=== PATIENT | male | born 2000 | race Two or more races ===

== ENCOUNTER 2022-02-24 14:43 | Inpatient (IN) | payer OTHER, SELFPAY ==
[2022-02-24 14:51] VITALS: BP 112/56; PULSE 90; RESP 18; TEMP 36.7; O2SAT 96; BMI 22.3
[2022-02-24 14:58] VITALS: RESP 18
[2022-02-24 15:46] LABS: COVID-19 Test Negative (Negative); IDNOW Serial# 55D5AD1C
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
--- NOTE | 2022-02-24 17:32 | PHA.MEDREC ---
Pharmacy Consult ? Medication Reconciliation Pharmacy has completed the medication reconciliation.
[2022-02-24 17:52] LABS: Appearance Urine Clear; Color Urine Yellow; Glucose Urine UA Negative (Negative); Leukocyte Esterase Urine Negative (Negative); Nitrite Urine Negative (Negative); Specific Gravity - Urine >= 1.030 (1.005-1.025); Urine Blood Negative (Negative); Urine Ketones Trace mg/dL (Negative); Urine Protein Trace mg/dL (Neg-Trace)
[2022-02-24 17:54] LABS: Amphetamine Screen Urine Not Detected (Not Detect); Barbiturates, Urine Not Detected (Not Detect); Benzodiazepines Screen Urine Not Detected (Not Detect); Cannabinoid Screen Urine Not Detected (Not Detect); Cocaine Screen Urine Not Detected (Not Detect); Fentanyl, urine Not Detected (Not Detect); Opiate Screen Urine Not Detected (Not Detect); Phencyclidine Screen Urine Not Detected (Not Detect)
--- NOTE | 2022-02-24 18:08 | PC.NURSE ---
pt refused t/w attempt to perform blood draw. t/w stressed the importance of labs to inpatient admission process. pt still refused. rn aware.
--- NOTE | 2022-02-24 19:55 | PC.NURSE ---
Nurse to nurse report given to JUSTEN Villa. Patient being transferred to . Pt aware of plan of care.
[2022-02-24 21:36] VITALS: BMI 24.0
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
[2022-02-25 08:00] VITALS: BP 136/65; PULSE 79; TEMP 36.4
--- NOTE | 2022-02-25 15:43 | PC.NURSE ---
Pt signed 3 day notice up on Tuesday, 03/02. , FAMILIA, and SW aware.
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
[2022-02-25 17:19] VITALS: BP 116/56; PULSE 74; RESP 16; TEMP 36.9; O2SAT 98
[2022-02-26 06:00] VITALS: BP 121/67; PULSE 94; TEMP 36.3
[2022-02-26] MEDS: Benztropine Mesylate 1 MG TABLET PO (09:35)
[2022-02-26] MEDS: ARIPiprazole 20 MG TABLET PO (09:35)
--- NOTE | 2022-02-26 16:03 | HO.PSYCHPN ---
Subjective Subjective Date of Service: 02/26/22 Reason For Visit: SEC 12,NON MED COMP,INCR AGRESSION @ HOME Subjective Notes: 3 Day Healthcare Proxy: No Guardianship: Yes (father went to court today and reports this was granted) Medical Problems Affecting Mental Status: No Interim History: Responding to internal stimuli Visable on the unit Poor interactions at times-spontaneous laughing, posturing Medication Compliance: Yes Side effects from medications: No Attending Groups: No Review of Systems Acute medical concerns: No Medical Review of Systems: unchanged Mental Status Exam Mental Status Exam Patient Appearance: Appropriate Patient Orientation: Person Level of Consciousness: Alert Patient Behavior: Guarded, Suspicious, Restless, Wandering, Resistive to Care, Avoidant, Distractible, Isolative, Good Eye Contact and Impulsive Mood Description: Suspicious, Withdrawn and Labile Affect Description: Suspicious, Withdrawn and Labile Patient Cognition Impaired: Yes Ability to Follow Directions: Fair Speech Pattern: Spontaneous Speech Memory Description: Remote Impaired and Episodic Impaired Hallucinations: Auditory and Visual Delusions: Paranoid Ideation and Present Thought Process: Illogical, Distracted and Confusion Thought Content: positive for Poverty of Content, positive for Thought Blocking and positive for Disorganized Abnormal Motor Activity Signs and Symptoms: Restlessness Judgement: Poor Diagnostics Vital Signs (24Hr): Vital Signs - 24 hr 02/25/22 17:19 02/26/22 06:00 Temperature 98.5 F 97.4 F Pulse Rate 74 94 Respiratory Rate 16 Blood Pressure 116/56 L 121/67 Pulse Oximetry 98 Oxygen Delivery Method Room Air BMI result Body Mass Index 24.0 Labs Labs: Laboratory Results - last 48 hr 02/24/22 02/24/22 17:21 17:22 Urine Color Yellow Urine Appearance Clear Urine pH 7.0 Ur Specific [place] >= 1.030 H Urine Protein Trace Urine Glucose (UA) Negative Urine Ketones Trace Urine Blood Negative Urine Nitrite Negative Ur Leukocyte Esterase Negative Urine Opiates Screen Not Detected Urine Fentanyl Screen Not Detected Ur Barbiturates Screen Not Detected Ur Phencyclidine Scrn Not Detected Ur Amphetamines Screen Not Detected U Benzodiazepines Scrn Not Detected Urine Cocaine Screen Not Detected U Marijuana (THC) Screen Not Detected Medications Medications Current Medications Acetaminophen (Acetaminophen 325 Mg Tablet) 650 mg PO Q6H PRN PRN Reason: Headache/Pain Mild Scale (1-3) Al Hydroxide/Mg Hydroxide (Magnesium Hydrox/Alum Hydrox 30 Ml Oral.Susp) 30 ml PO Q6H PRN PRN Reason: Heartburn/Nausea Aripiprazole (Aripiprazole 20 Mg Tablet) 20 mg PO DAILY JELANI Last Admin: 02/26/22 09:35 Dose: 20 mg Benztropine Mesylate (Benztropine Mesylate 1 Mg Tablet) 1 mg PO BID JELANI Last Admin: 02/26/22 09:35 Dose: 1 mg Haloperidol (Haloperidol 5 Mg Tablet) 5 mg PO TID PRN PRN Reason: psychotic agitation Hydroxyzine HCl (Hydroxyzine Hcl 50 Mg Tablet) 50 mg PO Q6H PRN PRN Reason: Anxiety Lorazepam (Lorazepam 1 Mg Tablet) 1 mg PO Q6H PRN PRN Reason: psychotic agitation Magnesium Hydroxide (Milk Of Magnesia 30 Ml Oral.Susp) 30 ml PO DAILY PRN PRN Reason: Constipation Pharmacy Consult (Consult Rx Perform Med Rec) 1 each MISCELLANE ONCE PRN PRN Reason: Consult order Prazosin HCl (Prazosin Hcl 1 Mg Capsule) 2 mg PO BEDTIME JELANI; Protocol Trazodone HCl (Trazodone Hcl 50 Mg Tablet) 50 mg PO BEDTIME PRN PRN Reason: Insomnia Allergies Allergies Allergy/AdvReac Type Severity Reaction Status Date / Time No Known Allergies Allergy Verified 02/24/22 14:48 Assessment & Plan Assessment & Plan (1) Schizophrenia: Status: Acute Code(s): F20.9 - Schizophrenia, unspecified Plan 02/26/22- Continue current plan Father reports he has been granted guardianship He has paperwork for tw to complete for the court which will be done. I spent minutes with the patient and/or on the patient floor today, greater than?50% of which was spent counseling/coordinating care. Informed Consent: does not understand Reason for contiued inpatient stay Substantial Risk for: harm to self, harm to others, inability to function and rapid decompensation
[2022-02-26 18:00] VITALS: BP 117/88; PULSE 97; TEMP 36.2; O2SAT 96
[2022-02-27 08:00] VITALS: BP 116/57; PULSE 82; TEMP 36.2
[2022-02-27] MEDS: Benztropine Mesylate 1 MG TABLET PO ×2 (10:34→20:33)
[2022-02-27] MEDS: ARIPiprazole 20 MG TABLET PO (10:34)
--- NOTE | 2022-02-27 14:47 | HO.PSYCHPN ---
Subjective Subjective Date of Service: 02/27/22 Reason For Visit: SEC 12,NON MED COMP,INCR AGRESSION @ HOME Interim History: Pacing unit. Internally preoccupied. Difficulty focusing. Partial medication adherence. Medication Compliance: Intermittent Side effects from medications: No Attending Groups: No Review of Systems Acute medical concerns: No Review of Systems Review of Systems Yes Unobtainable due to mental status Mental Status Exam Mental Status Exam Narrative: Pacing. Internally preoccupied. Poor concentration. Does appear guarded. Unable to assess SI HI or insight Diagnostics Vital Signs (24Hr): Vital Signs - 24 hr 02/26/22 18:00 02/27/22 08:00 Temperature 97.2 F 97.2 F Pulse Rate 97 82 Blood Pressure 117/88 116/57 L Pulse Oximetry 96 Oxygen Delivery Method Room Air BMI result Body Mass Index 24.0 Medications Medications Current Medications Acetaminophen (Acetaminophen 325 Mg Tablet) 650 mg PO Q6H PRN PRN Reason: Headache/Pain Mild Scale (1-3) Al Hydroxide/Mg Hydroxide (Magnesium Hydrox/Alum Hydrox 30 Ml Oral.Susp) 30 ml PO Q6H PRN PRN Reason: Heartburn/Nausea Aripiprazole (Aripiprazole 20 Mg Tablet) 20 mg PO DAILY [facility] Last Admin: 02/27/22 10:34 Dose: 20 mg Benztropine Mesylate (Benztropine Mesylate 1 Mg Tablet) 1 mg PO BID [facility] Last Admin: 02/27/22 10:34 Dose: 1 mg Haloperidol (Haloperidol 5 Mg Tablet) 5 mg PO TID PRN PRN Reason: psychotic agitation Hydroxyzine HCl (Hydroxyzine Hcl 50 Mg Tablet) 50 mg PO Q6H PRN PRN Reason: Anxiety Lorazepam (Lorazepam 1 Mg Tablet) 1 mg PO Q6H PRN PRN Reason: psychotic agitation Magnesium Hydroxide (Milk Of Magnesia 30 Ml Oral.Susp) 30 ml PO DAILY PRN PRN Reason: Constipation Pharmacy Consult (Consult Rx Perform Med Rec) 1 each MISCELLANE ONCE PRN PRN Reason: Consult order Prazosin HCl (Prazosin Hcl 1 Mg Capsule) 2 mg PO BEDTIME [facility]; Protocol Last Admin: 02/27/22 02:30 Dose: Not Given Trazodone HCl (Trazodone Hcl 50 Mg Tablet) 50 mg PO BEDTIME PRN PRN Reason: Insomnia Allergies Allergies Allergy/AdvReac Type Severity Reaction Status Date / Time No Known Allergies Allergy Verified 02/24/22 14:48 Assessment & Plan Assessment & Plan (1) Schizophrenia: Status: Acute Code(s): F20.9 - Schizophrenia, unspecified Plan 02/26/22- Continue current plan Father reports he has been granted guardianship He has paperwork for tw to complete for the court which will be done. 02/27/2022: Partial medication adherence. No changes to current regimen I spent minutes with the patient and/or on the patient floor today, greater than?50% of which was spent counseling/coordinating care. Reason for contiued inpatient stay Substantial Risk for: harm to others and inability to function
[2022-02-27 16:37] VITALS: BP 125/57; PULSE 57; RESP 16; TEMP 36.6; O2SAT 98
[2022-02-27] MEDS: Prazosin HCL 1 MG CAPSULE 2 MG PO (20:33)
[2022-02-28 08:00] VITALS: BP 102/57; PULSE 101; TEMP 36.6
[2022-02-28] MEDS: ARIPiprazole 20 MG TABLET PO (10:09)
[2022-02-28] MEDS: Benztropine Mesylate 1 MG TABLET PO ×2 (10:10→19:33)
--- NOTE | 2022-02-28 12:26 | P.PNPSI_ITS ---
Subjective Subjective Date of Service: 02/28/22 Reason For Visit: SEC 12,NON MED COMP,INCR AGRESSION @ HOME Interim History: Pacing unit. Internally preoccupied. Difficulty focusing. Accepting Abilify Medication Compliance: Yes Side effects from medications: No Attending Groups: No Review of Systems Acute medical concerns: No Review of Systems Review of Systems Yes Unobtainable due to mental status Mental Status Exam Mental Status Exam Narrative: Pacing. Internally preoccupied. Poor concentration. Does appear guarded. Unable to assess SI HI or insight Diagnostics Vital Signs (24Hr): Vital Signs - 24 hr 02/27/22 16:37 Temperature 97.9 F Pulse Rate 57 Respiratory Rate 16 Blood Pressure 125/57 L Pulse Oximetry 98 Oxygen Delivery Method Room Air BMI result Body Mass Index 24.0 Medications Medications Current Medications Acetaminophen (Acetaminophen 325 Mg Tablet) 650 mg PO Q6H PRN PRN Reason: Headache/Pain Mild Scale (1-3) Al Hydroxide/Mg Hydroxide (Magnesium Hydrox/Alum Hydrox 30 Ml Oral.Susp) 30 ml PO Q6H PRN PRN Reason: Heartburn/Nausea Aripiprazole (Aripiprazole 20 Mg Tablet) 20 mg PO DAILY [facility] Last Admin: 02/28/22 10:09 Dose: 20 mg Benztropine Mesylate (Benztropine Mesylate 1 Mg Tablet) 1 mg PO BID [facility] Last Admin: 02/28/22 10:10 Dose: 1 mg Haloperidol (Haloperidol 5 Mg Tablet) 5 mg PO TID PRN PRN Reason: psychotic agitation Hydroxyzine HCl (Hydroxyzine Hcl 50 Mg Tablet) 50 mg PO Q6H PRN PRN Reason: Anxiety Lorazepam (Lorazepam 1 Mg Tablet) 1 mg PO Q6H PRN PRN Reason: psychotic agitation Magnesium Hydroxide (Milk Of Magnesia 30 Ml Oral.Susp) 30 ml PO DAILY PRN PRN Reason: Constipation Pharmacy Consult (Consult Rx Perform Med Rec) 1 each MISCELLANE ONCE PRN PRN Reason: Consult order Prazosin HCl (Prazosin Hcl 1 Mg Capsule) 2 mg PO BEDTIME [facility]; Protocol Last Admin: 02/27/22 20:33 Dose: 2 mg Trazodone HCl (Trazodone Hcl 50 Mg Tablet) 50 mg PO BEDTIME PRN PRN Reason: Insomnia Allergies Allergies Allergy/AdvReac Type Severity Reaction Status Date / Time No Known Allergies Allergy Verified 02/24/22 14:48 Assessment & Plan Assessment & Plan (1) Schizophrenia: Status: Acute Code(s): F20.9 - Schizophrenia, unspecified Plan 02/26/22- Continue current plan Father reports he has been granted guardianship He has paperwork for tw to complete for the court which will be done. 02/27/2022: Maintain Abilify 20 mg I spent minutes with the patient and/or on the patient floor today, greater than?50% of which was spent counseling/coordinating care. Reason for contiued inpatient stay Substantial Risk for: harm to others
[2022-02-28 18:00] VITALS: BP 123/76; PULSE 86; RESP 20; TEMP 36.1; O2SAT 96
[2022-02-28] MEDS: Prazosin HCL 1 MG CAPSULE 2 MG PO (19:33)
[2022-02-28] MEDS: LORazepam 1 MG TABLET PO (19:33)
[2022-03-01 08:22] VITALS: BP 115/60; PULSE 107; TEMP 36.6; O2SAT 99
[2022-03-01] MEDS: Benztropine Mesylate 1 MG TABLET PO (10:03)
[2022-03-01] MEDS: ARIPiprazole 20 MG TABLET PO (10:03)
--- NOTE | 2022-03-01 16:49 | HO.PSYCHPN ---
Subjective Subjective Date of Service: 03/01/22 Reason For Visit: SEC 12,NON MED COMP,INCR AGRESSION @ HOME Subjective Notes: 3 Day Healthcare Proxy: No Guardianship: No Medical Problems Affecting Mental Status: No Interim History: Internal preoccupation observed. Self-dialoguing, smiling, laughing to himself. Pacing, responding to internal stimuli, anxious, some bizarre behaviors. Accepting meds, food, fluids. Three day notice expires 03/02. Medication Compliance: Yes Side effects from medications: No Attending Groups: No Review of Systems Acute medical concerns: No Medical Review of Systems: unchanged Mental Status Exam Mental Status Exam Patient Appearance: Disheveled Patient Orientation: Person and Place Level of Consciousness: Awake and Restless Patient Behavior: Guarded, Hyperactive, Suspicious, Restless, Wandering, Anxious, Resistive to Care, Avoidant, Distractible, Isolative, Good Eye Contact and Impulsive Mood Description: Labile Affect Description: Labile and Blunted Patient Cognition Impaired: Yes Ability to Follow Directions: Fair Speech Pattern: Spontaneous Speech Memory Description: Remote Impaired and Episodic Impaired Hallucinations: Auditory Delusions: Being Controlled, Paranoid Ideation and Present Perceptual Disturbances: Depersonalization, Derealization and Hallucinations Thought Process: Distracted Thought Content: positive for Circumstantial, positive for Poverty of Content, positive for Thought Blocking, positive for Tangential and positive for Disorganized Depressive Symptoms: Insomnia, Difficulty Sleeping and Isolating-Friends/Family Abnormal Motor Activity Signs and Symptoms: Restlessness Judgement: Poor Diagnostics Vital Signs (24Hr): Vital Signs - 24 hr 02/28/22 18:00 03/01/22 08:22 Temperature 97 F 97.9 F Pulse Rate 86 107 H Respiratory Rate 20 Blood Pressure 123/76 115/60 Pulse Oximetry 96 99 Oxygen Delivery Method Room Air Room Air BMI result Body Mass Index 24.0 Medications Medications Current Medications Acetaminophen (Acetaminophen 325 Mg Tablet) 650 mg PO Q6H PRN PRN Reason: Headache/Pain Mild Scale (1-3) Al Hydroxide/Mg Hydroxide (Magnesium Hydrox/Alum Hydrox 30 Ml Oral.Susp) 30 ml PO Q6H PRN PRN Reason: Heartburn/Nausea Aripiprazole (Aripiprazole 20 Mg Tablet) 20 mg PO DAILY JELANI Last Admin: 03/01/22 10:03 Dose: 20 mg Benztropine Mesylate (Benztropine Mesylate 1 Mg Tablet) 1 mg PO BID JELANI Last Admin: 03/01/22 10:03 Dose: 1 mg Haloperidol (Haloperidol 5 Mg Tablet) 5 mg PO TID PRN PRN Reason: psychotic agitation Hydroxyzine HCl (Hydroxyzine Hcl 50 Mg Tablet) 50 mg PO Q6H PRN PRN Reason: Anxiety Lorazepam (Lorazepam 1 Mg Tablet) 1 mg PO Q6H PRN PRN Reason: psychotic agitation Last Admin: 02/28/22 19:33 Dose: 1 mg Magnesium Hydroxide (Milk Of Magnesia 30 Ml Oral.Susp) 30 ml PO DAILY PRN PRN Reason: Constipation Pharmacy Consult (Consult Rx Perform Med Rec) 1 each MISCELLANE ONCE PRN PRN Reason: Consult order Prazosin HCl (Prazosin Hcl 1 Mg Capsule) 2 mg PO BEDTIME JELANI; Protocol Last Admin: 02/28/22 19:33 Dose: 2 mg Trazodone HCl (Trazodone Hcl 50 Mg Tablet) 50 mg PO BEDTIME PRN PRN Reason: Insomnia Allergies Allergies Allergy/AdvReac Type Severity Reaction Status Date / Time No Known Allergies Allergy Verified 02/24/22 14:48 Assessment & Plan Assessment & Plan (1) Schizophrenia: Status: Acute Code(s): F20.9 - Schizophrenia, unspecified Plan 02/26/22- Continue current plan Father reports he has been granted guardianship He has paperwork for tw to complete for the court which will be done. 02/27/2022: Maintain Abilify 20 mg 03/01/22: Continue current regime as per family pt has positive effect with compliance. I spent minutes with the patient and/or on the patient floor today, greater than?50% of which was spent counseling/coordinating care. Informed Consent: does not understand Reason for contiued inpatient stay Substantial Risk for: harm to self, harm to others, inability to function and rapid decompensation
[2022-03-01 19:24] VITALS: BP 132/65; PULSE 67; RESP 16; TEMP 37.1
[2022-03-02 08:22] VITALS: BP 92/66; PULSE 114; RESP 16; TEMP 36.5; O2SAT 98
[2022-03-02] MEDS: Benztropine Mesylate 1 MG TABLET PO ×2 (08:38→21:43)
[2022-03-02] MEDS: ARIPiprazole 20 MG TABLET PO (08:38)
[2022-03-02] MEDS: polyethylene glycoL 3350 17 GM POWD.PACK PO (12:00)
--- NOTE | 2022-03-02 12:37 | HO.PSYCHPN ---
Subjective Subjective Date of Service: 03/02/22 Reason For Visit: SEC 12,NON MED COMP,INCR AGRESSION @ HOME Subjective Notes: Conditional Voluntary and 3 Day (retracted) Healthcare Proxy: No Guardianship: No Medical Problems Affecting Mental Status: No Interim History: Retracted TDN. Discussed meds- I don't need them really. Discussed what the purpose of meds is for, pt verbalized understanding and reports current regime does not work. He will allow a change which we will implement. Wanting discharge-reviewed why we were not discharging him immediately and that his father will need to be comfortable with his presentation and plan prior to discharge. Medication Compliance: Yes Side effects from medications: No Attending Groups: No Review of Systems Acute medical concerns: No Medical Review of Systems: unchanged Mental Status Exam Mental Status Exam Patient Appearance: Disheveled Patient Orientation: Person and Place Level of Consciousness: Awake and Restless Patient Behavior: Guarded, Hyperactive, Suspicious, Restless, Wandering, Anxious, Resistive to Care, Avoidant, Distractible, Isolative, Good Eye Contact and Impulsive Mood Description: Labile Affect Description: Labile and Blunted Patient Cognition Impaired: Yes Ability to Follow Directions: Fair Speech Pattern: Spontaneous Speech Memory Description: Remote Impaired and Episodic Impaired Hallucinations: Auditory Delusions: Being Controlled, Paranoid Ideation and Present Perceptual Disturbances: Depersonalization, Derealization and Hallucinations Thought Process: Distracted Thought Content: positive for Circumstantial, positive for Poverty of Content, positive for Thought Blocking, positive for Tangential and positive for Disorganized Depressive Symptoms: Insomnia, Difficulty Sleeping and Isolating-Friends/Family Abnormal Motor Activity Signs and Symptoms: Restlessness Judgement: Poor Diagnostics Vital Signs (24Hr): Vital Signs - 24 hr 03/01/22 19:24 03/02/22 08:22 Temperature 98.7 F 97.7 F Pulse Rate 67 114 H Respiratory Rate 16 16 Blood Pressure 132/65 92/66 Pulse Oximetry 98 Oxygen Delivery Method Room Air BMI result Body Mass Index 24.0 Medications Medications Current Medications Acetaminophen (Acetaminophen 325 Mg Tablet) 650 mg PO Q6H PRN PRN Reason: Headache/Pain Mild Scale (1-3) Al Hydroxide/Mg Hydroxide (Magnesium Hydrox/Alum Hydrox 30 Ml Oral.Susp) 30 ml PO Q6H PRN PRN Reason: Heartburn/Nausea Aripiprazole (Aripiprazole 20 Mg Tablet) 20 mg PO DAILY JELANI Last Admin: 03/02/22 08:38 Dose: 20 mg Benztropine Mesylate (Benztropine Mesylate 1 Mg Tablet) 1 mg PO BID JELANI Last Admin: 03/02/22 08:38 Dose: 1 mg Haloperidol (Haloperidol 5 Mg Tablet) 5 mg PO TID PRN PRN Reason: psychotic agitation Hydroxyzine HCl (Hydroxyzine Hcl 50 Mg Tablet) 50 mg PO Q6H PRN PRN Reason: Anxiety Lorazepam (Lorazepam 1 Mg Tablet) 1 mg PO Q6H PRN PRN Reason: psychotic agitation Last Admin: 02/28/22 19:33 Dose: 1 mg Magnesium Hydroxide (Milk Of Magnesia 30 Ml Oral.Susp) 30 ml PO DAILY PRN PRN Reason: Constipation Pharmacy Consult (Consult Rx Perform Med Rec) 1 each MISCELLANE ONCE PRN PRN Reason: Consult order Polyethylene Glycol (Polyethylene Glycol 3350 17 Gm Powd.Pack) 17 gm PO DAILY PRN PRN Reason: constipation Last Admin: 03/02/22 12:00 Dose: 17 gm Prazosin HCl (Prazosin Hcl 1 Mg Capsule) 2 mg PO BEDTIME JELANI; Protocol Last Admin: 03/01/22 22:05 Dose: Not Given Trazodone HCl (Trazodone Hcl 50 Mg Tablet) 50 mg PO BEDTIME PRN PRN Reason: Insomnia Allergies Allergies Allergy/AdvReac Type Severity Reaction Status Date / Time No Known Allergies Allergy Verified 02/24/22 14:48 Assessment & Plan Assessment & Plan (1) Schizophrenia: Status: Acute Code(s): F20.9 - Schizophrenia, unspecified Plan 02/26/22- Continue current plan Father reports he has been granted guardianship He has paperwork for tw to complete for the court which will be done. 02/27/2022: Maintain Abilify 20 mg 03/01/22: Continue current regime as per family pt has positive effect with compliance. 03/02/22: Discontine Abilify Olanzapine 15 mg hs Lamictal 25 mg bid I spent minutes with the patient and/or on the patient floor today, greater than?50% of which was spent counseling/coordinating care. Patient educated on: medication risk/benefits and therapeutic strategies Informed Consent: does not understand Reason for contiued inpatient stay Substantial Risk for: harm to self, harm to others, inability to function and rapid decompensation
[2022-03-02 21:00] VITALS: BP 134/92; PULSE 61; TEMP 36.6
[2022-03-02] MEDS: OLANZapine 7.5 MG TABLET 15 MG PO (21:42)
[2022-03-02] MEDS: lamoTRIgine 25 MG TABLET PO (21:43)
[2022-03-02] MEDS: Prazosin HCL 1 MG CAPSULE 2 MG PO (21:43)
[2022-03-03 06:00] VITALS: BP 136/65; PULSE 99; RESP 18; O2SAT 99
[2022-03-03] MEDS: Benztropine Mesylate 1 MG TABLET PO ×2 (09:15→19:28)
[2022-03-03] MEDS: lamoTRIgine 25 MG TABLET PO ×2 (09:15→19:28)
--- NOTE | 2022-03-03 10:53 | HO.PSYCHPN ---
Subjective Subjective Date of Service: 03/03/22 Reason For Visit: SEC 12,NON MED COMP,INCR ARIEL @ HOME Subjective Notes: Conditional Voluntary Interim History: Pt in single room, pacing, delayed response rate. Poor hygiene, mattress on the side, food over the floor. Pt denies hearing voices, but is internally preoccupied. He denies SI/HI. he asks this typewriter operator automatic when is he leaving. Pt states he does not need medications. However, informed about concern in terms of symptoms and how is affecting his ability to function along with destruction of property. Per nursing, suspect pt is cheeking meds, will switch to zydis. Medication Compliance: Yes Side effects from medications: No Attending Groups: No Review of Systems Review of Systems Constitutional : No Weight loss, No Fever, No Chills, No Fatigue, No Malaise ENT/Mouth : No sore throat, No Rhinorrhea Eyes: No Eye Pain, No Swelling, No Redness Cardiovascular : No Chest Pain, No SOB, No Dyspnea on Exertion, No Orthopnea, No Edema, No Palpitations Respiratory : No Cough, No Sputum, No Wheezing Gastrointestinal : No Nausea, No Vomiting, No Diarrhea, No Constipation, No abdominal Pain, No Hematochezia, No Melena Genitourinary : No Dysuria, No Urinary Frequency, No Hematuria, Musculoskeletal : No joint pain, No Myalgias, No Joint Swelling Skin : No Skin Lesions, No rash Neuro : No Weakness, No Numbness, No Dizziness, No Headache Psych : No Anxiety/Panic, No Depression, No SI, NO HI All other systems reviewed and are negative Yes all other systems are reviewed and are negative and Unobtainable due to mental status Reports behavioral changes Psychiatric: Reports behavioral changes, Reports difficulty concentrating, Reports auditory hallucinations, Reports paranoia, Reports visual hallucinations, Reports hallucinations and Reports homicidal ideation Mental Status Exam Mental Status Exam Narrative: Appearance: wearing hospital gown, poor hygiene, pacing Behavior: guarded, minimally engaging Psychomotor: pacing not acute agitation Speech: mumbles at times, delayed response rate, minimally spontaneous TP: disorganized TC: wanting to leave Mood: okay Affect: constricted, guarded and suspicious AH/VH: denies, but he is clearly internally preoccupied. SI: denies HI: denies Insight/judgment: impaired x 2. Memory/cog: alert, not oriented to situation. impaired secondary to psychiatric symptoms. Diagnostics Vital Signs (24Hr): Vital Signs - 24 hr 03/02/22 21:00 03/03/22 06:00 Temperature 97.9 F Pulse Rate 61 99 Respiratory Rate 18 Blood Pressure 134/92 H 136/65 Pulse Oximetry 99 Oxygen Delivery Method Room Air BMI result Body Mass Index 24.0 Medications Medications Current Medications Acetaminophen (Acetaminophen 325 Mg Tablet) 650 mg PO Q6H PRN PRN Reason: Headache/Pain Mild Scale (1-3) Al Hydroxide/Mg Hydroxide (Magnesium Hydrox/Alum Hydrox 30 Ml Oral.Susp) 30 ml PO Q6H PRN PRN Reason: Heartburn/Nausea Benztropine Mesylate (Benztropine Mesylate 1 Mg Tablet) 1 mg PO BID [facility] Last Admin: 03/03/22 09:15 Dose: 1 mg Haloperidol (Haloperidol 5 Mg Tablet) 5 mg PO TID PRN PRN Reason: psychotic agitation Hydroxyzine HCl (Hydroxyzine Hcl 50 Mg Tablet) 50 mg PO Q6H PRN PRN Reason: Anxiety Lamotrigine (Lamotrigine 25 Mg Tablet) 25 mg PO BID [facility] Last Admin: 03/03/22 09:15 Dose: 25 mg Lorazepam (Lorazepam 1 Mg Tablet) 1 mg PO Q6H PRN PRN Reason: psychotic agitation Last Admin: 02/28/22 19:33 Dose: 1 mg Magnesium Hydroxide (Milk Of Magnesia 30 Ml Oral.Susp) 30 ml PO DAILY PRN PRN Reason: Constipation Olanzapine (Olanzapine Odt 10 Mg Tab.Rapdis) 15 mg TRANSLINGU BEDTIME [facility] Pharmacy Consult (Consult Rx Perform Med Rec) 1 each MISCELLANE ONCE PRN PRN Reason: Consult order Polyethylene Glycol (Polyethylene Glycol 3350 17 Gm Powd.Pack) 17 gm PO DAILY PRN PRN Reason: constipation Last Admin: 03/02/22 12:00 Dose: 17 gm Prazosin HCl (Prazosin Hcl 1 Mg Capsule) 2 mg PO BEDTIME [facility]; Protocol Last Admin: 03/02/22 21:43 Dose: 2 mg Trazodone HCl (Trazodone Hcl 50 Mg Tablet) 50 mg PO BEDTIME PRN PRN Reason: Insomnia Allergies Allergies Allergy/AdvReac Type Severity Reaction Status Date / Time No Known Allergies Allergy Verified 02/24/22 14:48 Assessment & Plan Assessment & Plan (1) Schizophrenia: Status: Acute Code(s): F20.9 - Schizophrenia, unspecified Plan 02/26/22- Continue current plan Father reports he has been granted guardianship He has paperwork for tw to complete for the court which will be done. 02/27/2022: Maintain Abilify 20 mg 03/01/22: Continue current regime as per family pt has positive effect with compliance. 03/02/22: Discontine Abilify Olanzapine 15 mg hs Lamictal 25 mg bid 03/03- switch to zydis will increase to 30mg po qhs. I spent minutes with the patient and/or on the patient floor today, greater than?50% of which was spent counseling/coordinating care. Reason for contiued inpatient stay Substantial Risk for: inability to function
[2022-03-03] MEDS: polyethylene glycoL 3350 17 GM POWD.PACK PO (12:55)
[2022-03-03] MEDS: Prazosin HCL 1 MG CAPSULE 2 MG PO (19:28)
[2022-03-03] MEDS: OLANZapine ODT 10 MG TAB.RAPDIS 30 MG TRANSLINGU (19:28)
[2022-03-03 19:55] VITALS: BP 132/75; PULSE 60
--- NOTE | 2022-03-04 08:09 | HO.PSYCHPN ---
Subjective Subjective Date of Service: 03/04/22 Reason For Visit: SEC 12,NON MED COMP,INCR ISADORAION @ HOME Interim History: Pt continues to present as internally preoccupied. Difficult to enagge in any meaningful conversation as he is not fully forthcoming about extend of psychosis and delusional content. He denies SI/HI. He also denies VH/AH but is clearly internally preoccupied. He asks about discharge today or tomorrow, pt informed he is not ready for discharge given that he continues to present with symptoms. Pt taking medications with much encouragement. Medication Compliance: Yes Side effects from medications: No Review of Systems Review of Systems Constitutional : No Weight loss, No Fever, No Chills, No Fatigue, No Malaise ENT/Mouth : No sore throat, No Rhinorrhea Eyes: No Eye Pain, No Swelling, No Redness Cardiovascular : No Chest Pain, No SOB, No Dyspnea on Exertion, No Orthopnea, No Edema, No Palpitations Respiratory : No Cough, No Sputum, No Wheezing Gastrointestinal : No Nausea, No Vomiting, No Diarrhea, No Constipation, No abdominal Pain, No Hematochezia, No Melena Genitourinary : No Dysuria, No Urinary Frequency, No Hematuria, Musculoskeletal : No joint pain, No Myalgias, No Joint Swelling Skin : No Skin Lesions, No rash Neuro : No Weakness, No Numbness, No Dizziness, No Headache Psych : No Anxiety/Panic, No Depression, No SI, NO HI All other systems reviewed and are negative Yes all other systems are reviewed and are negative and Unobtainable due to mental status Reports behavioral changes Psychiatric: Reports behavioral changes, Reports difficulty concentrating, Reports auditory hallucinations, Reports paranoia, Reports visual hallucinations, Reports hallucinations and Reports homicidal ideation Mental Status Exam Mental Status Exam Narrative: Appearance: wearing hospital gown, poor hygiene, pacing Behavior: guarded, minimally engaging Psychomotor: pacing not acute agitation Speech: mumbles at times, delayed response rate, minimally spontaneous TP: disorganized TC: wanting to leave Mood: okay Affect: constricted, guarded and suspicious AH/VH: denies, but he is clearly internally preoccupied. SI: denies HI: denies Insight/judgment: impaired x 2. Memory/cog: alert, not oriented to situation. impaired secondary to psychiatric symptoms. Diagnostics Vital Signs (24Hr): Vital Signs - 24 hr 03/04/22 08:30 03/04/22 18:00 Temperature 97.6 F 98.1 F Pulse Rate 89 72 Blood Pressure 115/55 L 130/62 Pulse Oximetry 100 Oxygen Delivery Method Room Air BMI result Body Mass Index 24.0 Medications Medications Current Medications Acetaminophen (Acetaminophen 325 Mg Tablet) 650 mg PO Q6H PRN PRN Reason: Headache/Pain Mild Scale (1-3) Al Hydroxide/Mg Hydroxide (Magnesium Hydrox/Alum Hydrox 30 Ml Oral.Susp) 30 ml PO Q6H PRN PRN Reason: Heartburn/Nausea Benztropine Mesylate (Benztropine Mesylate 1 Mg Tablet) 1 mg PO BID [facility] Last Admin: 03/04/22 22:44 Dose: Not Given Haloperidol (Haloperidol 5 Mg Tablet) 5 mg PO TID PRN PRN Reason: psychotic agitation Hydroxyzine HCl (Hydroxyzine Hcl 50 Mg Tablet) 50 mg PO Q6H PRN PRN Reason: Anxiety Lamotrigine (Lamotrigine 25 Mg Tablet) 25 mg PO BID [facility] Last Admin: 03/04/22 22:44 Dose: Not Given Lorazepam (Lorazepam 1 Mg Tablet) 1 mg PO Q6H PRN PRN Reason: psychotic agitation Last Admin: 02/28/22 19:33 Dose: 1 mg Magnesium Hydroxide (Milk Of Magnesia 30 Ml Oral.Susp) 30 ml PO DAILY PRN PRN Reason: Constipation Olanzapine (Olanzapine Odt 10 Mg Tab.Rapdis) 30 mg TRANSLINGU BEDTIME JELANI Last Admin: 03/04/22 22:44 Dose: Not Given Pharmacy Consult (Consult Rx Perform Med Rec) 1 each MISCELLANE ONCE PRN PRN Reason: Consult order Polyethylene Glycol (Polyethylene Glycol 3350 17 Gm Powd.Pack) 17 gm PO DAILY PRN PRN Reason: constipation Last Admin: 03/03/22 12:55 Dose: 17 gm Prazosin HCl (Prazosin Hcl 1 Mg Capsule) 2 mg PO BEDTIME JELANI; Protocol Last Admin: 03/04/22 22:44 Dose: Not Given Trazodone HCl (Trazodone Hcl 50 Mg Tablet) 50 mg PO BEDTIME PRN PRN Reason: Insomnia Allergies Allergies Allergy/AdvReac Type Severity Reaction Status Date / Time No Known Allergies Allergy Verified 02/24/22 14:48 Assessment & Plan Assessment & Plan (1) Schizophrenia: Status: Acute Code(s): F20.9 - Schizophrenia, unspecified Plan 02/26/22- Continue current plan Father reports he has been granted guardianship He has paperwork for tw to complete for the court which will be done. 02/27/2022: Maintain Abilify 20 mg 03/01/22: Continue current regime as per family pt has positive effect with compliance. 03/02/22: Discontine Abilify Olanzapine 15 mg hs Lamictal 25 mg bid 03/03- switch to zydis will increase to 30mg po qhs. 03/04 continue tx. I spent minutes with the patient and/or on the patient floor today, greater than?50% of which was spent counseling/coordinating care. Reason for contiued inpatient stay Substantial Risk for: harm to others and inability to function
[2022-03-04 08:30] VITALS: BP 115/55; PULSE 89; TEMP 36.4
[2022-03-04] MEDS: Benztropine Mesylate 1 MG TABLET PO (09:09)
[2022-03-04] MEDS: lamoTRIgine 25 MG TABLET PO (09:09)
[2022-03-04 18:00] VITALS: BP 130/62; PULSE 72; TEMP 36.7; O2SAT 100
[2022-03-05 09:00] VITALS: BP 136/61; PULSE 70; TEMP 37.1
[2022-03-05] MEDS: lamoTRIgine 25 MG TABLET PO ×2 (10:31→20:55)
[2022-03-05] MEDS: Benztropine Mesylate 1 MG TABLET PO ×2 (10:32→20:55)
--- NOTE | 2022-03-05 14:33 | HO.PSYCHPN ---
Subjective Subjective Date of Service: 03/05/22 Reason For Visit: SEC 12,NON MED COMP,INCR ISADORAION @ HOME Subjective Notes: Conditional Voluntary Healthcare Proxy: No Guardianship: No Medical Problems Affecting Mental Status: No Interim History: Met with pt and father. Father sees some improvement. Family is preparing for pt to begin GED classes so he may attend community [employer]. Also, pt will work at [employer] on weekends [address] 03/22/22 for community guardianship hearing Discussed discharge possible end of next week. Pt calmer, eating snacks, giggling at times, smiling. Calm. I am happy here. Medication Compliance: Yes Side effects from medications: No Attending Groups: No Review of Systems Acute medical concerns: No Medical Review of Systems: unchanged Mental Status Exam Mental Status Exam Patient Appearance: Disheveled Patient Orientation: Person and Place Level of Consciousness: Alert Patient Behavior: Talkative and Good Eye Contact Mood Description: Calm Affect Description: Calm Patient Cognition Impaired: Yes Ability to Follow Directions: Good Speech Pattern: Spontaneous Speech and Mumbled Memory Description: Remote Impaired and Episodic Impaired Hallucinations: Auditory Delusions: Present Thought Process: Distracted Thought Content: positive for Loose Associations Abnormal Motor Activity Signs and Symptoms: Restlessness Judgement: Poor Diagnostics Vital Signs (24Hr): Vital Signs - 24 hr 03/04/22 18:00 03/05/22 09:00 Temperature 98.1 F 98.7 F Pulse Rate 72 70 Blood Pressure 130/62 136/61 Pulse Oximetry 100 Oxygen Delivery Method Room Air BMI result Body Mass Index 24.0 Medications Medications Current Medications Acetaminophen (Acetaminophen 325 Mg Tablet) 650 mg PO Q6H PRN PRN Reason: Headache/Pain Mild Scale (1-3) Al Hydroxide/Mg Hydroxide (Magnesium Hydrox/Alum Hydrox 30 Ml Oral.Susp) 30 ml PO Q6H PRN PRN Reason: Heartburn/Nausea Benztropine Mesylate (Benztropine Mesylate 1 Mg Tablet) 1 mg PO BID [facility] Last Admin: 03/05/22 10:32 Dose: 1 mg Haloperidol (Haloperidol 5 Mg Tablet) 5 mg PO TID PRN PRN Reason: psychotic agitation Hydroxyzine HCl (Hydroxyzine Hcl 50 Mg Tablet) 50 mg PO Q6H PRN PRN Reason: Anxiety Lamotrigine (Lamotrigine 25 Mg Tablet) 25 mg PO BID [facility] Last Admin: 03/05/22 10:31 Dose: 25 mg Lorazepam (Lorazepam 1 Mg Tablet) 1 mg PO Q6H PRN PRN Reason: psychotic agitation Last Admin: 02/28/22 19:33 Dose: 1 mg Magnesium Hydroxide (Milk Of Magnesia 30 Ml Oral.Susp) 30 ml PO DAILY PRN PRN Reason: Constipation Olanzapine (Olanzapine Odt 10 Mg Tab.Rapdis) 30 mg TRANSLINGU BEDTIME JELANI Last Admin: 03/04/22 22:44 Dose: Not Given Pharmacy Consult (Consult Rx Perform Med Rec) 1 each MISCELLANE ONCE PRN PRN Reason: Consult order Polyethylene Glycol (Polyethylene Glycol 3350 17 Gm Powd.Pack) 17 gm PO DAILY PRN PRN Reason: constipation Last Admin: 03/03/22 12:55 Dose: 17 gm Prazosin HCl (Prazosin Hcl 1 Mg Capsule) 2 mg PO BEDTIME JELANI; Protocol Last Admin: 03/04/22 22:44 Dose: Not Given Trazodone HCl (Trazodone Hcl 50 Mg Tablet) 50 mg PO BEDTIME PRN PRN Reason: Insomnia Allergies Allergies Allergy/AdvReac Type Severity Reaction Status Date / Time No Known Allergies Allergy Verified 02/24/22 14:48 Assessment & Plan Assessment & Plan (1) Schizophrenia: Status: Acute Code(s): F20.9 - Schizophrenia, unspecified Plan 02/26/22- Continue current plan Father reports he has been granted guardianship He has paperwork for tw to complete for the court which will be done. 02/27/2022: Maintain Abilify 20 mg 03/01/22: Continue current regime as per family pt has positive effect with compliance. 03/02/22: Discontine Abilify Olanzapine 15 mg hs Lamictal 25 mg bid 03/03- switch to zydis will increase to 30mg po qhs. 03/04 continue tx. 03/05/22- Continue current plan I spent minutes with the patient and/or on the patient floor today, greater than?50% of which was spent counseling/coordinating care. Guardian/Caregiver educated on: diagnosis, medication risk/benefits and therapeutic strategies Informed Consent: does not understand Reason for contiued inpatient stay Substantial Risk for: rapid decompensation
[2022-03-05 18:52] VITALS: BP 129/66; PULSE 75; RESP 16; TEMP 36.3; O2SAT 99
[2022-03-05] MEDS: OLANZapine ODT 10 MG TAB.RAPDIS 30 MG TRANSLINGU (20:55)
[2022-03-05] MEDS: Prazosin HCL 1 MG CAPSULE 2 MG PO (20:56)
[2022-03-06 08:10] VITALS: BP 133/60; PULSE 99; RESP 18; TEMP 36.8; O2SAT 99
[2022-03-06] MEDS: Benztropine Mesylate 1 MG TABLET PO ×2 (08:45→18:32)
[2022-03-06] MEDS: lamoTRIgine 25 MG TABLET PO ×2 (08:45→18:32)
[2022-03-06] MEDS: Ondansetron ODT 4 MG TAB.RAPDIS TRANSLINGU ×2 (08:45→15:13)
--- NOTE | 2022-03-06 09:50 | P.PNPSI_ITS ---
Subjective Subjective Date of Service: 03/06/22 Reason For Visit: SEC 12,NON MED COMP,INCR ISADORAION @ HOME Interim History: Patient seen and discussed with RN. Patient continues to be seen pacing the bonner and clearly appears to be responding to internal stimuli and engaging in self dialogue. Patient seen in his room. He perseverated asking about when he would be discharged. He was calm when asking and when redirected to ask his primary team. He would mumble to himself. He reportedly is taking his medications. Review of Systems Review of Systems Constitutional : No Weight loss, No Fever, No Chills, No Fatigue, No Malaise ENT/Mouth : No sore throat, No Rhinorrhea Eyes: No Eye Pain, No Swelling, No Redness Cardiovascular : No Chest Pain, No SOB, No Dyspnea on Exertion, No Orthopnea, No Edema, No Palpitations Respiratory : No Cough, No Sputum, No Wheezing Gastrointestinal : No Nausea, No Vomiting, No Diarrhea, No Constipation, No abdominal Pain, No Hematochezia, No Melena Genitourinary : No Dysuria, No Urinary Frequency, No Hematuria, Musculoskeletal : No joint pain, No Myalgias, No Joint Swelling Skin : No Skin Lesions, No rash Neuro : No Weakness, No Numbness, No Dizziness, No Headache Psych : No Anxiety/Panic, No Depression, No SI, NO HI All other systems reviewed and are negative Yes all other systems are reviewed and are negative and Unobtainable due to mental status Reports behavioral changes Psychiatric: Reports behavioral changes, Reports difficulty concentrating, Reports auditory hallucinations, Reports paranoia, Reports visual hallucin ations, Reports hallucinations and Reports homicidal ideation Mental Status Exam Mental Status Exam Narrative: Appearance: wearing hospital gown, poor hygiene, pacing Behavior: guarded, minimally engaging Psychomotor: pacing not acute agitation Speech: mumbles at times, delayed response rate, minimally spontaneous TP: disorganized TC: wanting to leave Mood: okay Affect: constricted, guarded and suspicious AH/VH: denies, but he is clearly internally preoccupied. SI: denies HI: denies Insight/judgment: impaired x 2. Memory/cog: alert, not oriented to situation. impaired secondary to psychiatric symptoms. Patient Appearance: Disheveled Patient Orientation: Person and Place Level of Consciousness: Alert Patient Behavior: Talkative and Good Eye Contact Mood Description: Calm Affect Description: Calm Patient Cognition Impaired: Yes Ability to Follow Directions: Good Speech Pattern: Spontaneous Speech and Mumbled Memory Description: Remote Impaired and Episodic Impaired Diagnostics Vital Signs (24Hr): Vital Signs - 24 hr 03/06/22 08:10 03/06/22 18:35 Temperature 98.2 F Pulse Rate 99 88 Respiratory Rate 18 Blood Pressure 133/60 121/68 Pulse Oximetry 99 Oxygen Delivery Method Room Air BMI result Body Mass Index 24.0 Medications Medications Current Medications Acetaminophen (Acetaminophen 325 Mg Tablet) 650 mg PO Q6H PRN PRN Reason: Headache/Pain Mild Scale (1-3) Al Hydroxide/Mg Hydroxide (Magnesium Hydrox/Alum Hydrox 30 Ml Oral.Susp) 30 ml PO Q6H PRN PRN Reason: Heartburn/Nausea Benztropine Mesylate (Benztropine Mesylate 1 Mg Tablet) 1 mg PO BID [facility] Last Admin: 03/06/22 18:32 Dose: 1 mg Haloperidol (Haloperidol 5 Mg Tablet) 5 mg PO TID PRN PRN Reason: psychotic agitation Hydroxyzine HCl (Hydroxyzine Hcl 50 Mg Tablet) 50 mg PO Q6H PRN PRN Reason: Anxiety Lamotrigine (Lamotrigine 25 Mg Tablet) 25 mg PO BID [facility] Last Admin: 03/06/22 18:32 Dose: 25 mg Lorazepam (Lorazepam 1 Mg Tablet) 1 mg PO Q6H PRN PRN Reason: psychotic agitation Last Admin: 02/28/22 19:33 Dose: 1 mg Magnesium Hydroxide (Milk Of Magnesia 30 Ml Oral.Susp) 30 ml PO DAILY PRN PRN Reason: Constipation Olanzapine (Olanzapine Odt 10 Mg Tab.Rapdis) 30 mg TRANSLINGU BEDTIME [facility] Last Admin: 03/06/22 18:32 Dose: 30 mg Ondansetron HCl (Ondansetron Odt 4 Mg Tab.Rapdis) 4 mg TRANSLINGU Q6H PRN PRN Reason: Nausea and Vomiting Last Admin: 03/06/22 15:13 Dose: 4 mg Pharmacy Consult (Consult Rx Perform Med Rec) 1 each MISCELLANE ONCE PRN PRN Reason: Consult order Polyethylene Glycol (Polyethylene Glycol 3350 17 Gm Powd.Pack) 17 gm PO DAILY PRN PRN Reason: constipation Last Admin: 03/03/22 12:55 Dose: 17 gm Prazosin HCl (Prazosin Hcl 1 Mg Capsule) 2 mg PO BEDTIME [facility]; Protocol Last Admin: 03/06/22 18:31 Dose: 2 mg Trazodone HCl (Trazodone Hcl 50 Mg Tablet) 50 mg PO BEDTIME PRN PRN Reason: Insomnia Allergies Allergies Allergy/AdvReac Type Severity Reaction Status Date / Time No Known Allergies Allergy Verified 02/24/22 14:48 Assessment & Plan Assessment & Plan (1) Schizophrenia: Status: Acute Code(s): F20.9 - Schizophrenia, unspecified Plan 02/26/22- Continue current plan Father reports he has been granted guardianship He has paperwork for tw to complete for the court which will be done. 02/27/2022: Maintain Abilify 20 mg 03/01/22: Continue current regime as per family pt has positive effect with compliance. 03/02/22: Discontine Abilify Olanzapine 15 mg hs Lamictal 25 mg bid 03/03- switch to zydis will increase to 30mg po qhs. 03/04 continue tx. 03/05/22- Continue current plan 03/06: Continue current plan. I spent minutes with the patient and/or on the patient floor today, greater than?50% of which was spent counseling/coordinating care. Reason for contiued inpatient stay Substantial Risk for: inability to function and rapid decompensation
[2022-03-06] MEDS: Prazosin HCL 1 MG CAPSULE 2 MG PO (18:31)
[2022-03-06] MEDS: OLANZapine ODT 10 MG TAB.RAPDIS 30 MG TRANSLINGU (18:32)
[2022-03-06 18:35] VITALS: BP 121/68; PULSE 88
[2022-03-07 08:12] VITALS: BP 130/64; PULSE 98; RESP 18; TEMP 36.3; O2SAT 96
[2022-03-07] MEDS: lamoTRIgine 25 MG TABLET PO (08:26)
[2022-03-07] MEDS: Benztropine Mesylate 1 MG TABLET PO (08:26)
[2022-03-07] MEDS: Ondansetron ODT 4 MG TAB.RAPDIS TRANSLINGU (08:26)
--- NOTE | 2022-03-07 09:36 | P.PNPSI_ITS ---
Subjective Subjective Date of Service: 03/07/22 Reason For Visit: SEC 12,NON MED COMP,INCR ARIEL @ HOME Interim History: Patient seen and discussed with RN. Patient continues to be seen pacing the bonner and clearly appears to be responding to internal stimuli and engaging in self dialogue. 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 He seems disorganized and restless in his movements with possible tics and unusual mannerisms. He asks about discharge. He mumbles to himself. He is taking his medications. Review of Systems Review of Systems Constitutional : No Weight loss, No Fever, No Chills, No Fatigue, No Malaise ENT/Mouth : No sore throat, No Rhinorrhea Eyes: No Eye Pain, No Swelling, No Redness Cardiovascular : No Chest Pain, No SOB, No Dyspnea on Exertion, No Orthopnea, No Edema, No Palpitations Respiratory : No Cough, No Sputum, No Wheezing Gastrointestinal : No Nausea, No Vomiting, No Diarrhea, No Constipation, No abdominal Pain, No Hematochezia, No Melena Genitourinary : No Dysuria, No Urinary Frequency, No Hematuria, Musculoskeletal : No joint pain, No Myalgias, No Joint Swelling Skin : No Skin Lesions, No rash Neuro : No Weakness, No Numbness, No Dizziness, No Headache Psych : No Anxiety/Panic, No Depression, No SI, NO HI All other systems reviewed and are negative Yes all other systems are reviewed and are negative and Unobtainable due to mental status Reports behavioral changes Psychiatric: Reports behavioral changes, Reports difficulty concentrating, Reports auditory hallucinations, Reports paranoia, Reports visual hallucinations, Reports hallucinations and Reports homicidal ideation Mental Status Exam Mental Status Exam Narrative: Appearance: wearing hospital gown, poor hygiene, pacing Behavior: guarded, minimally engaging Psychomotor: pacing not acute agitation Speech: mumbles at times, delayed response rate, minimally spontaneous TP: disorganized TC: wanting to leave Mood: okay Affect: constricted, guarded and suspicious AH/VH: denies, but he is clearly internally preoccupied. SI: denies HI: denies Insight/judgment: impaired x 2. Memory/cog: alert, not oriented to situation. impaired secondary to psychiatric symptoms. Patient Appearance: Disheveled Patient Orientation: Person and Place Level of Consciousness: Alert Patient Behavior: Talkative and Good Eye Contact Mood Description: Calm Affect Description: Calm Patient Cognition Impaired: Yes Ability to Follow Directions: Good Speech Pattern: Spontaneous Speech and Mumbled Memory Description: Remote Impaired and Episodic Impaired Abnormal Motor Activity Signs and Symptoms: Hyperactivity and Restlessness Judgement: Poor Diagnostics Vital Signs (24Hr): Vital Signs - 24 hr 03/06/22 18:35 03/07/22 08:12 Temperature 97.4 F Pulse Rate 88 98 Respiratory Rate 18 Blood Pressure 121/68 130/64 Pulse Oximetry 96 Oxygen Delivery Method Room Air BMI result Body Mass Index 24.0 Medications Medications Current Medications Acetaminophen (Acetaminophen 325 Mg Tablet) 650 mg PO Q6H PRN PRN Reason: Headache/Pain Mild Scale (1-3) Al Hydroxide/Mg Hydroxide (Magnesium Hydrox/Alum Hydrox 30 Ml Oral.Susp) 30 ml PO Q6H PRN PRN Reason: Heartburn/Nausea Benztropine Mesylate (Benztropine Mesylate 1 Mg Tablet) 1 mg PO BID [facility] Last Admin: 03/07/22 08:26 Dose: 1 mg Haloperidol (Haloperidol 5 Mg Tablet) 5 mg PO TID PRN PRN Reason: psychotic agitation Hydroxyzine HCl (Hydroxyzine Hcl 50 Mg Tablet) 50 mg PO Q6H PRN PRN Reason: Anxiety Lamotrigine (Lamotrigine 25 Mg Tablet) 25 mg PO BID [facility] Last Admin: 03/07/22 08:26 Dose: 25 mg Lorazepam (Lorazepam 1 Mg Tablet) 1 mg PO Q6H PRN PRN Reason: psychotic agitation Last Admin: 02/28/22 19:33 Dose: 1 mg Magnesium Hydroxide (Milk Of Magnesia 30 Ml Oral.Susp) 30 ml PO DAILY PRN PRN Reason: Constipation Olanzapine (Olanzapine Odt 10 Mg Tab.Rapdis) 30 mg TRANSLINGU BEDTIME [facility] Last Admin: 03/06/22 18:32 Dose: 30 mg Ondansetron HCl (Ondansetron Odt 4 Mg Tab.Rapdis) 4 mg TRANSLINGU Q6H PRN PRN Reason: Nausea and Vomiting Last Admin: 03/07/22 08:26 Dose: 4 mg Pharmacy Consult (Consult Rx Perform Med Rec) 1 each MISCELLANE ONCE PRN PRN Reason: Consult order Polyethylene Glycol (Polyethylene Glycol 3350 17 Gm Powd.Pack) 17 gm PO DAILY PRN PRN Reason: constipation Last Admin: 03/03/22 12:55 Dose: 17 gm Prazosin HCl (Prazosin Hcl 1 Mg Capsule) 2 mg PO BEDTIME [facility]; Protocol Last Admin: 03/06/22 18:31 Dose: 2 mg Trazodone HCl (Trazodone Hcl 50 Mg Tablet) 50 mg PO BEDTIME PRN PRN Reason: Insomnia Allergies Allergies Allergy/AdvReac Type Severity Reaction Status Date / Time No Known Allergies Allergy Verified 02/24/22 14:48 Assessment & Plan Assessment & Plan (1) Schizophrenia: Status: Acute Code(s): F20.9 - Schizophrenia, unspecified Plan 02/26/22- Continue current plan Father reports he has been granted guardianship He has paperwork for tw to complete for the court which will be done. 02/27/2022: Maintain Abilify 20 mg 03/01/22: Continue current regime as per family pt has positive effect with compliance. 03/02/22: Discontine Abilify Olanzapine 15 mg hs Lamictal 25 mg bid 03/03- switch to zydis will increase to 30mg po qhs. 03/04 continue tx. 03/05/22- Continue current plan 03/06: Continue current plan. 03/07: Continue current plan I spent minutes with the patient and/or on the patient floor today, greater than?50% of which was spent counseling/coordinating care. Reason for contiued inpatient stay Substantial Risk for: inability to function and rapid decompensation
[2022-03-07] MEDS: polyethylene glycoL 3350 17 GM POWD.PACK PO (16:20)
[2022-03-08 06:00] VITALS: BP 128/58; PULSE 67; RESP 18; TEMP 36.2; O2SAT 100
[2022-03-08] MEDS: lamoTRIgine 25 MG TABLET PO ×2 (10:16→18:59)
[2022-03-08] MEDS: Benztropine Mesylate 1 MG TABLET PO ×2 (10:16→18:59)
--- NOTE | 2022-03-08 16:53 | HO.PSYCHPN ---
Subjective Subjective Date of Service: 03/09/22 Reason For Visit: SEC 12,NON MED COMP,INCR AGRESSION @ HOME Subjective Notes: Conditional Voluntary Healthcare Proxy: No Guardianship: Yes (pending) Medical Problems Affecting Mental Status: No Medication Compliance: Intermittent Side effects from medications: No Attending Groups: Intermittent Review of Systems Acute medical concerns: No Medical Review of Systems: unchanged Mental Status Exam Mental Status Exam Patient Appearance: Appropriate Patient Orientation: Person, Place, Time and Situation Level of Consciousness: Alert Patient Behavior: Talkative, Suspicious, Avoidant and Good Eye Contact Mood Description: Constricted Affect Description: Constricted Patient Cognition Impaired: Yes Ability to Follow Directions: Fair Speech Pattern: Spontaneous Speech Memory Description: Remote Impaired and Episodic Impaired Hallucinations: Auditory Delusions: Paranoid Ideation Thought Process: Distracted Thought Content: positive for Circumstantial, positive for Preoccupation, positive for Suicidal Ideation (denies) and positive for Homicidal Ideation (denies) Abnormal Motor Activity Signs and Symptoms: Restlessness Judgement: Fair Diagnostics Vital Signs (24Hr): Vital Signs - 24 hr 03/08/22 06:00 Temperature 97.2 F Pulse Rate 67 Respiratory Rate 18 Blood Pressure 128/58 L Pulse Oximetry 100 Oxygen Delivery Method Room Air BMI result Body Mass Index 24.0 Medications Medications Current Medications Acetaminophen (Acetaminophen 325 Mg Tablet) 650 mg PO Q6H PRN PRN Reason: Headache/Pain Mild Scale (1-3) Al Hydroxide/Mg Hydroxide (Magnesium Hydrox/Alum Hydrox 30 Ml Oral.Susp) 30 ml PO Q6H PRN PRN Reason: Heartburn/Nausea Benztropine Mesylate (Benztropine Mesylate 1 Mg Tablet) 1 mg PO BID [facility] Last Admin: 03/08/22 10:16 Dose: 1 mg Haloperidol (Haloperidol 5 Mg Tablet) 5 mg PO TID PRN PRN Reason: psychotic agitation Hydroxyzine HCl (Hydroxyzine Hcl 50 Mg Tablet) 50 mg PO Q6H PRN PRN Reason: Anxiety Lamotrigine (Lamotrigine 25 Mg Tablet) 25 mg PO BID [facility] Last Admin: 03/08/22 10:16 Dose: 25 mg Lorazepam (Lorazepam 1 Mg Tablet) 1 mg PO Q6H PRN PRN Reason: psychotic agitation Last Admin: 02/28/22 19:33 Dose: 1 mg Magnesium Hydroxide (Milk Of Magnesia 30 Ml Oral.Susp) 30 ml PO DAILY PRN PRN Reason: Constipation Olanzapine (Olanzapine Odt 10 Mg Tab.Rapdis) 30 mg TRANSLINGU BEDTIME [facility] Last Admin: 03/07/22 20:28 Dose: Not Given Ondansetron HCl (Ondansetron Odt 4 Mg Tab.Rapdis) 4 mg TRANSLINGU Q6H PRN PRN Reason: Nausea and Vomiting Last Admin: 03/07/22 08:26 Dose: 4 mg Pharmacy Consult (Consult Rx Perform Med Rec) 1 each MISCELLANE ONCE PRN PRN Reason: Consult order Polyethylene Glycol (Polyethylene Glycol 3350 17 Gm Powd.Pack) 17 gm PO DAILY PRN PRN Reason: constipation Last Admin: 03/07/22 16:20 Dose: 17 gm Prazosin HCl (Prazosin Hcl 1 Mg Capsule) 2 mg PO BEDTIME [facility]; Protocol Last Admin: 03/07/22 20:28 Dose: Not Given Trazodone HCl (Trazodone Hcl 50 Mg Tablet) 50 mg PO BEDTIME PRN PRN Reason: Insomnia Allergies Allergies Allergy/AdvReac Type Severity Reaction Status Date / Time No Known Allergies Allergy Verified 02/24/22 14:48 Assessment & Plan Assessment & Plan (1) Schizophrenia: Status: Acute Code(s): F20.9 - Schizophrenia, unspecified Plan 02/26/22- Continue current plan Father reports he has been granted guardianship He has paperwork for tw to complete for the court which will be done. 02/27/2022: Maintain Abilify 20 mg 03/01/22: Continue current regime as per family pt has positive effect with compliance. 03/02/22: Discontine Abilify Olanzapine 15 mg hs Lamictal 25 mg bid 03/03- switch to zydis will increase to 30mg po qhs. 03/04 continue tx. 03/05/22- Continue current plan 03/06: Continue current plan. 03/07: Continue current plan 03/08/22: Continue current plan I spent minutes with the patient and/or on the patient floor today, greater than?50% of which was spent counseling/coordinating care. Patient educated on: therapeutic strategies Informed Consent: further education needed Reason for contiued inpatient stay Substantial Risk for: rapid decompensation
[2022-03-08] MEDS: Ondansetron ODT 4 MG TAB.RAPDIS TRANSLINGU (17:03)
[2022-03-08] MEDS: Prazosin HCL 1 MG CAPSULE 2 MG PO (18:59)
[2022-03-08] MEDS: OLANZapine ODT 10 MG TAB.RAPDIS 30 MG TRANSLINGU (18:59)
[2022-03-08 19:05] VITALS: BP 123/72; PULSE 75
[2022-03-09 06:00] VITALS: BP 129/81; PULSE 63; RESP 18
[2022-03-09] MEDS: Benztropine Mesylate 1 MG TABLET PO ×2 (09:07→20:02)
[2022-03-09] MEDS: lamoTRIgine 25 MG TABLET PO ×2 (09:07→20:02)
[2022-03-09] MEDS: Ondansetron ODT 4 MG TAB.RAPDIS TRANSLINGU (11:08)
[2022-03-09 16:33] VITALS: BP 132/63; PULSE 89; TEMP 36.6
--- NOTE | 2022-03-09 16:53 | HO.PSYCHPN ---
Subjective Subjective Date of Service: 03/09/22 Reason For Visit: SEC 12,NON MED COMP,INCR AGRETERESAION @ HOME Subjective Notes: Conditional Voluntary Healthcare Proxy: No Guardianship: Yes (community court date 03/22/22.) Medical Problems Affecting Mental Status: No Interim History: Ralf is visable, minimal participation in milieu groups, attempting to read at times. 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 He reports he wants to try to complete the GED. States he has worked in the [employer] industry in the past, stating I really like it . Education attempted regarding the importance of keeping treatment consistent Medication Compliance: Yes Side effects from medications: No Attending Groups: No Review of Systems Acute medical concerns: No Medical Review of Systems: unchanged Mental Status Exam Mental Status Exam Patient Appearance: Appropriate Patient Orientation: Person, Place, Time and Situation Level of Consciousness: Alert Patient Behavior: Talkative, Suspicious, Avoidant and Good Eye Contact Mood Description: Constricted Affect Description: Constricted Patient Cognition Impaired: Yes Ability to Follow Directions: Fair Speech Pattern: Spontaneous Speech Memory Description: Remote Impaired and Episodic Impaired Hallucinations: Auditory Delusions: Paranoid Ideation Thought Process: Distracted Thought Content: positive for Circumstantial, positive for Preoccupation, positive for Suicidal Ideation (denies) and positive for Homicidal Ideation (denies) Abnormal Motor Activity Signs and Symptoms: Restlessness Judgement: Fair Diagnostics Vital Signs (24Hr): Vital Signs - 24 hr 03/08/22 19:05 03/09/22 06:00 03/09/22 16:33 Temperature 98 F Pulse Rate 75 63 89 Respiratory Rate 18 Blood Pressure 123/72 129/81 132/63 Oxygen Delivery Method Room Air BMI result Body Mass Index 24.0 Medications Medications Current Medications Acetaminophen (Acetaminophen 325 Mg Tablet) 650 mg PO Q6H PRN PRN Reason: Headache/Pain Mild Scale (1-3) Al Hydroxide/Mg Hydroxide (Magnesium Hydrox/Alum Hydrox 30 Ml Oral.Susp) 30 ml PO Q6H PRN PRN Reason: Heartburn/Nausea Benztropine Mesylate (Benztropine Mesylate 1 Mg Tablet) 1 mg PO BID [facility] Last Admin: 03/09/22 09:07 Dose: 1 mg Haloperidol (Haloperidol 5 Mg Tablet) 5 mg PO TID PRN PRN Reason: psychotic agitation Hydroxyzine HCl (Hydroxyzine Hcl 50 Mg Tablet) 50 mg PO Q6H PRN PRN Reason: Anxiety Lamotrigine (Lamotrigine 25 Mg Tablet) 25 mg PO BID [facility] Last Admin: 03/09/22 09:07 Dose: 25 mg Lorazepam (Lorazepam 1 Mg Tablet) 1 mg PO Q6H PRN PRN Reason: psychotic agitation Last Admin: 02/28/22 19:33 Dose: 1 mg Magnesium Hydroxide (Milk Of Magnesia 30 Ml Oral.Susp) 30 ml PO DAILY PRN PRN Reason: Constipation Olanzapine (Olanzapine Odt 10 Mg Tab.Rapdis) 40 mg TRANSLINGU BEDTIME [facility] Ondansetron HCl (Ondansetron Odt 4 Mg Tab.Rapdis) 4 mg TRANSLINGU Q6H PRN PRN Reason: Nausea and Vomiting Last Admin: 03/09/22 11:08 Dose: 4 mg Pharmacy Consult (Consult Rx Perform Med Rec) 1 each MISCELLANE ONCE PRN PRN Reason: Consult order Polyethylene Glycol (Polyethylene Glycol 3350 17 Gm Powd.Pack) 17 gm PO DAILY PRN PRN Reason: constipation Last Admin: 03/07/22 16:20 Dose: 17 gm Prazosin HCl (Prazosin Hcl 1 Mg Capsule) 2 mg PO BEDTIME [facility]; Protocol Last Admin: 03/08/22 18:59 Dose: 2 mg Trazodone HCl (Trazodone Hcl 50 Mg Tablet) 50 mg PO BEDTIME PRN PRN Reason: Insomnia Allergies Allergies Allergy/AdvReac Type Severity Reaction Status Date / Time No Known Allergies Allergy Verified 02/24/22 14:48 Assessment & Plan Assessment & Plan (1) Schizophrenia: Status: Acute Code(s): F20.9 - Schizophrenia, unspecified Plan 02/26/22- Continue current plan Father reports he has been granted guardianship He has paperwork for tw to complete for the court which will be done. 02/27/2022: Maintain Abilify 20 mg 03/01/22: Continue current regime as per family pt has positive effect with compliance. 03/02/22: Discontine Abilify Olanzapine 15 mg hs Lamictal 25 mg bid 03/03- switch to zydis will increase to 30mg po qhs. 03/04 continue tx. 03/05/22- Continue current plan 03/06: Continue current plan. 03/07: Continue current plan 03/08/22: Continue current plan 03/09/22: Continue current plan. I spent minutes with the patient and/or on the patient floor today, greater than?50% of which was spent counseling/coordinating care. Patient educated on: medication risk/benefits and therapeutic strategies Informed Consent: further education needed Reason for contiued inpatient stay Substantial Risk for: rapid decompensation
[2022-03-09] MEDS: polyethylene glycoL 3350 17 GM POWD.PACK PO (19:02)
[2022-03-09] MEDS: OLANZapine ODT 10 MG TAB.RAPDIS 40 MG TRANSLINGU (20:01)
[2022-03-10 08:02] VITALS: BP 121/58; PULSE 96; RESP 18; TEMP 37; O2SAT 98
[2022-03-10] MEDS: lamoTRIgine 25 MG TABLET PO ×2 (08:37→21:06)
[2022-03-10] MEDS: Ondansetron ODT 4 MG TAB.RAPDIS TRANSLINGU (08:37)
[2022-03-10] MEDS: Benztropine Mesylate 1 MG TABLET PO ×2 (08:37→21:06)
--- NOTE | 2022-03-10 19:20 | P.PNPSI_ITS ---
Subjective Subjective Date of Service: 03/10/22 Reason For Visit: SEC 12,NON MED COMP,INCR AGRESSION @ HOME Subjective Notes: Conditional Voluntary Healthcare Proxy: No Guardianship: Yes (community hearing 03/22/22) Medical Problems Affecting Mental Status: No Interim History: Pt continues to ask for discharge. Father visited with pt. He believes pt is back to his baseline. Pt wanting to begin his GED preparation and work at [employer], no behavioral issues noted. Medication Compliance: Yes Side effects from medications: No Attending Groups: No Review of Systems Acute medical concerns: No Medical Review of Systems: unchanged Mental Status Exam Mental Status Exam Patient Appearance: Appropriate Patient Orientation: Person, Place, Time and Situation Level of Consciousness: Alert Patient Behavior: Talkative, Suspicious, Avoidant and Good Eye Contact Mood Description: Constricted Affect Description: Constricted Patient Cognition Impaired: Yes Ability to Follow Directions: Fair Speech Pattern: Spontaneous Speech Memory Description: Remote Impaired and Episodic Impaired Hallucinations: Auditory Delusions: Paranoid Ideation Thought Process: Distracted Thought Content: positive for Circumstantial, positive for Preoccupation, positive for Suicidal Ideation (denies) and positive for Homicidal Ideation (denies) Abnormal Motor Activity Signs and Symptoms: Restlessness Judgement: Fair Diagnostics Vital Signs (24Hr): Vital Signs - 24 hr 03/10/22 08:02 Temperature 98.6 F Pulse Rate 96 Respiratory Rate 18 Blood Pressure 121/58 L Pulse Oximetry 98 Oxygen Delivery Method Room Air BMI result Body Mass Index 24.0 Medications Medications Current Medications Acetaminophen (Acetaminophen 325 Mg Tablet) 650 mg PO Q6H PRN PRN Reason: Headache/Pain Mild Scale (1-3) Al Hydroxide/Mg Hydroxide (Magnesium Hydrox/Alum Hydrox 30 Ml Oral.Susp) 30 ml PO Q6H PRN PRN Reason: Heartburn/Nausea Benztropine Mesylate (Benztropine Mesylate 1 Mg Tablet) 1 mg PO BID [facility] Last Admin: 03/10/22 08:37 Dose: 1 mg Haloperidol (Haloperidol 5 Mg Tablet) 5 mg PO TID PRN PRN Reason: psychotic agitation Hydroxyzine HCl (Hydroxyzine Hcl 50 Mg Tablet) 50 mg PO Q6H PRN PRN Reason: Anxiety Lamotrigine (Lamotrigine 25 Mg Tablet) 25 mg PO BID [facility] Last Admin: 03/10/22 08:37 Dose: 25 mg Lorazepam (Lorazepam 1 Mg Tablet) 1 mg PO Q6H PRN PRN Reason: psychotic agitation Last Admin: 02/28/22 19:33 Dose: 1 mg Magnesium Hydroxide (Milk Of Magnesia 30 Ml Oral.Susp) 30 ml PO DAILY PRN PRN Reason: Constipation Olanzapine (Olanzapine Odt 10 Mg Tab.Rapdis) 40 mg TRANSLINGU BEDTIME JELANI Last Admin: 03/09/22 20:01 Dose: 40 mg Ondansetron HCl (Ondansetron Odt 4 Mg Tab.Rapdis) 4 mg TRANSLINGU Q6H PRN PRN Reason: Nausea and Vomiting Last Admin: 03/10/22 08:37 Dose: 4 mg Pharmacy Consult (Consult Rx Perform Med Rec) 1 each MISCELLANE ONCE PRN PRN Reason: Consult order Polyethylene Glycol (Polyethylene Glycol 3350 17 Gm Powd.Pack) 17 gm PO DAILY PRN PRN Reason: constipation Last Admin: 03/09/22 19:02 Dose: 17 gm Prazosin HCl (Prazosin Hcl 1 Mg Capsule) 2 mg PO BEDTIME JELANI; Protocol Last Admin: 03/09/22 20:02 Dose: Not Given Trazodone HCl (Trazodone Hcl 50 Mg Tablet) 50 mg PO BEDTIME PRN PRN Reason: Insomnia Allergies Allergies Allergy/AdvReac Type Severity Reaction Status Date / Time No Known Allergies Allergy Verified 02/24/22 14:48 Assessment & Plan Assessment & Plan (1) Schizophrenia: Status: Acute Code(s): F20.9 - Schizophrenia, unspecified Plan 02/26/22- Continue current plan Father reports he has been granted guardianship He has paperwork for tw to complete for the court which will be done. 02/27/2022: Maintain Abilify 20 mg 03/01/22: Continue current regime as per family pt has positive effect with compliance. 03/02/22: Discontine Abilify Olanzapine 15 mg hs Lamictal 25 mg bid 03/03- switch to zydis will increase to 30mg po qhs. 03/04 continue tx. 03/05/22- Continue current plan 03/06: Continue current plan. 03/07: Continue current plan 03/08/22: Continue current plan 03/10/22: Discharge 03/11/22. I spent minutes with the patient and/or on the patient floor today, greater than?50% of which was spent counseling/coordinating care. Patient educated on: therapeutic strategies Guardian/Caregiver educated on: medication risk/benefits and therapeutic strategies Informed Consent: further education needed Reason for contiued inpatient stay Substantial Risk for: rapid decompensation
[2022-03-10 20:50] VITALS: BP 117/66; PULSE 84; TEMP 35.7
[2022-03-10] MEDS: OLANZapine ODT 10 MG TAB.RAPDIS 40 MG TRANSLINGU (21:01)
[2022-03-10] MEDS: Prazosin HCL 1 MG CAPSULE 2 MG PO (21:06)
[2022-03-11 07:00] VITALS: BMI 27.7
[2022-03-11 07:48] VITALS: BP 126/74; PULSE 91; RESP 16; TEMP 36.9; O2SAT 97
[2022-03-11] MEDS: lamoTRIgine 25 MG TABLET PO (09:29)
[2022-03-11] MEDS: Ondansetron ODT 4 MG TAB.RAPDIS TRANSLINGU (09:29)
[2022-03-11] MEDS: Benztropine Mesylate 1 MG TABLET PO (09:29)
--- NOTE | 2022-03-11 10:50 | PM.PSYDC ---
DS: Providers Provider Date of Service: 03/11/22 Date of admission: 02/24/22 19:57 Date of discharge: 03/11/22 Primary care physician: Unknown Physician Admitting clinician: Hyun Knight Attending physician on admission: Anurag Sorensen Attending physician on discharge: Anurag Sorensen Discharging clinician: Hyun Knight DS: Diagnosis Discharge Diagnosis (1) Schizophrenia: Status: Acute DS: Medications Discharge Medications Home Medications: Previous Rx's Medication Instructions Recorded benztropine 1 mg tablet 1 tab PO BID #60 tabs 03/11/22 lamotrigine 25 mg tablet 25 mg PO BID #60 tabs 03/11/22 lorazepam 1 mg tablet 1 mg PO Q6H PRN psychotic 03/11/22 agitation #15 tabs melatonin 3 mg tablet 1 tab PO BEDTIME PRN insomnia #30 03/11/22 tabs olanzapine 10 mg disintegrating 40 mg translingual BEDTIME #120 03/11/22 tablet tabs prazosin 2 mg capsule 1 cap PO BEDTIME #30 caps 03/11/22 Mental Status Exam Mental Status Exam Patient Appearance: Appropriate Patient Orientation: Person, Place, Time and Situation Level of Consciousness: Alert Patient Behavior: Talkative, Suspicious, Avoidant and Good Eye Contact Mood Description: Constricted Affect Description: Constricted Patient Cognition Impaired: Yes Ability to Follow Directions: Fair Speech Pattern: Spontaneous Speech Memory Description: Remote Impaired and Episodic Impaired Hallucinations: Auditory Delusions: Paranoid Ideation Thought Process: Distracted Thought Content: positive for Circumstantial, positive for Preoccupation, positive for Suicidal Ideation (denies) and positive for Homicidal Ideation (denies) Abnormal Motor Activity Signs and Symptoms: Restlessness Judgement: Fair DS: Summary Hospital Course Hospital Course: Admission to adult psychiatry for exacerbation of symptoms of schizophrenia. Pt had been agitated at home to self, his father and had destroyed property. Precipitant was thought to be non-compliance with medication. Pt initially filed a three day notice on admission. He did retract this and allowed the team to work with his medications to manage symptoms. Pt's father is in process of application for community guardianship which pt is aware of. Abilify and Klonopin were discontinued. Lamictal, Olanzapine, Lorazepam were initiated. Benztropine and Prazosin were continued. Pt's father has secured a [employer] program for him and pt will be working one day per week at [employer] upon discharge with the help of his out patient team. He is excited to begin these opportunities. Time spent discussing smoking cessation with patient: 3 to 10 minutes Status at Discharge Functional status at discharge: independent ambulation Overall status at discharge: patient is progressing back to baseline Time Spent with Patient Time attestation: Total time spent providing and/or coordinating discharge services: 35 Time spent: Greater than 30 minutes Discharge Plan Discharge Anticipated Discharge Date/Time: 03/11/22 14:00 Patient Disposition: Home, Self-Care Discharge Diagnosis: Schizophrenia Referrals: [facility] [Other] - 1 Week (Fax- [phone] re start services at D/C ) [facility] [Other] - 1 Week (message left; office will contact juvenal (father) with appt date and time ) Psych Prescriber: Karl Zhao ([facility]) [Other] - 03/23/22 9:30 am (Appointment is in person at their office ) Discharge Medications: New lamotrigine 25 mg Tablet 25 mg PO BID Qty: 60 0RF olanzapine 10 mg Tablet,Disintegrating 40 mg translingual BEDTIME Qty: 120 0RF lorazepam 1 mg Tablet 1 mg PO Q6H PRN (Reason: psychotic agitation) Qty: 15 0RF Continued melatonin 3 mg tablet 1 tab PO BEDTIME PRN (Reason: insomnia) Qty: 30 0RF benztropine 1 mg tablet 1 tab PO BID Qty: 60 0RF prazosin 2 mg capsule 1 cap PO BEDTIME Qty: 30 0RF Discontinued clonazepam 0.5 mg tablet 1 tab PO BID PRN (Reason: anxiety) aripiprazole 20 mg tablet 1 tab PO DAILY Discharge Orders: Discharge Order (Routine); Ordered 03/11/22 Ordered By: Hyun Knight Diet: Advance to usual diet Activity on Discharge: As tolerated Stand Alone Forms: Patient Portal Discharge page Care Plan Goals: Maintain mood and safe behaviors Take medications as directed Practice coping skills Continue with out patient providers Health Concerns: Stable mood and behaviors Plan of Treatment: Follow up with out patient providers Take medications as directed Assessment: Progressing back to baseling Father reports pt to be ready to discharge Non suicidal, non homicidal, non manic Discharge Date/Time: 03/11/22 14:23
== END 2022-03-11 14:23 | disposition home or self-care (01) | DRG 750 ==
LOC: HO.ED 19:54 → HO.PM5 19:57
PROVIDERS: Physician Assistant; Admitting Provider Psychiatry & Neurology Psychiatry; Emergency Provider Emergency Medicine Emergency Medical Services; Visit Provider Clinical Nurse Specialist Psychiatric/Mental Health, Adult
DX: F20.9 Schizophrenia, unspecified (principal); Z20.822 Contact with and (suspected) exposure to COVID-19; Z79.899 Other long term (current) drug therapy
CPT/HCPCS: 80307; 81003; 87635; 99285

== ENCOUNTER 2022-04-20 17:43 | Inpatient (IN) | payer OTHER, SELFPAY ==
--- NOTE | 2022-04-20 17:49 | ED_ITS ---
HPI - Psych General Chief Complaint: Psychiatric Symptoms Stated Complaint: crisis section 12 Time Seen by Provider: 04/20/22 17:47 Source: patient and EMS Mode of arrival: EMS Limitations: altered mental status History of Present Illness HPI Narrative: 21-year-old male presents via EMS on a Section 12 in the community by PHN. Patient has a history of schizophrenia and has not been taking his medications. Patient is paranoid, delusional, and unable to be redirected at times. MD complaint: other (Paranoid, delusional, medication noncompliance) Onset (ago): month(s) Duration: getting worse History of same: Yes Context: not taking psychiatric medications Associated psychiatric symptoms: delusions Treatments prior to arrival: placed on mental health hold Related Data Home Medications Medication Instructions Recorded Confirmed melatonin 1 mg tablet 4 mg PO BEDTIME PRN Insomnia 04/20/22 04/20/22 olanzapine 10 mg tablet 20 mg PO BEDTIME 04/20/22 04/20/22 Previous Rx's Medication Instructions Recorded benztropine 1 mg tablet 1 tab PO BID #60 tabs 03/11/22 lamotrigine 25 mg tablet 25 mg PO BID #60 tabs 03/11/22 lorazepam 1 mg tablet 1 mg PO Q6H PRN psychotic 03/11/22 agitation #15 tabs olanzapine 10 mg disintegrating 40 mg translingual BEDTIME #120 03/11/22 tablet tabs prazosin 2 mg capsule 1 cap PO BEDTIME #30 caps 03/11/22 Allergies Allergy/AdvReac Type Severity Reaction Status Date / Time No Known Allergies Allergy Verified 02/24/22 14:48 Review of Systems Review of Systems: Yes Unobtainable due to mental status PMFSH Past Medical History Attestation statement: The following information was validated with the patient. Source: old records reviewed Medical History Schizophrenia Social History Social History Household Members: Family Housing: Apartment Do you presently have visiting nurse or other home services: Yes Alcohol intake: unknown Patient Tobacco Use Status: Never used Tobacco e-Cigarette/Vaping Use: Never Used Second Hand Smoke Exposure: No Advance Directives: No Advance Directives Information Provided: No service: No Sexual orientation: Decline to Answer Physical Exam Vital Signs: Vital Signs: Last Vital Signs Temp 98.8 F 04/20/22 21:06 Pulse 58 04/20/22 21:06 Resp 18 04/20/22 21:06 BP 152/54 H 04/20/22 21:06 Pulse Ox 98 04/20/22 21:06 O2 Del Method 04/20/22 21:06 BMI result Body Mass Index 31.8 Appearance: Alert. Moderate emotional distress. Eyes: Pupils equal, round and reactive to light. ENT: Pharynx normal. Neck: Normal inspection. Neck supple. CVS: Normal heart rate and rhythm. Pulses normal. Respiratory: No respiratory distress. Breath sounds normal. Abdomen: Soft and nontender. Skin: Skin warm and dry. Normal skin color. Normal skin turgor. Extremities: No lower extremity edema. Gait balanced and coordinated. Neuro: No motor deficit. No sensory deficit. Cranial nerves 2-12 intact Course Course Course Narrative: 21-year-old male presents via EMS under Section 12 for medication noncompliance. Patient is schizophrenic and has not been taking his medication over the past month or more. Patient is delusional, paranoid, and unable to care for himself. Patient is well-known to this facility, and has had multiple admissions for acute psychosis in the past. Plan of care is for labs, WHITE and crisis consult. 00:30 patient still continues to refuse blood draw. At this time I feel it would be more detrimental to sedate this person for lab values, will re-attempt in the morning. Physician observation started at this time Medications Administered Generic Name Dose Route Start Last Admin Trade Name Rogerq PRN Reason Stop Dose Admin Benztropine Mesylate 1 mg 04/20/22 21:00 04/20/22 21:01 Benztropine Mesylate 1 Mg Tablet PO 1 mg BID JELANI Administration Lamotrigine 25 mg 04/20/22 21:00 04/20/22 21:01 Lamotrigine 25 Mg Tablet PO 25 mg BID JELANI Administration Olanzapine 20 mg 04/20/22 21:00 04/20/22 21:01 Olanzapine Odt 10 Mg Tab.Rapdis TRANSLINGU 20 mg BEDTIME JELANI Administration Prazosin HCl 2 mg 04/20/22 21:00 04/20/22 21:01 Prazosin Hcl 1 Mg Capsule PO 2 mg BEDTIME JELANI Administration Protocol Medical Decision Making Differential Diagnosis Differential Diagnoses: The differential diagnosis associated with the presentation includes Schizoaffective disorder, psychosis, medication noncompliance Admission/Observation Consideration of admission/observation: Escalation of care including admission/observation considered Psychiatric admission highly recommended Consult Healthcare Provider Management of the patient was discussed with: Behavioral Health Provider Lab Data MDM Lab Attestation statement: I reviewed the patient's lab results. Labs: Lab Results 04/20/22 04/20/22 Range/Units 18:11 18:43 Urine Opiates Screen Not Detected (Not Detect) Urine Fentanyl Screen Not Detected (Not Detect) Ur Barbiturates Screen Not Detected (Not Detect) Ur Phencyclidine Scrn Not Detected (Not Detect) Ur Amphetamines Screen Not Detected (Not Detect) U Benzodiazepines Scrn Not Detected (Not Detect) Urine Cocaine Screen Not Detected (Not Detect) U Marijuana (THC) Screen Not Detected (Not Detect) Influenza Type A (PCR) NEGATIVE (Negative) Influenza Type B (PCR) NEGATIVE (Negative) RSV RNA Qual (PCR) NEGATIVE (Negative) SARS-CoV-2 RNA (RT-PCR) NEGATIVE (Negative) External Record Review External record reviewed: Inpatient record Social Determinants Patient?s care significantly limited by Social Determinants of Health including: Other Social Determinant of Health Discharge Plan Discharge Clinical Impression: Schizophrenia, Acute psychosis Patient Disposition: Still a Patient Prescriptions: No Action lamotrigine 25 mg Tablet 25 mg PO BID Qty: 60 0RF olanzapine 10 mg Tablet,Disintegrating 40 mg translingual BEDTIME Qty: 120 0RF lorazepam 1 mg Tablet 1 mg PO Q6H PRN (Reason: psychotic agitation) Qty: 15 0RF benztropine 1 mg tablet 1 tab PO BID Qty: 60 0RF prazosin 2 mg capsule 1 cap PO BEDTIME Qty: 30 0RF melatonin 1 mg Tablet 4 mg PO BEDTIME PRN (Reason: Insomnia) olanzapine 10 mg tablet 20 mg PO BEDTIME Interventions: [place]-Suicide Risk Severity Scale Last Done: 04/20/22 20:49
[2022-04-20 17:52] VITALS: BP 124/68; PULSE 66; RESP 18; TEMP 37.2; O2SAT 97; BMI 31.8
[2022-04-20 18:59] LABS: Amphetamine Screen Urine Not Detected (Not Detect); Barbiturates, Urine Not Detected (Not Detect); Benzodiazepines Screen Urine Not Detected (Not Detect); Cannabinoid Screen Urine Not Detected (Not Detect); Cocaine Screen Urine Not Detected (Not Detect); Fentanyl, urine Not Detected (Not Detect); Opiate Screen Urine Not Detected (Not Detect); Phencyclidine Screen Urine Not Detected (Not Detect)
[2022-04-20 19:04] LABS: Influenza A PCR NEGATIVE (Negative); Influenza B PCR NEGATIVE (Negative); Resp Syncy Virus RNA Qual PCR NEGATIVE (Negative); SARS COV2 PCR INHOUSE NEGATIVE (Negative)
[2022-04-20] MEDS: Benztropine Mesylate 1 MG TABLET PO (21:01)
[2022-04-20] MEDS: OLANZapine ODT 10 MG TAB.RAPDIS 20 MG TRANSLINGU (21:01)
[2022-04-20] MEDS: lamoTRIgine 25 MG TABLET PO (21:01)
[2022-04-20] MEDS: Prazosin HCL 1 MG CAPSULE 2 MG PO (21:01)
[2022-04-20 21:06] VITALS: BP 152/54; PULSE 58; RESP 18; TEMP 37.1; O2SAT 98
[2022-04-21 06:36] VITALS: BP 112/46; PULSE 65; RESP 16; TEMP 36.6; O2SAT 98
--- NOTE | 2022-04-21 06:55 | PC.NURSE ---
Patient slept through the night, no distress observed/reported, continues to refuse blood draw, behavior at this time is non concerning, disposition per [facility] is section 12 inpatient bed search from community, VSS, will continue to monitor.
--- NOTE | 2022-04-21 07:05 | PC.NURSE ---
patient appears to remain resting, after breakfast delivery patient requesting orange juice-patient asks when he can go upstairs, patient appears in no distress.
--- NOTE | 2022-04-21 15:21 | PC.NURSE ---
report received from JUSTEN Mejia Pt is refusing labs at this time
[2022-04-21 17:19] VITALS: BMI 29.5
[2022-04-21 17:20] VITALS: BP 139/71; PULSE 70; RESP 18; TEMP 36.4; O2SAT 96
--- NOTE | 2022-04-21 18:11 | PC.ADMIT ---
Nursing admission note: Patient 21 year old male DX: Unspecified Schizophrenia Spectrum and other Psychotic Disorder. Referred for admission by CARE team. Patient oriented to name and place. Reports he is here until his father comes to get him, I will wait till my dad comes back to pick me up, till he comes back from work . . No insight into reason for admission. States the medical receptionist medical assistant is chillin . Patient participated in admission process however responds with yes or no answers with long delays in response. Denies mood disturbances, denies SI/HI plan or intent at this time. Denies perceptual disturbances, denies A/V hallucinations. Patient responding to internal stimuli throughout admission process. Observed laughing and talking to self during admission process. Patient at times would look around room. He is disorganized and internally preoccupied. Patient denies medical problems, refused labs in ED. TOX screen negative, COVID negative. Per crisis evaluation patients psychiatrist requested assessment due to patients refusal to take medication and appearing to be experiencing AH. Patient was brought to hospital by his father. Per eval patient has been refusing medication for over a month and spits it out after [facility] comes. Father reports abrupt mood changes, goes from laughing to being angry. 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 Patient denied any legal entanglements at this time. Patient with previous hospitalizations most recently in January of 2022. Patient states he does not have current psychiatrist or therapist. Declined to sign ACE. Patient denies sleep or appetite disturbances. Patient oriented to unit, placed on 15 minute safety checks. See nursing assessment/crisis eval for further details.
[2022-04-21 21:00] VITALS: BP 133/83; PULSE 80; RESP 18; TEMP 36.6; O2SAT 97
[2022-04-21] MEDS: Benztropine Mesylate 1 MG TABLET PO (21:01)
[2022-04-21] MEDS: lamoTRIgine 25 MG TABLET PO (21:01)
[2022-04-21] MEDS: OLANZapine ODT 10 MG TAB.RAPDIS 20 MG TRANSLINGU (21:01)
[2022-04-21] MEDS: Prazosin HCL 1 MG CAPSULE 2 MG PO (21:03)
[2022-04-22 07:00] VITALS: BMI 29.1
[2022-04-22] MEDS: Benztropine Mesylate 1 MG TABLET PO ×2 (08:59→21:58)
[2022-04-22] MEDS: lamoTRIgine 25 MG TABLET PO ×2 (08:59→21:59)
[2022-04-22 09:39] VITALS: BP 140/70; PULSE 67; TEMP 36.6; O2SAT 96
--- NOTE | 2022-04-22 16:13 | P.HPPS_ITS ---
HPI Date of Service: 04/22/22 Chief Complaint: Psychosis HPI Subjective Notes: Finch Warning Narrative: per crisis eval, pt's psychiatrist requested eval due to pt's refusal to take medication and hi appearing to be experiencing AH. pt's father brought him in for eval. per crisis eval, father reports pt has been refusing medication for more than a month and spits it out after VNA comes. he has become more easily agitated and has been engaging in unhelpful behaviors such as dumping the trash bin on the floor. 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 he has demonstrated lability, going rapidly from laughing to angry. pt also called the police to the home and accused his father of having hit father's , but father is not . per crisis eval, father is pursuing guardianship and stevo's order. on interview with MD, pt behaved as if he were smelling something noxious, sniffing about the room and then covering his nose with the collar of his shirt. he declined to inform MD what he was smelling. he often glanced about the room as if noticing or looking for something to the side, although MD detected no stimuli coming from those areas. he denied mental illness and was unable to explain why he was taking medication. he asked how long he would be staying, and MD was unable to provide him a firm answer. he was educated re 3-day notice and advised to consider that option. finch warning was provided. he had no questions for MD and answered MD's questions with just chillin, and nuthin, for the most part. Past Psychiatric History: IP: since 2019, at least 5 psych hosps at [facility], [facility] OP: Syeda- Karl Zhao [phone] Meds: VNA reports pt elopes when they arrive, hides, cheeks meds, self-induced vomiting Trials: Abilify, Cogentin, Prazosin, Atarax Medical Evaluation Reviewed: Yes [facility] Medical History Schizophrenia Family History: mental illness-one in lifetime psych placement (maternal relatives) Social History: Parents Two sisters Cared for by his father, lives with father and one sister in [place] [employer] student Behaviors began June 2019-lost interest, isolative, behavioral dyscontrol Substance History: none reported Trauma History: none reported Diagnostics Vital Signs (24Hr): Vital Signs - 24 hr 04/21/22 17:20 04/21/22 21:00 04/22/22 09:39 Temperature 97.5 F 97.8 F 97.8 F Pulse Rate 70 80 67 Respiratory Rate 18 18 Blood Pressure 139/71 133/83 140/70 H Pulse Oximetry 96 97 96 Oxygen Delivery Method Room Air Room Air Room Air BMI result Body Mass Index 29.1 Labs Labs: Laboratory Results - last 48 hr 04/20/22 04/20/22 18:11 18:43 Urine Opiates Screen Not Detected Urine Fentanyl Screen Not Detected Ur Barbiturates Screen Not Detected Ur Phencyclidine Scrn Not Detected Ur Amphetamines Screen Not Detected U Benzodiazepines Scrn Not Detected Urine Cocaine Screen Not Detected U Marijuana (THC) Screen Not Detected Influenza Type A (PCR) NEGATIVE Influenza Type B (PCR) NEGATIVE RSV RNA Qual (PCR) NEGATIVE SARS-CoV-2 RNA (RT-PCR) NEGATIVE Meds/Allergies Meds Home Medications Medication Instructions Recorded Confirmed Type melatonin 1 mg tablet 4 mg PO BEDTIME PRN Insomnia 04/20/22 04/20/22 History olanzapine 10 mg tablet 20 mg PO BEDTIME 04/20/22 04/20/22 History Allergies Allergies Allergy/AdvReac Type Severity Reaction Status Date / Time No Known Allergies Allergy Verified 02/24/22 14:48 Mental Status Exam Mental Status Exam Narrative: Appearance: wearing hospital gown, poor hygiene, pacing Behavior: guarded, minimally engaging Psychomotor: pacing not acute agitation Speech: delayed response rate, minimally spontaneous TP: disorganized TC: asking about discharge Mood: good Affect: constricted, guarded and suspicious AH/VH: denies, but he is clearly internally preoccupied. SI: denies HI: denies Insight/judgment: impaired x 2. Memory/cog: alert, not oriented to situation. impaired secondary to psychiatric symptoms. Assessment & Plan Assessment & Plan (1) Schizophrenia: Status: Acute Code(s): F20.9 - Schizophrenia, unspecified Plan DC olanzapine, start haldol liquid formulation 5 mg BID. collect collateral from father. Patient educated on: diagnosis and medication risk/benefits Reason for continued inpatient stay Substantial Risk for: harm to others, inability to function and rapid decompensation Statement Statement: I have reviewed the history and physical and performed a pertinent examination on my patient. No changes have occurred unless specified. If the History and Physical was not performed prior to admission, the Hospitalist's service will be consulted for completing the admission physical. Time Spent With Patient Time: Total time managing care of this patient today __50__ minutes.
[2022-04-22 21:58] VITALS: BP 121/58; PULSE 69; RESP 18; TEMP 36.3; O2SAT 97
[2022-04-22] MEDS: Prazosin HCL 1 MG CAPSULE 2 MG PO (21:58)
--- NOTE | 2022-04-22 22:08 | PC.NURSE ---
Pt refused the oral liquid haldol. Took all other medication. Pt complied with mouth check.
[2022-04-23 09:00] VITALS: BP 118/60; PULSE 98; RESP 18; TEMP 36.4; O2SAT 97
[2022-04-23] MEDS: lamoTRIgine 25 MG TABLET PO ×2 (09:29→21:48)
[2022-04-23] MEDS: Benztropine Mesylate 1 MG TABLET PO ×2 (09:29→21:48)
--- NOTE | 2022-04-23 13:51 | HO.PSYCHPN ---
Subjective Subjective Date of Service: 04/23/22 Reason For Visit: Psychosis Interim History: calm, cooperative. laughing out of nowhere repeatedly during interview, on being asked what he is laughing about he replies, shayla. discuss his refusal of liquid haldol. informed his father is seeking guardianship and stevo's order. no questions or complaints, other than asking when he will be discharged. per staff, wandering, not attending groups. pacing, distractible. denies anx/dep. +RIS. refused liquid haldol last NOC. Mental Status Exam Mental Status Exam Narrative: Appearance: wearing hospital gown, poor hygiene, pacing Behavior: guarded, minimally engaging Psychomotor: pacing not acute agitation Speech: delayed response rate, minimally spontaneous TP: disorganized TC: asking about discharge Mood: good Affect: constricted, guarded and suspicious AH/VH: denies, but he is clearly internally preoccupied. laughing periodically. SI: denies HI: denies Insight/judgment: impaired x 2. Memory/cog: alert, not oriented to situation. impaired secondary to psychiatric symptoms. Diagnostics Vital Signs (24Hr): Vital Signs - 24 hr 04/22/22 21:58 04/23/22 09:00 Temperature 97.4 F 97.6 F Pulse Rate 69 98 Respiratory Rate 18 18 Blood Pressure 121/58 L 118/60 Pulse Oximetry 97 97 Oxygen Delivery Method Room Air Room Air BMI result Body Mass Index 29.1 Medications Medications Current Medications Acetaminophen (Acetaminophen 325 Mg Tablet) 650 mg PO Q6H PRN PRN Reason: Headache/Pain Mild Scale (1-3) Al Hydroxide/Mg Hydroxide (Magnesium Hydrox/Alum Hydrox 30 Ml Oral.Susp) 30 ml PO Q6H PRN PRN Reason: Heartburn/Nausea Benztropine Mesylate (Benztropine Mesylate 1 Mg Tablet) 1 mg PO BID [facility] Last Admin: 04/23/22 09:29 Dose: 1 mg Haloperidol Lactate (Haloperidol Lactate 10 Mg/5 Ml Oral.Conc) 5 mg PO BID [facility] Last Admin: 04/23/22 09:45 Dose: Not Given Hydroxyzine HCl (Hydroxyzine Hcl 25 Mg Tablet) 25 mg PO Q6H PRN PRN Reason: Anxiety Lamotrigine (Lamotrigine 25 Mg Tablet) 25 mg PO BID [facility] Last Admin: 04/23/22 09:29 Dose: 25 mg Lorazepam (Lorazepam 1 Mg Tablet) 1 mg PO Q6H PRN PRN Reason: psychotic agitation Magnesium Hydroxide (Milk Of Magnesia 30 Ml Oral.Susp) 30 ml PO DAILY PRN PRN Reason: Constipation Melatonin (Melatonin 3 Mg Tablet) 3 mg PO BEDTIME PRN PRN Reason: Insomnia Nicotine Polacrilex (Nicotine Polacrilex 2 Mg Gum) 4 mg BUCCAL Q2H PRN PRN Reason: Nicotine Cravings Prazosin HCl (Prazosin Hcl 1 Mg Capsule) 2 mg PO BEDTIME JELANI; Protocol Last Admin: 04/22/22 21:58 Dose: 2 mg Trazodone HCl (Trazodone Hcl 50 Mg Tablet) 50 mg PO BEDTIME PRN PRN Reason: Insomnia Allergies Allergies Allergy/AdvReac Type Severity Reaction Status Date / Time No Known Allergies Allergy Verified 02/24/22 14:48 Assessment & Plan Assessment & Plan (1) Schizophrenia: Status: Acute Code(s): F20.9 - Schizophrenia, unspecified Plan 04/22: DC olanzapine, start haldol liquid formulation 5 mg BID. collect collateral from father. 04/23: continue current mgmt. Reason for contiued inpatient stay Substantial Risk for: harm to self, harm to others, inability to function and rapid decompensation Time Spent With Patient Time: Total time managing care of this patient today _25___ minutes.
[2022-04-23 21:38] VITALS: BP 118/60; PULSE 97; TEMP 36.5; O2SAT 97
[2022-04-23] MEDS: Prazosin HCL 1 MG CAPSULE 2 MG PO (21:48)
[2022-04-24 06:00] VITALS: BP 144/61; PULSE 79; RESP 18; TEMP 36.9; O2SAT 97
[2022-04-24] MEDS: Benztropine Mesylate 1 MG TABLET PO ×2 (09:51→21:51)
[2022-04-24] MEDS: lamoTRIgine 25 MG TABLET PO (09:51)
--- NOTE | 2022-04-24 18:05 | HO.PSYCHPN ---
Subjective Subjective Date of Service: 04/24/22 Reason For Visit: Psychosis Interim History: chart reviewed. Discussed with Nursing. Met with patient. Overall continues to remain psychotic. On one-to-one observation after medication administration for 30 minutes to prevent cheeking. Has been refusing Haldol liquid the last 3-4 days. Has been taking pills. Will change from liquid to pill form in the hope that he will take these without cheeking with one-to-one staff after medication administration With automobile and property underwriter was pleasant, however internally preoccupied and difficult to engage. Reported that his mom would want to know when he was discharged, otherwise had little to say. Was informed that we would change liquid to pills, which he appeared appreciative for. Did not appear agitated. Medication Compliance: Yes Side effects from medications: No Attending Groups: No Review of Systems Acute medical concerns: No Review of Systems Review of Systems Yes Unobtainable due to mental condition Mental Status Exam Mental Status Exam Narrative: appropriately dressed. Hygiene fair. Internally preoccupied. No evidence of depression SI or HI. No overt delusions. Insight judgment poor Diagnostics Vital Signs (24Hr): Vital Signs - 24 hr 04/23/22 21:38 04/24/22 06:00 Temperature 97.7 F 98.4 F Pulse Rate 97 79 Respiratory Rate 18 Blood Pressure 118/60 144/61 H Pulse Oximetry 97 97 Oxygen Delivery Method Room Air Room Air BMI result Body Mass Index 29.1 Medications Medications Current Medications Acetaminophen (Acetaminophen 325 Mg Tablet) 650 mg PO Q6H PRN PRN Reason: Headache/Pain Mild Scale (1-3) Al Hydroxide/Mg Hydroxide (Magnesium Hydrox/Alum Hydrox 30 Ml Oral.Susp) 30 ml PO Q6H PRN PRN Reason: Heartburn/Nausea Benztropine Mesylate (Benztropine Mesylate 1 Mg Tablet) 1 mg PO BID [facility] Last Admin: 04/24/22 09:51 Dose: 1 mg Haloperidol (Haloperidol 5 Mg Tablet) 5 mg PO BID [facility] Hydroxyzine HCl (Hydroxyzine Hcl 25 Mg Tablet) 25 mg PO Q6H PRN PRN Reason: Anxiety Lamotrigine (Lamotrigine 25 Mg Tablet) 25 mg PO BID [facility] Last Admin: 04/24/22 09:51 Dose: 25 mg Lorazepam (Lorazepam 1 Mg Tablet) 1 mg PO Q6H PRN PRN Reason: psychotic agitation Magnesium Hydroxide (Milk Of Magnesia 30 Ml Oral.Susp) 30 ml PO DAILY PRN PRN Reason: Constipation Melatonin (Melatonin 3 Mg Tablet) 3 mg PO BEDTIME PRN PRN Reason: Insomnia Nicotine Polacrilex (Nicotine Polacrilex 2 Mg Gum) 4 mg BUCCAL Q2H PRN PRN Reason: Nicotine Cravings Prazosin HCl (Prazosin Hcl 1 Mg Capsule) 2 mg PO BEDTIME JELANI; Protocol Last Admin: 04/23/22 21:48 Dose: 2 mg Trazodone HCl (Trazodone Hcl 50 Mg Tablet) 50 mg PO BEDTIME PRN PRN Reason: Insomnia Allergies Allergies Allergy/AdvReac Type Severity Reaction Status Date / Time No Known Allergies Allergy Verified 02/24/22 14:48 Assessment & Plan Assessment & Plan (1) Schizophrenia: Status: Acute Code(s): F20.9 - Schizophrenia, unspecified Plan 04/22: DC olanzapine, start haldol liquid formulation 5 mg BID. collect collateral from father. 04/23: continue current mgmt. 04/24/2022: Has been consistently declining Haldol liquid for 3-4 days. Will therefore changed to Haldol pills in the hope that he will take these without cheeking with one-to-one staff after medication administration. Will also put in order for Haldol as needed given psychosis. Reason for contiued inpatient stay Substantial Risk for: harm to others and inability to function Time Spent With Patient Time: Total time managing care of this patient today ____ minutes.
[2022-04-24] MEDS: HaloperidoL 5 MG TABLET PO (21:51)
[2022-04-24 22:01] VITALS: BP 130/71; PULSE 110; TEMP 36.4; O2SAT 97
[2022-04-25 09:09] VITALS: BP 134/60; PULSE 78; RESP 18; TEMP 36.6; O2SAT 99
[2022-04-25] MEDS: Benztropine Mesylate 1 MG TABLET PO (10:59)
[2022-04-25] MEDS: lamoTRIgine 25 MG TABLET PO (10:59)
[2022-04-25] MEDS: HaloperidoL 5 MG TABLET PO (10:59)
--- NOTE | 2022-04-25 12:18 | P.PNPSI_ITS ---
Subjective Subjective Date of Service: 04/25/22 Reason For Visit: Psychosis Interim History: Chart reviewed. Discussed with Nursing. Met with patient. Overall continues to remain psychotic. On one-to-one observation after medication administration for 30 minutes to prevent cheeking. Accepted haldol pills last night (changed from liquid as was refusing same). Declined lamictal pills. Continues to be internally preoccupied and difficult to engage and had little to say. Did not appear agitated. Pleasant with room mate- keno writer/runner heard him tell room mate lunch was there, so he didnt miss it Medication Compliance: Intermittent Side effects from medications: No Attending Groups: No Review of Systems Acute medical concerns: No Review of Systems Review of Systems Yes Unobtainable due to mental condition Mental Status Exam Mental Status Exam Narrative: appropriately dressed. Hygiene fair. Internally preoccupied. No evidence of depression SI or HI. No overt delusions. Insight judgment poor Diagnostics Vital Signs (24Hr): Vital Signs - 24 hr 04/24/22 22:01 04/25/22 09:09 Temperature 97.6 F 97.9 F Pulse Rate 110 H 78 Respiratory Rate 18 Blood Pressure 130/71 134/60 Pulse Oximetry 97 99 Oxygen Delivery Method Room Air Room Air BMI result Body Mass Index 29.1 Medications Medications Current Medications Acetaminophen (Acetaminophen 325 Mg Tablet) 650 mg PO Q6H PRN PRN Reason: Headache/Pain Mild Scale (1-3) Al Hydroxide/Mg Hydroxide (Magnesium Hydrox/Alum Hydrox 30 Ml Oral.Susp) 30 ml PO Q6H PRN PRN Reason: Heartburn/Nausea Benztropine Mesylate (Benztropine Mesylate 1 Mg Tablet) 1 mg PO BID [facility] Last Admin: 04/25/22 10:59 Dose: 1 mg Haloperidol (Haloperidol 5 Mg Tablet) 5 mg PO BID [facility] Last Admin: 04/25/22 10:59 Dose: 5 mg Haloperidol (Haloperidol 5 Mg Tablet) 5 mg PO QID PRN PRN Reason: psychosis Hydroxyzine HCl (Hydroxyzine Hcl 25 Mg Tablet) 25 mg PO Q6H PRN PRN Reason: Anxiety Lamotrigine (Lamotrigine 25 Mg Tablet) 25 mg PO BID [facility] Last Admin: 04/25/22 10:59 Dose: 25 mg Lorazepam (Lorazepam 1 Mg Tablet) 1 mg PO Q6H PRN PRN Reason: psychotic agitation Magnesium Hydroxide (Milk Of Magnesia 30 Ml Oral.Susp) 30 ml PO DAILY PRN PRN Reason: Constipation Melatonin (Melatonin 3 Mg Tablet) 3 mg PO BEDTIME PRN PRN Reason: Insomnia Nicotine Polacrilex (Nicotine Polacrilex 2 Mg Gum) 4 mg BUCCAL Q2H PRN PRN Reason: Nicotine Cravings Prazosin HCl (Prazosin Hcl 1 Mg Capsule) 2 mg PO BEDTIME JELANI; Protocol Last Admin: 04/24/22 23:48 Dose: Not Given Trazodone HCl (Trazodone Hcl 50 Mg Tablet) 50 mg PO BEDTIME PRN PRN Reason: Insomnia Allergies Allergies Allergy/AdvReac Type Severity Reaction Status Date / Time No Known Allergies Allergy Verified 02/24/22 14:48 Assessment & Plan Assessment & Plan (1) Schizophrenia: Status: Acute Code(s): F20.9 - Schizophrenia, unspecified Plan 04/22: DC olanzapine, start haldol liquid formulation 5 mg BID. collect collateral from father. 04/23: continue current mgmt. 04/24/2022: Has been consistently declining Haldol liquid for 3-4 days. Will therefore changed to Haldol pills in the hope that he will take these without cheeking with one-to-one staff after medication administration. Will also put in order for Haldol as needed given psychosis. 04/25: no changes Reason for contiued inpatient stay Substantial Risk for: inability to function and rapid decompensation Time Spent With Patient Time: Total time managing care of this patient today ____ minutes.
[2022-04-25] MEDS: Magnesium Hydrox/Alum Hydrox 30 ML ORAL.SUSP PO (20:03)
[2022-04-26 08:25] VITALS: BP 146/66; PULSE 106; RESP 18; TEMP 36.5; O2SAT 95
[2022-04-26] MEDS: Benztropine Mesylate 1 MG TABLET PO (08:31)
[2022-04-26] MEDS: lamoTRIgine 25 MG TABLET PO (08:31)
[2022-04-26] MEDS: HaloperidoL 5 MG TABLET PO (08:31)
--- NOTE | 2022-04-26 14:24 | HO.PSYCHPN ---
Subjective Subjective Date of Service: 04/26/22 Reason For Visit: Psychosis Interim History: calm, cooperative. no change in presentation. covering nose with short, bizarre smiling and laughter, vague responses. unable to account for why he is willing to accept pill form of medication but not liquid. per staff, minimal engagement. denies AVH. disorganized, +RIS, no SI/HI. refusing many meds. had 1 hour mtg with father and SW, ecclesiastical worker assisted. Mental Status Exam Mental Status Exam Narrative: Appearance: wearing hospital gown, poor hygiene, pacing Behavior: guarded, minimally engaging Psychomotor: pacing not acute agitation Speech: delayed response rate, minimally spontaneous TP: disorganized TC: asking about discharge Mood: good Affect: constricted, guarded and suspicious AH/VH: denies, but he is clearly internally preoccupied. laughing periodically. SI: denies HI: denies Insight/judgment: impaired x 2. Memory/cog: alert, not oriented to situation. impaired secondary to psychiatric symptoms. Diagnostics Vital Signs (24Hr): Vital Signs - 24 hr 04/26/22 08:25 Temperature 97.7 F Pulse Rate 106 H Respiratory Rate 18 Blood Pressure 146/66 H Pulse Oximetry 95 Oxygen Delivery Method Room Air BMI result Body Mass Index 29.1 Medications Medications Current Medications Acetaminophen (Acetaminophen 325 Mg Tablet) 650 mg PO Q6H PRN PRN Reason: Headache/Pain Mild Scale (1-3) Al Hydroxide/Mg Hydroxide (Magnesium Hydrox/Alum Hydrox 30 Ml Oral.Susp) 30 ml PO Q6H PRN PRN Reason: Heartburn/Nausea Last Admin: 04/25/22 20:03 Dose: 30 ml Benztropine Mesylate (Benztropine Mesylate 1 Mg Tablet) 1 mg PO BID [facility] Last Admin: 04/26/22 08:31 Dose: 1 mg Haloperidol (Haloperidol 5 Mg Tablet) 5 mg PO BID [facility] Last Admin: 04/26/22 08:31 Dose: 5 mg Haloperidol (Haloperidol 5 Mg Tablet) 5 mg PO QID PRN PRN Reason: psychosis Hydroxyzine HCl (Hydroxyzine Hcl 25 Mg Tablet) 25 mg PO Q6H PRN PRN Reason: Anxiety Lamotrigine (Lamotrigine 25 Mg Tablet) 25 mg PO BID [facility] Last Admin: 04/26/22 08:31 Dose: 25 mg Magnesium Hydroxide (Milk Of Magnesia 30 Ml Oral.Susp) 30 ml PO DAILY PRN PRN Reason: Constipation Melatonin (Melatonin 3 Mg Tablet) 3 mg PO BEDTIME PRN PRN Reason: Insomnia Nicotine Polacrilex (Nicotine Polacrilex 2 Mg Gum) 4 mg BUCCAL Q2H PRN PRN Reason: Nicotine Cravings Prazosin HCl (Prazosin Hcl 1 Mg Capsule) 2 mg PO BEDTIME JELANI; Protocol Last Admin: 04/25/22 23:10 Dose: Not Given Trazodone HCl (Trazodone Hcl 50 Mg Tablet) 50 mg PO BEDTIME PRN PRN Reason: Insomnia Allergies Allergies Allergy/AdvReac Type Severity Reaction Status Date / Time No Known Allergies Allergy Verified 02/24/22 14:48 Assessment & Plan Assessment & Plan (1) Schizophrenia: Status: Acute Code(s): F20.9 - Schizophrenia, unspecified Plan 04/22: DC olanzapine, start haldol liquid formulation 5 mg BID. collect collateral from father. 04/23: continue current mgmt. 04/24: Has been consistently declining Haldol liquid for 3-4 days. Will therefore changed to Haldol pills in the hope that he will take these without cheeking with one-to-one staff after medication administration. Will also put in order for Haldol as needed given psychosis. 04/25: no changes 04/26: DC pill haldol, restart liquid formulation. mtg with father and SW held, father pursuing [email or web address]. taper lamictal as not indicated. Guardian/Caregiver educated on: diagnosis, medication risk/benefits and other (legal process) Reason for contiued inpatient stay Substantial Risk for: inability to function and rapid decompensation Time Spent With Patient Time: Total time managing care of this patient today _80___ minutes.
[2022-04-27 09:00] VITALS: BP 131/69; PULSE 67; RESP 20; TEMP 36.6; O2SAT 97
[2022-04-27] MEDS: Benztropine Mesylate 1 MG TABLET PO (10:19)
[2022-04-27] MEDS: lamoTRIgine 25 MG TABLET 12.5 MG PO (10:33)
[2022-04-27] MEDS: OLANZapine ODT 10 MG TAB.RAPDIS TRANSLINGU (11:50)
--- NOTE | 2022-04-27 11:59 | PC.NURSE ---
Late entry: Patient accepted tablet medications, declined liquid Haldol. Dr Dasilva in room, aware of patient behaviors. Patient continues to appear to be willing to take medications, then cheeks them, and attempts to spit out onto pradeep of cup. Returned later with Shashi wilburn, patient educated on medication, took medication, 1:1 with patient to observe.
--- NOTE | 2022-04-27 13:38 | HO.PSYCHPN ---
Subjective Subjective Date of Service: 04/27/22 Reason For Visit: Psychosis Interim History: pt refusing liquid haldol, cheeking medication otherwise. unable to give cogent explanation for his behavior. no change in presentation. fair amount of time spent with RN and NA and pt attempting to convince him to take medication and observing his behaviors after theoretically accepting the medication (but then cheeking it). 3-day in, will be discharged upon maturation. per staff, pacing. slept [id number]. refused HS meds last night. Mental Status Exam Mental Status Exam Narrative: Appearance: wearing hospital gown, poor hygiene, pacing Behavior: guarded, minimally engaging Psychomotor: pacing not acute agitation Speech: delayed response rate, minimally spontaneous TP: disorganized TC: unable to explain his medication refusal Mood: not assessed Affect: variable. from laughing to constricted, guarded and suspicious AH/VH: denies, but he is clearly internally preoccupied. laughing periodically. SI: none expressed HI: none expressed Insight/judgment: impaired x 2. Memory/cog: alert, not oriented to situation. impaired secondary to psychiatric symptoms. Diagnostics Vital Signs (24Hr): Vital Signs - 24 hr 04/27/22 09:00 Temperature 97.8 F Pulse Rate 67 Respiratory Rate 20 Blood Pressure 131/69 Pulse Oximetry 97 Oxygen Delivery Method Room Air BMI result Body Mass Index 29.1 Medications Medications Current Medications Acetaminophen (Acetaminophen 325 Mg Tablet) 650 mg PO Q6H PRN PRN Reason: Headache/Pain Mild Scale (1-3) Al Hydroxide/Mg Hydroxide (Magnesium Hydrox/Alum Hydrox 30 Ml Oral.Susp) 30 ml PO Q6H PRN PRN Reason: Heartburn/Nausea Last Admin: 04/25/22 20:03 Dose: 30 ml Benztropine Mesylate (Benztropine Mesylate 1 Mg Tablet) 1 mg PO BID [facility] Last Admin: 04/27/22 10:19 Dose: 1 mg Hydroxyzine HCl (Hydroxyzine Hcl 25 Mg Tablet) 25 mg PO Q6H PRN PRN Reason: Anxiety Lamotrigine (Lamotrigine 25 Mg Tablet) 12.5 mg PO BID [facility] Last Admin: 04/27/22 10:33 Dose: 12.5 mg Magnesium Hydroxide (Milk Of Magnesia 30 Ml Oral.Susp) 30 ml PO DAILY PRN PRN Reason: Constipation Melatonin (Melatonin 3 Mg Tablet) 3 mg PO BEDTIME PRN PRN Reason: Insomnia Nicotine Polacrilex (Nicotine Polacrilex 2 Mg Gum) 4 mg BUCCAL Q2H PRN PRN Reason: Nicotine Cravings Olanzapine (Olanzapine Odt 10 Mg Tab.Rapdis) 10 mg TRANSLINGU BID [facility]ELANI Last Admin: 04/27/22 11:50 Dose: 10 mg Prazosin HCl (Prazosin Hcl 1 Mg Capsule) 2 mg PO BEDTIME JELANI; Protocol Last Admin: 04/26/22 22:10 Dose: Not Given Trazodone HCl (Trazodone Hcl 50 Mg Tablet) 50 mg PO BEDTIME PRN PRN Reason: Insomnia Allergies Allergies Allergy/AdvReac Type Severity Reaction Status Date / Time No Known Allergies Allergy Verified 02/24/22 14:48 Assessment & Plan Assessment & Plan (1) Schizophrenia: Status: Acute Code(s): F20.9 - Schizophrenia, unspecified Plan 04/22: DC olanzapine, start haldol liquid formulation 5 mg BID. collect collateral from father. 04/23: continue current mgmt. 04/24: Has been consistently declining Haldol liquid for 3-4 days. Will therefore changed to Haldol pills in the hope that he will take these without cheeking with one-to-one staff after medication administration. Will also put in order for Haldol as needed given psychosis. 04/25: no changes 04/26: DC pill haldol, restart liquid formulation. mtg with father and SW held, father pursuing [employer]. taper lamictal as not indicated. 04/27: refusing liquid formulation. he may keep oral disintegrating tablet in his mouth long enough for it to be of some use, so will restart zydis. 3-day up on , planning for discharge currently. Patient educated on: diagnosis and medication risk/benefits Reason for contiued inpatient stay Substantial Risk for: inability to function and rapid decompensation Time Spent With Patient Time: Total time managing care of this patient today __25__ minutes.
[2022-04-28 09:30] VITALS: BP 128/58; PULSE 81; RESP 18; TEMP 37; O2SAT 94
[2022-04-28] MEDS: OLANZapine ODT 10 MG TAB.RAPDIS TRANSLINGU ×2 (09:40→20:28)
[2022-04-28] MEDS: lamoTRIgine 25 MG TABLET 12.5 MG PO ×2 (09:40→20:28)
[2022-04-28] MEDS: Benztropine Mesylate 1 MG TABLET PO ×2 (09:40→20:29)
--- NOTE | 2022-04-28 15:06 | HO.PSYCHPN ---
Subjective Subjective Date of Service: 04/28/22 Reason For Visit: Psychosis Interim History: lying in bed with blanket over his head. delayed, vague answers. doesn't remove blanket from face for interview. discharging tomorrow. unable to comment meaningfully on the fact of the change of his script to ODT zyprexa. per staff, 3-day up tomorrow. distracted, disorganized. cheeking meds. laughing randomly, RIS. denies SI/HI/AVH. attending to ADLs. eating well. slept much of the day yesterday. slept 7 pm to 0415 this morning. Mental Status Exam Mental Status Exam Narrative: Appearance: under blanket lying in bed Behavior: guarded, minimally engaging Psychomotor: restlessly casting about in bed Speech: delayed response rate, minimally spontaneous TP: disorganized TC: extremely vague, devoid of content Mood: not assessed Affect: not observed AH/VH: none expressed SI: none expressed HI: none expressed Insight/judgment: impaired x 2. Memory/cog: alert, not oriented to situation. impaired secondary to psychiatric symptoms. Diagnostics Vital Signs (24Hr): Vital Signs - 24 hr 04/28/22 09:30 Temperature 98.6 F Pulse Rate 81 Respiratory Rate 18 Blood Pressure 128/58 L Pulse Oximetry 94 Oxygen Delivery Method Room Air BMI result Body Mass Index 29.1 Medications Medications Current Medications Acetaminophen (Acetaminophen 325 Mg Tablet) 650 mg PO Q6H PRN PRN Reason: Headache/Pain Mild Scale (1-3) Al Hydroxide/Mg Hydroxide (Magnesium Hydrox/Alum Hydrox 30 Ml Oral.Susp) 30 ml PO Q6H PRN PRN Reason: Heartburn/Nausea Last Admin: 04/25/22 20:03 Dose: 30 ml Benztropine Mesylate (Benztropine Mesylate 1 Mg Tablet) 1 mg PO BID [facility] Last Admin: 04/28/22 09:40 Dose: 1 mg Hydroxyzine HCl (Hydroxyzine Hcl 25 Mg Tablet) 25 mg PO Q6H PRN PRN Reason: Anxiety Lamotrigine (Lamotrigine 25 Mg Tablet) 12.5 mg PO BID [facility] Last Admin: 04/28/22 09:40 Dose: 12.5 mg Magnesium Hydroxide (Milk Of Magnesia 30 Ml Oral.Susp) 30 ml PO DAILY PRN PRN Reason: Constipation Melatonin (Melatonin 3 Mg Tablet) 3 mg PO BEDTIME PRN PRN Reason: Insomnia Nicotine Polacrilex (Nicotine Polacrilex 2 Mg Gum) 4 mg BUCCAL Q2H PRN PRN Reason: Nicotine Cravings Olanzapine (Olanzapine Odt 10 Mg Tab.Rapdis) 10 mg TRANSLINGU BID [facility] Last Admin: 04/28/22 09:40 Dose: 10 mg Prazosin HCl (Prazosin Hcl 1 Mg Capsule) 2 mg PO BEDTIME JELANI; Protocol Last Admin: 04/27/22 22:23 Dose: Not Given Trazodone HCl (Trazodone Hcl 50 Mg Tablet) 50 mg PO BEDTIME PRN PRN Reason: Insomnia Allergies Allergies Allergy/AdvReac Type Severity Reaction Status Date / Time No Known Allergies Allergy Verified 02/24/22 14:48 Assessment & Plan Assessment & Plan (1) Schizophrenia: Status: Acute Code(s): F20.9 - Schizophrenia, unspecified Plan 04/22: DC olanzapine, start haldol liquid formulation 5 mg BID. collect collateral from father. 04/23: continue current mgmt. 04/24: Has been consistently declining Haldol liquid for 3-4 days. Will therefore changed to Haldol pills in the hope that he will take these without cheeking with one-to-one staff after medication administration. Will also put in order for Haldol as needed given psychosis. 04/25: no changes 04/26: DC pill haldol, restart liquid formulation. mtg with father and SW held, father pursuing [employer]. taper lamictal as not indicated. 04/27: refusing liquid formulation. he may keep oral disintegrating tablet in his mouth long enough for it to be of some use, so will restart zydis. 3-day up on , planning for discharge currently. 04/28: no change in presentation. 3-day up tomorrow. slept much of day and night yesterday. paperwork for probate court commitment completed. Reason for contiued inpatient stay Substantial Risk for: inability to function Time Spent With Patient Time: Total time managing care of this patient today _35___ minutes.
[2022-04-28 20:30] VITALS: BP 132/60; PULSE 84; RESP 16; TEMP 36.3; O2SAT 97
[2022-04-28] MEDS: Magnesium Hydrox/Alum Hydrox 30 ML ORAL.SUSP PO (20:46)
[2022-04-29 07:00] VITALS: BMI 29.6
[2022-04-29] MEDS: lamoTRIgine 25 MG TABLET 12.5 MG PO (08:12)
[2022-04-29] MEDS: Benztropine Mesylate 1 MG TABLET PO (08:13)
[2022-04-29] MEDS: OLANZapine ODT 10 MG TAB.RAPDIS TRANSLINGU (08:13)
[2022-04-29 08:23] VITALS: BP 132/74; PULSE 105; RESP 18; TEMP 36.5; O2SAT 97
--- NOTE | 2022-04-29 10:56 | P.DS_ITS ---
DS: Providers Provider Date of Service: 04/29/22 Date of admission: 04/21/22 16:18 Primary care physician: Unknown Physician DS: Diagnosis Discharge Diagnosis (1) Schizophrenia: Status: Acute DS: Medications Discharge Medications Home Medications: Home Medications Medication Instructions Recorded Confirmed melatonin 1 mg tablet 4 mg PO BEDTIME PRN Insomnia 04/20/22 04/20/22 Previous Rx's Medication Instructions Recorded benztropine 1 mg tablet 1 tab PO BID #60 tabs 03/11/22 lamotrigine 25 mg tablet 25 mg PO BID #60 tabs 03/11/22 lorazepam 1 mg tablet 1 mg PO Q6H PRN psychotic 03/11/22 agitation #15 tabs olanzapine 10 mg disintegrating 40 mg translingual BEDTIME #120 03/11/22 tablet tabs prazosin 2 mg capsule 1 cap PO BEDTIME #30 caps 03/11/22 Mental Status Exam Mental Status Exam Narrative: Appearance: under blanket lying in bed Behavior: guarded, minimally engaging Psychomotor: restlessly casting about in bed Speech: delayed response rate, minimally spontaneous TP: disorganized TC: extremely vague, devoid of content Mood: good Affect: not observed AH/VH: none SI: none HI: none Insight/judgment: impaired x 2. Memory/cog: alert, not oriented to situation. impaired secondary to psychiatric symptoms. DS: Summary Hospital Course Hospital Course: per 04/22 admission note: per crisis eval, pt's psychiatrist requested eval due to pt's refusal to take medication and hi appearing to be experiencing AH.? pt's father brought him in for eval.? per crisis eval, father reports pt has been refusing medication for more than a month and spits it out after VNA comes.? he has become more easily agitated and has been engaging in unhelpful behaviors such as dumping the trash bin on the floor.? he lost his job at [employer] due to giving away food.? he has demonstrated lability, going rapidly from laughing to angry.? pt also called the police to the home and accused his father of having hit father's , but father is not .? per crisis eval, father is pursuing guardianship and stevo's order.? on interview with MD, pt behaved as if he were smelling something noxious, sniffing about the room and then covering his nose with the collar of his shirt.? he declined to inform MD what he was smelling.? he often glanced about the room as if noticing or looking for something to the side, although MD detected no stimuli coming from those areas.? he denied mental illness and was unable to explain why he was taking medication.? he asked how long he would be staying, and MD was unable to provide him a firm answer.? he was educated re 3-day notice and advised to consider that option.? figueredo warning was provided.? he had no questions for MD and answered MD's questions with just rosendo, and shayla, for the most part. Past Psychiatric History: IP: since 2019, at least 5 psych hosps at [facility], [facility], [facility] OP: Kal Zhao [phone] Meds: VNA reports pt elopes when they arrive, hides, cheeks meds, self-induced vomiting Trials: Abilify, Cogentin, Prazosin, Atarax Medical Evaluation Reviewed: Yes [facility] Medical History? Schizophrenia Family History: mental illness-one in lifetime psych placement (maternal relatives) Social History: Parents Two sisters Cared for by his father, lives with father and one sister in [employer] student Behaviors began June 2019-lost interest, isolative, behavioral dyscontrol Substance History: none reported Trauma History: none reported Precis: 04/22:? DC olanzapine, start haldol liquid formulation 5 mg BID.? collect collateral from father. 04/23:? continue current mgmt. 04/24: Has been consistently declining Haldol liquid for 3-4 days.? Will therefore changed to Haldol pills in the hope that he will take these without cheeking with one-to-one staff after medication administration.? Will also put in order for Haldol as needed given psychosis. 04/25: no changes 04/26: DC pill haldol, restart liquid formulation.? mtg with father and SW held, father pursuing community stevo's.? taper lamictal as not indicated. 04/27: refusing liquid formulation.? he may keep oral disintegrating tablet in his mouth long enough for it to be of some use, so will restart zydis.? 3-day up on , planning for discharge currently. 04/28: no change in presentation.? 3-day up tomorrow.? slept much of day and nig ht yesterday.? paperwork for probate court commitment completed. 04/29: no change in presentation. bizarre behaviors, evasive and terse responses. discharged to care of father. Time Spent with Patient Time attestation: Total time managing care of this patient today ____ minutes. Time spent: Greater than 30 minutes Discharge Plan Discharge Anticipated Discharge Date/Time: 04/29/22 10:50 Patient Disposition: Home, Self-Care Discharge Diagnosis: Schizophrenia NOS Referrals: [facility] [Other] - 04/27/22 4:00 pm (All appointments will be telehealth. 04/27/22 Assessment with Layla Jean ) [facility] [Other] - 06/17/22 8:20 am (Medication Management Daysi Drake-Telehealth) [facility] [Provider Group] (Patient may use walk in clinic as needed for medical care) [facility] [Provider Group] - 05/20/22 8:00 am (Psychiatric evaluation(med management) aDysi Drake Telehealth) Discharge Medications: Continued lamotrigine 25 mg Tablet 25 mg PO BID Qty: 60 0RF olanzapine 10 mg Tablet,Disintegrating 40 mg translingual BEDTIME Qty: 120 0RF lorazepam 1 mg Tablet 1 mg PO Q6H PRN (Reason: psychotic agitation) Qty: 15 0RF benztropine 1 mg tablet 1 tab PO BID Qty: 60 0RF prazosin 2 mg capsule 1 cap PO BEDTIME Qty: 30 0RF melatonin 1 mg Tablet 4 mg PO BEDTIME PRN (Reason: Insomnia) Discontinued olanzapine 10 mg tablet 20 mg PO BEDTIME Discharge Orders: Discharge Order (Routine); Ordered 04/29/22 Ordered By: Luis Dasilva Diet: Advance to usual diet Activity on Discharge: As tolerated Stand Alone Forms: Patient Portal Discharge page, Community Support Care Plan Goals: ameliorate psychotic symptoms Health Concerns: none Plan of Treatment: take medications as prescribed, attend appointments as scheduled Assessment: not at imminent risk of harm to self or others
--- NOTE | 2022-04-29 15:54 | PC.NURSE ---
Patient discharged accompanied by his father. Discharge paperwork reviewed with patient and father with translation services. Appointments reviewed with patient and father. Medications reviewed with patient and father. Patient continued distracted, preoccupied however reported understanding. No SI/HI plan or intent reported. No A/V hallucinations reported although appeared to be responding to internal stimuli. Patient provided crisis numbers/information. Paperwork for court given to father as directed by Dr. Dasilva. No medications sent to pharmacy at this time, father reports patient has medications at home. Instruction to contact unit or current prescriber if he does not have medications. All belongings taken with patient upon discharge.
== END 2022-04-29 14:37 | disposition home or self-care (01) | DRG 750 ==
LOC: HO.ED 04-21 12:43 → HO.PADLT16 04-21 16:31
PROVIDERS: Admitting Provider Psychiatry & Neurology Psychiatry; Emergency Provider Internal Medicine; Visit Provider Psychiatry & Neurology Psychiatry
DX: F20.9 Schizophrenia, unspecified (principal); Z91.14 Patient's other noncompliance with medication regimen; Z20.822 Contact with and (suspected) exposure to COVID-19; Z23 Encounter for immunization; Z79.899 Other long term (current) drug therapy
CPT/HCPCS: 0241U; 80307; 90686; 99285

== ENCOUNTER 2022-05-04 00:51 | Inpatient (IN) | payer OTHER, SELFPAY ==
--- NOTE | 2022-05-04 | ECG_ITS ---
Test Reason : R/O QT Blood Pressure : / mmHG Vent. Rate : 055 BPM Atrial Rate : 055 BPM P-R Int : 130 ms QRS Dur : 094 ms QT Int : 400 ms P-R-T Axes : 052 026 028 degrees QTc Int : 382 ms Sinus bradycardia with sinus arrhythmia Otherwise normal ECG No previous ECGs available Referred By: Christine Duenas Electronically Signed By:KAYLEE MCMANUS
--- NOTE | ~2022-05-04 | CT_ITS ---
EXAMINATION: CT head/brain wo IV con CLINICAL INFORMATION: Reason for Exam treatment-refractory psychosis, first episode COMPARISON: None. TECHNIQUE: Contiguous axial imaging was performed from the skull base to vertex without intravenous contrast. Sagittal and coronal reformatted images were obtained. This CT examination was performed using dose optimization techniques as appropriate, variously including the following: * Automated exposure control * Adjustment of mA and/or kV according to patient size (this includes techniques or standardized protocols for targeted exams where dose is matched to indication/reason for exam; i.e. extremities or head) Use of iterative reconstruction technique DLP: 847.03 mGy-cm FINDINGS: No acute osseous or soft tissue abnormality. The mastoid air cells and visualized portions of the paranasal sinuses are well aerated. There is no evidence of acute intracranial hemorrhage or territorial infarction. No abnormal mass effect or midline shift is seen. Avery to white matter differentiation is well preserved. No extra-axial fluid collections are identified. No hydrocephalus. No significant volume loss. There is no abnormal attenuation within the brain parenchyma. CT/CT head/brain wo IV con IMPRESSION: No acute intracranial abnormality including hemorrhage, mass effect, hydrocephalus, or acute territorial edematous infarction.
[2022-05-04 00:58] VITALS: BP 107/47; BP 130/76; PULSE 58; PULSE 86; RESP 16; TEMP 36.4; O2SAT 96; O2SAT 98; BMI 25.8
--- NOTE | 2022-05-04 01:33 | ED_ITS ---
HPI - General Adult General Chief complaint: Altered Mental Status Stated complaint: cant sleep hx schizophrenia Time Seen by Provider: 05/04/22 01:01 Source: patient Mode of arrival: EMS Limitations: no limitations History of Present Illness HPI narrative: Patient with history of schizophrenia comes here as he is unable to sleep acting wake states he is taking his medication but not making much sense patient been seen here was same issues in the past on Zyprexa 20 mg daily discharge from psych floor on 04/29 Related Data Home Medications Medication Instructions Recorded Confirmed benztropine 1 mg tablet 1 tab PO BID 05/04/22 05/04/22 lamotrigine 25 mg tablet 1 tab PO BID 05/04/22 05/04/22 lorazepam 1 mg tablet 1 tab PO Q6H PRN Anxiety 05/04/22 05/04/22 melatonin 5 mg disintegrating 5 mg PO BEDTIME 05/04/22 05/04/22 tablet olanzapine 20 mg tablet 2 tab PO BEDTIME 05/04/22 05/04/22 prazosin 2 mg capsule 1 cap PO BEDTIME 05/04/22 05/04/22 Allergies Allergy/AdvReac Type Severity Reaction Status Date / Time No Known Allergies Allergy Unverified 05/04/22 01:05 [facility] Past Medical History Medical History Schizophrenia Social History Social History Household Members: Family Household Members Other:: 2 Housing: Apartment Do you presently have visiting nurse or other home services: Yes Alcohol intake: unknown Patient Tobacco Use Status: Never used Tobacco e-Cigarette/Vaping Use: Never Used Second Hand Smoke Exposure: No Advance Directives: No Advance Directives Information Provided: Yes service: No Sexual orientation: Decline to Answer Physical Exam ED Vital Signs: Vital Signs - 24 hr 05/04/22 00:58 05/04/22 02:00 05/04/22 05:42 Temperature 97.5 F 98.0 F 97.0 F Pulse Rate 58 76 77 Respiratory Rate 16 16 18 Blood Pressure 107/47 L 116/79 118/73 Pulse Oximetry 98 96 96 Oxygen Delivery Method Room Air Room Air Room Air BMI result Body Mass Index 25.8 Appearance: Alert. Oriented X3. No acute distress. Stable mood Eyes: PERRLA, No Nystagmus ENT: Pharynx normal. Oral Mucosa moist Neck: Normal inspection. Neck supple. CVS: Normal heart rate and rhythm. Pulses normal. Respiratory: No respiratory distress. Equal air entry bilateral, no wheezing/rales/rhonchi Abdomen: Soft and nontender. Bowel sounds are present, no mass palpable, no CVA tenderness Skin: Skin warm and dry. Normal skin color. Normal skin turgor. Extremities: No lower extremity edema. No calf tenderness psych: Stable mood denies any SI or HI denies any hallucinations Neuro: Oriented X 3. No motor deficit. No sensory deficit.No cerebellar signs , cranial nerves II-XII intact Medical Decision Making Medical Decision Making [facility] Narrative: Patient with schizophrenia admitted here and discharged on 04/29 supposed to be on olanzapine 40 mg but he never got it still taking 20 mg. Will get the care team speak to the patient adjust his medication Lab Data [facility] Lab Attestation statement: I reviewed the patient's lab results. Labs: Lab Results 05/04/22 Range/Units 02:22 COVID-19 ([facility]) Negative (Negative) COVID-19 Clin Com See Note Discharge Plan Discharge Clinical Impression: Schizophrenia Patient Disposition: Still a Patient Prescriptions: No Action lamotrigine 25 mg tablet 1 tab PO BID benztropine 1 mg tablet 1 tab PO BID lorazepam 1 mg tablet 1 tab PO Q6H PRN (Reason: Anxiety) olanzapine 20 mg tablet 2 tab PO BEDTIME prazosin 2 mg capsule 1 cap PO BEDTIME melatonin 5 mg tablet,disintegrating 5 mg PO BEDTIME
[2022-05-04 02:00] VITALS: BP 116/79; PULSE 76; RESP 16; TEMP 36.7; O2SAT 96
--- NOTE | 2022-05-04 02:01 | MHC.CARE ---
Care Team received a consult for psychosis. Pt was in ED 8 and appeared to be sleeping. Plan discussed with Salty Burgos. Pt will remain in the ED pending medical clearance to be assessed in the morning.
[2022-05-04 02:50] LABS: COVID-19 Test Negative (Negative); IDNOW Serial# 16C4AD1C
[2022-05-04 05:42] VITALS: BP 118/73; PULSE 77; RESP 18; TEMP 36.1; O2SAT 96
--- NOTE | 2022-05-04 06:13 | PC.NURSE ---
Patient got transferred from main ED, independent gait, awaiting care team evaluation in the morning, med rec completed/pending provider's approval, VSS, pending urine sample, behavior non concerning, will continue to monitor.
[2022-05-04] MEDS: Benztropine Mesylate 1 MG TABLET PO (08:06)
[2022-05-04] MEDS: lamoTRIgine 25 MG TABLET PO (08:07)
--- NOTE | 2022-05-04 08:08 | PC.NURSE ---
Patient resting comfortably no distress noted up ambulatory to bathroom need urine samole patient aware will CTM
--- NOTE | 2022-05-04 09:25 | PC.NURSE ---
Care team spoke with patient pacing is easily redirected provided with icecream will CTM
--- NOTE | 2022-05-04 11:03 | PC.NURSE ---
PAtient sectioned by care team is brandi Vargas from care team at bedside letting patint know
--- NOTE | 2022-05-04 12:42 | PC.NURSE ---
Patient refusing blood work team aware will CTM
--- NOTE | 2022-05-04 13:11 | PC.NURSE ---
Tech attempt to collect blood from patient continues to refuse care team aware.
[2022-05-04 13:43] LABS: Amphetamine Screen Urine Not Detected (Not Detect); Barbiturates, Urine Not Detected (Not Detect); Benzodiazepines Screen Urine Not Detected (Not Detect); Cannabinoid Screen Urine Not Detected (Not Detect); Cocaine Screen Urine Not Detected (Not Detect); Fentanyl, urine Not Detected (Not Detect); Opiate Screen Urine Not Detected (Not Detect); Phencyclidine Screen Urine Not Detected (Not Detect)
[2022-05-04 16:24] VITALS: BP 140/72; PULSE 72; RESP 16; TEMP 36.1; O2SAT 96
--- NOTE | 2022-05-04 17:37 | PC.ADMIT ---
Ralf was admitted to at 16:16 from [facility] for treatment of Schizophrenia and nikita. Patient was discharged from on 04/29/2022. Precipitant of admission include sleeplessness. Per pt report he has been med complaint, however due to mental status it is unclear if the patient has been compliant with medications. Patient is alert and oriented x3 but with poor insight into the situation. Patient was unable to participate in admission. Mood is cheerful/ pleasant. Presents hypomanic. Affect is variable, but congruent with mood.?Patient denies SI/HI/AH/VH. Appears to be internally preoccupied, and does appear to be responding to internal stimuli. Patient has poor eye contact during assessments. Will frequently begin to laugh uncontrollably in mid conversation.? Thought Process appears to be disorganized with thought blocking. Reported appetite has been good. Pt reported that it is ?the same as it usually is?. Reports that he has been sleeping very poor since discharge on 04/29/2022. PT reported that he has not been sleeping. Focus and concentration appears to be poor. Patient will have lengthy pauses between questions and answering.Patient will also answer in a response that has no correlation to the question that was asked. No substance use. No acute medical issues noted or reported. Patient denies acute physical complaints at this time. 15 Minute safety checks initiated.?
[2022-05-05 06:00] VITALS: BP 132/67; PULSE 92; RESP 16; TEMP 36.4; O2SAT 97
[2022-05-05] MEDS: Benztropine Mesylate 1 MG TABLET PO (09:30)
--- NOTE | 2022-05-05 14:10 | P.HPPS_ITS ---
HPI Date of Service: 05/05/22 Chief Complaint: psychosis/nikita HPI Narrative: pt BIBA to [facility] ED with CC of insomnia. pt generally disorganized, thought- blocked, unable to engage with interviewers in evaluation and assessment. on interview with MD after admission to psych unit, same interaction and behaviors observed. very long delays in answering questions, answering with non- sequiturs, making vague answers. pt has no questions or requests for MD. he had a bandaid on his forehead and MD asked what it was from. he said he bumped his head, then a moment later said no, he was kidding, he didn';t do that. it was from smoking weed. MD reflected, you got a bruise on your forehead from smoking weed? pt said yes, without further explanation. pt asked MD repeatedly, even after MD introduced himself as pt's psych MD, if MD could help him get a job. on being asked if he were having thoughts of harming himself or suicide, after a long pause he answered, yeah at first. MD asked for further explanation and again after a long pause, pt said, nuthin', just chillin'. feelin' good. Past Psychiatric History: IP: since 2019, at least 6 psych hosps at [facility], [facility] OP: Denies- Karl Zhao [phone] Meds: VNA reports pt elopes when they arrive, hides, cheeks meds, self-induced vomiting Trials: Abilify, Cogentin, Prazosin, Atarax Medical Evaluation Reviewed: Yes [facility] Medical History Schizophrenia Family History: mental illness-one in lifetime psych placement (maternal relatives) Social History: Parents Two sisters Cared for by his father, lives with father and one sister in [employer] student Behaviors began June 2019-lost interest, isolative, behavioral dyscontrol Substance History: denies, none known Trauma History: none reported Diagnostics Vital Signs (24Hr): Vital Signs - 24 hr 05/04/22 16:24 05/05/22 06:00 Temperature 97.0 F 97.6 F Pulse Rate 72 92 Respiratory Rate 16 16 Blood Pressure 140/72 H 132/67 Pulse Oximetry 96 97 Oxygen Delivery Method Room Air Room Air BMI result Body Mass Index 25.8 Labs Labs: Laboratory Results - last 48 hr 05/04/22 05/04/22 02:22 13:18 Urine Opiates Screen Not Detected Urine Fentanyl Screen Not Detected Ur Barbiturates Screen Not Detected Ur Phencyclidine Scrn Not Detected Ur Amphetamines Screen Not Detected U Benzodiazepines Scrn Not Detected Urine Cocaine Screen Not Detected U Marijuana (THC) Screen Not Detected COVID-19 ([facility]) Negative COVID-19 Clin Com See Note Meds/Allergies Meds Home Medications Medication Instructions Recorded Confirmed Type benztropine 1 mg tablet 1 tab PO BID 05/04/22 05/04/22 History lamotrigine 25 mg tablet 1 tab PO BID 05/04/22 05/04/22 History lorazepam 1 mg tablet 1 tab PO Q6H PRN Anxiety 05/04/22 05/04/22 History melatonin 5 mg disintegrating 5 mg PO BEDTIME 05/04/22 05/04/22 History tablet olanzapine 20 mg tablet 2 tab PO BEDTIME 05/04/22 05/04/22 History prazosin 2 mg capsule 1 cap PO BEDTIME 05/04/22 05/04/22 History Allergies Allergies Allergy/AdvReac Type Severity Reaction Status Date / Time No Known Allergies Allergy Unverified 05/04/22 01:05 Mental Status Exam Mental Status Exam Narrative: Appearance: under blanket lying in bed Behavior: guarded, minimally engaging Psychomotor: restlessly casting about in bed Speech: delayed response rate, minimally spontaneous TP: disorganized TC: extremely vague, devoid of content Mood: just chillin. feelin good. Affect: full range, normo-intense, non-labile. bizarre smiling and laughing not c/w context. AH/VH: none expressed SI: none expressed HI: none expressed Insight/judgment: impaired x 2. Memory/cog: alert, not oriented to situation. impaired secondary to psychiatric symptoms. Assessment & Plan Assessment & Plan (1) Schizoaffective disorder, bipolar type: Status: Acute Code(s): F25.0 - Schizoaffective disorder, bipolar type Plan possibly manic, will invest more effort in trying to get mood stabilizer on board. continue zydis for now, start VPA sprinkles. Patient educated on: diagnosis and medication risk/benefits Reason for continued inpatient stay Substantial Risk for: inability to function Statement Statement: I have reviewed the history and physical and performed a pertinent examination on my patient. No changes have occurred unless specified. If the History and Physical was not performed prior to admission, the Hospitalist's service will be consulted for completing the admission physical. Time Spent With Patient Time: Total time managing care of this patient today _50___ minutes.
[2022-05-05 15:49] VITALS: BP 124/59; PULSE 78; RESP 16; TEMP 36.6; O2SAT 97
[2022-05-05] MEDS: Milk of Magnesia 30 ML ORAL.SUSP PO (16:34)
[2022-05-05] MEDS: Magnesium Hydrox/Alum Hydrox 30 ML ORAL.SUSP PO (19:08)
[2022-05-05 20:30] VITALS: BP 125/79; PULSE 74; TEMP 36.4; O2SAT 96
[2022-05-06 09:00] VITALS: BP 117/63; PULSE 93; RESP 18; TEMP 36.6; O2SAT 98
--- NOTE | 2022-05-06 14:42 | HO.PSYCHPN ---
Subjective Subjective Date of Service: 05/06/22 Reason For Visit: psychosis/nikita Subjective Notes: Finch Warning Interim History: disorganized, laughing randomly, unable to engage in any meaningful interaction. states he is taking meds when he is not. provided finch warning. per staff, laughing, RIS. distracted. eating and sleeping well. pleasant eves. refusing meds. not attending groups. no SI/HI. Mental Status Exam Mental Status Exam Narrative: Appearance: up and about the unit Behavior: guarded, minimally engaging Psychomotor: fidgety Speech: delayed response rate, minimally spontaneous TP: disorganized TC: extremely vague, devoid of content Mood: just chillin. feelin good. Affect: full range, normo-intense, non-labile. bizarre smiling and laughing not c/w context. AH/VH: none expressed SI: none expressed HI: none expressed Insight/judgment: impaired x 2. Memory/cog: alert, not oriented to situation. impaired secondary to psychiatric symptoms. Diagnostics Vital Signs (24Hr): Vital Signs - 24 hr 05/05/22 15:49 05/05/22 20:30 05/06/22 09:00 Temperature 97.8 F 97.6 F 97.8 F Pulse Rate 78 74 93 Respiratory Rate 16 18 Blood Pressure 124/59 L 125/79 117/63 Pulse Oximetry 97 96 98 Oxygen Delivery Method Room Air Room Air Room Air BMI result Body Mass Index 25.8 Medications Medications Current Medications Acetaminophen (Acetaminophen 325 Mg Tablet) 650 mg PO Q6H PRN PRN Reason: Headache/Pain Mild Scale (1-3) Al Hydroxide/Mg Hydroxide (Magnesium Hydrox/Alum Hydrox 30 Ml Oral.Susp) 30 ml PO Q6H PRN PRN Reason: Heartburn/Nausea Last Admin: 05/05/22 19:08 Dose: 30 ml Benztropine Mesylate (Benztropine Mesylate 1 Mg Tablet) 1 mg PO BID [facility] Last Admin: 05/06/22 10:02 Dose: Not Given Divalproex Sodium (Divalproex Sodium Sprinkles 125 Mg ) 750 mg PO BID [facility] Last Admin: 05/06/22 10:02 Dose: Not Given Hydroxyzine HCl (Hydroxyzine Hcl 25 Mg Tablet) 25 mg PO Q6H PRN PRN Reason: Anxiety Lorazepam (Lorazepam 1 Mg Tablet) 1 mg PO Q6H PRN PRN Reason: Anxiety Magnesium Hydroxide (Milk Of Magnesia 30 Ml Oral.Susp) 30 ml PO DAILY PRN PRN Reason: Constipation Last Admin: 05/05/22 16:34 Dose: 30 ml Melatonin (Melatonin 3 Mg Tablet) 6 mg PO BEDTIME JELANI Last Admin: 05/05/22 22:58 Dose: Not Given Olanzapine (Olanzapine 10 Mg Tablet) 20 mg PO BID JELANI Last Admin: 05/06/22 10:02 Dose: Not Given Prazosin HCl (Prazosin Hcl 1 Mg Capsule) 2 mg PO BEDTIME JELANI; Protocol Last Admin: 05/05/22 22:58 Dose: Not Given Trazodone HCl (Trazodone Hcl 50 Mg Tablet) 50 mg PO BEDTIME PRN PRN Reason: Insomnia Allergies Allergies Allergy/AdvReac Type Severity Reaction Status Date / Time No Known Allergies Allergy Unverified 05/04/22 01:05 Assessment & Plan Assessment & Plan (1) Schizoaffective disorder, bipolar type: Status: Acute Code(s): F25.0 - Schizoaffective disorder, bipolar type Plan 05/05: possibly manic, will invest more effort in trying to get mood stabilizer on board. continue zydis for now, start VPA sprinkles. 05/06: no change in mgmt. Reason for contiued inpatient stay Substantial Risk for: inability to function Time Spent With Patient Time: Total time managing care of this patient today __20__ minutes.
[2022-05-06 18:00] VITALS: BP 131/64; PULSE 130; RESP 18; TEMP 36.2; O2SAT 97
[2022-05-06 18:58] VITALS: BMI 24.6
[2022-05-06] MEDS: Milk of Magnesia 30 ML ORAL.SUSP PO (20:21)
[2022-05-06] MEDS: Magnesium Hydrox/Alum Hydrox 30 ML ORAL.SUSP PO (20:21)
[2022-05-06] MEDS: Prazosin HCL 1 MG CAPSULE 2 MG PO (20:24)
[2022-05-06] MEDS: OLANZapine 10 MG TABLET 20 MG PO (20:26)
[2022-05-07 06:00] VITALS: BP 144/63; PULSE 65; RESP 18; TEMP 36.4; O2SAT 96
--- NOTE | 2022-05-07 14:35 | HO.PSYCHPN ---
Subjective Subjective Date of Service: 05/07/22 Reason For Visit: psychosis/nikita Interim History: no change in presentation. wandering the halls, responding to questions with non-sequiturs, smiling and laughing to himself. per staff, paranoid, delusional. excessive eating. delayed responses. refused meds yesterday morning. took zyprexa, prazosin last night. denies AVH. Mental Status Exam Mental Status Exam Narrative: Appearance: up and about the unit Behavior: guarded, minimally engaging Psychomotor: fidgety Speech: delayed response rate, minimally spontaneous TP: disorganized TC: extremely vague, devoid of content Mood: just chillin. feelin good. Affect: full range, normo-intense, non-labile. bizarre smiling and laughing not c/w context. AH/VH: none expressed SI: none expressed HI: none expressed Insight/judgment: impaired x 2. Memory/cog: alert, not oriented to situation. impaired secondary to psychiatric symptoms. Diagnostics Vital Signs (24Hr): Vital Signs - 24 hr 05/06/22 18:00 05/07/22 06:00 Temperature 97.2 F 97.6 F Pulse Rate 130 H 65 Respiratory Rate 18 18 Blood Pressure 131/64 144/63 H Pulse Oximetry 97 96 Oxygen Delivery Method Room Air Room Air BMI result Body Mass Index 24.6 Medications Medications Current Medications Acetaminophen (Acetaminophen 325 Mg Tablet) 650 mg PO Q6H PRN PRN Reason: Headache/Pain Mild Scale (1-3) Al Hydroxide/Mg Hydroxide (Magnesium Hydrox/Alum Hydrox 30 Ml Oral.Susp) 30 ml PO Q6H PRN PRN Reason: Heartburn/Nausea Last Admin: 05/06/22 20:21 Dose: 30 ml Benztropine Mesylate (Benztropine Mesylate 1 Mg Tablet) 1 mg PO BID JELANI Last Admin: 05/07/22 11:38 Dose: Not Given Divalproex Sodium (Divalproex Sodium 250 Mg Tablet.Dr) 750 mg PO BID [facility] Hydroxyzine HCl (Hydroxyzine Hcl 25 Mg Tablet) 25 mg PO Q6H PRN PRN Reason: Anxiety Lorazepam (Lorazepam 1 Mg Tablet) 1 mg PO Q6H PRN PRN Reason: Anxiety Magnesium Hydroxide (Milk Of Magnesia 30 Ml Oral.Susp) 30 ml PO DAILY PRN PRN Reason: Constipation Last Admin: 05/06/22 20:21 Dose: 30 ml Melatonin (Melatonin 3 Mg Tablet) 6 mg PO BEDTIME [facility]EL[facility] Last Admin: 05/06/22 20:32 Dose: Not Given Olanzapine (Olanzapine 10 Mg Tablet) 20 mg PO BID JELANI Last Admin: 05/07/22 11:38 Dose: Not Given Prazosin HCl (Prazosin Hcl 1 Mg Capsule) 2 mg PO BEDTIME [facility]ELANI; Protocol Last Admin: 05/06/22 20:24 Dose: 2 mg Trazodone HCl (Trazodone Hcl 50 Mg Tablet) 50 mg PO BEDTIME PRN PRN Reason: Insomnia Allergies Allergies Allergy/AdvReac Type Severity Reaction Status Date / Time No Known Allergies Allergy Unverified 05/04/22 01:05 Assessment & Plan Assessment & Plan (1) Schizoaffective disorder, bipolar type: Status: Acute Code(s): F25.0 - Schizoaffective disorder, bipolar type Plan 05/05: possibly manic, will invest more effort in trying to get mood stabilizer on board. continue zydis for now, start VPA sprinkles. 05/06: no change in mgmt. 05/07: no change in presentation. change VPA from sprinkles back to pills due to large number of sprinkles pills required to generate 1500 mg of VPA. pt not compliant with VPA, has been taking some zyprexa; change formulation to zydis to improve bioavailability. plan to move to file for commitment next week if pt doesn't soon begin to reliably take medication. Reason for contiued inpatient stay Substantial Risk for: harm to self, harm to others, inability to function and rapid decompensation Time Spent With Patient Time: Total time managing care of this patient today __20__ minutes.
[2022-05-07] MEDS: Magnesium Hydrox/Alum Hydrox 30 ML ORAL.SUSP PO (16:07)
[2022-05-07 18:00] VITALS: BP 124/73; PULSE 88; TEMP 36.7; O2SAT 96
[2022-05-07] MEDS: OLANZapine ODT 10 MG TAB.RAPDIS 20 MG TRANSLINGU (20:14)
[2022-05-07] MEDS: LORazepam 1 MG TABLET PO (20:14)
--- NOTE | 2022-05-08 04:30 | PC.NURSE ---
3 DAY NOTICE-REVIEW OF CHART DOCUMENTATION. PATIENT PLACED 3 DAY NOTICE ON 05/07. up 05/12
[2022-05-08 10:10] VITALS: BP 132/70; PULSE 78; RESP 16; TEMP 36.6; O2SAT 99
[2022-05-08] MEDS: Benztropine Mesylate 1 MG TABLET PO (10:12)
[2022-05-08] MEDS: Divalproex Sodium 250 MG TABLET.DR 750 MG PO (10:12)
[2022-05-08] MEDS: OLANZapine ODT 10 MG TAB.RAPDIS 20 MG TRANSLINGU ×2 (10:12→20:11)
--- NOTE | 2022-05-08 13:00 | P.PNPSI_ITS ---
Subjective Subjective Date of Service: 05/08/22 Reason For Visit: psychosis/nikita Subjective Notes: Conditional Voluntary and 3 Day Interim History: The nursing staff reported the patient has and a 3 day notice, he took meds and he was appropriate with staff. He was internally preoccupied with delayed response and responding to internal stimuli. Today in the morning I saw him that he become a little agitated and slammed chair but he was easily redirectable. On interview the patient stated he wants to leave as soon as possible denies any symptoms. He looks psychotic, internally preoccupied, responding to internal stimuli. Mental Status Exam Mental Status Exam Patient Appearance: Unkempt and Bizarre Patient Orientation: Person, Place and Situation Level of Consciousness: Awake and Restless Patient Behavior: Guarded, Posturing and Suspicious Mood Description: Withdrawn Affect Description: Blunted Patient Cognition Impaired: No Ability to Follow Directions: Fair Speech Pattern: Impoverished and Monotone Hallucinations: None Delusions: Paranoid Ideation Thought Process: Illogical and Slowed Thinking Thought Content: positive for [place] and positive for Slowed Thinking Judgement: Poor Diagnostics Vital Signs (24Hr): Vital Signs - 24 hr 05/07/22 18:00 05/08/22 10:10 Temperature 98.1 F 97.8 F Pulse Rate 88 78 Respiratory Rate 16 Blood Pressure 124/73 132/70 Pulse Oximetry 96 99 Oxygen Delivery Method Room Air Room Air BMI result Body Mass Index 24.6 Medications Medications Current Medications Acetaminophen (Acetaminophen 325 Mg Tablet) 650 mg PO Q6H PRN PRN Reason: Headache/Pain Mild Scale (1-3) Al Hydroxide/Mg Hydroxide (Magnesium Hydrox/Alum Hydrox 30 Ml Oral.Susp) 30 ml PO Q6H PRN PRN Reason: Heartburn/Nausea Last Admin: 05/07/22 16:07 Dose: 30 ml Benztropine Mesylate (Benztropine Mesylate 1 Mg Tablet) 1 mg PO BID [facility] Last Admin: 05/08/22 10:12 Dose: 1 mg Divalproex Sodium (Divalproex Sodium 250 Mg Tablet.Dr) 750 mg PO BID [facility] Last Admin: 05/08/22 10:12 Dose: 750 mg Hydroxyzine HCl (Hydroxyzine Hcl 25 Mg Tablet) 25 mg PO Q6H PRN PRN Reason: Anxiety Lorazepam (Lorazepam 1 Mg Tablet) 1 mg PO Q6H PRN PRN Reason: Anxiety Last Admin: 05/07/22 20:14 Dose: 1 mg Magnesium Hydroxide (Milk Of Magnesia 30 Ml Oral.Susp) 30 ml PO DAILY PRN PRN Reason: Constipation Last Admin: 05/06/22 20:21 Dose: 30 ml Melatonin (Melatonin 3 Mg Tablet) 6 mg PO BEDTIME [facility]EL[facility] Last Admin: 05/08/22 00:06 Dose: Not Given Olanzapine (Olanzapine Odt 10 Mg Tab.Rapdis) 20 mg TRANSLINGU BID [facility]EL[facility] Last Admin: 05/08/22 10:12 Dose: 20 mg Prazosin HCl (Prazosin Hcl 1 Mg Capsule) 2 mg PO BEDTIME JELANI; Protocol Last Admin: 05/08/22 00:06 Dose: Not Given Trazodone HCl (Trazodone Hcl 50 Mg Tablet) 50 mg PO BEDTIME PRN PRN Reason: Insomnia Allergies Allergies Allergy/AdvReac Type Severity Reaction Status Date / Time No Known Allergies Allergy Unverified 05/04/22 01:05 Assessment & Plan Assessment & Plan (1) Schizoaffective disorder, bipolar type: Status: Acute Code(s): F25.0 - Schizoaffective disorder, bipolar type Plan 05/05: possibly manic, will invest more effort in trying to get mood stabilizer on board. continue zydis for now, start VPA sprinkles. 05/06: no change in mgmt. 05/07: no change in presentation. change VPA from sprinkles back to pills due to large number of sprinkles pills required to generate 1500 mg of VPA. pt not compliant with VPA, has been taking some zyprexa; change formulation to zydis to improve bioavailability. plan to move to file for commitment next week if pt doesn't soon begin to reliably take medication. 05/08 no change Reason for contiued inpatient stay Substantial Risk for: inability to function, rapid decompensation and med/psych decompensation Time Spent With Patient Time: Total time managing care of this patient today ___20_ minutes.
[2022-05-08] MEDS: LORazepam 1 MG TABLET PO (20:11)
[2022-05-08 20:21] VITALS: BP 109/68; PULSE 87; TEMP 36.4; O2SAT 97
[2022-05-09 08:45] VITALS: BP 129/61; PULSE 108; RESP 16; TEMP 36.6; O2SAT 97
[2022-05-09] MEDS: OLANZapine ODT 10 MG TAB.RAPDIS 20 MG TRANSLINGU ×2 (09:54→20:35)
[2022-05-09] MEDS: Divalproex Sodium 250 MG TABLET.DR 750 MG PO ×2 (09:54→21:41)
[2022-05-09] MEDS: Benztropine Mesylate 1 MG TABLET PO (09:54)
--- NOTE | 2022-05-09 12:21 | HO.PSYCHPN ---
Subjective Subjective Date of Service: 05/09/22 Reason For Visit: psychosis/nikita Subjective Notes: Conditional Voluntary Interim History: The nursing staff reported the patient had been internally preoccupied, wants to go home he has been restless. Yesterday he took his side isn't PRNs but refused all other meds. On interview the patient denies new symptoms he was not engageable. Mental Status Exam Mental Status Exam Patient Appearance: Appropriate Patient Orientation: Person and Situation Level of Consciousness: Restless Patient Behavior: Guarded and Passive Mood Description: Withdrawn Affect Description: Constricted Patient Cognition Impaired: No Ability to Follow Directions: Good Speech Pattern: Clear Hallucinations: None Delusions: Paranoid Ideation Thought Process: Illogical Thought Content: positive for Circumstantial Judgement: Poor Diagnostics Vital Signs (24Hr): Vital Signs - 24 hr 05/08/22 20:21 05/09/22 08:45 Temperature 97.6 F 97.8 F Pulse Rate 87 108 H Respiratory Rate 16 Blood Pressure 109/68 129/61 Pulse Oximetry 97 97 Oxygen Delivery Method Room Air Room Air BMI result Body Mass Index 24.6 Medications Medications Current Medications Acetaminophen (Acetaminophen 325 Mg Tablet) 650 mg PO Q6H PRN PRN Reason: Headache/Pain Mild Scale (1-3) Al Hydroxide/Mg Hydroxide (Magnesium Hydrox/Alum Hydrox 30 Ml Oral.Susp) 30 ml PO Q6H PRN PRN Reason: Heartburn/Nausea Last Admin: 05/07/22 16:07 Dose: 30 ml Benztropine Mesylate (Benztropine Mesylate 1 Mg Tablet) 1 mg PO BID [facility] Last Admin: 05/09/22 09:54 Dose: 1 mg Divalproex Sodium (Divalproex Sodium 250 Mg Tablet.Dr) 750 mg PO BID [facility] Last Admin: 05/09/22 09:54 Dose: 750 mg Hydroxyzine HCl (Hydroxyzine Hcl 25 Mg Tablet) 25 mg PO Q6H PRN PRN Reason: Anxiety Magnesium Hydroxide (Milk Of Magnesia 30 Ml Oral.Susp) 30 ml PO DAILY PRN PRN Reason: Constipation Last Admin: 05/06/22 20:21 Dose: 30 ml Melatonin (Melatonin 3 Mg Tablet) 6 mg PO BEDTIME [facility] Last Admin: 05/08/22 20:41 Dose: Not Given Olanzapine (Olanzapine Odt 10 Mg Tab.Rapdis) 20 mg TRANSLINGU BID [facility] Last Admin: 05/09/22 09:54 Dose: 20 mg Prazosin HCl (Prazosin Hcl 1 Mg Capsule) 2 mg PO BEDTIME [facility]ELANI; Protocol Last Admin: 05/08/22 20:42 Dose: Not Given Trazodone HCl (Trazodone Hcl 50 Mg Tablet) 50 mg PO BEDTIME PRN PRN Reason: Insomnia Allergies Allergies Allergy/AdvReac Type Severity Reaction Status Date / Time No Known Allergies Allergy Unverified 05/04/22 01:05 Assessment & Plan Assessment & Plan (1) Schizoaffective disorder, bipolar type: Status: Acute Code(s): F25.0 - Schizoaffective disorder, bipolar type Plan 05/05: possibly manic, will invest more effort in trying to get mood stabilizer on board. continue zydis for now, start VPA sprinkles. 05/06: no change in mgmt. 05/07: no change in presentation. change VPA from sprinkles back to pills due to large number of sprinkles pills required to generate 1500 mg of VPA. pt not compliant with VPA, has been taking some zyprexa; change formulation to zydis to improve bioavailability. plan to move to file for commitment next week if pt doesn't soon begin to reliably take medication. 05/08 no change 05/09 no change Reason for contiued inpatient stay Substantial Risk for: inability to function, rapid decompensation and med/psych decompensation Time Spent With Patient Time: Total time managing care of this patient today __20__ minutes.
[2022-05-09] MEDS: Milk of Magnesia 30 ML ORAL.SUSP PO ×2 (12:47→17:46)
[2022-05-09] MEDS: Magnesium Hydrox/Alum Hydrox 30 ML ORAL.SUSP PO (20:51)
--- NOTE | 2022-05-09 23:58 | PC.NURSE ---
Late entry: 2100 Pt agreed to take HS medications. Asked several times what each med was for before accepting. Pt put pills in his mouth (all but Zydis) and held them there for several minutes. Pt was unable to stand still, suspicious and hypervigilant. Pt encouraged to either swallow the pills or spit them out in a cup, but he declined. He stated he took them, but upon examining the cup he put in the trash there were several of his pills there; only depakote could be recovered from trash bag due to large amount of trash. Pt did accept Zydis and appeared to chew them. Pt later asked for his other medications, it was explained that RN knew he had spit them out and he could take them again if he was going to swallow them. He spent about another hour repeating the same process of asking for pills, but then walking away when told he could not spit them out. He eventually took 2 tabs of 250mg depakote, but appeared to be cheeking them. RN asked patient to either spit them out or swallow them and that it was clear he was cheeking. Pt again reminded he could refuse meds, but he could not continue to hold the pills in his mouth. He eventually swallowed the 2 tabs but would not take any others.
[2022-05-10 09:00] VITALS: RESP 20
[2022-05-10] MEDS: Benztropine Mesylate 1 MG TABLET PO (09:52)
[2022-05-10] MEDS: OLANZapine ODT 10 MG TAB.RAPDIS 20 MG TRANSLINGU (09:52)
[2022-05-10 10:42] VITALS: BP 134/63; PULSE 95; RESP 20; TEMP 36.4; O2SAT 97
--- NOTE | 2022-05-10 13:14 | P.PNPSI_ITS ---
Subjective Subjective Date of Service: 05/10/22 Reason For Visit: psychosis/nikita Interim History: calm, cooperative. MS peacock changed. laughing periodically, vague, anodyne answers. claims to be taking meds. per staff, 3-day up 05/12. denies Sx. chewed meds once over weekend. visible. brief visit with father. told father he is experiencing AH. +RIS, cheeking meds and spitting them out/furtively disposing them when he believes he is least likely to be discovered. Mental Status Exam Mental Status Exam Narrative: Appearance: up and about the unit Behavior: guarded, minimally engaging Psychomotor: fidgety Speech: delayed response rate, minimally spontaneous TP: disorganized TC: vague, vacuous Mood: good. Affect: full range, normo-intense, non-labile. bizarre smiling and laughing not c/w context. AH/VH: none expressed SI: none expressed HI: none expressed Insight/judgment: impaired x 2. Memory/cog: alert, not oriented to situation. impaired secondary to psychiatric symptoms. Diagnostics Vital Signs (24Hr): Vital Signs - 24 hr 05/10/22 09:00 05/10/22 10:42 Temperature 97.6 F Pulse Rate 95 Respiratory Rate 20 20 Blood Pressure 134/63 Pulse Oximetry 97 Oxygen Delivery Method Room Air BMI result Body Mass Index 24.6 Medications Medications Current Medications Acetaminophen (Acetaminophen 325 Mg Tablet) 650 mg PO Q6H PRN PRN Reason: Headache/Pain Mild Scale (1-3) Al Hydroxide/Mg Hydroxide (Magnesium Hydrox/Alum Hydrox 30 Ml Oral.Susp) 30 ml PO Q6H PRN PRN Reason: Heartburn/Nausea Last Admin: 05/09/22 20:51 Dose: 30 ml Benztropine Mesylate (Benztropine Mesylate 1 Mg Tablet) 1 mg PO BID [facility] Last Admin: 05/10/22 09:52 Dose: 1 mg Divalproex Sodium (Divalproex Sodium 250 Mg Tablet.) 750 mg PO BID [facility] Last Admin: 05/10/22 10:00 Dose: Not Given Docusate Sodium (Docusate Sodium 100 Mg Capsule) 100 mg PO BEDTIME [facility] Last Admin: 05/09/22 20:46 Dose: Not Given Hydroxyzine HCl (Hydroxyzine Hcl 25 Mg Tablet) 25 mg PO Q6H PRN PRN Reason: Anxiety Magnesium Hydroxide (Milk Of Magnesia 30 Ml Oral.Susp) 30 ml PO DAILY PRN PRN Reason: Constipation Last Admin: 05/09/22 12:47 Dose: 30 ml Melatonin (Melatonin 3 Mg Tablet) 6 mg PO BEDTIME [facility]ELANI Last Admin: 05/09/22 20:46 Dose: Not Given Olanzapine (Olanzapine Odt 10 Mg Tab.Rapdis) 20 mg TRANSLINGU BID [facility]ELANI Last Admin: 05/10/22 09:52 Dose: 20 mg Prazosin HCl (Prazosin Hcl 1 Mg Capsule) 2 mg PO BEDTIME JELANI; Protocol Last Admin: 05/09/22 20:47 Dose: Not Given Trazodone HCl (Trazodone Hcl 50 Mg Tablet) 50 mg PO BEDTIME PRN PRN Reason: Insomnia Allergies Allergies Allergy/AdvReac Type Severity Reaction Status Date / Time No Known Allergies Allergy Unverified 05/04/22 01:05 Assessment & Plan Assessment & Plan (1) Schizoaffective disorder, bipolar type: Status: Acute Code(s): F25.0 - Schizoaffective disorder, bipolar type Plan 05/05: possibly manic, will invest more effort in trying to get mood stabilizer on board. continue zydis for now, start VPA sprinkles. 05/06: no change in mgmt. 05/07: no change in presentation. change VPA from sprinkles back to pills due to large number of sprinkles pills required to generate 1500 mg of VPA. pt not compliant with VPA, has been taking some zyprexa; change formulation to zydis to improve bioavailability. plan to move to file for commitment next week if pt doesn't soon begin to reliably take medication. 05/08 no change 05/09 no change 05/10: no change to mgmt. chewed meds x 1 over weekend, cheeking/furtively disposing of meds otherwise. Reason for contiued inpatient stay Substantial Risk for: inability to function Time Spent With Patient Time: Total time managing care of this patient today __25__ minutes.
[2022-05-10 19:45] VITALS: BP 138/65; PULSE 62; RESP 18; TEMP 36.8; O2SAT 98
[2022-05-10] MEDS: Milk of Magnesia 30 ML ORAL.SUSP PO (20:23)
[2022-05-11 09:45] VITALS: BP 126/76; PULSE 88; RESP 18; TEMP 36.7; O2SAT 96
[2022-05-11] MEDS: Benztropine Mesylate 1 MG TABLET PO (09:57)
[2022-05-11] MEDS: OLANZapine ODT 10 MG TAB.RAPDIS 20 MG TRANSLINGU ×2 (09:57→20:17)
--- NOTE | 2022-05-11 14:08 | P.PNPSI_ITS ---
Subjective Subjective Date of Service: 05/11/22 Reason For Visit: psychosis/nikita Interim History: no change in presentation. informed of plan to file for commitment tomorrow. appears to have a difficult time processing the information but gradually and after repeated questions and brief interviews throughout the morning as pt repeatedly approaches MD to ask questions (often redundantly), pt appears to grasp that he will not be allowed to discharge tomorrow. he bargains around taking medications and discharge. per staff, 3-day notice up tomorrow. +RIS. denies psych Sx. says he'll take the little pill. refused VPA yesterday morning, refused all meds last night. slept well. Mental Status Exam Mental Status Exam Narrative: Appearance: up and about the unit Behavior: guarded, minimally engaging Psychomotor: fidgety Speech: delayed response rate, minimally spontaneous TP: disorganized TC: vague, vacuous Mood: not assessed Affect: full range, normo-intense, non-labile. bizarre smiling and laughing not c/w context. AH/VH: none expressed SI: none expressed HI: none expressed Insight/judgment: impaired x 2. Memory/cog: alert, not oriented to situation. impaired secondary to psychiatric symptoms. Diagnostics Vital Signs (24Hr): Vital Signs - 24 hr 05/10/22 19:45 Temperature 98.2 F Pulse Rate 62 Respiratory Rate 18 Blood Pressure 138/65 Pulse Oximetry 98 Oxygen Delivery Method Room Air BMI result Body Mass Index 24.6 Medications Medications Current Medications Acetaminophen (Acetaminophen 325 Mg Tablet) 650 mg PO Q6H PRN PRN Reason: Headache/Pain Mild Scale (1-3) Al Hydroxide/Mg Hydroxide (Magnesium Hydrox/Alum Hydrox 30 Ml Oral.Susp) 30 ml PO Q6H PRN PRN Reason: Heartburn/Nausea Last Admin: 05/09/22 20:51 Dose: 30 ml Divalproex Sodium (Divalproex Sodium 250 Mg Tablet.) 750 mg PO BID [facility] Last Admin: 05/11/22 10:08 Dose: Not Given Docusate Sodium (Docusate Sodium 100 Mg Capsule) 100 mg PO BEDTIME [facility] Last Admin: 05/10/22 20:31 Dose: Not Given Hydroxyzine HCl (Hydroxyzine Hcl 25 Mg Tablet) 25 mg PO Q6H PRN PRN Reason: Anxiety Magnesium Hydroxide (Milk Of Magnesia 30 Ml Oral.Susp) 30 ml PO DAILY PRN PRN Reason: Constipation Last Admin: 05/10/22 20:23 Dose: 30 ml Melatonin (Melatonin 3 Mg Tablet) 6 mg PO BEDTIME [facility]EL[facility] Last Admin: 05/10/22 20:31 Dose: Not Given Olanzapine (Olanzapine Odt 10 Mg Tab.Rapdis) 20 mg TRANSLINGU BID [facility] Last Admin: 05/11/22 09:57 Dose: 20 mg Prazosin HCl (Prazosin Hcl 1 Mg Capsule) 2 mg PO BEDTIME JELANI; Protocol Last Admin: 05/10/22 20:32 Dose: Not Given Trazodone HCl (Trazodone Hcl 50 Mg Tablet) 50 mg PO BEDTIME PRN PRN Reason: Insomnia Allergies Allergies Allergy/AdvReac Type Severity Reaction Status Date / Time No Known Allergies Allergy Unverified 05/04/22 01:05 Assessment & Plan Assessment & Plan (1) Schizoaffective disorder, bipolar type: Status: Acute Code(s): F25.0 - Schizoaffective disorder, bipolar type Plan 05/05: possibly manic, will invest more effort in trying to get mood stabilizer on board. continue zydis for now, start VPA sprinkles. 05/06: no change in mgmt. 05/07: no change in presentation. change VPA from sprinkles back to pills due to large number of sprinkles pills required to generate 1500 mg of VPA. pt not compliant with VPA, has been taking some zyprexa; change formulation to zydis to improve bioavailability. plan to move to file for commitment next week if pt doesn't soon begin to reliably take medication. 05/08 no change 05/09 no change 05/10: no change to mgmt. chewed meds x 1 over weekend, cheeking/furtively disposing of meds otherwise. 05/11: generally refusing meds. informed he will be filed on tomorrow. attempting to bargain over taking meds and discharge. will investigate obtaining VPA soln. Patient educated on: other (legal) Reason for contiued inpatient stay Substantial Risk for: inability to function and rapid decompensation Time Spent With Patient Time: Total time managing care of this patient today __35__ minutes.
[2022-05-11] MEDS: Prazosin HCL 1 MG CAPSULE 2 MG PO (20:16)
[2022-05-11] MEDS: Melatonin 3 MG TABLET 6 MG PO (20:17)
[2022-05-11] MEDS: Docusate Sodium 100 MG CAPSULE PO (20:28)
[2022-05-11 20:30] VITALS: BP 128/74; PULSE 80; RESP 18; O2SAT 96
[2022-05-12 06:00] VITALS: RESP 16
[2022-05-12] MEDS: OLANZapine ODT 10 MG TAB.RAPDIS 20 MG TRANSLINGU ×2 (09:35→19:51)
--- NOTE | 2022-05-12 14:03 | HO.PSYCHPN ---
Subjective Subjective Date of Service: 05/12/22 Reason For Visit: psychosis/nikita Interim History: calm, cooperative. states he will take liquid medication and dissolvable medication. no complaints or requests otherwise. per staff, no anx/dep. eating and sleeping well. not attending groups. took all meds last night. Mental Status Exam Mental Status Exam Narrative: Appearance: up and about the unit Behavior: guarded, minimally engaging Psychomotor: fidgety Speech: delayed response rate, minimally spontaneous TP: disorganized TC: vague, vacuous Mood: not assessed Affect: full range, normo-intense, non-labile. bizarre smiling and laughing not c/w context. AH/VH: none expressed SI: none expressed HI: none expressed Insight/judgment: impaired x 2. Memory/cog: alert, not oriented to situation. impaired secondary to psychiatric symptoms. Diagnostics Vital Signs (24Hr): Vital Signs - 24 hr 05/11/22 20:30 05/12/22 06:00 Pulse Rate 80 Respiratory Rate 18 16 Blood Pressure 128/74 Pulse Oximetry 96 Oxygen Delivery Method Room Air BMI result Body Mass Index 24.6 Medications Medications Current Medications Acetaminophen (Acetaminophen 325 Mg Tablet) 650 mg PO Q6H PRN PRN Reason: Headache/Pain Mild Scale (1-3) Al Hydroxide/Mg Hydroxide (Magnesium Hydrox/Alum Hydrox 30 Ml Oral.Susp) 30 ml PO Q6H PRN PRN Reason: Heartburn/Nausea Last Admin: 05/09/22 20:51 Dose: 30 ml Docusate Sodium (Docusate Sodium 100 Mg Capsule) 100 mg PO BEDTIME [facility] Last Admin: 05/11/22 20:28 Dose: 100 mg Hydroxyzine HCl (Hydroxyzine Hcl 25 Mg Tablet) 25 mg PO Q6H PRN PRN Reason: Anxiety Magnesium Hydroxide (Milk Of Magnesia 30 Ml Oral.Susp) 30 ml PO DAILY PRN PRN Reason: Constipation Last Admin: 05/10/22 20:23 Dose: 30 ml Melatonin (Melatonin 3 Mg Tablet) 6 mg PO BEDTIME [facility] Last Admin: 05/11/22 20:17 Dose: 6 mg Olanzapine (Olanzapine Odt 10 Mg Tab.Rapdis) 20 mg TRANSLINGU BID [facility] Last Admin: 05/12/22 09:35 Dose: 20 mg Prazosin HCl (Prazosin Hcl 1 Mg Capsule) 2 mg PO BEDTIME [facility]; Protocol Last Admin: 05/11/22 20:16 Dose: 2 mg Trazodone HCl (Trazodone Hcl 50 Mg Tablet) 50 mg PO BEDTIME PRN PRN Reason: Insomnia Valproic Acid (Valproic Acid (As Sodium Salt) 250 Mg/5 Ml Solution) 750 mg PO BID [facility] Last Admin: 05/12/22 09:34 Dose: 750 mg Allergies Allergies Allergy/AdvReac Type Severity Reaction Status Date / Time No Known Allergies Allergy Unverified 05/04/22 01:05 Assessment & Plan Assessment & Plan (1) Schizoaffective disorder, bipolar type: Status: Acute Code(s): F25.0 - Schizoaffective disorder, bipolar type Plan 05/05: possibly manic, will invest more effort in trying to get mood stabilizer on board. continue zydis for now, start VPA sprinkles. 05/06: no change in mgmt. 05/07: no change in presentation. change VPA from sprinkles back to pills due to large number of sprinkles pills required to generate 1500 mg of VPA. pt not compliant with VPA, has been taking some zyprexa; change formulation to zydis to improve bioavailability. plan to move to file for commitment next week if pt doesn't soon begin to reliably take medication. 05/08 no change 05/09 no change 05/10: no change to mgmt. chewed meds x 1 over weekend, cheeking/furtively disposing of meds otherwise. 05/11: generally refusing meds. informed he will be filed on tomorrow. attempting to bargain over taking meds and discharge. will investigate obtaining VPA soln. 05/12: commitment paperwork filed. pt took all meds last night and this morning, including liquid VPA. aware of legal circumstance, unclear how well he is able to appreciate it. Reason for contiued inpatient stay Substantial Risk for: harm to others, inability to function and rapid decompensation Time Spent With Patient Time: Total time managing care of this patient today __35__ minutes.
[2022-05-12] MEDS: Melatonin 3 MG TABLET 6 MG PO (19:53)
[2022-05-12] MEDS: Docusate Sodium 100 MG CAPSULE PO (19:53)
[2022-05-12] MEDS: Prazosin HCL 1 MG CAPSULE 2 MG PO (19:58)
[2022-05-12 19:59] VITALS: BP 127/72; PULSE 89; TEMP 36.7; O2SAT 94
[2022-05-12] MEDS: Milk of Magnesia 30 ML ORAL.SUSP PO (20:06)
[2022-05-13 07:00] VITALS: BMI 24.6
[2022-05-13] MEDS: OLANZapine ODT 10 MG TAB.RAPDIS 20 MG TRANSLINGU ×2 (09:40→20:16)
[2022-05-13 10:05] VITALS: BP 154/68; PULSE 92; TEMP 36.8; O2SAT 98
--- NOTE | 2022-05-13 14:39 | HO.PSYCHPN ---
Subjective Subjective Date of Service: 05/13/22 Reason For Visit: psychosis/nikita Interim History: behavior slightly different today in that pt seeks out MD first thing in the morning to check in. asking when he may leave, states he is taking his medication as prescribed. no complaints or requests otherwise. behavior remains as per previous in other respects, fidgety, bizarre smiling, vague delayed answers. states he is feeling better, on being asked in what way, he responds, just chillin. per staff, +RIS. isolative. not attending groups. eating and sleeping well. denies anx/dep/AVH. med-compliant. Mental Status Exam Mental Status Exam Narrative: Appearance: up and about the unit Behavior: guarded, minimally engaging Psychomotor: fidgety Speech: delayed response rate, minimally spontaneous TP: disorganized TC: vague, vacuous Mood: better Affect: full range, normo-intense, non-labile. bizarre smiling and laughing not c/w context. AH/VH: none expressed SI: none expressed HI: none expressed Insight/judgment: impaired x 2. Memory/cog: alert, not oriented to situation. impaired secondary to psychiatric symptoms. Diagnostics Vital Signs (24Hr): Vital Signs - 24 hr 05/12/22 19:59 05/13/22 10:05 Temperature 98.1 F 98.2 F Pulse Rate 89 92 Blood Pressure 127/72 154/68 H Pulse Oximetry 94 98 Oxygen Delivery Method Room Air Room Air BMI result Body Mass Index 24.6 Medications Medications Current Medications Acetaminophen (Acetaminophen 325 Mg Tablet) 650 mg PO Q6H PRN PRN Reason: Headache/Pain Mild Scale (1-3) Al Hydroxide/Mg Hydroxide (Magnesium Hydrox/Alum Hydrox 30 Ml Oral.Susp) 30 ml PO Q6H PRN PRN Reason: Heartburn/Nausea Last Admin: 05/09/22 20:51 Dose: 30 ml Docusate Sodium (Docusate Sodium 100 Mg Capsule) 100 mg PO BEDTIME [facility] Last Admin: 05/12/22 19:53 Dose: 100 mg Hydroxyzine HCl (Hydroxyzine Hcl 25 Mg Tablet) 25 mg PO Q6H PRN PRN Reason: Anxiety Magnesium Hydroxide (Milk Of Magnesia 30 Ml Oral.Susp) 30 ml PO DAILY PRN PRN Reason: Constipation Last Admin: 05/12/22 20:06 Dose: 30 ml Melatonin (Melatonin 3 Mg Tablet) 6 mg PO BEDTIME [facility] Last Admin: 05/12/22 19:53 Dose: 6 mg Olanzapine (Olanzapine Odt 10 Mg Tab.Rapdis) 20 mg TRANSLINGU BID [facility] Last Admin: 05/13/22 09:40 Dose: 20 mg Prazosin HCl (Prazosin Hcl 1 Mg Capsule) 2 mg PO BEDTIME [facility]; Protocol Last Admin: 05/12/22 19:58 Dose: 2 mg Trazodone HCl (Trazodone Hcl 50 Mg Tablet) 50 mg PO BEDTIME PRN PRN Reason: Insomnia Valproic Acid (Valproic Acid (As Sodium Salt) 250 Mg/5 Ml Solution) 750 mg PO BID [facility] Last Admin: 05/13/22 09:41 Dose: 750 mg Allergies Allergies Allergy/AdvReac Type Severity Reaction Status Date / Time No Known Allergies Allergy Unverified 05/04/22 01:05 Assessment & Plan Assessment & Plan (1) Schizoaffective disorder, bipolar type: Status: Acute Code(s): F25.0 - Schizoaffective disorder, bipolar type Plan 05/05: possibly manic, will invest more effort in trying to get mood stabilizer on board. continue zydis for now, start VPA sprinkles. 05/06: no change in mgmt. 05/07: no change in presentation. change VPA from sprinkles back to pills due to large number of sprinkles pills required to generate 1500 mg of VPA. pt not compliant with VPA, has been taking some zyprexa; change formulation to zydis to improve bioavailability. plan to move to file for commitment next week if pt doesn't soon begin to reliably take medication. 05/08 no change 05/09 no change 05/10: no change to mgmt. chewed meds x 1 over weekend, cheeking/furtively disposing of meds otherwise. 05/11: generally refusing meds. informed he will be filed on tomorrow. attempting to bargain over taking meds and discharge. will investigate obtaining VPA soln. 05/12: commitment paperwork filed. pt took all meds last night and this morning, including liquid VPA. aware of legal circumstance, unclear how well he is able to appreciate it. 05/13: asking about discharge, states he is compliant with meds (as also say nursing staff). states he is feeling better, but unable to say in what way. sleeping and eating well. Reason for contiued inpatient stay Substantial Risk for: inability to function and rapid decompensation Time Spent With Patient Time: Total time managing care of this patient today __20__ minutes.
[2022-05-13] MEDS: Docusate Sodium 100 MG CAPSULE PO (20:15)
[2022-05-13] MEDS: Prazosin HCL 1 MG CAPSULE 2 MG PO (20:16)
[2022-05-13] MEDS: Melatonin 3 MG TABLET 6 MG PO (20:16)
[2022-05-13 20:25] VITALS: BP 112/69; PULSE 85; TEMP 36.4; O2SAT 96
[2022-05-13] MEDS: traZODone HCL 50 MG TABLET PO (20:57)
[2022-05-14 08:00] VITALS: BP 143/68; PULSE 90; TEMP 36.3; O2SAT 99
[2022-05-14] MEDS: OLANZapine ODT 10 MG TAB.RAPDIS 20 MG TRANSLINGU ×2 (08:46→20:26)
--- NOTE | 2022-05-14 15:10 | HO.PSYCHPN ---
Subjective Subjective Date of Service: 05/14/22 Reason For Visit: psychosis/nikita Interim History: calm, cooperative. repeatedly seeking MD out throughout the day for apparent reassurance that if he takes medication he will be discharged last week and to remind MD that he is taking his medication and to ask if the otolaryngology rep will have records reflecting his compliance with treatment. otherwise remains largely unchanged, with vague answers and thought disorganization. states he is ready to go, and that there is nothing left. per staff, isolative, not attending groups. napping. testing limits with meds. denies AVH but RIS. contradictory responses. slept well. Mental Status Exam Mental Status Exam Narrative: Appearance: up and about the unit Behavior: guarded, minimally engaging Psychomotor: fidgety Speech: delayed response rate, minimally spontaneous TP: disorganized TC: vague, vacuous Mood: euthymic Affect: full range, normo-intense, non-labile. bizarre smiling and laughing not c/w context. AH/VH: none expressed SI: none expressed HI: none expressed Insight/judgment: impaired x 2. Memory/cog: alert, not oriented to situation. impaired secondary to psychiatric symptoms. Diagnostics Vital Signs (24Hr): Vital Signs - 24 hr 05/13/22 20:25 05/14/22 08:00 Temperature 97.6 F 97.3 F Pulse Rate 85 90 Blood Pressure 112/69 143/68 H Pulse Oximetry 96 99 Oxygen Delivery Method Room Air Room Air BMI result Body Mass Index 24.6 Medications Medications Current Medications Acetaminophen (Acetaminophen 325 Mg Tablet) 650 mg PO Q6H PRN PRN Reason: Headache/Pain Mild Scale (1-3) Al Hydroxide/Mg Hydroxide (Magnesium Hydrox/Alum Hydrox 30 Ml Oral.Susp) 30 ml PO Q6H PRN PRN Reason: Heartburn/Nausea Last Admin: 05/09/22 20:51 Dose: 30 ml Docusate Sodium (Docusate Sodium 100 Mg Capsule) 100 mg PO BEDTIME [facility] Last Admin: 05/13/22 20:15 Dose: 100 mg Hydroxyzine HCl (Hydroxyzine Hcl 25 Mg Tablet) 25 mg PO Q6H PRN PRN Reason: Anxiety Magnesium Hydroxide (Milk Of Magnesia 30 Ml Oral.Susp) 30 ml PO DAILY PRN PRN Reason: Constipation Last Admin: 05/12/22 20:06 Dose: 30 ml Melatonin (Melatonin 3 Mg Tablet) 6 mg PO BEDTIME [facility]PLAC[facility] Last Admin: 05/13/22 20:16 Dose: 6 mg Olanzapine (Olanzapine Odt 10 Mg Tab.Rapdis) 20 mg TRANSLINGU BID [facility] Last Admin: 05/14/22 08:46 Dose: 20 mg Prazosin HCl (Prazosin Hcl 1 Mg Capsule) 2 mg PO BEDTIME [facility]; Protocol Last Admin: 05/13/22 20:16 Dose: 2 mg Trazodone HCl (Trazodone Hcl 50 Mg Tablet) 50 mg PO BEDTIME PRN PRN Reason: Insomnia Last Admin: 05/13/22 20:57 Dose: 50 mg Valproic Acid (Valproic Acid (As Sodium Salt) 250 Mg/5 Ml Solution) 750 mg PO BID [facility] Last Admin: 05/14/22 08:45 Dose: 750 mg Allergies Allergies Allergy/AdvReac Type Severity Reaction Status Date / Time No Known Allergies Allergy Unverified 05/04/22 01:05 Assessment & Plan Assessment & Plan (1) Schizoaffective disorder, bipolar type: Status: Acute Code(s): F25.0 - Schizoaffective disorder, bipolar type Plan 05/05: possibly manic, will invest more effort in trying to get mood stabilizer on board. continue zydis for now, start VPA sprinkles. 05/06: no change in mgmt. 05/07: no change in presentation. change VPA from sprinkles back to pills due to large number of sprinkles pills required to generate 1500 mg of VPA. pt not compliant with VPA, has been taking some zyprexa; change formulation to zydis to improve bioavailability. plan to move to file for commitment next week if pt doesn't soon begin to reliably take medication. 05/08 no change 05/09 no change 05/10: no change to mgmt. chewed meds x 1 over weekend, cheeking/furtively disposing of meds otherwise. 05/11: generally refusing meds. informed he will be filed on tomorrow. attempting to bargain over taking meds and discharge. will investigate obtaining VPA soln. 05/12: commitment paperwork filed. pt took all meds last night and this morning, including liquid VPA. aware of legal circumstance, unclear how well he is able to appreciate it. 05/13: asking about discharge, states he is compliant with meds (as also say nursing staff). states he is feeling better, but unable to say in what way. sleeping and eating well. 2/3: repeated checking-in with MD throughout the day. remains disorganized and apparently RIS. med-compliant. Reason for contiued inpatient stay Substantial Risk for: harm to self, harm to others, inability to function and rapid decompensation Time Spent With Patient Time: Total time managing care of this patient today __25__ minutes.
[2022-05-14 20:20] VITALS: BP 120/68; PULSE 92; RESP 18; TEMP 36.6; O2SAT 97
[2022-05-14] MEDS: traZODone HCL 50 MG TABLET PO (20:26)
[2022-05-14] MEDS: Prazosin HCL 1 MG CAPSULE 2 MG PO (20:26)
[2022-05-14] MEDS: Docusate Sodium 100 MG CAPSULE PO (20:26)
[2022-05-14] MEDS: Melatonin 3 MG TABLET 6 MG PO (20:37)
[2022-05-15 06:00] VITALS: RESP 16
[2022-05-15] MEDS: OLANZapine ODT 10 MG TAB.RAPDIS 20 MG TRANSLINGU ×2 (10:23→20:30)
--- NOTE | 2022-05-15 13:50 | HO.PSYCHPN ---
Subjective Subjective Date of Service: 05/15/22 Reason For Visit: psychosis/nikita Interim History: sleeping in bed aruind noon, rousable to loud voice. presentation unchanged, wanting to make sure MD is aware he has been taking his meds, asking about being discjarged on tuesday and what is to happen on tuesday. per staff, anxious, restless, pacing. +RIS. taking meds. denies sleep problems. napping a lot during the day. no SI/HI. took trazodone last night to help sleep. Mental Status Exam Mental Status Exam Narrative: Appearance: up and about the unit Behavior: guarded, minimally engaging Psychomotor: fidgety Speech: delayed response rate, minimally spontaneous TP: disorganized TC: vague, vacuous Mood: good Affect: full range, normo-intense, non-labile. bizarre smiling and laughing not c/w context. AH/VH: none expressed SI: none expressed HI: none expressed Insight/judgment: impaired x 2. Memory/cog: alert, not oriented to situation. impaired secondary to psychiatric symptoms. Diagnostics Vital Signs (24Hr): Vital Signs - 24 hr 05/14/22 20:20 05/15/22 06:00 Temperature 97.9 F Pulse Rate 92 Respiratory Rate 18 16 Blood Pressure 120/68 Pulse Oximetry 97 Oxygen Delivery Method Room Air BMI result Body Mass Index 24.6 Medications Medications Current Medications Acetaminophen (Acetaminophen 325 Mg Tablet) 650 mg PO Q6H PRN PRN Reason: Headache/Pain Mild Scale (1-3) Al Hydroxide/Mg Hydroxide (Magnesium Hydrox/Alum Hydrox 30 Ml Oral.Susp) 30 ml PO Q6H PRN PRN Reason: Heartburn/Nausea Last Admin: 05/09/22 20:51 Dose: 30 ml Docusate Sodium (Docusate Sodium 100 Mg Capsule) 100 mg PO BEDTIME [facility] Last Admin: 05/14/22 20:26 Dose: 100 mg Hydroxyzine HCl (Hydroxyzine Hcl 25 Mg Tablet) 25 mg PO Q6H PRN PRN Reason: Anxiety Magnesium Hydroxide (Milk Of Magnesia 30 Ml Oral.Susp) 30 ml PO DAILY PRN PRN Reason: Constipation Last Admin: 05/12/22 20:06 Dose: 30 ml Melatonin (Melatonin 3 Mg Tablet) 6 mg PO BEDTIME [facility] Last Admin: 05/14/22 20:37 Dose: 6 mg Olanzapine (Olanzapine Odt 10 Mg Tab.Rapdis) 20 mg TRANSLINGU BID [facility] Last Admin: 05/15/22 10:23 Dose: 20 mg Prazosin HCl (Prazosin Hcl 1 Mg Capsule) 2 mg PO BEDTIME [facility]; Protocol Last Admin: 05/14/22 20:26 Dose: 2 mg Trazodone HCl (Trazodone Hcl 50 Mg Tablet) 50 mg PO BEDTIME PRN PRN Reason: Insomnia Last Admin: 05/14/22 20:26 Dose: 50 mg Valproic Acid (Valproic Acid (As Sodium Salt) 250 Mg/5 Ml Solution) 750 mg PO BID [facility] Last Admin: 05/15/22 10:23 Dose: 750 mg Allergies Allergies Allergy/AdvReac Type Severity Reaction Status Date / Time No Known Allergies Allergy Unverified 05/04/22 01:05 Assessment & Plan Assessment & Plan (1) Schizoaffective disorder, bipolar type: Status: Acute Code(s): F25.0 - Schizoaffective disorder, bipolar type Plan 05/05: possibly manic, will invest more effort in trying to get mood stabilizer on board. continue zydis for now, start VPA sprinkles. 05/06: no change in mgmt. 05/07: no change in presentation. change VPA from sprinkles back to pills due to large number of sprinkles pills required to generate 1500 mg of VPA. pt not compliant with VPA, has been taking some zyprexa; change formulation to zydis to improve bioavailability. plan to move to file for commitment next week if pt doesn't soon begin to reliably take medication. 05/08 no change 05/09 no change 05/10: no change to mgmt. chewed meds x 1 over weekend, cheeking/furtively disposing of meds otherwise. 05/11: generally refusing meds. informed he will be filed on tomorrow. attempting to bargain over taking meds and discharge. will investigate obtaining VPA soln. 05/12: commitment paperwork filed. pt took all meds last night and this morning, including liquid VPA. aware of legal circumstance, unclear how well he is able to appreciate it. 05/13: asking about discharge, states he is compliant with meds (as also say nursing staff). states he is feeling better, but unable to say in what way. sleeping and eating well. 2/3: repeated checking-in with MD throughout the day. remains disorganized and apparently RIS. med-compliant. 05/15: sleeping midday. no change in presentation. Reason for contiued inpatient stay Substantial Risk for: inability to function and rapid decompensation Time Spent With Patient Time: Total time managing care of this patient today ____ minutes.
[2022-05-15] MEDS: Milk of Magnesia 30 ML ORAL.SUSP PO (15:47)
[2022-05-15 20:18] VITALS: BP 131/73; PULSE 73; RESP 18; TEMP 36; O2SAT 98
[2022-05-15] MEDS: Prazosin HCL 1 MG CAPSULE 2 MG PO (20:31)
[2022-05-15] MEDS: Melatonin 3 MG TABLET 6 MG PO (20:32)
[2022-05-15] MEDS: traZODone HCL 50 MG TABLET PO (20:33)
[2022-05-15] MEDS: Docusate Sodium 100 MG CAPSULE PO (20:34)
[2022-05-16 06:00] VITALS: BP 132/76; PULSE 63; RESP 18; TEMP 36.7; O2SAT 98
[2022-05-16] MEDS: OLANZapine ODT 10 MG TAB.RAPDIS 20 MG TRANSLINGU ×2 (10:20→20:00)
--- NOTE | 2022-05-16 16:04 | P.PNPSI_ITS ---
Subjective Subjective Date of Service: 05/16/22 Reason For Visit: psychosis/nikita Interim History: do you have the health promotion officer's number? pt unchanged in presentation, perhaps less spontaneous laughing than previous. states he is taking meds. numerous opportunistic approaches to this bond underwriter asking if health promotion officer will see notes saying he is taking his meds, verifying that the hearing will be on tuesday, looking for assurance he will only need to stay in the hospital for a couple of days after tuesday, etc. per staff, lots of checking in. paranoid, skittish. taking meds, eating meals. less reticent to take medication. Mental Status Exam Mental Status Exam Narrative: Appearance: up and about the unit Behavior: guarded, minimally engaging Psychomotor: fidgety Speech: delayed response rate, minimally spontaneous TP: disorganized TC: vague, vacuous Mood: good Affect: full range, normo-intense, non-labile. less bizarre smiling and laughing not c/w context. AH/VH: none expressed SI: none expressed HI: none expressed Insight/judgment: impaired x 2. Memory/cog: alert, not oriented to situation. impaired secondary to psychiatric symptoms. Diagnostics Vital Signs (24Hr): Vital Signs - 24 hr 05/15/22 20:18 05/16/22 06:00 Temperature 96.8 F 98.1 F Pulse Rate 73 63 Respiratory Rate 18 18 Blood Pressure 131/73 132/76 Pulse Oximetry 98 98 Oxygen Delivery Method Room Air Room Air BMI result Body Mass Index 24.6 Medications Medications Current Medications Acetaminophen (Acetaminophen 325 Mg Tablet) 650 mg PO Q6H PRN PRN Reason: Headache/Pain Mild Scale (1-3) Al Hydroxide/Mg Hydroxide (Magnesium Hydrox/Alum Hydrox 30 Ml Oral.Susp) 30 ml PO Q6H PRN PRN Reason: Heartburn/Nausea Last Admin: 05/09/22 20:51 Dose: 30 ml Docusate Sodium (Docusate Sodium 100 Mg Capsule) 100 mg PO BEDTIME [facility] Last Admin: 05/15/22 20:34 Dose: 100 mg Hydroxyzine HCl (Hydroxyzine Hcl 25 Mg Tablet) 25 mg PO Q6H PRN PRN Reason: Anxiety Magnesium Hydroxide (Milk Of Magnesia 30 Ml Oral.Susp) 30 ml PO DAILY PRN PRN Reason: Constipation Last Admin: 05/15/22 15:47 Dose: 30 ml Melatonin (Melatonin 3 Mg Tablet) 6 mg PO BEDTIME [facility] Last Admin: 05/15/22 20:32 Dose: 6 mg Olanzapine (Olanzapine Odt 10 Mg Tab.Rapdis) 20 mg TRANSLINGU BID [facility] Last Admin: 05/16/22 10:20 Dose: 20 mg Prazosin HCl (Prazosin Hcl 1 Mg Capsule) 2 mg PO BEDTIME [facility]; Protocol Last Admin: 05/15/22 20:31 Dose: 2 mg Trazodone HCl (Trazodone Hcl 50 Mg Tablet) 50 mg PO BEDTIME PRN PRN Reason: Insomnia Last Admin: 05/15/22 20:33 Dose: 50 mg Valproic Acid (Valproic Acid (As Sodium Salt) 250 Mg/5 Ml Solution) 750 mg PO BID [facility] Last Admin: 05/16/22 10:20 Dose: 750 mg Allergies Allergies Allergy/AdvReac Type Severity Reaction Status Date / Time No Known Allergies Allergy Unverified 05/04/22 01:05 Assessment & Plan Assessment & Plan (1) Schizoaffective disorder, bipolar type: Status: Acute Code(s): F25.0 - Schizoaffective disorder, bipolar type Plan 05/05: possibly manic, will invest more effort in trying to get mood stabilizer on board. continue zydis for now, start VPA sprinkles. 05/06: no change in mgmt. 05/07: no change in presentation. change VPA from sprinkles back to pills due to large number of sprinkles pills required to generate 1500 mg of VPA. pt not compliant with VPA, has been taking some zyprexa; change formulation to zydis to improve bioavailability. plan to move to file for commitment next week if pt doesn't soon begin to reliably take medication. 05/08 no change 05/09 no change 05/10: no change to mgmt. chewed meds x 1 over weekend, cheeking/furtively disposing of meds otherwise. 05/11: generally refusing meds. informed he will be filed on tomorrow. attempting to bargain over taking meds and discharge. will investigate obtaining VPA soln. 05/12: commitment paperwork filed. pt took all meds last night and this morning, including liquid VPA. aware of legal circumstance, unclear how well he is able to appreciate it. 2/2: asking about discharge, states he is compliant with meds (as also say nursing staff). states he is feeling better, but unable to say in what way. sleeping and eating well. 2/: repeated checking-in with MD throughout the day. remains disorganized and apparently RIS. med-compliant. 05/15: sleeping midday. no change in presentation. 05/16: no change in presentation or plan. Reason for contiued inpatient stay Substantial Risk for: inability to function and rapid decompensation Time Spent With Patient Time: Total time managing care of this patient today ____ minutes.
[2022-05-16] MEDS: Melatonin 3 MG TABLET 6 MG PO (20:00)
[2022-05-16] MEDS: Docusate Sodium 100 MG CAPSULE PO (20:00)
[2022-05-16] MEDS: Prazosin HCL 1 MG CAPSULE 2 MG PO (20:00)
[2022-05-17 06:00] VITALS: BP 137/78; PULSE 94; TEMP 36.6; O2SAT 98
[2022-05-17] MEDS: OLANZapine ODT 10 MG TAB.RAPDIS 20 MG TRANSLINGU ×2 (10:11→19:29)
--- NOTE | 2022-05-17 14:37 | P.PNPSI_ITS ---
Subjective Subjective Date of Service: 05/17/22 Reason For Visit: psychosis/nikita Interim History: disorganized, perseverative. pacing the bonner, asking same questions repeatedly and not appearing to be able to process or retain responses made to him. pt reports he is taking his medications and suggests he might only have to stay a couple more days. replies that he needs to keep taking his medications moving forward. pt states, i have been. MD re-emphasizes that he is referri ng to taking medication in the future, and pt again responds, i have been. per staff, visible, pacing, wandering, 1-word replies. digging through trash. +RIS. taking meds. Mental Status Exam Mental Status Exam Narrative: Appearance: up and about the unit Behavior: guarded, minimally engaging Psychomotor: fidgety Speech: delayed response rate, spontaneous TP: disorganized TC: vague, vacuous Mood: not assessed Affect: full range, normo-intense, non-labile. less bizarre smiling and laughing not c/w context. AH/VH: none expressed SI: none expressed HI: none expressed Insight/judgment: impaired x 2. Memory/cog: alert, not oriented to situation. impaired secondary to psychiatric symptoms. Diagnostics Vital Signs (24Hr): Vital Signs - 24 hr 05/17/22 06:00 Temperature 97.9 F Pulse Rate 94 Blood Pressure 137/78 Pulse Oximetry 98 Oxygen Delivery Method Room Air BMI result Body Mass Index 24.6 Medications Medications Current Medications Acetaminophen (Acetaminophen 325 Mg Tablet) 650 mg PO Q6H PRN PRN Reason: Headache/Pain Mild Scale (1-3) Al Hydroxide/Mg Hydroxide (Magnesium Hydrox/Alum Hydrox 30 Ml Oral.Susp) 30 ml PO Q6H PRN PRN Reason: Heartburn/Nausea Last Admin: 05/09/22 20:51 Dose: 30 ml Docusate Sodium (Docusate Sodium 100 Mg Capsule) 100 mg PO BEDTIME JELANI Last Admin: 05/16/22 20:00 Dose: 100 mg Hydroxyzine HCl (Hydroxyzine Hcl 25 Mg Tablet) 25 mg PO Q6H PRN PRN Reason: Anxiety Magnesium Hydroxide (Milk Of Magnesia 30 Ml Oral.Susp) 30 ml PO DAILY PRN PRN Reason: Constipation Last Admin: 05/15/22 15:47 Dose: 30 ml Melatonin (Melatonin 3 Mg Tablet) 6 mg PO BEDTIME JELANI Last Admin: 05/16/22 20:00 Dose: 6 mg Olanzapine (Olanzapine Odt 10 Mg Tab.Rapdis) 20 mg TRANSLINGU BID [facility] Last Admin: 05/17/22 10:11 Dose: 20 mg Prazosin HCl (Prazosin Hcl 1 Mg Capsule) 2 mg PO BEDTIME JELANI; Protocol Last Admin: 05/16/22 20:00 Dose: 2 mg Trazodone HCl (Trazodone Hcl 50 Mg Tablet) 50 mg PO BEDTIME PRN PRN Reason: Insomnia Last Admin: 05/15/22 20:33 Dose: 50 mg Valproic Acid (Valproic Acid (As Sodium Salt) 250 Mg/5 Ml Solution) 750 mg PO BID [facility] Last Admin: 05/17/22 10:10 Dose: 750 mg Allergies Allergies Allergy/AdvReac Type Severity Reaction Status Date / Time No Known Allergies Allergy Unverified 05/04/22 01:05 Assessment & Plan Assessment & Plan (1) Schizoaffective disorder, bipolar type: Status: Acute Code(s): F25.0 - Schizoaffective disorder, bipolar type Plan 05/05: possibly manic, will invest more effort in trying to get mood stabilizer on board. continue zydis for now, start VPA sprinkles. 05/06: no change in mgmt. 05/07: no change in presentation. change VPA from sprinkles back to pills due to large number of sprinkles pills required to generate 1500 mg of VPA. pt not compliant with VPA, has been taking some zyprexa; change formulation to zydis to improve bioavailability. plan to move to file for commitment next week if pt doesn't soon begin to reliably take medication. 05/08 no change 05/09 no change 05/10: no change to mgmt. chewed meds x 1 over weekend, cheeking/furtively disposing of meds otherwise. 05/11: generally refusing meds. informed he will be filed on tomorrow. a ttempting to bargain over taking meds and discharge. will investigate obtaining VPA soln. 05/12: commitment paperwork filed. pt took all meds last night and this morning, including liquid VPA. aware of legal circumstance, unclear how well he is able to appreciate it. 05/13: asking about discharge, states he is compliant with meds (as also say nursing staff). states he is feeling better, but unable to say in what way. sleeping and eating well. 2/3: repeated checking-in with MD throughout the day. remains disorganized and apparently RIS. med-compliant. 05/15: sleeping midday. no change in presentation. 05/16: no change in presentation or plan. 6: no change in presentation or plan. commitment hearing tomorrow. Reason for contiued inpatient stay Substantial Risk for: harm to others, inability to function and rapid decompensation Time Spent With Patient Time: Total time managing care of this patient today ____ minutes.
[2022-05-17] MEDS: Prazosin HCL 1 MG CAPSULE 2 MG PO (19:29)
[2022-05-17] MEDS: Docusate Sodium 100 MG CAPSULE PO (19:29)
[2022-05-17] MEDS: Melatonin 3 MG TABLET 6 MG PO (19:29)
[2022-05-18 09:00] VITALS: BP 134/83; PULSE 105; RESP 18; TEMP 36.6; O2SAT 98
[2022-05-18] MEDS: OLANZapine ODT 10 MG TAB.RAPDIS 20 MG TRANSLINGU ×2 (10:04→19:45)
--- NOTE | 2022-05-18 19:21 | P.PNPSI_ITS ---
Subjective Subjective Date of Service: 05/18/22 Reason For Visit: psychosis/nikita Interim History: stable presentation. states he does not have mental illness and does not need to take medications. yet, he is very keen to make sure staff can tell him they will note his medication compliance and tell the funeral limousine driver he has been compliant with medication. hearing held today last over 2 hours. per staff, withdrawn, napping, pacing. repetitive questions. no groups. easily distracted. t hought-blocking. safe. you're going to tell them i'm taking my meds, right? Mental Status Exam Mental Status Exam Narrative: Appearance: up and about the unit Behavior: guarded, minimally engaging Psychomotor: fidgety Speech: delayed response rate, spontaneous TP: disorganized TC: vague, vacuous Mood: not assessed Affect: full range, normo-intense, non-labile. less bizarre smiling and laughing not c/w context. AH/VH: none expressed SI: none expressed HI: none expressed Insight/judgment: impaired x 2. Memory/cog: alert, not oriented to situation. impaired secondary to psychiatric symptoms. Diagnostics Vital Signs (24Hr): Vital Signs - 24 hr 05/18/22 09:00 Temperature 97.9 F Pulse Rate 105 H Respiratory Rate 18 Blood Pressure 134/83 Pulse Oximetry 98 Oxygen Delivery Method Room Air BMI result Body Mass Index 24.6 Medications Medications Current Medications Acetaminophen (Acetaminophen 325 Mg Tablet) 650 mg PO Q6H PRN PRN Reason: Headache/Pain Mild Scale (1-3) Al Hydroxide/Mg Hydroxide (Magnesium Hydrox/Alum Hydrox 30 Ml Oral.Susp) 30 ml PO Q6H PRN PRN Reason: Heartburn/Nausea Last Admin: 05/09/22 20:51 Dose: 30 ml Docusate Sodium (Docusate Sodium 100 Mg Capsule) 100 mg PO BEDTIME JELANI Last Admin: 05/17/22 19:29 Dose: 100 mg Hydroxyzine HCl (Hydroxyzine Hcl 25 Mg Tablet) 25 mg PO Q6H PRN PRN Reason: Anxiety Magnesium Hydroxide (Milk Of Magnesia 30 Ml Oral.Susp) 30 ml PO DAILY PRN PRN Reason: Constipation Last Admin: 05/15/22 15:47 Dose: 30 ml Melatonin (Melatonin 3 Mg Tablet) 6 mg PO BEDTIME JELANI Last Admin: 05/17/22 19:29 Dose: 6 mg Olanzapine (Olanzapine Odt 10 Mg Tab.Rapdis) 20 mg TRANSLINGU BID [facility] Last Admin: 05/18/22 10:04 Dose: 20 mg Prazosin HCl (Prazosin Hcl 1 Mg Capsule) 2 mg PO BEDTIME [facility]; Protocol Last Admin: 05/17/22 19:29 Dose: 2 mg Trazodone HCl (Trazodone Hcl 50 Mg Tablet) 50 mg PO BEDTIME PRN PRN Reason: Insomnia Last Admin: 05/15/22 20:33 Dose: 50 mg Valproic Acid (Valproic Acid (As Sodium Salt) 250 Mg/5 Ml Solution) 750 mg PO BID [facility] Last Admin: 05/18/22 10:02 Dose: 750 mg Allergies Allergies Allergy/AdvReac Type Severity Reaction Status Date / Time No Known Allergies Allergy Unverified 05/04/22 01:05 Assessment & Plan Assessment & Plan (1) Schizoaffective disorder, bipolar type: Status: Acute Code(s): F25.0 - Schizoaffective disorder, bipolar type Plan 05/05: possibly manic, will invest more effort in trying to get mood stabilizer on board. continue zydis for now, start VPA sprinkles. 05/06: no change in mgmt. 05/07: no change in presentation. change VPA from sprinkles back to pills due to large number of sprinkles pills required to generate 1500 mg of VPA. pt not compliant with VPA, has been taking some zyprexa; change formulation to zydis to improve bioavailability. plan to move to file for commitment next week if pt doesn't soon begin to reliably take medication. 05/08 no change 05/09 no change 05/10: no change to mgmt. chewed meds x 1 over weekend, cheeking/furtively disposing of meds otherwise. 05/11: generally refusing meds. informed he will be filed on tomorrow. attempting to bargain over taking meds and discharge. will investigate obt aining VPA soln. 05/12: commitment paperwork filed. pt took all meds last night and this morning, including liquid VPA. aware of legal circumstance, unclear how well he is able to appreciate it. 05/13: asking about discharge, states he is compliant with meds (as also say nursing staff). states he is feeling better, but unable to say in what way. sleeping and eating well. 2/3: repeated checking-in with MD throughout the day. remains disorganized and apparently RIS. med-compliant. 05/15: sleeping midday. no change in presentation. 05/16: no change in presentation or plan. 05/17: no change in presentation or plan. commitment hearing tomorrow. 05/18: no change in presentation. committed to the hospital at hearing. Reason for contiued inpatient stay Substantial Risk for: inability to function Time Spent With Patient Time: Total time managing care of this patient today __150__ minutes.
[2022-05-18] MEDS: Melatonin 3 MG TABLET 6 MG PO (19:45)
[2022-05-18] MEDS: Prazosin HCL 1 MG CAPSULE 2 MG PO (19:45)
[2022-05-18] MEDS: Docusate Sodium 100 MG CAPSULE PO (19:45)
[2022-05-18 19:55] VITALS: BP 131/64; PULSE 81; RESP 18; TEMP 36.5; O2SAT 98
[2022-05-19 09:21] VITALS: BP 100/56; PULSE 60; RESP 18; TEMP 36.6; O2SAT 97
[2022-05-19] MEDS: OLANZapine ODT 10 MG TAB.RAPDIS 20 MG TRANSLINGU (09:44)
[2022-05-19 12:21] LABS: MANUAL DIFF FLAG NO
[2022-05-19 12:25] LABS: Basophils Percent Auto 0.3 % (0-2); Eosinophils Absolute Auto 0.1 X10*3/uL (0.0-0.4); Eosinophils Percent Auto 1.8 % (0-4); Hematocrit 48.4 % (42.0-52.0); Hemoglobin 17.2 g/dl (14.0-18.0); Imm Gran Abs Auto 0.01 X10*3/uL (0.00-0.03); Imm Gran Pct Auto 0.3 % (0.0-0.4); Lymphocytes Absolute Auto 1.5 X10*3/uL (1.2-4.9); Lymphocytes Percent Auto 45.7 % (20-40); Mean Corpuscular HGB Conc 35.5 g/dl (31.0-36.0); Mean Corpuscular Hemoglobin 29.7 pg (27.0-33.0); Mean Corpuscular Volume 83.4 fL (80.0-98.0); Mean Platelet Volume 11.5 fL (9.4-12.4); Monocytes Absolute Auto 0.2 X10*3/uL (0.1-1.2); Monocytes Percent Auto 5.5 % (2-11); Neutrophils Absolute Auto 1.5 x10*3/uL (2.0-8.3); Neutrophils Percent Auto 46.4 % (45-73); Platelet Count 156 X10*3/uL (160-400); Red Cell Distribution Width 11.9 % (11.0-16.0); White Blood Count 3.3 X10*3/uL (4.8-10.8)
[2022-05-19 12:48] LABS: Valproate 105.3 mcg/mL (50.0-100.0)
[2022-05-19 12:51] LABS: Alanine Aminotransferase 26 U/L (0-40); Albumin Level 4.5 g/dL (3.5-5.0); Alkaline Phosphatase 116 U/L (39-117); Anion Gap 17 (12-20); Aspartate Amino Transferase 29 U/L (5-37); Bilirubin Direct 0.2 mg/dL (0.0-0.5); Bilirubin Total 0.8 mg/dL (0.0-1.0); Blood Urea Nitrogen 22 mg/dL (9-16); Calcium 9.5 mg/dL (8.4-10.2); Carbon Dioxide 20 mmol/L (22-29); Chloride 106 mmol/L (96-108); Creatinine Clr Calc Pharmacy 136.5; Estimated Glomerular Filt Rate > 60; Glucose Random 135 mg/dL (60-115); Potassium 4.3 mmol/L (3.3-5.1); Sodium 139 mmol/L (135-145); Total Protein 6.7 g/dL (6.5-8.0)
[2022-05-19 13:21] LABS: Ammonia 110 umol/L (13-55)
--- NOTE | 2022-05-19 16:20 | HO.PSYCHPN ---
Subjective Subjective Date of Service: 05/19/22 Reason For Visit: psychosis/nikita Interim History: calm, cooperative. asking about discharge, when he might be able to go. repeatedly approaches MD with the same requests. per staff, visible, not attending groups. safe, ruminative. disorganized. refused blood draw last night, agreed to blood draw today. Mental Status Exam Mental Status Exam Narrative: Appearance: up and about the unit Behavior: guarded, minimally engaging Psychomotor: fidgety Speech: delayed response rate, spontaneous TP: disorganized TC: vague, vacuous Mood: not assessed Affect: full range, normo-intense, non-labile. less bizarre smiling and laughing not c/w context. AH/VH: none expressed SI: none expressed HI: none expressed Insight/judgment: impaired x 2. Memory/cog: alert, not oriented to situation. impaired secondary to psychiatric symptoms. Diagnostics Vital Signs (24Hr): Vital Signs - 24 hr 05/18/22 19:55 05/19/22 09:21 Temperature 97.7 F 97.9 F Pulse Rate 81 60 Respiratory Rate 18 18 Blood Pressure 131/64 100/56 L Pulse Oximetry 98 97 Oxygen Delivery Method Room Air Room Air BMI result Body Mass Index 24.6 Labs 05/19/22 12:15 05/19/22 12:15 Labs: Laboratory Results - last 48 hr 05/19/22 05/19/22 05/19/22 12:15 12:15 12:15 WBC 3.3 L RBC 5.80 Hgb 17.2 Hct 48.4 MCV 83.4 MCH 29.7 MCHC 35.5 RDW 11.9 Plt Count 156 L MPV 11.5 Immature Gran % (Auto) 0.3 Neut % (Auto) 46.4 Lymph % (Auto) 45.7 H [place] % (Auto) 5.5 Eos % (Auto) 1.8 Baso % (Auto) 0.3 Lymph # (Auto) 1.5 [place] # (Auto) 0.2 Eos # (Auto) 0.1 Baso # (Auto) 0.0 Abs Immat Gran (auto) 0.01 Absolute Neuts (auto) 1.5 L Absolute Nucleated RBC 0.000 Nucleated RBC % (auto) 0.0 Sodium 139 Potassium 4.3 Chloride 106 Carbon Dioxide 20 L Anion Gap 17 BUN 22 H Creatinine 0.87 Estim Creat Clear Calc 136.5 Estimated GFR > 60 Random Glucose 135 H Calcium 9.5 Total Bilirubin 0.8 Direct Bilirubin 0.2 AST 29 ALT 26 Alkaline Phosphatase 116 Ammonia 110 H Total Protein 6.7 Albumin 4.5 Valproic Acid 05/19/22 12:15 WBC RBC Hgb Hct MCV MCH MCHC RDW Plt Count MPV Immature Gran % (Auto) Neut % (Auto) Lymph % (Auto) [place] % (Auto) Eos % (Auto) Baso % (Auto) Lymph # (Auto) [place] # (Auto) Eos # (Auto) Baso # (Auto) Abs Immat Gran (auto) Absolute Neuts (auto) Absolute Nucleated RBC Nucleated RBC % (auto) Sodium Potassium Chloride Carbon Dioxide Anion Gap BUN Creatinine Estim Creat Clear Calc Estimated GFR Random Glucose Calcium Total Bilirubin Direct Bilirubin AST ALT Alkaline Phosphatase Ammonia Total Protein Albumin Valproic Acid 105.3 H Medications Medications Current Medications Acetaminophen (Acetaminophen 325 Mg Tablet) 650 mg PO Q6H PRN PRN Reason: Headache/Pain Mild Scale (1-3) Al Hydroxide/Mg Hydroxide (Magnesium Hydrox/Alum Hydrox 30 Ml Oral.Susp) 30 ml PO Q6H PRN PRN Reason: Heartburn/Nausea Last Admin: 05/09/22 20:51 Dose: 30 ml Docusate Sodium (Docusate Sodium 100 Mg Capsule) 100 mg PO BEDTIME JELANI Last Admin: 05/18/22 19:45 Dose: 100 mg Hydroxyzine HCl (Hydroxyzine Hcl 25 Mg Tablet) 25 mg PO Q6H PRN PRN Reason: Anxiety Magnesium Hydroxide (Milk Of Magnesia 30 Ml Oral.Susp) 30 ml PO DAILY PRN PRN Reason: Constipation Last Admin: 05/15/22 15:47 Dose: 30 ml Melatonin (Melatonin 3 Mg Tablet) 6 mg PO BEDTIME JELANI Last Admin: 05/18/22 19:45 Dose: 6 mg Prazosin HCl (Prazosin Hcl 1 Mg Capsule) 2 mg PO BEDTIME JELANI; Protocol Last Admin: 05/18/22 19:45 Dose: 2 mg Trazodone HCl (Trazodone Hcl 50 Mg Tablet) 50 mg PO BEDTIME PRN PRN Reason: Insomnia Last Admin: 05/15/22 20:33 Dose: 50 mg Valproic Acid (Valproic Acid (As Sodium Salt) 250 Mg/5 Ml Solution) 750 mg PO BID JELANI Last Admin: 05/19/22 09:43 Dose: 750 mg Allergies Allergies Allergy/AdvReac Type Severity Reaction Status Date / Time No Known Allergies Allergy Unverified 05/04/22 01:05 Assessment & Plan Assessment & Plan (1) Schizoaffective disorder, bipolar type: Status: Acute Code(s): F25.0 - Schizoaffective disorder, bipolar type Plan 05/05: possibly manic, will invest more effort in trying to get mood stabilizer on board. continue zydis for now, start VPA sprinkles. 05/06: no change in mgmt. 05/07: no change in presentation. change VPA from sprinkles back to pills due to large number of sprinkles pills required to generate 1500 mg of VPA. pt not compliant with VPA, has been taking some zyprexa; change formulation to zydis to improve bioavailability. plan to move to file for commitment next week if pt doesn't soon begin to reliably take medication. 05/08 no change 05/09 no change 05/10: no change to mgmt. chewed meds x 1 over weekend, cheeking/furtively disposing of meds otherwise. 05/11: generally refusing meds. informed he will be filed on tomorrow. attempting to bargain over taking meds and discharge. will investigate obtaining VPA soln. 05/12: commitment paperwork filed. pt took all meds last night and this morning, including liquid VPA. aware of legal circumstance, unclear how well he is able to appreciate it. 22: asking about discharge, states he is compliant with meds (as also say nursing staff). states he is feeling better, but unable to say in what way. sleeping and eating well. 2/3: repeated checking-in with MD throughout the day. remains disorganized and apparently RIS. med-compliant. 4: sleeping midday. no change in presentation. 5: no change in presentation or plan. 05/17: no change in presentation or plan. commitment hearing tomorrow. 05/18: no change in presentation. committed to the hospital at [facility]. 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 DC zyprexa as well as it lacks usable COUCH. start paliperidone PO, convert to COUCH once it is established pt is tolerating the medication. Reason for contiued inpatient stay Substantial Risk for: inability to function and rapid decompensation Time Spent With Patient Time: Total time managing care of this patient today __25__ minutes.
[2022-05-19 20:10] VITALS: BP 127/59; PULSE 82; RESP 16; TEMP 36.3; O2SAT 97
[2022-05-19] MEDS: Paliperidone ER 6 MG TAB.ER.24 PO (20:16)
[2022-05-19] MEDS: Melatonin 3 MG TABLET 6 MG PO (20:16)
[2022-05-19] MEDS: Prazosin HCL 1 MG CAPSULE 2 MG PO (20:17)
[2022-05-19] MEDS: Docusate Sodium 100 MG CAPSULE PO (20:17)
[2022-05-19] MEDS: carBAMazepine 100 MG TAB.CHEW 200 MG PO (21:32)
[2022-05-20 07:00] VITALS: BMI 24.7
[2022-05-20 08:45] VITALS: BP 126/60; PULSE 65; RESP 16; TEMP 36.7; O2SAT 97
[2022-05-20] MEDS: Paliperidone ER 6 MG TAB.ER.24 PO ×2 (08:52→20:29)
[2022-05-20] MEDS: carBAMazepine 100 MG TAB.CHEW 200 MG PO (08:52)
--- NOTE | 2022-05-20 12:47 | HO.PSYCHPN ---
Subjective Subjective Date of Service: 05/20/22 Reason For Visit: psychosis/nikita Interim History: no change in presentation, repeatedly approaching MD with similarly themed questions, some of which make little sense. theme: discharge, assuring his good behavior is going on the record. informed of medication changes and rationale. per staff, some pacing, restlessness. +RIS. not attending groups. sleeping well. med and meal compliant. denies psych Sx. no SI/HI. slept through the night. Mental Status Exam Mental Status Exam Narrative: Appearance: up and about the unit Behavior: guarded, minimally engaging Psychomotor: fidgety Speech: delayed response rate, spontaneous TP: disorganized TC: vague, vacuous Mood: not assessed Affect: full range, normo-intense, non-labile. less bizarre smiling and laughing not c/w context. AH/VH: none expressed SI: none expressed HI: none expressed Insight/judgment: impaired x 2. Memory/cog: alert, not oriented to situation. impaired secondary to psychiatric symptoms. Diagnostics Vital Signs (24Hr): Vital Signs - 24 hr 05/19/22 20:10 05/20/22 08:45 Temperature 97.4 F 98.1 F Pulse Rate 82 65 Respiratory Rate 16 16 Blood Pressure 127/59 L 126/60 Pulse Oximetry 97 97 Oxygen Delivery Method Room Air Room Air BMI result Body Mass Index 24.7 Labs 05/19/22 12:15 05/19/22 12:15 Labs: Laboratory Results - last 48 hr 05/19/22 05/19/22 05/19/22 12:15 12:15 12:15 WBC 3.3 L RBC 5.80 Hgb 17.2 Hct 48.4 MCV 83.4 MCH 29.7 MCHC 35.5 RDW 11.9 Plt Count 156 L MPV 11.5 Immature Gran % (Auto) 0.3 Neut % (Auto) 46.4 Lymph % (Auto) 45.7 H [place] % (Auto) 5.5 Eos % (Auto) 1.8 Baso % (Auto) 0.3 Lymph # (Auto) 1.5 [place] # (Auto) 0.2 Eos # (Auto) 0.1 Baso # (Auto) 0.0 Abs Immat Gran (auto) 0.01 Absolute Neuts (auto) 1.5 L Absolute Nucleated RBC 0.000 Nucleated RBC % (auto) 0.0 Sodium 139 Potassium 4.3 Chloride 106 Carbon Dioxide 20 L Anion Gap 17 BUN 22 H Creatinine 0.87 Estim Creat Clear Calc 136.5 Estimated GFR > 60 Random Glucose 135 H Calcium 9.5 Total Bilirubin 0.8 Direct Bilirubin 0.2 AST 29 ALT 26 Alkaline Phosphatase 116 Ammonia 110 H Total Protein 6.7 Albumin 4.5 Valproic Acid 05/19/22 12:15 WBC RBC Hgb Hct MCV MCH MCHC RDW Plt Count MPV Immature Gran % (Auto) Neut % (Auto) Lymph % (Auto) [place] % (Auto) Eos % (Auto) Baso % (Auto) Lymph # (Auto) [place] # (Auto) Eos # (Auto) Baso # (Auto) Abs Immat Gran (auto) Absolute Neuts (auto) Absolute Nucleated RBC Nucleated RBC % (auto) Sodium Potassium Chloride Carbon Dioxide Anion Gap BUN Creatinine Estim Creat Clear Calc Estimated GFR Random Glucose Calcium Total Bilirubin Direct Bilirubin AST ALT Alkaline Phosphatase Ammonia Total Protein Albumin Valproic Acid 105.3 H Medications Medications Current Medications Acetaminophen (Acetaminophen 325 Mg Tablet) 650 mg PO Q6H PRN PRN Reason: Headache/Pain Mild Scale (1-3) Al Hydroxide/Mg Hydroxide (Magnesium Hydrox/Alum Hydrox 30 Ml Oral.Susp) 30 ml PO Q6H PRN PRN Reason: Heartburn/Nausea Last Admin: 05/09/22 20:51 Dose: 30 ml Carbamazepine (Carbamazepine 200 Mg/10 Ml Oral.Susp) 200 mg PO BID [facility] Carbamazepine (Carbamazepine 100 Mg Tab.Chew) 200 mg PO BID [facility] Last Admin: 05/20/22 08:52 Dose: 200 mg Docusate Sodium (Docusate Sodium 100 Mg Capsule) 100 mg PO BEDTIME [facility] Last Admin: 05/19/22 20:17 Dose: 100 mg Hydroxyzine HCl (Hydroxyzine Hcl 25 Mg Tablet) 25 mg PO Q6H PRN PRN Reason: Anxiety Magnesium Hydroxide (Milk Of Magnesia 30 Ml Oral.Susp) 30 ml PO DAILY PRN PRN Reason: Constipation Last Admin: 05/15/22 15:47 Dose: 30 ml Melatonin (Melatonin 3 Mg Tablet) 6 mg PO BEDTIME [facility] Last Admin: 05/19/22 20:16 Dose: 6 mg Paliperidone (Paliperidone Er 6 Mg Tab.Er.24) 6 mg PO BID [facility] Last Admin: 05/20/22 08:52 Dose: 6 mg Prazosin HCl (Prazosin Hcl 1 Mg Capsule) 2 mg PO BEDTIME JELANI; Protocol Last Admin: 05/19/22 20:17 Dose: 2 mg Trazodone HCl (Trazodone Hcl 50 Mg Tablet) 50 mg PO BEDTIME PRN PRN Reason: Insomnia Last Admin: 05/15/22 20:33 Dose: 50 mg Allergies Allergies Allergy/AdvReac Type Severity Reaction Status Date / Time depakote AdvReac Severe elevated Uncoded 05/19/22 22:38 ammonia Assessment & Plan Assessment & Plan (1) Schizoaffective disorder, bipolar type: Status: Acute Code(s): F25.0 - Schizoaffective disorder, bipolar type Plan 05/05: possibly manic, will invest more effort in trying to get mood stabilizer on board. continue zydis for now, start VPA sprinkles. 05/06: no change in mgmt. 05/07: no change in presentation. change VPA from sprinkles back to pills due to large number of sprinkles pills required to generate 1500 mg of VPA. pt not compliant with VPA, has been taking some zyprexa; change formulation to zydis to improve bioavailability. plan to move to file for commitment next week if pt doesn't soon begin to reliably take medication. 05/08 no change 05/09 no change 05/10: no change to mgmt. chewed meds x 1 over weekend, cheeking/furtively disposing of meds otherwise. 05/11: generally refusing meds. informed he will be filed on tomorrow. attempting to bargain over taking meds and discharge. will investigate obtaining VPA soln. 05/12: commitment paperwork filed. pt took all meds last night and this morning, including liquid VPA. aware of legal circumstance, unclear how well he is able to appreciate it. 22: asking about discharge, states he is compliant with meds (as also say nursing staff). states he is feeling better, but unable to say in what way. sleeping and eating well. 2/3: repeated checking-in with MD throughout the day. remains disorganized and apparently RIS. med-compliant. 2: sleeping midday. no change in presentation. 5: no change in presentation or plan. 6: no change in presentation or plan. commitment hearing tomorrow. 05/18: no change in presentation. committed to the hospital at [facility]. 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 DC zyprexa as well as it lacks usable COUCH. start paliperidone PO, convert to COUCH once it is established pt is tolerating the medication. 05/20: continue to establish on tegretol and invega. introduce COUCH once pt stable on PO formulation for several days. check tegretol levels after about a week. no change in presentation. Patient educated on: medication risk/benefits and medical condition Reason for contiued inpatient stay Substantial Risk for: inability to function and rapid decompensation Time Spent With Patient Time: Total time managing care of this patient today _20___ minutes.
[2022-05-20 20:18] VITALS: BP 146/66; PULSE 105; RESP 18; TEMP 36.3; O2SAT 97
[2022-05-20] MEDS: Prazosin HCL 1 MG CAPSULE 2 MG PO (20:30)
[2022-05-20] MEDS: Melatonin 3 MG TABLET 6 MG PO (20:31)
[2022-05-20] MEDS: Docusate Sodium 100 MG CAPSULE PO (20:32)
[2022-05-20] MEDS: traZODone HCL 50 MG TABLET PO (20:32)
[2022-05-20] MEDS: carBAMazepine 200 MG/10 ML ORAL.SUSP PO (20:34)
[2022-05-21 09:15] VITALS: BP 118/70; PULSE 74; RESP 18; TEMP 36.7; O2SAT 98
[2022-05-21] MEDS: Paliperidone ER 6 MG TAB.ER.24 PO ×2 (09:17→20:02)
[2022-05-21] MEDS: carBAMazepine 200 MG/10 ML ORAL.SUSP PO ×2 (09:24→20:03)
--- NOTE | 2022-05-21 12:44 | P.PNPSI_ITS ---
Subjective Subjective Date of Service: 05/21/22 Reason For Visit: psychosis/nikita Subjective Notes: Section 8 Interim History: Pt reports he likes the medication. He states he likes the taste and the color orange. He asks this underwriter solicitation director if he can be discharged today. He is mumbling throughout our encounter and laughing as responding to internal stimuli. He denies SI/HI. Pt slept through the night. Medication Compliance: Yes Mental Status Exam Mental Status Exam Narrative: Appearance: up and about the unit Behavior: guarded, minimally engaging Psychomotor: fidgety Speech: delayed response rate, spontaneous TP: disorganized TC: vague, vacuous Mood: not assessed Affect: full range, normo-intense, non-labile. less bizarre smiling and laughing not c/w context. AH/VH: none expressed SI: none expressed HI: none expressed Insight/judgment: impaired x 2. Memory/cog: alert, not oriented to situation. impaired secondary to psychiatric symptoms. Diagnostics Vital Signs (24Hr): Vital Signs - 24 hr 05/21/22 09:15 05/21/22 19:55 Temperature 98.1 F 98.1 F Pulse Rate 74 96 Respiratory Rate 18 16 Blood Pressure 118/70 135/97 H Pulse Oximetry 98 96 Oxygen Delivery Method Room Air Room Air BMI result Body Mass Index 24.7 Labs 05/19/22 12:15 05/19/22 12:15 Medications Medications Current Medications Acetaminophen (Acetaminophen 325 Mg Tablet) 650 mg PO Q6H PRN PRN Reason: Headache/Pain Mild Scale (1-3) Al Hydroxide/Mg Hydroxide (Magnesium Hydrox/Alum Hydrox 30 Ml Oral.Susp) 30 ml PO Q6H PRN PRN Reason: Heartburn/Nausea Last Admin: 05/09/22 20:51 Dose: 30 ml Carbamazepine (Carbamazepine 200 Mg/10 Ml Oral.Susp) 200 mg PO BID JELANI Last Admin: 05/22/22 08:33 Dose: 200 mg Docusate Sodium (Docusate Sodium 100 Mg Capsule) 100 mg PO BEDTIME JELANI Last Admin: 05/21/22 20:02 Dose: 100 mg Hydroxyzine HCl (Hydroxyzine Hcl 25 Mg Tablet) 25 mg PO Q6H PRN PRN Reason: Anxiety Magnesium Hydroxide (Milk Of Magnesia 30 Ml Oral.Susp) 30 ml PO DAILY PRN PRN Reason: Constipation Last Admin: 05/15/22 15:47 Dose: 30 ml Melatonin (Melatonin 3 Mg Tablet) 6 mg PO BEDTIME JELANI Last Admin: 05/21/22 20:02 Dose: 6 mg Paliperidone (Paliperidone Er 6 Mg Tab.Er.24) 6 mg PO BID JELANI Last Admin: 05/22/22 08:33 Dose: 6 mg Prazosin HCl (Prazosin Hcl 1 Mg Capsule) 2 mg PO BEDTIME JELANI; Protocol Last Admin: 05/21/22 20:02 Dose: 2 mg Trazodone HCl (Trazodone Hcl 50 Mg Tablet) 50 mg PO BEDTIME PRN PRN Reason: Insomnia Last Admin: 05/20/22 20:32 Dose: 50 mg Allergies Allergies Allergy/AdvReac Type Severity Reaction Status Date / Time depakote AdvReac Severe elevated Uncoded 05/19/22 22:38 ammonia Assessment & Plan Assessment & Plan (1) Schizoaffective disorder, bipolar type: Status: Acute Code(s): F25.0 - Schizoaffective disorder, bipolar type Plan 05/05: possibly manic, will invest more effort in trying to get mood stabilizer on board. continue zydis for now, start VPA sprinkles. 05/06: no change in mgmt. 05/07: no change in presentation. change VPA from sprinkles back to pills due to large number of sprinkles pills required to generate 1500 mg of VPA. pt not compliant with VPA, has been taking some zyprexa; change formulation to zydis to improve bioavailability. plan to move to file for commitment next week if pt doesn't soon begin to reliably take medication. 05/08 no change 05/09 no change 05/10: no change to mgmt. chewed meds x 1 over weekend, cheeking/furtively disposing of meds otherwise. 05/11: generally refusing meds. informed he will be filed on tomorrow. attempting to bargain over taking meds and discharge. will investigate obtaining VPA soln. 05/12: commitment paperwork filed. pt took all meds last night and this morning, including liquid VPA. aware of legal circumstance, unclear how well he is able to appreciate it. 05/13: asking about discharge, states he is compliant with meds (as also say nursing staff). states he is feeling better, but unable to say in what way. sleeping and eating well. 2: repeated checking-in with MD throughout the day. remains disorganized and apparently RIS. med-compliant. 05/15: sleeping midday. no change in presentation. 05/16: no change in presentation or plan. 05/17: no change in presentation or plan. commitment hearing tomorrow. 05/18: no change in presentation. committed to the hospital at hearing. 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 DC zyprexa as well as it lacks usable COUCH. start paliperidone PO, convert to COUCH once it is established pt is tolerating the medication. 05/20: continue to establish on tegretol and invega. introduce COUCH once pt stable on PO formulation for several days. check tegretol levels after about a week. no change in presentation. 05/21 continue current medication. Reason for contiued inpatient stay Substantial Risk for: harm to others and inability to function Time Spent With Patient Time: Total time managing care of this patient today ____ minutes.
[2022-05-21 19:55] VITALS: BP 135/97; PULSE 96; RESP 16; TEMP 36.7; O2SAT 96
[2022-05-21] MEDS: Docusate Sodium 100 MG CAPSULE PO (20:02)
[2022-05-21] MEDS: Melatonin 3 MG TABLET 6 MG PO (20:02)
[2022-05-21] MEDS: Prazosin HCL 1 MG CAPSULE 2 MG PO (20:02)
[2022-05-22] MEDS: Paliperidone ER 6 MG TAB.ER.24 PO ×2 (08:33→20:05)
[2022-05-22] MEDS: carBAMazepine 200 MG/10 ML ORAL.SUSP PO ×2 (08:33→20:06)
[2022-05-22 08:57] VITALS: BP 134/60; PULSE 61; RESP 16; TEMP 36.8; O2SAT 97
--- NOTE | 2022-05-22 12:58 | HO.PSYCHPN ---
Subjective Subjective Date of Service: 05/22/22 Reason For Visit: psychosis/nikita Subjective Notes: Section 8 and Other (gomez order) Interim History: Pt asking if he can be discharged today; accepted feedback that discharges don't happen on weekend; he is pacing in [place]; when asked about pacing and if he felt restless he became guarded and said no just exercising; reports he likes the medication. He appears to be responding to internal stimuli off and on while talking with this engineering technical writer; He is mumbling throughout our encounter and laughing; at times seem to be trying to hide his laughing. He denies SI/HI. Pt slept through the night. Medication Compliance: Yes Side effects from medications: No Attending Groups: No Review of Systems Acute medical concerns: No Mental Status Exam Mental Status Exam Narrative: Appearance: up and about the unit Behavior: guarded, minimally engaging Psychomotor: fidgety Speech: delayed response rate, spontaneous TP: disorganized TC: vague, vacuous Mood: not assessed Affect: full range, normo-intense, non-labile. less bizarre smiling and laughing not c/w context. AH/VH: none expressed SI: none expressed HI: none expressed Insight/judgment: impaired x 2. Memory/cog: alert, not oriented to situation. impaired secondary to psychiatric symptoms. Patient Appearance: Appropriate Patient Orientation: Person and Situation Level of Consciousness: Restless Patient Behavior: Guarded and Passive Mood Description: Withdrawn Affect Description: Constricted Patient Cognition Impaired: No Ability to Follow Directions: Good Speech Pattern: Clear Diagnostics Vital Signs (24Hr): Vital Signs - 24 hr 05/21/22 19:55 05/22/22 08:57 Temperature 98.1 F 98.3 F Pulse Rate 96 61 Respiratory Rate 16 16 Blood Pressure 135/97 H 134/60 Pulse Oximetry 96 97 Oxygen Delivery Method Room Air Room Air BMI result Body Mass Index 24.7 Labs 05/19/22 12:15 05/19/22 12:15 Medications Medications Current Medications Acetaminophen (Acetaminophen 325 Mg Tablet) 650 mg PO Q6H PRN PRN Reason: Headache/Pain Mild Scale (1-3) Al Hydroxide/Mg Hydroxide (Magnesium Hydrox/Alum Hydrox 30 Ml Oral.Susp) 30 ml PO Q6H PRN PRN Reason: Heartburn/Nausea Last Admin: 05/09/22 20:51 Dose: 30 ml Carbamazepine (Carbamazepine 200 Mg/10 Ml Oral.Susp) 200 mg PO BID JELANI Last Admin: 05/22/22 08:33 Dose: 200 mg Docusate Sodium (Docusate Sodium 100 Mg Capsule) 100 mg PO BEDTIME JELANI Last Admin: 05/21/22 20:02 Dose: 100 mg Hydroxyzine HCl (Hydroxyzine Hcl 25 Mg Tablet) 25 mg PO Q6H PRN PRN Reason: Anxiety Magnesium Hydroxide (Milk Of Magnesia 30 Ml Oral.Susp) 30 ml PO DAILY PRN PRN Reason: Constipation Last Admin: 05/15/22 15:47 Dose: 30 ml Melatonin (Melatonin 3 Mg Tablet) 6 mg PO BEDTIME JELANI Last Admin: 05/21/22 20:02 Dose: 6 mg Paliperidone (Paliperidone Er 6 Mg Tab.Er.24) 6 mg PO BID JELANI Last Admin: 05/22/22 08:33 Dose: 6 mg Prazosin HCl (Prazosin Hcl 1 Mg Capsule) 2 mg PO BEDTIME JEALNI; Protocol Last Admin: 05/21/22 20:02 Dose: 2 mg Trazodone HCl (Trazodone Hcl 50 Mg Tablet) 50 mg PO BEDTIME PRN PRN Reason: Insomnia Last Admin: 05/20/22 20:32 Dose: 50 mg Allergies Allergies Allergy/AdvReac Type Severity Reaction Status Date / Time depakote AdvReac Severe elevated Uncoded 05/19/22 22:38 ammonia Assessment & Plan Assessment & Plan (1) Schizoaffective disorder, bipolar type: Status: Acute Code(s): F25.0 - Schizoaffective disorder, bipolar type Plan 05/05: possibly manic, will invest more effort in trying to get mood stabilizer on board. continue zydis for now, start VPA sprinkles. 05/06: no change in mgmt. 05/07: no change in presentation. change VPA from sprinkles back to pills due to large number of sprinkles pills required to generate 1500 mg of VPA. pt not compliant with VPA, has been taking some zyprexa; change formulation to zydis to improve bioavailability. plan to move to file for commitment next week if pt doesn't soon begin to reliably take medication. 05/08 no change 05/09 no change 05/10: no change to mgmt. chewed meds x 1 over weekend, cheeking/furtively disposing of meds otherwise. 05/11: generally refusing meds. informed he will be filed on tomorrow. attempting to bargain over taking meds and discharge. will investigate obtaining VPA soln. 05/12: commitment paperwork filed. pt took all meds last night and this morning, including liquid VPA. aware of legal circumstance, unclear how well he is able to appreciate it. 05/13: asking about discharge, states he is compliant with meds (as also say nursing staff). states he is feeling better, but unable to say in what way. sleeping and eating well. 05/14: repeated checking-in with MD throughout the day. remains disorganized and apparently RIS. med-compliant. 05/15: sleeping midday. no change in presentation. 05/16: no change in presentation or plan. 05/17: no change in presentation or plan. commitment hearing tomorrow. 05/18: no change in presentation. committed to the hospital at hearing. 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 DC zyprexa as well as it lacks usable COUCH. start paliperidone PO, convert to COUCH once it is established pt is tolerating the medication. 05/20: continue to establish on tegretol and invega. introduce COUCH once pt stable on PO formulation for several days. check tegretol levels after about a week. no change in presentation. 05/21 continue current medication. 05/22 continue current treatment plan Reason for contiued inpatient stay Substantial Risk for: inability to function, rapid decompensation and med/psych decompensation Time Spent With Patient Time: Total time managing care of this patient today ____ minutes.
[2022-05-22 20:05] VITALS: BP 129/81; PULSE 97; RESP 16; TEMP 36.6; O2SAT 97
[2022-05-22] MEDS: Prazosin HCL 1 MG CAPSULE 2 MG PO (20:05)
[2022-05-22] MEDS: Melatonin 3 MG TABLET 6 MG PO (20:05)
[2022-05-22] MEDS: Docusate Sodium 100 MG CAPSULE PO (20:05)
[2022-05-23] MEDS: Paliperidone ER 6 MG TAB.ER.24 PO ×2 (08:35→20:16)
[2022-05-23] MEDS: carBAMazepine 200 MG/10 ML ORAL.SUSP PO ×2 (08:36→20:20)
[2022-05-23 08:42] VITALS: BP 125/71; PULSE 64; RESP 16; TEMP 36.8; O2SAT 98
--- NOTE | 2022-05-23 10:08 | P.PNPSI_ITS ---
Subjective Subjective Date of Service: 05/23/22 Reason For Visit: psychosis/nikita Subjective Notes: Section 8 Interim History: Pt stating he is ready to go home; states repeatedly that his meds are good, he likes them, he is thinks meds are helping; pt pacing aatt imes; some physical intrusivenesss, pacinfg, smiling and laughing at times but will not say why; He appears to be responding to internal stimuli off and on while talking with this typewriter tester; He is mumbling throughout our encounter and laughing; at times seem to be trying to hide his laughing. He denies SI/HI. Pt slept through the night. Medication Compliance: Yes Side effects from medications: No Attending Groups: No Review of Systems Acute medical concerns: No Mental Status Exam Mental Status Exam Narrative: Appearance: up and about the unit Behavior: guarded, minimally engaging Psychomotor: fidgety Speech: delayed response rate, spontaneous TP: disorganized TC: vague, vacuous Mood: not assessed Affect: full range, normo-intense, non-labile. less bizarre smiling and l aughing not c/w context. AH/VH: none expressed SI: none expressed HI: none expressed Insight/judgment: impaired x 2. Memory/cog: alert, not oriented to situation. impaired secondary to psychiatric symptoms. Patient Appearance: Appropriate Patient Orientation: Person and Situation Level of Consciousness: Restless Patient Behavior: Guarded and Passive Mood Description: Withdrawn Affect Description: Constricted Patient Cognition Impaired: No Ability to Follow Directions: Good Speech Pattern: Clear Diagnostics Vital Signs (24Hr): Vital Signs - 24 hr 05/22/22 20:05 05/23/22 08:42 Temperature 97.8 F 98.3 F Pulse Rate 97 64 Respiratory Rate 16 16 Blood Pressure 129/81 125/71 Pulse Oximetry 97 98 Oxygen Delivery Method Room Air Room Air BMI result Body Mass Index 24.7 Labs 05/19/22 12:15 05/19/22 12:15 Medications Medications Current Medications Acetaminophen (Acetaminophen 325 Mg Tablet) 650 mg PO Q6H PRN PRN Reason: Headache/Pain Mild Scale (1-3) Al Hydroxide/Mg Hydroxide (Magnesium Hydrox/Alum Hydrox 30 Ml Oral.Susp) 30 ml PO Q6H PRN PRN Reason: Heartburn/Nausea Last Admin: 05/09/22 20:51 Dose: 30 ml Carbamazepine (Carbamazepine 200 Mg/10 Ml Oral.Susp) 200 mg PO BID JELANI Last Admin: 05/23/22 08:36 Dose: 200 mg Docusate Sodium (Docusate Sodium 100 Mg Capsule) 100 mg PO BEDTIME JELANI Last Admin: 05/22/22 20:05 Dose: 100 mg Hydroxyzine HCl (Hydroxyzine Hcl 25 Mg Tablet) 25 mg PO Q6H PRN PRN Reason: Anxiety Magnesium Hydroxide (Milk Of Magnesia 30 Ml Oral.Susp) 30 ml PO DAILY PRN PRN Reason: Constipation Last Admin: 05/15/22 15:47 Dose: 30 ml Melatonin (Melatonin 3 Mg Tablet) 6 mg PO BEDTIME JELANI Last Admin: 05/22/22 20:05 Dose: 6 mg Paliperidone (Paliperidone Er 6 Mg Tab.Er.24) 6 mg PO BID JELANI Last Admin: 05/23/22 08:35 Dose: 6 mg Prazosin HCl (Prazosin Hcl 1 Mg Capsule) 2 mg PO BEDTIME JELANI; Protocol Last Admin: 05/22/22 20:05 Dose: 2 mg Trazodone HCl (Trazodone Hcl 50 Mg Tablet) 50 mg PO BEDTIME PRN PRN Reason: Insomnia Last Admin: 05/20/22 20:32 Dose: 50 mg Allergies Allergies Allergy/AdvReac Type Severity Reaction Status Date / Time depakote AdvReac Severe elevated Uncoded 05/19/22 22:38 ammonia Assessment & Plan Assessment & Plan (1) Schizoaffective disorder, bipolar type: Status: Acute Code(s): F25.0 - Schizoaffective disorder, bipolar type Plan 05/05: possibly manic, will invest more effort in trying to get mood stabilizer on board. continue zydis for now, start VPA sprinkles. 05/06: no change in mgmt. 05/07: no change in presentation. change VPA from sprinkles back to pills due to large number of sprinkles pills required to generate 1500 mg of VPA. pt not compliant with VPA, has been taking some zyprexa; change formulation to zydis to improve bioavailability. plan to move to file for commitment next week if pt doesn't soon begin to reliably take medication. 05/08 no change 05/09 no change 05/10: no change to mgmt. chewed meds x 1 over weekend, cheeking/furtively disposing of meds otherwise. 05/11: generally refusing meds. informed he will be filed on tomorrow. attempting to bargain over taking meds and discharge. will investigate obtaining VPA soln. 05/12: commitment paperwork filed. pt took all meds last night and this morning, including liquid VPA. aware of legal circumstance, unclear how well he is able to appreciate it. 05/13: asking about discharge, states he is compliant with meds (as also say nursing staff). states he is feeling better, but unable to say in what way. sleeping and eating well. 05/14: repeated checking-in with MD throughout the day. remains disorganized and apparently RIS. med-compliant. 05/15: sleeping midday. no change in presentation. 05/16: no change in presentation or plan. 05/17: no change in presentation or plan. commitment hearing tomorrow. 05/18: no change in presentation. committed to the hospital at hearing. 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 DC zyprexa as well as it lacks usable COUCH. start paliperidone PO, convert to COUCH once it is established pt is tolerating the medication. 05/20: continue to establish on tegretol and invega. introduce COUCH once pt stable on PO formulation for several days. check tegretol levels after about a week. no change in presentation. 05/21 continue current medication. 05/22 continue current treatment plan 05/23 continue current treatment plan Patient educated on: medication risk/benefits and therapeutic strategies Informed Consent: further education needed Reason for contiued inpatient stay Substantial Risk for: harm to self, inability to function, rapid decompensation and med/psych decompensation Time Spent With Patient Time: Total time managing care of this patient today ____ minutes.
[2022-05-23 20:05] VITALS: BP 156/60; PULSE 110; RESP 18; O2SAT 97
[2022-05-23] MEDS: Prazosin HCL 1 MG CAPSULE 2 MG PO (20:17)
[2022-05-23] MEDS: Melatonin 3 MG TABLET 6 MG PO (20:17)
[2022-05-23] MEDS: traZODone HCL 50 MG TABLET PO (20:18)
[2022-05-23] MEDS: Docusate Sodium 100 MG CAPSULE PO (20:18)
[2022-05-23] MEDS: Magnesium Hydrox/Alum Hydrox 30 ML ORAL.SUSP PO (21:31)
[2022-05-24 08:16] VITALS: BP 117/56; PULSE 79; RESP 16; TEMP 36.6; O2SAT 97
[2022-05-24] MEDS: Paliperidone ER 6 MG TAB.ER.24 PO ×2 (09:18→20:57)
[2022-05-24] MEDS: carBAMazepine 200 MG/10 ML ORAL.SUSP PO ×2 (09:19→21:00)
--- NOTE | 2022-05-24 13:49 | P.PNPSI_ITS ---
Subjective Subjective Date of Service: 05/24/22 Reason For Visit: psychosis/nikita Subjective Notes: Section 8 Interim History: Pt initially reached out to this engineering technical writer to inquire about discharge today. He last went to his bed. He reports, which was confirmed by RN that he did not sleep last night and was tired. He denies SI/HI. Continues to talk to someone who is not there. He is taking medications as prescribed. No side effects noted or reported. Medication Compliance: Yes Mental Status Exam Mental Status Exam Narrative: Appearance: up and about the unit Behavior: guarded, minimally engaging Psychomotor: fidgety Speech: delayed response rate, spontaneous TP: disorganized TC: vague, vacuous Mood: not assessed Affect: full range, normo-intense, non-labile. less bizarre smiling and laughing not c/w context. AH/VH: none expressed SI: none expressed HI: none expressed Insight/judgment: impaired x 2. Memory/cog: alert, not oriented to situation. impaired secondary to psychiatric symptoms. Diagnostics Vital Signs (24Hr): Vital Signs - 24 hr 05/23/22 20:05 05/24/22 08:16 Temperature 97.9 F Pulse Rate 110 H 79 Respiratory Rate 18 16 Blood Pressure 156/60 H 117/56 L Pulse Oximetry 97 97 Oxygen Delivery Method Room Air Room Air BMI result Body Mass Index 24.7 Labs 05/19/22 12:15 05/19/22 12:15 Medications Medications Current Medications Acetaminophen (Acetaminophen 325 Mg Tablet) 650 mg PO Q6H PRN PRN Reason: Headache/Pain Mild Scale (1-3) Al Hydroxide/Mg Hydroxide (Magnesium Hydrox/Alum Hydrox 30 Ml Oral.Susp) 30 ml PO Q6H PRN PRN Reason: Heartburn/Nausea Last Admin: 05/23/22 21:31 Dose: 30 ml Carbamazepine (Carbamazepine 200 Mg/10 Ml Oral.Susp) 200 mg PO BID JELANI Last Admin: 05/24/22 09:19 Dose: 200 mg Docusate Sodium (Docusate Sodium 100 Mg Capsule) 100 mg PO BEDTIME JELANI Last Admin: 05/23/22 20:18 Dose: 100 mg Hydroxyzine HCl (Hydroxyzine Hcl 25 Mg Tablet) 25 mg PO Q6H PRN PRN Reason: Anxiety Magnesium Hydroxide (Milk Of Magnesia 30 Ml Oral.Susp) 30 ml PO DAILY PRN PRN Reason: Constipation Last Admin: 05/15/22 15:47 Dose: 30 ml Melatonin (Melatonin 3 Mg Tablet) 6 mg PO BEDTIME JELANI Last Admin: 05/23/22 20:17 Dose: 6 mg Paliperidone (Paliperidone Er 6 Mg Tab.Er.24) 6 mg PO BID JELANI Last Admin: 05/24/22 09:18 Dose: 6 mg Prazosin HCl (Prazosin Hcl 1 Mg Capsule) 2 mg PO BEDTIME JELANI; Protocol Last Admin: 05/23/22 20:17 Dose: 2 mg Trazodone HCl (Trazodone Hcl 50 Mg Tablet) 50 mg PO BEDTIME PRN PRN Reason: Insomnia Last Admin: 05/23/22 20:18 Dose: 50 mg Allergies Allergies Allergy/AdvReac Type Severity Reaction Status Date / Time depakote AdvReac Severe elevated Uncoded 05/19/22 22:38 ammonia Assessment & Plan Assessment & Plan (1) Schizoaffective disorder, bipolar type: Status: Acute Code(s): F25.0 - Schizoaffective disorder, bipolar type Plan 05/05: possibly manic, will invest more effort in trying to get mood stabilizer on board. continue zydis for now, start VPA sprinkles. 05/06: no change in mgmt. 05/07: no change in presentation. change VPA from sprinkles back to pills due to large number of sprinkles pills required to generate 1500 mg of VPA. pt not compliant with VPA, has been taking some zyprexa; change formulation to zydis to improve bioavailability. plan to move to file for commitment next week if pt doesn't soon begin to reliably take medication. 05/08 no change 05/09 no change 05/10: no change to mgmt. chewed meds x 1 over weekend, cheeking/furtively disposing of meds otherwise. 05/11: generally refusing meds. informed he will be filed on tomorrow. attempting to bargain over taking meds and discharge. will investigate obt aining VPA soln. 05/12: commitment paperwork filed. pt took all meds last night and this morning, including liquid VPA. aware of legal circumstance, unclear how well he is able to appreciate it. 05/13: asking about discharge, states he is compliant with meds (as also say nursing staff). states he is feeling better, but unable to say in what way. sleeping and eating well. 2: repeated checking-in with MD throughout the day. remains disorganized and apparently RIS. med-compliant. 05/15: sleeping midday. no change in presentation. 05/16: no change in presentation or plan. 05/17: no change in presentation or plan. commitment hearing tomorrow. 05/18: no change in presentation. committed to the hospital at [facility]. 05/19: allowed blood draw, VPA level 105 with ammonia 110; DC VPA and start teg retol, as pt will not be able to tolerate VPA due to hyperammonemic encephalopathy. DC zyprexa as well as it lacks usable COUCH. start paliperidone PO, convert to COUCH once it is established pt is tolerating the medication. 05/20: continue to establish on tegretol and invega. introduce COUCH once pt stable on PO formulation for several days. check tegretol levels after about a week. no change in presentation. 05/21 continue current medication. 05/22 continue current treatment plan 05/23 continue current treatment plan 05/24 continue current medications. continues to with psychosis/delusions. Patient educated on: diagnosis Reason for contiued inpatient stay Substantial Risk for: inability to function Time Spent With Patient Time: Total time managing care of this patient today ____ minutes.
[2022-05-24 20:55] VITALS: BP 149/67; PULSE 104; RESP 18; TEMP 36.2
[2022-05-24] MEDS: Prazosin HCL 1 MG CAPSULE 2 MG PO (20:58)
[2022-05-24] MEDS: Melatonin 3 MG TABLET 6 MG PO (20:59)
[2022-05-24] MEDS: traZODone HCL 50 MG TABLET PO (20:59)
[2022-05-24] MEDS: Docusate Sodium 100 MG CAPSULE PO (21:00)
[2022-05-25 08:35] VITALS: BP 111/53; PULSE 88; RESP 16; TEMP 36.6; O2SAT 97
[2022-05-25] MEDS: Paliperidone ER 6 MG TAB.ER.24 PO ×2 (08:37→20:14)
[2022-05-25] MEDS: carBAMazepine 200 MG/10 ML ORAL.SUSP PO ×2 (08:38→20:15)
--- NOTE | 2022-05-25 15:32 | HO.PSYCHPN ---
Subjective Subjective Date of Service: 05/25/22 Reason For Visit: psychosis/nikita Subjective Notes: Section 8 Interim History: Pt asking about discharge, stating he likes the new medications. He reports he is better, when asked in what ways, he states every way. He slept better last night, continues to have full conversations with someone who is not there. Explained to pt discharge not this week. Per nursing, pt taking medications, no behavioral concerns. Medication Compliance: Yes Mental Status Exam Mental Status Exam Narrative: Appearance: wearing hospital gown, fair hygiene, in NAD Behavior: superficially cooperative Psychomotor: fidgety Speech: clear, delayed response rate, spontaneous TP: goal oriented- discharge TC: asking for discharge Mood: good Affect: full range, normo-intense, non-labile. less bizarre smiling and laughing not c/w context. AH/VH: having full conversations with someone who is not there. SI: none expressed HI: none expressed Insight/judgment: impaired x 2. Memory/cog: alert, not oriented to situation. impaired secondary to psychiatric symptoms. Diagnostics Vital Signs (24Hr): Vital Signs - 24 hr 05/24/22 20:55 05/25/22 08:35 Temperature 97.2 F 97.9 F Pulse Rate 104 H 88 Respiratory Rate 18 16 Blood Pressure 149/67 H 111/53 L Pulse Oximetry 97 Oxygen Delivery Method Room Air BMI result Body Mass Index 24.7 Labs 05/19/22 12:15 05/19/22 12:15 Medications Medications Current Medications Acetaminophen (Acetaminophen 325 Mg Tablet) 650 mg PO Q6H PRN PRN Reason: Headache/Pain Mild Scale (1-3) Al Hydroxide/Mg Hydroxide (Magnesium Hydrox/Alum Hydrox 30 Ml Oral.Susp) 30 ml PO Q6H PRN PRN Reason: Heartburn/Nausea Last Admin: 05/23/22 21:31 Dose: 30 ml Carbamazepine (Carbamazepine 200 Mg/10 Ml Oral.Susp) 200 mg PO BID [facility] Last Admin: 05/25/22 08:38 Dose: 200 mg Docusate Sodium (Docusate Sodium 100 Mg Capsule) 100 mg PO BEDTIME [facility] Last Admin: 05/24/22 21:00 Dose: 100 mg Hydroxyzine HCl (Hydroxyzine Hcl 25 Mg Tablet) 25 mg PO Q6H PRN PRN Reason: Anxiety Magnesium Hydroxide (Milk Of Magnesia 30 Ml Oral.Susp) 30 ml PO DAILY PRN PRN Reason: Constipation Last Admin: 05/15/22 15:47 Dose: 30 ml Melatonin (Melatonin 3 Mg Tablet) 6 mg PO BEDTIME [facility] Last Admin: 05/24/22 20:59 Dose: 6 mg Paliperidone (Paliperidone Er 6 Mg Tab.Er.24) 6 mg PO BID [facility] Last Admin: 05/25/22 08:37 Dose: 6 mg Prazosin HCl (Prazosin Hcl 1 Mg Capsule) 2 mg PO BEDTIME [facility]; Protocol Last Admin: 05/24/22 20:58 Dose: 2 mg Trazodone HCl (Trazodone Hcl 50 Mg Tablet) 50 mg PO BEDTIME PRN PRN Reason: Insomnia Last Admin: 05/24/22 20:59 Dose: 50 mg Allergies Allergies Allergy/AdvReac Type Severity Reaction Status Date / Time depakote AdvReac Severe elevated Uncoded 05/19/22 22:38 ammonia Assessment & Plan Assessment & Plan (1) Schizoaffective disorder, bipolar type: Status: Acute Code(s): F25.0 - Schizoaffective disorder, bipolar type Plan 05/05: possibly manic, will invest more effort in trying to get mood stabilizer on board. continue zydis for now, start VPA sprinkles. 05/06: no change in mgmt. 05/07: no change in presentation. change VPA from sprinkles back to pills due to large number of sprinkles pills required to generate 1500 mg of VPA. pt not compliant with VPA, has been taking some zyprexa; change formulation to zydis to improve bioavailability. plan to move to file for commitment next week if pt doesn't soon begin to reliably take medication. 05/08 no change 05/09 no change 05/10: no change to mgmt. chewed meds x 1 over weekend, cheeking/furtively disposing of meds otherwise. 05/11: generally refusing meds. informed he will be filed on tomorrow. attempting to bargain over taking meds and discharge. will investigate obtaining VPA soln. 05/12: commitment paperwork filed. pt took all meds last night and this morning, including liquid VPA. aware of legal circumstance, unclear how well he is able to appreciate it. 05/13: asking about discharge, states he is compliant with meds (as also say nursing staff). states he is feeling better, but unable to say in what way. sleeping and eating well. 2: repeated checking-in with MD throughout the day. remains disorganized and apparently RIS. med-compliant. 05/15: sleeping midday. no change in presentation. 05/16: no change in presentation or plan. 05/17: no change in presentation or plan. commitment hearing tomorrow. 05/18: no change in presentation. committed to the hospital at hearing. 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 DC zyprexa as well as it lacks usable COUCH. start paliperidone PO, convert to COUCH once it is established pt is tolerating the medication. 05/20: continue to establish on tegretol and invega. introduce COUCH once pt stable on PO formulation for several days. check tegretol levels after about a week. no change in presentation. 05/21 continue current medication. 05/22 continue current treatment plan 05/23 continue current treatment plan 05/24 continue current medications. continues with psychosis/delusions. 05/25 continue current tx. Reason for contiued inpatient stay Substantial Risk for: inability to function Time Spent With Patient Time: Total time managing care of this patient today ____ minutes.
[2022-05-25 20:10] VITALS: BP 138/70; PULSE 84; RESP 16; TEMP 36.3; O2SAT 97
[2022-05-25] MEDS: Docusate Sodium 100 MG CAPSULE PO (20:14)
[2022-05-25] MEDS: Melatonin 3 MG TABLET 6 MG PO (20:15)
[2022-05-25] MEDS: Prazosin HCL 1 MG CAPSULE 2 MG PO (20:15)
[2022-05-25] MEDS: hydrOXYzine HCL 25 MG TABLET PO (20:46)
[2022-05-26 09:14] VITALS: BP 123/80; PULSE 89; RESP 18; TEMP 36.6; O2SAT 98
[2022-05-26] MEDS: carBAMazepine 200 MG/10 ML ORAL.SUSP PO ×2 (09:17→20:26)
[2022-05-26] MEDS: Paliperidone ER 6 MG TAB.ER.24 PO ×2 (09:17→20:26)
--- NOTE | 2022-05-26 13:42 | P.PNPSI_ITS ---
Subjective Subjective Date of Service: 05/26/22 Reason For Visit: psychosis/nikita Subjective Notes: Section 8 Interim History: Pt superficially cooperative, asking for discharge, stating I like the medication, I am doing well. Despite explaining he is not going the week and there is no discharge date yet, he keeps asking multiple staff if it can be today. No behavioral concerns. Continues to talk with someone who is not there, when asked about content of conversation, he denies having conversation. Medication Compliance: Yes Side effects from medications: No Mental Status Exam Mental Status Exam Narrative: Appearance: wearing hospital gown, fair hygiene, in NAD Behavior: superficially cooperative Psychomotor: fidgety Speech: clear, delayed response rate, spontaneous TP: goal oriented- discharge TC: asking for discharge Mood: good Affect: full range, normo-intense, non-labile. less bizarre smiling and laughing not c/w context. AH/VH: having full conversations with someone who is not there. SI: none expressed HI: none expressed Insight/judgment: impaired x 2. Memory/cog: alert, not oriented to situation. impaired secondary to psychiatric symptoms. Diagnostics Vital Signs (24Hr): Vital Signs - 24 hr 05/27/22 20:15 05/28/22 08:15 Temperature 97.9 F 98.0 F Pulse Rate 88 60 Respiratory Rate 18 18 Blood Pressure 144/67 H 149/73 H Pulse Oximetry 95 98 Oxygen Delivery Method Room Air Room Air BMI result Body Mass Index 25.9 Labs 05/19/22 12:15 05/19/22 12:15 Medications Medications Current Medications Acetaminophen (Acetaminophen 325 Mg Tablet) 650 mg PO Q6H PRN PRN Reason: Headache/Pain Mild Scale (1-3) Al Hydroxide/Mg Hydroxide (Magnesium Hydrox/Alum Hydrox 30 Ml Oral.Susp) 30 ml PO Q6H PRN PRN Reason: Heartburn/Nausea Last Admin: 05/27/22 20:55 Dose: 30 ml Carbamazepine (Carbamazepine 200 Mg/10 Ml Oral.Susp) 200 mg PO BID [facility] Last Admin: 05/28/22 08:35 Dose: 200 mg Docusate Sodium (Docusate Sodium 100 Mg Capsule) 100 mg PO BEDTIME [facility] Last Admin: 05/27/22 20:19 Dose: 100 mg Hydroxyzine HCl (Hydroxyzine Hcl 25 Mg Tablet) 25 mg PO Q6H PRN PRN Reason: Anxiety Last Admin: 05/25/22 20:46 Dose: 25 mg Magnesium Hydroxide (Milk Of Magnesia 30 Ml Oral.Susp) 30 ml PO DAILY PRN PRN Reason: Constipation Last Admin: 05/15/22 15:47 Dose: 30 ml Melatonin (Melatonin 3 Mg Tablet) 6 mg PO BEDTIME [facility] Last Admin: 05/27/22 20:20 Dose: 6 mg Paliperidone (Paliperidone Er 6 Mg Tab.Er.24) 6 mg PO BID [facility] Last Admin: 05/28/22 08:35 Dose: 6 mg Prazosin HCl (Prazosin Hcl 1 Mg Capsule) 2 mg PO BEDTIME [facility]; Protocol Last Admin: 05/27/22 20:20 Dose: 2 mg Trazodone HCl (Trazodone Hcl 50 Mg Tablet) 50 mg PO BEDTIME PRN PRN Reason: Insomnia Last Admin: 05/27/22 20:20 Dose: 50 mg Allergies Allergies Allergy/AdvReac Type Severity Reaction Status Date / Time depakote AdvReac Severe elevated Uncoded 05/19/22 22:38 ammonia Assessment & Plan Assessment & Plan (1) Schizoaffective disorder, bipolar type: Status: Acute Code(s): F25.0 - Schizoaffective disorder, bipolar type Plan 05/05: possibly manic, will invest more effort in trying to get mood stabilizer on board. continue zydis for now, start VPA sprinkles. 05/06: no change in mgmt. 05/07: no change in presentation. change VPA from sprinkles back to pills due to large number of sprinkles pills required to generate 1500 mg of VPA. pt not compliant with VPA, has been taking some zyprexa; change formulation to zydis to improve bioavailability. plan to move to file for commitment next week if pt doesn't soon begin to reliably take medication. 05/08 no change 05/09 no change 05/10: no change to mgmt. chewed meds x 1 over weekend, cheeking/furtively disposing of meds otherwise. 05/11: generally refusing meds. informed he will be filed on tomorrow. attempting to bargain over taking meds and discharge. will investigate obtaining VPA soln. 05/12: commitment paperwork filed. pt took all meds last night and this morning, including liquid VPA. aware of legal circumstance, unclear how well he is able to appreciate it. 2: asking about discharge, states he is compliant with meds (as also say nursing staff). states he is feeling better, but unable to say in what way. sleeping and eating well. 2: repeated checking-in with MD throughout the day. remains disorganized and apparently RIS. med-compliant. 05/15: sleeping midday. no change in presentation. 05/16: no change in presentation or plan. 05/17: no change in presentation or plan. commitment hearing tomorrow. 05/18: no change in presentation. committed to the hospital at [facility]. 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 DC zyprexa as well as it lacks usable COUCH. start paliperidone PO, convert to COUCH once it is established pt is tolerating the medication. 05/20: continue to establish on tegretol and invega. introduce COUCH once pt stable on PO formulation for several days. check tegretol levels after about a week. no change in presentation. 05/21 continue current medication. 05/22 continue current treatment plan 05/23 continue current treatment plan 05/24 continue current medications. continues with psychosis/delusions. 05/25 continue current tx. 05/26 continue tx. Reason for contiued inpatient stay Substantial Risk for: inability to function Time Spent With Patient Time: Total time managing care of this patient today ____ minutes.
[2022-05-26 18:00] VITALS: BP 126/60; PULSE 86; RESP 18; TEMP 36.6; O2SAT 97
[2022-05-26] MEDS: Prazosin HCL 1 MG CAPSULE 2 MG PO (20:25)
[2022-05-26] MEDS: Docusate Sodium 100 MG CAPSULE PO (20:26)
[2022-05-26] MEDS: Melatonin 3 MG TABLET 6 MG PO (20:26)
[2022-05-27 07:00] VITALS: BMI 25.9
[2022-05-27 08:41] VITALS: BP 127/63; PULSE 71; RESP 20; TEMP 36.4; O2SAT 97
[2022-05-27] MEDS: Paliperidone ER 6 MG TAB.ER.24 PO ×2 (08:43→20:20)
[2022-05-27] MEDS: carBAMazepine 200 MG/10 ML ORAL.SUSP PO ×2 (08:43→20:21)
--- NOTE | 2022-05-27 13:33 | HO.PSYCHPN ---
Subjective Subjective Date of Service: 05/27/22 Reason For Visit: psychosis/nikita Subjective Notes: Section 8 Interim History: Pt superficially cooperative, asking for discharge. Pt asked about who he is talking with and content of such conversation. He declines to elaborate, continues to laugh to himself and talk with someone who is not there. No SI/HI. Slept better last night. Medication Compliance: Yes Side effects from medications: No Mental Status Exam Mental Status Exam Narrative: Appearance: wearing hospital gown, fair hygiene, in NAD Behavior: superficially cooperative Psychomotor: fidgety Speech: clear, delayed response rate, spontaneous TP: goal oriented- discharge TC: asking for discharge Mood: good Affect: full range, normo-intense, non-labile. less bizarre smiling and laughing not c/w context. AH/VH: having full conversations with someone who is not there. SI: none expressed HI: none expressed Insight/judgment: impaired x 2. Memory/cog: alert, not oriented to situation. impaired secondary to psychiatric symptoms. Diagnostics Vital Signs (24Hr): Vital Signs - 24 hr 05/27/22 20:15 05/28/22 08:15 Temperature 97.9 F 98.0 F Pulse Rate 88 60 Respiratory Rate 18 18 Blood Pressure 144/67 H 149/73 H Pulse Oximetry 95 98 Oxygen Delivery Method Room Air Room Air BMI result Body Mass Index 25.9 Labs 05/19/22 12:15 05/19/22 12:15 Medications Medications Current Medications Acetaminophen (Acetaminophen 325 Mg Tablet) 650 mg PO Q6H PRN PRN Reason: Headache/Pain Mild Scale (1-3) Al Hydroxide/Mg Hydroxide (Magnesium Hydrox/Alum Hydrox 30 Ml Oral.Susp) 30 ml PO Q6H PRN PRN Reason: Heartburn/Nausea Last Admin: 05/27/22 20:55 Dose: 30 ml Carbamazepine (Carbamazepine 200 Mg/10 Ml Oral.Susp) 200 mg PO BID [facility] Last Admin: 05/28/22 08:35 Dose: 200 mg Docusate Sodium (Docusate Sodium 100 Mg Capsule) 100 mg PO BEDTIME [facility] Last Admin: 05/27/22 20:19 Dose: 100 mg Hydroxyzine HCl (Hydroxyzine Hcl 25 Mg Tablet) 25 mg PO Q6H PRN PRN Reason: Anxiety Last Admin: 05/25/22 20:46 Dose: 25 mg Magnesium Hydroxide (Milk Of Magnesia 30 Ml Oral.Susp) 30 ml PO DAILY PRN PRN Reason: Constipation Last Admin: 05/15/22 15:47 Dose: 30 ml Melatonin (Melatonin 3 Mg Tablet) 6 mg PO BEDTIME [facility] Last Admin: 05/27/22 20:20 Dose: 6 mg Paliperidone (Paliperidone Er 6 Mg Tab.Er.24) 6 mg PO BID [facility] Last Admin: 05/28/22 08:35 Dose: 6 mg Prazosin HCl (Prazosin Hcl 1 Mg Capsule) 2 mg PO BEDTIME [facility]; Protocol Last Admin: 05/27/22 20:20 Dose: 2 mg Trazodone HCl (Trazodone Hcl 50 Mg Tablet) 50 mg PO BEDTIME PRN PRN Reason: Insomnia Last Admin: 05/27/22 20:20 Dose: 50 mg Allergies Allergies Allergy/AdvReac Type Severity Reaction Status Date / Time depakote AdvReac Severe elevated Uncoded 05/19/22 22:38 ammonia Assessment & Plan Assessment & Plan (1) Schizoaffective disorder, bipolar type: Status: Acute Code(s): F25.0 - Schizoaffective disorder, bipolar type Plan 05/05: possibly manic, will invest more effort in trying to get mood stabilizer on board. continue zydis for now, start VPA sprinkles. 05/06: no change in mgmt. 05/07: no change in presentation. change VPA from sprinkles back to pills due to large number of sprinkles pills required to generate 1500 mg of VPA. pt not compliant with VPA, has been taking some zyprexa; change formulation to zydis to improve bioavailability. plan to move to file for commitment next week if pt doesn't soon begin to reliably take medication. 05/08 no change 05/09 no change 05/10: no change to mgmt. chewed meds x 1 over weekend, cheeking/furtively disposing of meds otherwise. 05/11: generally refusing meds. informed he will be filed on tomorrow. attempting to bargain over taking meds and discharge. will investigate obtaining VPA soln. 05/12: commitment paperwork filed. pt took all meds last night and this morning, including liquid VPA. aware of legal circumstance, unclear how well he is able to appreciate it. 05/13: asking about discharge, states he is compliant with meds (as also say nursing staff). states he is feeling better, but unable to say in what way. sleeping and eating well. 05/14: repeated checking-in with MD throughout the day. remains disorganized and apparently RIS. med-compliant. 05/15: sleeping midday. no change in presentation. 05/16: no change in presentation or plan. 05/17: no change in presentation or plan. commitment hearing tomorrow. 05/18: no change in presentation. committed to the hospital at [facility]. 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 DC zyprexa as well as it lacks usable COUCH. start paliperidone PO, convert to COUCH once it is established pt is tolerating the medication. 05/20: continue to establish on tegretol and invega. introduce COUCH once pt stable on PO formulation for several days. check tegretol levels after about a week. no change in presentation. 05/21 continue current medication. 05/22 continue current treatment plan 05/23 continue current treatment plan 05/24 continue current medications. continues with psychosis/delusions. 05/25 continue current tx. 05/26 continue tx. 05/27 continue tx. vaughn do tegretol level Sat. Patient educated on: diagnosis Informed Consent: understands Reason for contiued inpatient stay Substantial Risk for: inability to function Time Spent With Patient Time: Total time managing care of this patient today ____ minutes.
[2022-05-27 20:15] VITALS: BP 144/67; PULSE 88; RESP 18; TEMP 36.6; O2SAT 95
[2022-05-27] MEDS: Docusate Sodium 100 MG CAPSULE PO (20:19)
[2022-05-27] MEDS: traZODone HCL 50 MG TABLET PO (20:20)
[2022-05-27] MEDS: Melatonin 3 MG TABLET 6 MG PO (20:20)
[2022-05-27] MEDS: Prazosin HCL 1 MG CAPSULE 2 MG PO (20:20)
[2022-05-27] MEDS: Magnesium Hydrox/Alum Hydrox 30 ML ORAL.SUSP PO (20:55)
[2022-05-28 08:15] VITALS: BP 149/73; PULSE 60; RESP 18; TEMP 36.7; O2SAT 98
[2022-05-28] MEDS: Paliperidone ER 6 MG TAB.ER.24 PO ×2 (08:35→20:43)
[2022-05-28] MEDS: carBAMazepine 200 MG/10 ML ORAL.SUSP PO ×2 (08:35→20:46)
--- NOTE | 2022-05-28 12:34 | HO.PSYCHPN ---
Subjective Subjective Date of Service: 05/28/22 Reason For Visit: psychosis/nikita Subjective Notes: Section 8 Interim History: Pt sitting in common area. He asks this teletypewriter operator about discharge. He also asks if this teletypewriter operator knows if his father is coming today. He continues to laugh as if having conversation with someone who is not there. No SI/HI. He is taking medications as prescribed. Per nursing, slept through the night. Medication Compliance: Yes Mental Status Exam Mental Status Exam Narrative: Appearance: wearing hospital gown, fair hygiene, in NAD Behavior: superficially cooperative Psychomotor: fidgety Speech: clear, delayed response rate, spontaneous TP: goal oriented- discharge TC: asking for discharge Mood: good Affect: full range, normo-intense, non-labile. less bizarre smiling and laughing not c/w context. AH/VH: having full conversations with someone who is not there. SI: none expressed HI: none expressed Insight/judgment: impaired x 2. Memory/cog: alert, not oriented to situation. impaired secondary to psychiatric symptoms. Diagnostics Vital Signs (24Hr): Vital Signs - 24 hr 05/27/22 20:15 05/28/22 08:15 Temperature 97.9 F 98.0 F Pulse Rate 88 60 Respiratory Rate 18 18 Blood Pressure 144/67 H 149/73 H Pulse Oximetry 95 98 Oxygen Delivery Method Room Air Room Air BMI result Body Mass Index 25.9 Labs 05/19/22 12:15 05/19/22 12:15 Medications Medications Current Medications Acetaminophen (Acetaminophen 325 Mg Tablet) 650 mg PO Q6H PRN PRN Reason: Headache/Pain Mild Scale (1-3) Al Hydroxide/Mg Hydroxide (Magnesium Hydrox/Alum Hydrox 30 Ml Oral.Susp) 30 ml PO Q6H PRN PRN Reason: Heartburn/Nausea Last Admin: 05/27/22 20:55 Dose: 30 ml Carbamazepine (Carbamazepine 200 Mg/10 Ml Oral.Susp) 200 mg PO BID [facility] Last Admin: 05/28/22 08:35 Dose: 200 mg Docusate Sodium (Docusate Sodium 100 Mg Capsule) 100 mg PO BEDTIME [facility] Last Admin: 05/27/22 20:19 Dose: 100 mg Hydroxyzine HCl (Hydroxyzine Hcl 25 Mg Tablet) 25 mg PO Q6H PRN PRN Reason: Anxiety Last Admin: 05/25/22 20:46 Dose: 25 mg Magnesium Hydroxide (Milk Of Magnesia 30 Ml Oral.Susp) 30 ml PO DAILY PRN PRN Reason: Constipation Last Admin: 05/15/22 15:47 Dose: 30 ml Melatonin (Melatonin 3 Mg Tablet) 6 mg PO BEDTIME [facility] Last Admin: 05/27/22 20:20 Dose: 6 mg Paliperidone (Paliperidone Er 6 Mg Tab.Er.24) 6 mg PO BID [facility] Last Admin: 05/28/22 08:35 Dose: 6 mg Prazosin HCl (Prazosin Hcl 1 Mg Capsule) 2 mg PO BEDTIME [facility]; Protocol Last Admin: 05/27/22 20:20 Dose: 2 mg Trazodone HCl (Trazodone Hcl 50 Mg Tablet) 50 mg PO BEDTIME PRN PRN Reason: Insomnia Last Admin: 05/27/22 20:20 Dose: 50 mg Allergies Allergies Allergy/AdvReac Type Severity Reaction Status Date / Time depakote AdvReac Severe elevated Uncoded 05/19/22 22:38 ammonia Assessment & Plan Assessment & Plan (1) Schizoaffective disorder, bipolar type: Status: Acute Code(s): F25.0 - Schizoaffective disorder, bipolar type Plan 05/05: possibly manic, will invest more effort in trying to get mood stabilizer on board. continue zydis for now, start VPA sprinkles. 05/06: no change in mgmt. 05/07: no change in presentation. change VPA from sprinkles back to pills due to large number of sprinkles pills required to generate 1500 mg of VPA. pt not compliant with VPA, has been taking some zyprexa; change formulation to zydis to improve bioavailability. plan to move to file for commitment next week if pt doesn't soon begin to reliably take medication. 05/08 no change 05/09 no change 05/10: no change to mgmt. chewed meds x 1 over weekend, cheeking/furtively disposing of meds otherwise. 05/11: generally refusing meds. informed he will be filed on tomorrow. attempting to bargain over taking meds and discharge. will investigate obtaining VPA soln. 05/12: commitment paperwork filed. pt took all meds last night and this morning, including liquid VPA. aware of legal circumstance, unclear how well he is able to appreciate it. 2: asking about discharge, states he is compliant with meds (as also say nursing staff). states he is feeling better, but unable to say in what way. sleeping and eating well. 05/14: repeated checking-in with MD throughout the day. remains disorganized and apparently RIS. med-compliant. 05/15: sleeping midday. no change in presentation. 05/16: no change in presentation or plan. 05/17: no change in presentation or plan. commitment hearing tomorrow. 05/18: no change in presentation. committed to the hospital at [facility]. 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 DC zyprexa as well as it lacks usable COUCH. start paliperidone PO, convert to COUCH once it is established pt is tolerating the medication. 05/20: continue to establish on tegretol and invega. introduce COUCH once pt stable on PO formulation for several days. check tegretol levels after about a week. no change in presentation. 05/21 continue current medication. 05/22 continue current treatment plan 05/23 continue current treatment plan 05/24 continue current medications. continues with psychosis/delusions. 05/25 continue current tx. 05/26 continue tx. 05/27 continue tx. vaughn do tegretol level Sat. 05/28 continue tx. Reason for contiued inpatient stay Substantial Risk for: inability to function Time Spent With Patient Time: Total time managing care of this patient today ____ minutes.
[2022-05-28] MEDS: Magnesium Hydrox/Alum Hydrox 30 ML ORAL.SUSP PO (15:59)
[2022-05-28 20:28] VITALS: BP 112/56; PULSE 71; RESP 18; TEMP 36.6; O2SAT 100
[2022-05-28] MEDS: Prazosin HCL 1 MG CAPSULE 2 MG PO (20:44)
[2022-05-28] MEDS: traZODone HCL 50 MG TABLET PO (20:45)
[2022-05-28] MEDS: Melatonin 3 MG TABLET 6 MG PO (20:45)
[2022-05-28] MEDS: Docusate Sodium 100 MG CAPSULE PO (20:46)
[2022-05-29 06:58] LABS: MANUAL DIFF FLAG NO
[2022-05-29 07:24] LABS: Basophils Percent Auto 0.5 % (0-2); Carbamazepine Tegretol 5.2 mcg/mL (5.0-12.0); Eosinophils Absolute Auto 0.2 X10*3/uL (0.0-0.4); Eosinophils Percent Auto 3.5 % (0-4); Hematocrit 44.3 % (42.0-52.0); Hemoglobin 15.5 g/dl (14.0-18.0); Imm Gran Abs Auto 0.03 X10*3/uL (0.00-0.03); Imm Gran Pct Auto 0.7 % (0.0-0.4); Lymphocytes Absolute Auto 1.5 X10*3/uL (1.2-4.9); Lymphocytes Percent Auto 35.4 % (20-40); Mean Corpuscular Hemoglobin 29.6 pg (27.0-33.0); Mean Corpuscular Volume 84.7 fL (80.0-98.0); Monocytes Absolute Auto 0.4 X10*3/uL (0.1-1.2); Monocytes Percent Auto 8.8 % (2-11); Neutrophils Absolute Auto 2.2 x10*3/uL (2.0-8.3); Neutrophils Percent Auto 51.1 % (45-73); Platelet Count 149 X10*3/uL (160-400); Red Blood Count 5.23 X10*6/uL (4.60-5.80); Red Cell Distribution Width 11.9 % (11.0-16.0); White Blood Count 4.3 X10*3/uL (4.8-10.8)
[2022-05-29 07:27] LABS: Alanine Aminotransferase 46 U/L (0-40); Albumin Level 4.2 g/dL (3.5-5.0); Alkaline Phosphatase 91 U/L (39-117); Anion Gap 12 (12-20); Aspartate Amino Transferase 44 U/L (5-37); Bilirubin Total 0.3 mg/dL (0.0-1.0); Blood Urea Nitrogen 20 mg/dL (9-16); Calcium 9.2 mg/dL (8.4-10.2); Carbon Dioxide 25 mmol/L (22-29); Chloride 107 mmol/L (96-108); Creatinine Clr Calc Pharmacy 144.8; Estimated Glomerular Filt Rate > 60; Glucose Fasting 97 mg/dL (60-99); Potassium 4.3 mmol/L (3.3-5.1); Sodium 140 mmol/L (135-145); Total Protein 6.1 g/dL (6.5-8.0)
[2022-05-29 08:30] VITALS: BP 116/58; PULSE 86; RESP 16; TEMP 36.9; O2SAT 98
[2022-05-29] MEDS: carBAMazepine 200 MG/10 ML ORAL.SUSP PO ×2 (08:52→22:17)
[2022-05-29] MEDS: Paliperidone ER 6 MG TAB.ER.24 PO ×2 (08:53→22:15)
--- NOTE | 2022-05-29 14:42 | HO.PSYCHPN ---
Subjective Subjective Date of Service: 05/29/22 Reason For Visit: psychosis/nikita Subjective Notes: Section 8 Interim History: Pt in room. He asks this proposal manager writer about discharge.He continues to laugh as if having conversation with someone who is not there. No SI/HI. He is taking medications as prescribed. Per nursing, slept through the night. Medication Compliance: Yes Mental Status Exam Mental Status Exam Narrative: Appearance: wearing hospital gown, fair hygiene, in NAD Behavior: superficially cooperative Psychomotor: fidgety Speech: clear, delayed response rate, spontaneous TP: goal oriented- discharge TC: asking for discharge Mood: good Affect: full range, normo-intense, non-labile. less bizarre smiling and laughing not c/w context. AH/VH: having full conversations with someone who is not there. SI: none expressed HI: none expressed Insight/judgment: impaired x 2. Memory/cog: alert, not oriented to situation. impaired secondary to psychiatric symptoms. Diagnostics Vital Signs (24Hr): Vital Signs - 24 hr 05/30/22 21:03 05/31/22 08:50 Temperature 97.4 F 97.1 F Pulse Rate 86 60 Respiratory Rate 18 16 Blood Pressure 136/62 114/59 L Pulse Oximetry 96 60 L Oxygen Delivery Method Room Air Room Air BMI result Body Mass Index 25.9 Labs 05/29/22 06:53 05/29/22 06:53 Medications Medications Current Medications Acetaminophen (Acetaminophen 325 Mg Tablet) 650 mg PO Q6H PRN PRN Reason: Headache/Pain Mild Scale (1-3) Al Hydroxide/Mg Hydroxide (Magnesium Hydrox/Alum Hydrox 30 Ml Oral.Susp) 30 ml PO Q6H PRN PRN Reason: Heartburn/Nausea Last Admin: 05/30/22 17:26 Dose: 30 ml Carbamazepine (Carbamazepine 200 Mg/10 Ml Oral.Susp) 200 mg PO BID JELANI Last Admin: 05/31/22 08:51 Dose: 200 mg Docusate Sodium (Docusate Sodium 100 Mg Capsule) 100 mg PO BEDTIME JELANI Last Admin: 05/30/22 21:10 Dose: 100 mg Hydroxyzine HCl (Hydroxyzine Hcl 25 Mg Tablet) 25 mg PO Q6H PRN PRN Reason: Anxiety Last Admin: 05/25/22 20:46 Dose: 25 mg Magnesium Hydroxide (Milk Of Magnesia 30 Ml Oral.Susp) 30 ml PO DAILY PRN PRN Reason: Constipation Last Admin: 05/15/22 15:47 Dose: 30 ml Melatonin (Melatonin 3 Mg Tablet) 6 mg PO BEDTIME JELANI Last Admin: 05/30/22 21:08 Dose: 6 mg Paliperidone (Paliperidone Er 6 Mg Tab.Er.24) 6 mg PO BID JELANI Last Admin: 05/31/22 08:51 Dose: 6 mg Prazosin HCl (Prazosin Hcl 1 Mg Capsule) 2 mg PO BEDTIME JELANI; Protocol Last Admin: 05/30/22 21:07 Dose: 2 mg Trazodone HCl (Trazodone Hcl 50 Mg Tablet) 50 mg PO BEDTIME PRN PRN Reason: Insomnia Last Admin: 05/30/22 21:08 Dose: 50 mg Allergies Allergies Allergy/AdvReac Type Severity Reaction Status Date / Time depakote AdvReac Severe elevated Uncoded 05/19/22 22:38 ammonia Assessment & Plan Assessment & Plan (1) Schizoaffective disorder, bipolar type: Status: Acute Code(s): F25.0 - Schizoaffective disorder, bipolar type Plan 05/05: possibly manic, will invest more effort in trying to get mood stabilizer on board. continue zydis for now, start VPA sprinkles. 05/06: no change in mgmt. 05/07: no change in presentation. change VPA from sprinkles back to pills due to large number of sprinkles pills required to generate 1500 mg of VPA. pt not compliant with VPA, has been taking some zyprexa; change formulation to zydis to improve bioavailability. plan to move to file for commitment next week if pt doesn't soon begin to reliably take medication. 05/08 no change 05/09 no change 05/10: no change to mgmt. chewed meds x 1 over weekend, cheeking/furtively disposing of meds otherwise. 05/11: generally refusing meds. informed he will be filed on tomorrow. attempting to bargain over taking meds and discharge. will investigate obtaining VPA soln. 05/12: commitment paperwork filed. pt took all meds last night and this morning, including liquid VPA. aware of legal circumstance, unclear how well he is able to appreciate it. 05/13: asking about discharge, states he is compliant with meds (as also say nursing staff). states he is feeling better, but unable to say in what way. sleeping and eating well. 2: repeated checking-in with MD throughout the day. remains disorganized and apparently RIS. med-compliant. 05/15: sleeping midday. no change in presentation. 05/16: no change in presentation or plan. 05/17: no change in presentation or plan. commitment hearing tomorrow. 05/18: no change in presentation. committed to the hospital at hearing. 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 DC zyprexa as well as it lacks usable COUCH. start paliperidone PO, convert to COUCH once it is established pt is tolerating the medication. 05/20: continue to establish on tegretol and invega. introduce COUCH once pt stable on PO formulation for several days. check tegretol levels after about a week. no change in presentation. 05/21 continue current medication. 05/22 continue current treatment plan 05/23 continue current treatment plan 05/24 continue current medications. continues with psychosis/delusions. 05/25 continue current tx. 05/26 continue tx. 05/27 continue tx. vaughn do tegretol level Sat. 05/28 continue tx. 05/29 continue tx. Reason for contiued inpatient stay Substantial Risk for: inability to function Time Spent With Patient Time: Total time managing care of this patient today ____ minutes.
[2022-05-29] MEDS: Magnesium Hydrox/Alum Hydrox 30 ML ORAL.SUSP PO (17:18)
[2022-05-29 22:00] VITALS: BP 154/67; PULSE 84; RESP 18; TEMP 36.3; O2SAT 98
[2022-05-29] MEDS: Prazosin HCL 1 MG CAPSULE 2 MG PO (22:15)
[2022-05-29] MEDS: Melatonin 3 MG TABLET 6 MG PO (22:16)
[2022-05-29] MEDS: traZODone HCL 50 MG TABLET PO (22:16)
[2022-05-29] MEDS: Docusate Sodium 100 MG CAPSULE PO (22:17)
[2022-05-30] MEDS: Paliperidone ER 6 MG TAB.ER.24 PO ×2 (09:59→21:06)
[2022-05-30 10:00] VITALS: BP 116/55; PULSE 84; RESP 18; TEMP 36.6; O2SAT 99
[2022-05-30] MEDS: carBAMazepine 200 MG/10 ML ORAL.SUSP PO ×2 (10:00→21:10)
--- NOTE | 2022-05-30 14:35 | HO.PSYCHPN ---
Subjective Subjective Date of Service: 05/30/22 Reason For Visit: psychosis/nikita Interim History: Pt in room. He asks this machine sign writer about discharge.He continues to laugh as if having conversation with someone who is not there. No SI/HI. He is taking medications as prescribed. Per nursing, slept through the night. Mental Status Exam Mental Status Exam Narrative: Appearance: wearing hospital gown, fair hygiene, in NAD Behavior: superficially cooperative Psychomotor: fidgety Speech: clear, delayed response rate, spontaneous TP: goal oriented- discharge TC: asking for discharge Mood: good Affect: full range, normo-intense, non-labile. less bizarre smiling and laughing not c/w context. AH/VH: having full conversations with someone who is not there. SI: none expressed HI: none expressed Insight/judgment: impaired x 2. Memory/cog: alert, not oriented to situation. impaired secondary to psychiatric symptoms. Diagnostics Vital Signs (24Hr): Vital Signs - 24 hr 05/30/22 21:03 05/31/22 08:50 Temperature 97.4 F 97.1 F Pulse Rate 86 60 Respiratory Rate 18 16 Blood Pressure 136/62 114/59 L Pulse Oximetry 96 60 L Oxygen Delivery Method Room Air Room Air BMI result Body Mass Index 25.9 Labs 05/29/22 06:53 05/29/22 06:53 Medications Medications Current Medications Acetaminophen (Acetaminophen 325 Mg Tablet) 650 mg PO Q6H PRN PRN Reason: Headache/Pain Mild Scale (1-3) Al Hydroxide/Mg Hydroxide (Magnesium Hydrox/Alum Hydrox 30 Ml Oral.Susp) 30 ml PO Q6H PRN PRN Reason: Heartburn/Nausea Last Admin: 05/30/22 17:26 Dose: 30 ml Carbamazepine (Carbamazepine 200 Mg/10 Ml Oral.Susp) 200 mg PO BID JELANI Last Admin: 05/31/22 08:51 Dose: 200 mg Docusate Sodium (Docusate Sodium 100 Mg Capsule) 100 mg PO BEDTIME JELANI Last Admin: 05/30/22 21:10 Dose: 100 mg Hydroxyzine HCl (Hydroxyzine Hcl 25 Mg Tablet) 25 mg PO Q6H PRN PRN Reason: Anxiety Last Admin: 05/25/22 20:46 Dose: 25 mg Magnesium Hydroxide (Milk Of Magnesia 30 Ml Oral.Susp) 30 ml PO DAILY PRN PRN Reason: Constipation Last Admin: 05/15/22 15:47 Dose: 30 ml Melatonin (Melatonin 3 Mg Tablet) 6 mg PO BEDTIME JELANI Last Admin: 05/30/22 21:08 Dose: 6 mg Paliperidone (Paliperidone Er 6 Mg Tab.Er.24) 6 mg PO BID JELANI Last Admin: 05/31/22 08:51 Dose: 6 mg Prazosin HCl (Prazosin Hcl 1 Mg Capsule) 2 mg PO BEDTIME JELANI; Protocol Last Admin: 05/30/22 21:07 Dose: 2 mg Trazodone HCl (Trazodone Hcl 50 Mg Tablet) 50 mg PO BEDTIME PRN PRN Reason: Insomnia Last Admin: 05/30/22 21:08 Dose: 50 mg Allergies Allergies Allergy/AdvReac Type Severity Reaction Status Date / Time depakote AdvReac Severe elevated Uncoded 05/19/22 22:38 ammonia Assessment & Plan Assessment & Plan (1) Schizoaffective disorder, bipolar type: Status: Acute Code(s): F25.0 - Schizoaffective disorder, bipolar type Plan 05/05: possibly manic, will invest more effort in trying to get mood stabilizer on board. continue zydis for now, start VPA sprinkles. 05/06: no change in mgmt. 05/07: no change in presentation. change VPA from sprinkles back to pills due to large number of sprinkles pills required to generate 1500 mg of VPA. pt not compliant with VPA, has been taking some zyprexa; change formulation to zydis to improve bioavailability. plan to move to file for commitment next week if pt doesn't soon begin to reliably take medication. 05/08 no change 05/09 no change 05/10: no change to mgmt. chewed meds x 1 over weekend, cheeking/furtively disposing of meds otherwise. 05/11: generally refusing meds. informed he will be filed on tomorrow. attempting to bargain over taking meds and discharge. will investigate obtaining VPA soln. 05/12: commitment paperwork filed. pt took all meds last night and this morning, including liquid VPA. aware of legal circumstance, unclear how well he is able to appreciate it. 05/13: asking about discharge, states he is compliant with meds (as also say nursing staff). states he is feeling better, but unable to say in what way. sleeping and eating well. 2: repeated checking-in with MD throughout the day. remains disorganized and apparently RIS. med-compliant. 05/15: sleeping midday. no change in presentation. 05/16: no change in presentation or plan. 05/17: no change in presentation or plan. commitment hearing tomorrow. 05/18: no change in presentation. committed to the hospital at [facility]. 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 DC zyprexa as well as it lacks usable COUCH. start paliperidone PO, convert to COUCH once it is established pt is tolerating the medication. 05/20: continue to establish on tegretol and invega. introduce COUCH once pt stable on PO formulation for several days. check tegretol levels after about a week. no change in presentation. 05/21 continue current medication. 05/22 continue current treatment plan 05/23 continue current treatment plan 05/24 continue current medications. continues with psychosis/delusions. 05/25 continue current tx. 05/26 continue tx. 05/27 continue tx. vaughn do tegretol level Sat. 05/28 continue tx. 05/29 continue tx. 05/30 continue tx. not much improvement. continues to self dialogued. Reason for contiued inpatient stay Substantial Risk for: inability to function Time Spent With Patient Time: Total time managing care of this patient today ____ minutes.
[2022-05-30] MEDS: Magnesium Hydrox/Alum Hydrox 30 ML ORAL.SUSP PO (17:26)
[2022-05-30 21:03] VITALS: BP 136/62; PULSE 86; RESP 18; TEMP 36.3; O2SAT 96
[2022-05-30] MEDS: Prazosin HCL 1 MG CAPSULE 2 MG PO (21:07)
[2022-05-30] MEDS: traZODone HCL 50 MG TABLET PO (21:08)
[2022-05-30] MEDS: Melatonin 3 MG TABLET 6 MG PO (21:08)
[2022-05-30] MEDS: Docusate Sodium 100 MG CAPSULE PO (21:10)
[2022-05-31 08:50] VITALS: BP 114/59; PULSE 60; RESP 16; TEMP 36.2; O2SAT 60
[2022-05-31] MEDS: Paliperidone ER 6 MG TAB.ER.24 PO ×2 (08:51→20:22)
[2022-05-31] MEDS: carBAMazepine 200 MG/10 ML ORAL.SUSP PO ×2 (08:51→20:22)
--- NOTE | 2022-05-31 14:35 | P.PNPSI_ITS ---
Subjective Subjective Date of Service: 05/31/22 Reason For Visit: psychosis/nikita Subjective Notes: Section 8 Interim History: Pt more visible today, pacing in the bonner although minimally interactive with peers. He asks this headline writer, as usual, about discharge.He continues to laugh as if having conversation with someone who is not there. He asks can you tell Dr. Dasilva that medications are working? No SI/HI. He is taking medications as prescribed. Per nursing, slept through the night. Mental Status Exam Mental Status Exam Narrative: Appearance: wearing hospital gown, fair hygiene, in NAD Behavior: superficially cooperative Psychomotor: fidgety Speech: clear, delayed response rate, spontaneous TP: goal oriented- discharge TC: asking for discharge Mood: good Affect: full range, normo-intense, non-labile. less bizarre smiling and laughing not c/w context. AH/VH: having full conversations with someone who is not there. SI: none expressed HI: none expressed Insight/judgment: impaired x 2. Memory/cog: alert, not oriented to situation. impaired secondary to psychiatric symptoms. Diagnostics Vital Signs (24Hr): Vital Signs - 24 hr 05/30/22 21:03 05/31/22 08:50 Temperature 97.4 F 97.1 F Pulse Rate 86 60 Respiratory Rate 18 16 Blood Pressure 136/62 114/59 L Pulse Oximetry 96 60 L Oxygen Delivery Method Room Air Room Air BMI result Body Mass Index 25.9 Labs 05/29/22 06:53 05/29/22 06:53 Medications Medications Current Medications Acetaminophen (Acetaminophen 325 Mg Tablet) 650 mg PO Q6H PRN PRN Reason: Headache/Pain Mild Scale (1-3) Al Hydroxide/Mg Hydroxide (Magnesium Hydrox/Alum Hydrox 30 Ml Oral.Susp) 30 ml PO Q6H PRN PRN Reason: Heartburn/Nausea Last Admin: 05/30/22 17:26 Dose: 30 ml Carbamazepine (Carbamazepine 200 Mg/10 Ml Oral.Susp) 200 mg PO BID JELANI Last Admin: 05/31/22 08:51 Dose: 200 mg Docusate Sodium (Docusate Sodium 100 Mg Capsule) 100 mg PO BEDTIME JELANI Last Admin: 05/30/22 21:10 Dose: 100 mg Hydroxyzine HCl (Hydroxyzine Hcl 25 Mg Tablet) 25 mg PO Q6H PRN PRN Reason: Anxiety Last Admin: 05/25/22 20:46 Dose: 25 mg Magnesium Hydroxide (Milk Of Magnesia 30 Ml Oral.Susp) 30 ml PO DAILY PRN PRN Reason: Constipation Last Admin: 05/15/22 15:47 Dose: 30 ml Melatonin (Melatonin 3 Mg Tablet) 6 mg PO BEDTIME JELANI Last Admin: 05/30/22 21:08 Dose: 6 mg Paliperidone (Paliperidone Er 6 Mg Tab.Er.24) 6 mg PO BID JELANI Last Admin: 05/31/22 08:51 Dose: 6 mg Prazosin HCl (Prazosin Hcl 1 Mg Capsule) 2 mg PO BEDTIME JELANI; Protocol Last Admin: 05/30/22 21:07 Dose: 2 mg Trazodone HCl (Trazodone Hcl 50 Mg Tablet) 50 mg PO BEDTIME PRN PRN Reason: Insomnia Last Admin: 05/30/22 21:08 Dose: 50 mg Allergies Allergies Allergy/AdvReac Type Severity Reaction Status Date / Time depakote AdvReac Severe elevated Uncoded 05/19/22 22:38 ammonia Assessment & Plan Assessment & Plan (1) Schizoaffective disorder, bipolar type: Status: Acute Code(s): F25.0 - Schizoaffective disorder, bipolar type Plan 05/05: possibly manic, will invest more effort in trying to get mood stabilizer on board. continue zydis for now, start VPA sprinkles. 05/06: no change in mgmt. 05/07: no change in presentation. change VPA from sprinkles back to pills due to large number of sprinkles pills required to generate 1500 mg of VPA. pt not compliant with VPA, has been taking some zyprexa; change formulation to zydis to improve bioavailability. plan to move to file for commitment next week if pt doesn't soon begin to reliably take medication. 05/08 no change 05/09 no change 05/10: no change to mgmt. chewed meds x 1 over weekend, cheeking/furtively disposing of meds otherwise. 05/11: generally refusing meds. informed he will be filed on tomorrow. attempting to bargain over taking meds and discharge. will investigate obtaining VPA soln. 05/12: commitment paperwork filed. pt took all meds last night and this morning, including liquid VPA. aware of legal circumstance, unclear how well he is able to appreciate it. 2: asking about discharge, states he is compliant with meds (as also say nursing staff). states he is feeling better, but unable to say in what way. sleeping and eating well. 05/14: repeated checking-in with MD throughout the day. remains disorganized and apparently RIS. med-compliant. 05/15: sleeping midday. no change in presentation. 05/16: no change in presentation or plan. 05/17: no change in presentation or plan. commitment hearing tomorrow. 05/18: no change in presentation. committed to the hospital at [facility]. 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 DC zyprexa as well as it lacks usable COUCH. start paliperidone PO, convert to COUCH once it is established pt is tolerating the medication. 05/20: continue to establish on tegretol and invega. introduce COUCH once pt stable on PO formulation for several days. check tegretol levels after about a week. no change in presentation. 05/21 continue current medication. 05/22 continue current treatment plan 05/23 continue current treatment plan 05/24 continue current medications. continues with psychosis/delusions. 05/25 continue current tx. 05/26 continue tx. 05/27 continue tx. vaughn do tegretol level Sat. 05/28 continue tx. 05/29 continue tx. 05/30 continue tx. not much improvement. continues to self dialoguing 05/31 continue tx. minimal improvement. Reason for contiued inpatient stay Substantial Risk for: inability to function Time Spent With Patient Time: Total time managing care of this patient today ____ minutes.
[2022-05-31] MEDS: Docusate Sodium 100 MG CAPSULE PO (20:22)
[2022-05-31] MEDS: Melatonin 3 MG TABLET 6 MG PO (20:22)
[2022-05-31] MEDS: Prazosin HCL 1 MG CAPSULE 2 MG PO (20:22)
[2022-05-31 20:25] VITALS: BP 119/63; PULSE 89; TEMP 36.6; O2SAT 98
[2022-06-01 08:49] VITALS: BP 92/56; PULSE 70; RESP 16; TEMP 36.2; O2SAT 95
[2022-06-01] MEDS: carBAMazepine 200 MG/10 ML ORAL.SUSP PO ×2 (08:52→20:50)
[2022-06-01] MEDS: Paliperidone ER 6 MG TAB.ER.24 PO ×2 (09:25→20:50)
[2022-06-01] MEDS: Acetaminophen 325 MG TABLET 650 MG PO (09:31)
--- NOTE | 2022-06-01 12:32 | P.PNPSI_ITS ---
Subjective Subjective Date of Service: 06/01/22 Reason For Visit: psychosis/nikita Subjective Notes: Section 8 Interim History: Pt pacing in the bonner. He asks this senior grant writer, as usual, about discharge.He continues to laugh as if having conversation with someone who is not there. He asks can you tell Dr. Dasilva that medications are working? No SI/HI. He is taking medications as prescribed. Per nursing, slept through the night. Mental Status Exam Mental Status Exam Narrative: Appearance: wearing hospital gown, fair hygiene, in NAD Behavior: superficially cooperative Psychomotor: fidgety Speech: clear, delayed response rate, spontaneous TP: goal oriented- discharge TC: asking for discharge Mood: good Affect: full range, normo-intense, non-labile. less bizarre smiling and laughing not c/w context. AH/VH: having full conversations with someone who is not there. SI: none expressed HI: none expressed Insight/judgment: impaired x 2. Memory/cog: alert, not oriented to situation. impaired secondary to psychiatric symptoms. Diagnostics Vital Signs (24Hr): Vital Signs - 24 hr 06/01/22 08:49 06/01/22 20:48 Temperature 97.2 F 97.8 F Pulse Rate 70 74 Respiratory Rate 16 18 Blood Pressure 92/56 L 133/60 Pulse Oximetry 95 96 Oxygen Delivery Method Room Air Room Air BMI result Body Mass Index 25.9 Labs 05/29/22 06:53 05/29/22 06:53 Medications Medications Current Medications Acetaminophen (Acetaminophen 325 Mg Tablet) 650 mg PO Q6H PRN PRN Reason: Headache/Pain Mild Scale (1-3) Last Admin: 06/01/22 09:31 Dose: 650 mg Al Hydroxide/Mg Hydroxide (Magnesium Hydrox/Alum Hydrox 30 Ml Oral.Susp) 30 ml PO Q6H PRN PRN Reason: Heartburn/Nausea Last Admin: 05/30/22 17:26 Dose: 30 ml Carbamazepine (Carbamazepine 200 Mg/10 Ml Oral.Susp) 200 mg PO BID JELANI Last Admin: 06/01/22 20:50 Dose: 200 mg Docusate Sodium (Docusate Sodium 100 Mg Capsule) 100 mg PO BEDTIME JELANI Last Admin: 06/01/22 20:50 Dose: 100 mg Hydroxyzine HCl (Hydroxyzine Hcl 25 Mg Tablet) 25 mg PO Q6H PRN PRN Reason: Anxiety Last Admin: 05/25/22 20:46 Dose: 25 mg Magnesium Hydroxide (Milk Of Magnesia 30 Ml Oral.Susp) 30 ml PO DAILY PRN PRN Reason: Constipation Last Admin: 05/15/22 15:47 Dose: 30 ml Melatonin (Melatonin 3 Mg Tablet) 6 mg PO BEDTIME JELANI Last Admin: 06/01/22 20:49 Dose: 6 mg Paliperidone (Paliperidone Er 6 Mg Tab.Er.24) 6 mg PO BID JELANI Last Admin: 06/01/22 20:50 Dose: 6 mg Prazosin HCl (Prazosin Hcl 1 Mg Capsule) 2 mg PO BEDTIME JELANI; Protocol Last Admin: 06/01/22 20:49 Dose: 2 mg Trazodone HCl (Trazodone Hcl 50 Mg Tablet) 50 mg PO BEDTIME PRN PRN Reason: Insomnia Last Admin: 05/30/22 21:08 Dose: 50 mg Allergies Allergies Allergy/AdvReac Type Severity Reaction Status Date / Time depakote AdvReac Severe elevated Uncoded 05/19/22 22:38 ammonia Assessment & Plan Assessment & Plan (1) Schizoaffective disorder, bipolar type: Status: Acute Code(s): F25.0 - Schizoaffective disorder, bipolar type Plan 05/05: possibly manic, will invest more effort in trying to get mood stabilizer on board. continue zydis for now, start VPA sprinkles. 05/06: no change in mgmt. 05/07: no change in presentation. change VPA from sprinkles back to pills due to large number of sprinkles pills required to generate 1500 mg of VPA. pt not compliant with VPA, has been taking some zyprexa; change formulation to zydis to improve bioavailability. plan to move to file for commitment next week if pt doesn't soon begin to reliably take medication. 05/08 no change 05/09 no change 05/10: no change to mgmt. chewed meds x 1 over weekend, cheeking/furtively disposing of meds otherwise. 05/11: generally refusing meds. informed he will be filed on tomorrow. attempting to bargain over taking meds and discharge. will investigate obtaining VPA soln. 05/12: commitment paperwork filed. pt took all meds last night and this morning, including liquid VPA. aware of legal circumstance, unclear how well he is able to appreciate it. 2: asking about discharge, states he is compliant with meds (as also say nursing staff). states he is feeling better, but unable to say in what way. sleeping and eating well. 05/14: repeated checking-in with MD throughout the day. remains disorganized and apparently RIS. med-compliant. 05/15: sleeping midday. no change in presentation. 05/16: no change in presentation or plan. 05/17: no change in presentation or plan. commitment hearing tomorrow. 05/18: no change in presentation. committed to the hospital at [facility]. 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 DC zyprexa as well as it lacks usable COUCH. start paliperidone PO, convert to COUCH once it is established pt is tolerating the medication. 05/20: continue to establish on tegretol and invega. introduce COUCH once pt stable on PO formulation for several days. check tegretol levels after about a week. no change in presentation. 05/21 continue current medication. 05/22 continue current treatment plan 05/23 continue current treatment plan 05/24 continue current medications. continues with psychosis/delusions. 05/25 continue current tx. 05/26 continue tx. 05/27 continue tx. vaughn do tegretol level Sat. 05/28 continue tx. 05/29 continue tx. 05/30 continue tx. not much improvement. continues to self dialoguing 05/31 continue tx. minimal improvement. 06/01 continue tx. may want to consider change in antipsychotic. Reason for contiued inpatient stay Substantial Risk for: inability to function Time Spent With Patient Time: Total time managing care of this patient today ____ minutes.
[2022-06-01 20:48] VITALS: BP 133/60; PULSE 74; RESP 18; TEMP 36.6; O2SAT 96
[2022-06-01] MEDS: Melatonin 3 MG TABLET 6 MG PO (20:49)
[2022-06-01] MEDS: Prazosin HCL 1 MG CAPSULE 2 MG PO (20:49)
[2022-06-01] MEDS: Docusate Sodium 100 MG CAPSULE PO (20:50)
[2022-06-02 08:00] VITALS: BP 126/66; PULSE 76; RESP 18; TEMP 36.6; O2SAT 98
[2022-06-02] MEDS: carBAMazepine 200 MG/10 ML ORAL.SUSP PO ×2 (08:54→20:19)
[2022-06-02] MEDS: Paliperidone ER 6 MG TAB.ER.24 PO ×2 (08:55→20:19)
[2022-06-02] MEDS: Acetaminophen 325 MG TABLET 650 MG PO ×2 (09:30→21:57)
[2022-06-02] MEDS: Lithium Carbonate ER 450 MG TABLET.ER PO ×2 (12:35→20:19)
[2022-06-02] MEDS: hydrOXYzine HCL 25 MG TABLET PO (16:51)
--- NOTE | 2022-06-02 16:54 | P.PNPSI_ITS ---
Subjective Subjective Date of Service: 06/02/22 Reason For Visit: psychosis/nikita Interim History: calm, cooperative. does not appear to have changed since MD last saw him almost two weeks ago. had been receiving 12 mg paliperidone daily without any effect. educated re lithium, agrees to trial. per staff, vague. laughing without stimuli. delayed. the meds are working. pacing, watching TV, eating meals. slept well. tegretol 5.2 on 05/29. Mental Status Exam Mental Status Exam Narrative: Appearance: up and about the unit Behavior: guarded, minimally engaging Psychomotor: fidgety Speech: delayed response rate, spontaneous TP: disorganized TC: vague, vacuous Mood: not assessed Affect: full range, normo-intense, non-labile. bizarre smiling and laughing not c/w context. AH/VH: none expressed SI: none expressed HI: none expressed Insight/judgment: impaired x 2. Memory/cog: alert, not oriented to situation. impaired secondary to psychiatric symptoms. Diagnostics Vital Signs (24Hr): Vital Signs - 24 hr 06/01/22 20:48 06/02/22 08:00 Temperature 97.8 F 97.8 F Pulse Rate 74 76 Respiratory Rate 18 18 Blood Pressure 133/60 126/66 Pulse Oximetry 96 98 Oxygen Delivery Method Room Air Room Air BMI result Body Mass Index 25.9 Labs 05/29/22 06:53 05/29/22 06:53 Medications Medications Current Medications Acetaminophen (Acetaminophen 325 Mg Tablet) 650 mg PO Q6H PRN PRN Reason: Headache/Pain Mild Scale (1-3) Last Admin: 06/02/22 09:30 Dose: 650 mg Al Hydroxide/Mg Hydroxide (Magnesium Hydrox/Alum Hydrox 30 Ml Oral.Susp) 30 ml PO Q6H PRN PRN Reason: Heartburn/Nausea Last Admin: 05/30/22 17:26 Dose: 30 ml Carbamazepine (Carbamazepine 200 Mg/10 Ml Oral.Susp) 200 mg PO BID JELANI Last Admin: 06/02/22 08:54 Dose: 200 mg Docusate Sodium (Docusate Sodium 100 Mg Capsule) 100 mg PO BEDTIME JELANI Last Admin: 06/01/22 20:50 Dose: 100 mg Hydroxyzine HCl (Hydroxyzine Hcl 25 Mg Tablet) 25 mg PO Q6H PRN PRN Reason: Anxiety Last Admin: 06/02/22 16:51 Dose: 25 mg [place] Carbonate ([place] Carbonate Er 450 Mg Tablet.Er) 450 mg PO BID JELANI Last Admin: 06/02/22 12:35 Dose: 450 mg Magnesium Hydroxide (Milk Of Magnesia 30 Ml Oral.Susp) 30 ml PO DAILY PRN PRN Reason: Constipation Last Admin: 05/15/22 15:47 Dose: 30 ml Melatonin (Melatonin 3 Mg Tablet) 6 mg PO BEDTIME JELANI Last Admin: 06/01/22 20:49 Dose: 6 mg Paliperidone (Paliperidone Er 6 Mg Tab.Er.24) 6 mg PO BID JELANI Last Admin: 06/02/22 08:55 Dose: 6 mg Prazosin HCl (Prazosin Hcl 1 Mg Capsule) 2 mg PO BEDTIME JELANI; Protocol Last Admin: 06/01/22 20:49 Dose: 2 mg Trazodone HCl (Trazodone Hcl 50 Mg Tablet) 50 mg PO BEDTIME PRN PRN Reason: Insomnia Last Admin: 05/30/22 21:08 Dose: 50 mg Allergies Allergies Allergy/AdvReac Type Severity Reaction Status Date / Time depakote AdvReac Severe elevated Uncoded 05/19/22 22:38 ammonia Assessment & Plan Assessment & Plan (1) Schizoaffective disorder, bipolar type: Status: Acute Code(s): F25.0 - Schizoaffective disorder, bipolar type Plan 05/05: possibly manic, will invest more effort in trying to get mood stabilizer on board. continue zydis for now, start VPA sprinkles. 05/06: no change in mgmt. 05/07: no change in presentation. change VPA from sprinkles back to pills due to large number of sprinkles pills required to generate 1500 mg of VPA. pt not compliant with VPA, has been taking some zyprexa; change formulation to zydis to improve bioavailability. plan to move to file for commitment next week if pt doesn't soon begin to reliably take medication. 05/08 no change 05/09 no change 05/10: no change to mgmt. chewed meds x 1 over weekend, cheeking/furtively disposing of meds otherwise. 05/11: generally refusing meds. informed he will be filed on tomorrow. attempting to bargain over taking meds and discharge. will investigate obtaining VPA soln. 05/12: commitment paperwork filed. pt took all meds last night and this morning, including liquid VPA. aware of legal circumstance, unclear how well he is able to appreciate it. 05/13: asking about discharge, states he is compliant with meds (as also say nursing staff). states he is feeling better, but unable to say in what way. sleeping and eating well. 05/14: repeated checking-in with MD throughout the day. remains disorganized and apparently RIS. med-compliant. 05/15: sleeping midday. no change in presentation. 05/16: no change in presentation or plan. 05/17: no change in presentation or plan. commitment hearing tomorrow. 05/18: no change in presentation. committed to the hospital at [facility]. 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 DC zyprexa as well as it lacks usable COUCH. start paliperidone PO, convert to COUCH once it is established pt is tolerating the medication. 05/20: continue to establish on tegretol and invega. introduce COUCH once pt stable on PO formulation for several days. check tegretol levels after about a week. no change in presentation. 05/21 continue current medication. 05/22 continue current treatment plan 05/23 continue current treatment plan 05/24 continue current medications. continues with psychosis/delusions. 05/25 continue current tx. 05/26 continue tx. 05/27 continue tx. vaughn do tegretol level Sat. 05/28 continue tx. 05/29 continue tx. 05/30 continue tx. not much improvement. continues to self dialoguing 05/31 continue tx. minimal improvement. 06/01 continue tx. may want to consider change in antipsychotic. 06/02: no change since last seen 05/20. on paliperidone 12 mg daily. tegretol level 5.2. trend LFTs; slightly elevated. willing to have lithium added today. Patient educated on: medication risk/benefits Reason for contiued inpatient stay Substantial Risk for: inability to function and rapid decompensation Time Spent With Patient Time: Total time managing care of this patient today __25__ minutes.
[2022-06-02] MEDS: Melatonin 3 MG TABLET 6 MG PO (20:19)
[2022-06-02] MEDS: Prazosin HCL 1 MG CAPSULE 2 MG PO (20:19)
[2022-06-02] MEDS: Docusate Sodium 100 MG CAPSULE PO (20:19)
[2022-06-02 20:24] VITALS: BP 135/63; PULSE 102; TEMP 36.6; O2SAT 97
[2022-06-03 06:00] VITALS: BP 120/60; PULSE 95; RESP 16; TEMP 36.7; O2SAT 97
[2022-06-03] MEDS: Lithium Carbonate ER 450 MG TABLET.ER PO ×2 (10:20→21:16)
[2022-06-03] MEDS: carBAMazepine 200 MG/10 ML ORAL.SUSP PO ×2 (10:20→21:16)
[2022-06-03] MEDS: Paliperidone ER 6 MG TAB.ER.24 PO ×2 (10:20→21:16)
--- NOTE | 2022-06-03 15:28 | HO.PSYCHPN ---
Subjective Subjective Date of Service: 06/03/22 Reason For Visit: psychosis/nikita Interim History: no change in presentation. states he feels better on the new medication, identifying concentration as improved. per staff, distracted, poor attention. attending groups, poor focus. restless, denies psych Sx. watching TV, showered. slept after 2300. Mental Status Exam Mental Status Exam Narrative: Appearance: up and about the unit Behavior: guarded, minimally engaging Psychomotor: pacing the halls Speech: spontaneous, rapid; nml amount TP: perhaps slightly more organized today TC: vague, vacuous Mood: euthymic Affect: full range, normo-intense, non-labile. bizarre smiling and laughing not c/w context. AH/VH: none expressed SI: none expressed HI: none expressed Insight/judgment: impaired x 2. Memory/cog: alert, not oriented to situation. impaired secondary to psychiatric symptoms. Diagnostics Vital Signs (24Hr): Vital Signs - 24 hr 06/02/22 20:24 06/03/22 06:00 Temperature 97.8 F 98.1 F Pulse Rate 102 H 95 Respiratory Rate 16 Blood Pressure 135/63 120/60 Pulse Oximetry 97 97 Oxygen Delivery Method Room Air Room Air BMI result Body Mass Index 25.9 Labs 05/29/22 06:53 05/29/22 06:53 Medications Medications Current Medications Acetaminophen (Acetaminophen 325 Mg Tablet) 650 mg PO Q6H PRN PRN Reason: Headache/Pain Mild Scale (1-3) Last Admin: 06/02/22 21:57 Dose: 650 mg Al Hydroxide/Mg Hydroxide (Magnesium Hydrox/Alum Hydrox 30 Ml Oral.Susp) 30 ml PO Q6H PRN PRN Reason: Heartburn/Nausea Last Admin: 05/30/22 17:26 Dose: 30 ml Carbamazepine (Carbamazepine 200 Mg/10 Ml Oral.Susp) 200 mg PO BID JELANI Last Admin: 06/03/22 10:20 Dose: 200 mg Docusate Sodium (Docusate Sodium 100 Mg Capsule) 100 mg PO BEDTIME JELANI Last Admin: 06/02/22 20:19 Dose: 100 mg Hydroxyzine HCl (Hydroxyzine Hcl 25 Mg Tablet) 25 mg PO Q6H PRN PRN Reason: Anxiety Last Admin: 06/02/22 16:51 Dose: 25 mg [place] Carbonate ([place] Carbonate Er 450 Mg Tablet.Er) 450 mg PO BID JELANI Last Admin: 06/03/22 10:20 Dose: 450 mg Magnesium Hydroxide (Milk Of Magnesia 30 Ml Oral.Susp) 30 ml PO DAILY PRN PRN Reason: Constipation Last Admin: 05/15/22 15:47 Dose: 30 ml Melatonin (Melatonin 3 Mg Tablet) 6 mg PO BEDTIME JELANI Last Admin: 06/02/22 20:19 Dose: 6 mg Paliperidone (Paliperidone Er 6 Mg Tab.Er.24) 6 mg PO BID JELANI Last Admin: 06/03/22 10:20 Dose: 6 mg Prazosin HCl (Prazosin Hcl 1 Mg Capsule) 2 mg PO BEDTIME JELANI; Protocol Last Admin: 06/02/22 20:19 Dose: 2 mg Trazodone HCl (Trazodone Hcl 50 Mg Tablet) 50 mg PO BEDTIME PRN PRN Reason: Insomnia Last Admin: 05/30/22 21:08 Dose: 50 mg Allergies Allergies Allergy/AdvReac Type Severity Reaction Status Date / Time depakote AdvReac Severe elevated Uncoded 05/19/22 22:38 ammonia Assessment & Plan Assessment & Plan (1) Schizoaffective disorder, bipolar type: Status: Acute Code(s): F25.0 - Schizoaffective disorder, bipolar type Plan 05/05: possibly manic, will invest more effort in trying to get mood stabilizer on board. continue zydis for now, start VPA sprinkles. 05/06: no change in mgmt. 05/07: no change in presentation. change VPA from sprinkles back to pills due to large number of sprinkles pills required to generate 1500 mg of VPA. pt not compliant with VPA, has been taking some zyprexa; change formulation to zydis to improve bioavailability. plan to move to file for commitment next week if pt doesn't soon begin to reliably take medication. 05/08 no change 05/09 no change 05/10: no change to mgmt. chewed meds x 1 over weekend, cheeking/furtively disposing of meds otherwise. 05/11: generally refusing meds. informed he will be filed on tomorrow. attempting to bargain over taking meds and discharge. will investigate obtaining VPA soln. 05/12: commitment paperwork filed. pt took all meds last night and this morning, including liquid VPA. aware of legal circumstance, unclear how well he is able to appreciate it. 2: asking about discharge, states he is compliant with meds (as also say nursing staff). states he is feeling better, but unable to say in what way. sleeping and eating well. 05/14: repeated checking-in with MD throughout the day. remains disorganized and apparently RIS. med-compliant. 05/15: sleeping midday. no change in presentation. 05/16: no change in presentation or plan. 05/17: no change in presentation or plan. commitment hearing tomorrow. 05/18: no change in presentation. committed to the hospital at [facility]. 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 DC zyprexa as well as it lacks usable COUCH. start paliperidone PO, convert to COUCH once it is established pt is tolerating the medication. 05/20: continue to establish on tegretol and invega. introduce COUCH once pt stable on PO formulation for several days. check tegretol levels after about a week. no change in presentation. 05/21 continue current medication. 05/22 continue current treatment plan 05/23 continue current treatment plan 05/24 continue current medications. continues with psychosis/delusions. 05/25 continue current tx. 05/26 continue tx. 05/27 continue tx. vaughn do tegretol level Sat. 05/28 continue tx. 05/29 continue tx. 05/30 continue tx. not much improvement. continues to self dialoguing 05/31 continue tx. minimal improvement. 06/01 continue tx. may want to consider change in antipsychotic. 06/02: no change since last seen 05/20. on paliperidone 12 mg daily. tegretol level 5.2. trend LFTs; slightly elevated. willing to have lithium added today. 06/03: reports improved concentration today with lithium addition. continue current mgmt. T/C different neuroleptic, T/C increase in tegretol dosing. Reason for contiued inpatient stay Substantial Risk for: inability to function and rapid decompensation Time Spent With Patient Time: Total time managing care of this patient today __25__ minutes.
[2022-06-03 21:10] VITALS: BP 132/66; PULSE 108; RESP 16; TEMP 36.2; O2SAT 95
[2022-06-03] MEDS: Prazosin HCL 1 MG CAPSULE 2 MG PO (21:16)
[2022-06-03] MEDS: Docusate Sodium 100 MG CAPSULE PO (21:16)
[2022-06-03] MEDS: Melatonin 3 MG TABLET 6 MG PO (21:16)
[2022-06-04 09:30] VITALS: BP 116/53; PULSE 79; RESP 18; TEMP 36.4; O2SAT 97
[2022-06-04] MEDS: Lithium Carbonate ER 450 MG TABLET.ER PO ×2 (09:50→20:06)
[2022-06-04] MEDS: carBAMazepine 200 MG/10 ML ORAL.SUSP PO ×2 (09:51→20:06)
[2022-06-04] MEDS: Paliperidone ER 6 MG TAB.ER.24 PO ×2 (09:51→20:06)
--- NOTE | 2022-06-04 15:39 | P.PNPSI_ITS ---
Subjective Subjective Date of Service: 06/04/22 Reason For Visit: psychosis/nikita Interim History: stable presentation. continues to assert that lithium has helped his concentration. asking about discharge. per staff, pacing, watching TV, laughing. not attending groups. +ADLs. sleeping well. Mental Status Exam Mental Status Exam Narrative: Appearance: up and about the unit Behavior: engaging on very limited subject matter Psychomotor: pacing the halls Speech: spontaneous, rapid; nml amount TP: perhaps slightly more organized today TC: vague, vacuous Mood: euthymic Affect: full range, normo-intense, non-labile. bizarre smiling and laughing not c/w context. AH/VH: none expressed SI: none expressed HI: none expressed Insight/judgment: impaired x 2. Memory/cog: alert, not oriented to situation. impaired secondary to psychiatric symptoms. Diagnostics Vital Signs (24Hr): Vital Signs - 24 hr 06/03/22 21:10 06/04/22 09:30 Temperature 97.2 F 97.6 F Pulse Rate 108 H 79 Respiratory Rate 16 18 Blood Pressure 132/66 116/53 L Pulse Oximetry 95 97 Oxygen Delivery Method Room Air Room Air BMI result Body Mass Index 25.9 Labs 05/29/22 06:53 05/29/22 06:53 Medications Medications Current Medications Acetaminophen (Acetaminophen 325 Mg Tablet) 650 mg PO Q6H PRN PRN Reason: Headache/Pain Mild Scale (1-3) Last Admin: 06/02/22 21:57 Dose: 650 mg Al Hydroxide/Mg Hydroxide (Magnesium Hydrox/Alum Hydrox 30 Ml Oral.Susp) 30 ml PO Q6H PRN PRN Reason: Heartburn/Nausea Last Admin: 05/30/22 17:26 Dose: 30 ml Carbamazepine (Carbamazepine 200 Mg/10 Ml Oral.Susp) 200 mg PO BID [facility] Last Admin: 06/04/22 09:51 Dose: 200 mg Docusate Sodium (Docusate Sodium 100 Mg Capsule) 100 mg PO BEDTIME [facility] Last Admin: 06/03/22 21:16 Dose: 100 mg Hydroxyzine HCl (Hydroxyzine Hcl 25 Mg Tablet) 25 mg PO Q6H PRN PRN Reason: Anxiety Last Admin: 06/02/22 16:51 Dose: 25 mg [place] Carbonate ([place] Carbonate Er 450 Mg Tablet.Er) 450 mg PO BID [facility] Last Admin: 06/04/22 09:50 Dose: 450 mg Magnesium Hydroxide (Milk Of Magnesia 30 Ml Oral.Susp) 30 ml PO DAILY PRN PRN Reason: Constipation Last Admin: 05/15/22 15:47 Dose: 30 ml Melatonin (Melatonin 3 Mg Tablet) 6 mg PO BEDTIME JELANI Last Admin: 06/03/22 21:16 Dose: 6 mg Paliperidone (Paliperidone Er 6 Mg Tab.Er.24) 6 mg PO BID JELANI Last Admin: 06/04/22 09:51 Dose: 6 mg Prazosin HCl (Prazosin Hcl 1 Mg Capsule) 2 mg PO BEDTIME JELANI; Protocol Last Admin: 06/03/22 21:16 Dose: 2 mg Trazodone HCl (Trazodone Hcl 50 Mg Tablet) 50 mg PO BEDTIME PRN PRN Reason: Insomnia Last Admin: 05/30/22 21:08 Dose: 50 mg Allergies Allergies Allergy/AdvReac Type Severity Reaction Status Date / Time depakote AdvReac Severe elevated Uncoded 05/19/22 22:38 ammonia Assessment & Plan Assessment & Plan (1) Schizoaffective disorder, bipolar type: Status: Acute Code(s): F25.0 - Schizoaffective disorder, bipolar type Plan 05/05: possibly manic, will invest more effort in trying to get mood stabilizer on board. continue zydis for now, start VPA sprinkles. 05/06: no change in mgmt. 05/07: no change in presentation. change VPA from sprinkles back to pills due to large number of sprinkles pills required to generate 1500 mg of VPA. pt not compliant with VPA, has been taking some zyprexa; change formulation to zydis to improve bioavailability. plan to move to file for commitment next week if pt d oesn't soon begin to reliably take medication. 05/08 no change 05/09 no change 05/10: no change to mgmt. chewed meds x 1 over weekend, cheeking/furtively disposing of meds otherwise. 05/11: generally refusing meds. informed he will be filed on tomorrow. attempting to bargain over taking meds and discharge. will investigate obtaining VPA soln. 05/12: commitment paperwork filed. pt took all meds last night and this morning, including liquid VPA. aware of legal circumstance, unclear how well he is able to appreciate it. 05/13: asking about discharge, states he is compliant with meds (as also say nursing staff). states he is feeling better, but unable to say in what way. sleeping and eating well. 05/14: repeated checking-in with MD throughout the day. remains disorganized and apparently RIS. med-compliant. 05/15: sleeping midday. no change in presentation. 05/16: no change in presentation or plan. 05/17: no change in presentation or plan. commitment hearing tomorrow. 05/18: no change in presentation. committed to the hospital at [facility]. 05/19: allowed blood draw, VPA level 105 with ammonia 110; DC VPA and start tegretol, as pt will not be able to tolerate VPA due to hyperammonemic enc ephalopathy. DC zyprexa as well as it lacks usable COUCH. start paliperidone PO, convert to COUCH once it is established pt is tolerating the medication. 05/20: continue to establish on tegretol and invega. introduce COUCH once pt stable on PO formulation for several days. check tegretol levels after about a week. no change in presentation. 05/21 continue current medication. 05/22 continue current treatment plan 05/23 continue current treatment plan 05/24 continue current medications. continues with psychosis/delusions. 05/25 continue current tx. 05/26 continue tx. 05/27 continue tx. vaughn do tegretol level Sat. 05/28 continue tx. 05/29 continue tx. 05/30 continue tx. not much improvement. continues to self dialoguing 05/31 continue tx. minimal improvement. 06/01 continue tx. may want to consider change in antipsychotic. 06/02: no change since last seen 05/20. on paliperidone 12 mg daily. tegretol [place] 5.2. trend LFTs; slightly elevated. willing to have lithium added today. 06/03: reports improved concentration today with lithium addition. continue current mgmt. T/C different neuroleptic, T/C increase in tegretol dosing. 06/04: continue current mgmt. check lithium on tuesday. stable presentation. Reason for contiued inpatient stay Substantial Risk for: harm to self, harm to others, inability to function and rapid decompensation Time Spent With Patient Time: Total time managing care of this patient today _20___ minutes.
[2022-06-04] MEDS: Prazosin HCL 1 MG CAPSULE 2 MG PO (20:06)
[2022-06-04] MEDS: Docusate Sodium 100 MG CAPSULE PO (20:06)
[2022-06-04] MEDS: Melatonin 3 MG TABLET 6 MG PO (20:07)
[2022-06-04 20:10] VITALS: BP 131/61; PULSE 99; TEMP 36.5; O2SAT 100
[2022-06-04] MEDS: Acetaminophen 325 MG TABLET 650 MG PO (21:51)
[2022-06-05 08:47] VITALS: BP 136/66; PULSE 109; TEMP 36.7; O2SAT 96
[2022-06-05] MEDS: Paliperidone ER 6 MG TAB.ER.24 PO ×2 (08:52→20:11)
[2022-06-05] MEDS: Lithium Carbonate ER 450 MG TABLET.ER PO ×2 (08:52→20:11)
[2022-06-05] MEDS: carBAMazepine 200 MG/10 ML ORAL.SUSP PO ×2 (08:52→20:11)
[2022-06-05] MEDS: Acetaminophen 325 MG TABLET 650 MG PO (11:57)
[2022-06-05] MEDS: hydrOXYzine HCL 25 MG TABLET PO (16:32)
[2022-06-05 20:10] VITALS: BP 137/60; PULSE 109; RESP 18; TEMP 36.7; O2SAT 96
[2022-06-05] MEDS: Melatonin 3 MG TABLET 6 MG PO (20:11)
[2022-06-05] MEDS: Prazosin HCL 1 MG CAPSULE 2 MG PO (20:11)
[2022-06-05] MEDS: Docusate Sodium 100 MG CAPSULE PO (20:11)
--- NOTE | 2022-06-05 22:25 | P.PNPSI_ITS ---
Subjective Subjective Date of Service: 06/05/22 Reason For Visit: psychosis/nikita Interim History: no change in presentation. per staff, wandering, pacing, expansive. laughing to self. med-compliant. c/o chest tightness, concerned about his breathing. no objective findings. Mental Status Exam Mental Status Exam Narrative: Appearance: up and about the unit Behavior: engaging on very limited subject matter Psychomotor: pacing the halls Speech: spontaneous, rapid; nml amount TP: perhaps slightly more organized today TC: vague, vacuous Mood: euthymic Affect: full range, normo-intense, non-labile. bizarre smiling and laughing not c/w context. AH/VH: none expressed SI: none expressed HI: none expressed Insight/judgment: impaired x 2. Memory/cog: alert, not oriented to situation. impaired secondary to psychiatric symptoms. Diagnostics Vital Signs (24Hr): Vital Signs - 24 hr 06/05/22 08:47 06/05/22 20:10 Temperature 98.1 F 98.0 F Pulse Rate 109 H 109 H Respiratory Rate 18 Blood Pressure 136/66 137/60 Pulse Oximetry 96 96 Oxygen Delivery Method Room Air Room Air BMI result Body Mass Index 25.9 Labs 05/29/22 06:53 05/29/22 06:53 Medications Medications Current Medications Acetaminophen (Acetaminophen 325 Mg Tablet) 650 mg PO Q6H PRN PRN Reason: Headache/Pain Mild Scale (1-3) Last Admin: 06/05/22 11:57 Dose: 650 mg Al Hydroxide/Mg Hydroxide (Magnesium Hydrox/Alum Hydrox 30 Ml Oral.Susp) 30 ml PO Q6H PRN PRN Reason: Heartburn/Nausea Last Admin: 05/30/22 17:26 Dose: 30 ml Carbamazepine (Carbamazepine 200 Mg/10 Ml Oral.Susp) 200 mg PO BID JELANI Last Admin: 06/05/22 20:11 Dose: 200 mg Docusate Sodium (Docusate Sodium 100 Mg Capsule) 100 mg PO BEDTIME JELANI Last Admin: 06/05/22 20:11 Dose: 100 mg Hydroxyzine HCl (Hydroxyzine Hcl 25 Mg Tablet) 25 mg PO Q6H PRN PRN Reason: Anxiety Last Admin: 06/05/22 16:32 Dose: 25 mg [place] Carbonate ([place] Carbonate Er 450 Mg Tablet.Er) 450 mg PO BID JELANI Last Admin: 06/05/22 20:11 Dose: 450 mg Magnesium Hydroxide (Milk Of Magnesia 30 Ml Oral.Susp) 30 ml PO DAILY PRN PRN Reason: Constipation Last Admin: 05/15/22 15:47 Dose: 30 ml Melatonin (Melatonin 3 Mg Tablet) 6 mg PO BEDTIME JELANI Last Admin: 06/05/22 20:11 Dose: 6 mg Paliperidone (Paliperidone Er 6 Mg Tab.Er.24) 6 mg PO BID JELANI Last Admin: 06/05/22 20:11 Dose: 6 mg Prazosin HCl (Prazosin Hcl 1 Mg Capsule) 2 mg PO BEDTIME JELANI; Protocol Last Admin: 06/05/22 20:11 Dose: 2 mg Trazodone HCl (Trazodone Hcl 50 Mg Tablet) 50 mg PO BEDTIME PRN PRN Reason: Insomnia Last Admin: 05/30/22 21:08 Dose: 50 mg Allergies Allergies Allergy/AdvReac Type Severity Reaction Status Date / Time depakote AdvReac Severe elevated Uncoded 05/19/22 22:38 ammonia Assessment & Plan Assessment & Plan (1) Schizoaffective disorder, bipolar type: Status: Acute Code(s): F25.0 - Schizoaffective disorder, bipolar type Plan 05/05: possibly manic, will invest more effort in trying to get mood stabilizer on board. continue zydis for now, start VPA sprinkles. 05/06: no change in mgmt. 05/07: no change in presentation. change VPA from sprinkles back to pills due to large number of sprinkles pills required to generate 1500 mg of VPA. pt not compliant with VPA, has been taking some zyprexa; change formulation to zydis to improve bioavailability. plan to move to file for commitment next week if pt doesn't soon begin to reliably take medication. 05/08 no change 05/09 no change 05/10: no change to mgmt. chewed meds x 1 over weekend, cheeking/furtively disposing of meds otherwise. 05/11: generally refusing meds. informed he will be filed on tomorrow. attempting to bargain over taking meds and discharge. will investigate obtaining VPA soln. 05/12: commitment paperwork filed. pt took all meds last night and this morning, including liquid VPA. aware of legal circumstance, unclear how well he is able to appreciate it. 05/13: asking about discharge, states he is compliant with meds (as also say nursing staff). states he is feeling better, but unable to say in what way. sleeping and eating well. 05/14: repeated checking-in with MD throughout the day. remains disorganized and apparently RIS. med-compliant. 05/15: sleeping midday. no change in presentation. 05/16: no change in presentation or plan. 05/17: no change in presentation or plan. commitment hearing tomorrow. 05/18: no change in presentation. committed to the hospital at [facility]. 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 DC zyprexa as well as it lacks usable COUCH. start paliperidone PO, convert to COUCH once it is established pt is tolerating the medication. 05/20: continue to establish on tegretol and invega. introduce COUCH once pt stable on PO formulation for several days. check tegretol levels after about a week. no change in presentation. 05/21 continue current medication. 05/22 continue current treatment plan 05/23 continue current treatment plan 05/24 continue current medications. continues with psychosis/delusions. 05/25 continue current tx. 05/26 continue tx. 05/27 continue tx. vaughn do tegretol level Sat. 05/28 continue tx. 05/29 continue tx. 05/30 continue tx. not much improvement. continues to self dialoguing 05/31 continue tx. minimal improvement. 06/01 continue tx. may want to consider change in antipsychotic. 06/02: no change since last seen 05/20. on paliperidone 12 mg daily. tegretol level 5.2. trend LFTs; slightly elevated. willing to have lithium added today. 06/03: reports improved concentration today with lithium addition. continue current mgmt. T/C different neuroleptic, T/C increase in tegretol dosing. 06/04: continue current mgmt. check lithium on tuesday. stable presentation. 06/05: continue curreng mgmt. stable presentation. Reason for contiued inpatient stay Substantial Risk for: inability to function and rapid decompensation Time Spent With Patient Time: Total time managing care of this patient today __15__ minutes.
[2022-06-06] MEDS: hydrOXYzine HCL 25 MG TABLET PO ×2 (04:19→10:16)
[2022-06-06 08:34] VITALS: BP 132/66; PULSE 95; TEMP 36.6; O2SAT 98
[2022-06-06] MEDS: Paliperidone ER 6 MG TAB.ER.24 PO ×2 (08:46→20:51)
[2022-06-06] MEDS: carBAMazepine 200 MG/10 ML ORAL.SUSP PO ×2 (08:46→20:54)
[2022-06-06] MEDS: Lithium Carbonate ER 450 MG TABLET.ER PO ×2 (08:47→20:51)
--- NOTE | 2022-06-06 17:08 | HO.PSYCHPN ---
Subjective Subjective Date of Service: 06/06/22 Reason For Visit: psychosis/nikita Interim History: no change in presentation, certainly no improvement. if anything more floridly bizarre and self-dialoguing. per staff, worsened self-dialoguing. giggling, restless. disorganized. Mental Status Exam Mental Status Exam Narrative: Appearance: up and about the unit Behavior: engaging on very limited subject matter Psychomotor: pacing the halls Speech: spontaneous, rapid; nml amount TP: perhaps slightly more organized today TC: vague, vacuous Mood: euthymic Affect: full range, normo-intense, non-labile. bizarre smiling and laughing not c/w context. AH/VH: none expressed SI: none expressed HI: none expressed Insight/judgment: impaired x 2. Memory/cog: alert, not oriented to situation. impaired secondary to psychiatric symptoms. Diagnostics Vital Signs (24Hr): Vital Signs - 24 hr 06/05/22 20:10 06/06/22 08:34 Temperature 98.0 F 97.9 F Pulse Rate 109 H 95 Respiratory Rate 18 Blood Pressure 137/60 132/66 Pulse Oximetry 96 98 Oxygen Delivery Method Room Air Room Air BMI result Body Mass Index 25.9 Labs 05/29/22 06:53 05/29/22 06:53 Medications Medications Current Medications Acetaminophen (Acetaminophen 325 Mg Tablet) 650 mg PO Q6H PRN PRN Reason: Headache/Pain Mild Scale (1-3) Last Admin: 06/05/22 11:57 Dose: 650 mg Al Hydroxide/Mg Hydroxide (Magnesium Hydrox/Alum Hydrox 30 Ml Oral.Susp) 30 ml PO Q6H PRN PRN Reason: Heartburn/Nausea Last Admin: 05/30/22 17:26 Dose: 30 ml Carbamazepine (Carbamazepine 200 Mg/10 Ml Oral.Susp) 200 mg PO BID [facility] Last Admin: 06/06/22 08:46 Dose: 200 mg Docusate Sodium (Docusate Sodium 100 Mg Capsule) 100 mg PO BEDTIME [facility] Last Admin: 06/05/22 20:11 Dose: 100 mg Hydroxyzine HCl (Hydroxyzine Hcl 25 Mg Tablet) 25 mg PO Q6H PRN PRN Reason: Anxiety Last Admin: 06/06/22 10:16 Dose: 25 mg [place] Carbonate ([place] Carbonate Er 450 Mg Tablet.Er) 450 mg PO BID [facility] Last Admin: 06/06/22 08:47 Dose: 450 mg Magnesium Hydroxide (Milk Of Magnesia 30 Ml Oral.Susp) 30 ml PO DAILY PRN PRN Reason: Constipation Last Admin: 05/15/22 15:47 Dose: 30 ml Melatonin (Melatonin 3 Mg Tablet) 6 mg PO BEDTIME JELANI Last Admin: 06/05/22 20:11 Dose: 6 mg Paliperidone (Paliperidone Er 6 Mg Tab.Er.24) 6 mg PO BID JELANI Last Admin: 06/06/22 08:46 Dose: 6 mg Prazosin HCl (Prazosin Hcl 1 Mg Capsule) 2 mg PO BEDTIME JELANI; Protocol Last Admin: 06/05/22 20:11 Dose: 2 mg Trazodone HCl (Trazodone Hcl 50 Mg Tablet) 50 mg PO BEDTIME PRN PRN Reason: Insomnia Last Admin: 05/30/22 21:08 Dose: 50 mg Allergies Allergies Allergy/AdvReac Type Severity Reaction Status Date / Time depakote AdvReac Severe elevated Uncoded 05/19/22 22:38 ammonia Assessment & Plan Assessment & Plan (1) Schizoaffective disorder, bipolar type: Status: Acute Code(s): F25.0 - Schizoaffective disorder, bipolar type Plan 05/05: possibly manic, will invest more effort in trying to get mood stabilizer on board. continue zydis for now, start VPA sprinkles. 05/06: no change in mgmt. 05/07: no change in presentation. change VPA from sprinkles back to pills due to large number of sprinkles pills required to generate 1500 mg of VPA. pt not compliant with VPA, has been taking some zyprexa; change formulation to zydis to improve bioavailability. plan to move to file for commitment next week if pt doesn't soon begin to reliably take medication. 05/08 no change 05/09 no change 05/10: no change to mgmt. chewed meds x 1 over weekend, cheeking/furtively disposing of meds otherwise. 05/11: generally refusing meds. informed he will be filed on tomorrow. attempting to bargain over taking meds and discharge. will investigate obtaining VPA soln. 05/12: commitment paperwork filed. pt took all meds last night and this morning, including liquid VPA. aware of legal circumstance, unclear how well he is able to appreciate it. 05/13: asking about discharge, states he is compliant with meds (as also say nursing staff). states he is feeling better, but unable to say in what way. sleeping and eating well. 05/14: repeated checking-in with MD throughout the day. remains disorganized and apparently RIS. med-compliant. 05/15: sleeping midday. no change in presentation. 05/16: no change in presentation or plan. 05/17: no change in presentation or plan. commitment hearing tomorrow. 05/18: no change in presentation. committed to the hospital at hearing. 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 DC zyprexa as well as it lacks usable COUCH. start paliperidone PO, convert to COUCH once it is established pt is tolerating the medication. 05/20: continue to establish on tegretol and invega. introduce COUCH once pt stable on PO formulation for several days. check tegretol levels after about a week. no change in presentation. 05/21 continue current medication. 05/22 continue current treatment plan 05/23 continue current treatment plan 05/24 continue current medications. continues with psychosis/delusions. 05/25 continue current tx. 05/26 continue tx. 05/27 continue tx. vaughn do tegretol level Sat. 05/28 continue tx. 05/29 continue tx. 05/30 continue tx. not much improvement. continues to self dialoguing 05/31 continue tx. minimal improvement. 06/01 continue tx. may want to consider change in antipsychotic. 06/02: no change since last seen 05/20. on paliperidone 12 mg daily. tegretol level 5.2. trend LFTs; slightly elevated. willing to have lithium added today. 06/03: reports improved concentration today with lithium addition. continue current mgmt. T/C different neuroleptic, T/C increase in tegretol dosing. 06/04: continue current mgmt. check lithium on tuesday. stable presentation. 06/05: continue current mgmt. stable presentation. 06/06: as for 06/05. Reason for contiued inpatient stay Substantial Risk for: inability to function and rapid decompensation Time Spent With Patient Time: Total time managing care of this patient today ____ minutes.
[2022-06-06 20:49] VITALS: BP 129/60; PULSE 84; RESP 18; TEMP 36.4; O2SAT 97
[2022-06-06] MEDS: Melatonin 3 MG TABLET 6 MG PO (20:51)
[2022-06-06] MEDS: Prazosin HCL 1 MG CAPSULE 2 MG PO (20:51)
[2022-06-06] MEDS: Docusate Sodium 100 MG CAPSULE PO (20:51)
[2022-06-07] MEDS: Paliperidone ER 6 MG TAB.ER.24 PO ×2 (07:21→20:37)
[2022-06-07] MEDS: Lithium Carbonate ER 450 MG TABLET.ER PO ×2 (07:21→20:37)
[2022-06-07] MEDS: hydrOXYzine HCL 25 MG TABLET PO (07:21)
[2022-06-07] MEDS: carBAMazepine 200 MG/10 ML ORAL.SUSP PO ×2 (07:21→20:38)
[2022-06-07] MEDS: Acetaminophen 325 MG TABLET 650 MG PO (09:50)
--- NOTE | 2022-06-07 15:30 | P.PNPSI_ITS ---
Subjective Subjective Date of Service: 06/07/22 Reason For Visit: psychosis/nikita Interim History: appears disorganized, repeating questions, mouthing words, laughing to himself. per staff, bizarre. disorganized, restless. pacing. no anx/dep. slept well. irritable this morning, slamming doors and throwing mattress. Mental Status Exam Mental Status Exam Narrative: Appearance: up and about the unit Behavior: engaging on very limited subject matter Psychomotor: pacing the halls Speech: spontaneous, rapid; nml amount TP: perhaps slightly more organized today TC: vague, vacuous Mood: euthymic Affect: full range, normo-intense, non-labile. bizarre smiling and laughing not c/w context. AH/VH: none expressed SI: none expressed HI: none expressed Insight/judgment: impaired x 2. Memory/cog: alert, not oriented to situation. impaired secondary to psychiatric symptoms. Diagnostics Vital Signs (24Hr): Vital Signs - 24 hr 06/06/22 20:49 Temperature 97.6 F Pulse Rate 84 Respiratory Rate 18 Blood Pressure 129/60 Pulse Oximetry 97 Oxygen Delivery Method Room Air BMI result Body Mass Index 25.9 Labs 05/29/22 06:53 05/29/22 06:53 Medications Medications Current Medications Acetaminophen (Acetaminophen 325 Mg Tablet) 650 mg PO Q6H PRN PRN Reason: Headache/Pain Mild Scale (1-3) Last Admin: 06/07/22 09:50 Dose: 650 mg Al Hydroxide/Mg Hydroxide (Magnesium Hydrox/Alum Hydrox 30 Ml Oral.Susp) 30 ml PO Q6H PRN PRN Reason: Heartburn/Nausea Last Admin: 05/30/22 17:26 Dose: 30 ml Carbamazepine (Carbamazepine 200 Mg/10 Ml Oral.Susp) 200 mg PO BID [facility] Last Admin: 06/07/22 07:21 Dose: 200 mg Docusate Sodium (Docusate Sodium 100 Mg Capsule) 100 mg PO BEDTIME [facility] Last Admin: 06/06/22 20:51 Dose: 100 mg Hydroxyzine HCl (Hydroxyzine Hcl 25 Mg Tablet) 25 mg PO Q6H PRN PRN Reason: Anxiety Last Admin: 06/07/22 07:21 Dose: 25 mg [place] Carbonate ([place] Carbonate Er 450 Mg Tablet.Er) 450 mg PO BID [facility] Last Admin: 06/07/22 07:21 Dose: 450 mg Magnesium Hydroxide (Milk Of Magnesia 30 Ml Oral.Susp) 30 ml PO DAILY PRN PRN Reason: Constipation Last Admin: 05/15/22 15:47 Dose: 30 ml Melatonin (Melatonin 3 Mg Tablet) 6 mg PO BEDTIME JELANI Last Admin: 06/06/22 20:51 Dose: 6 mg Paliperidone (Paliperidone Er 6 Mg Tab.Er.24) 6 mg PO BID JELANI Last Admin: 06/07/22 07:21 Dose: 6 mg Prazosin HCl (Prazosin Hcl 1 Mg Capsule) 2 mg PO BEDTIME JELANI; Protocol Last Admin: 06/06/22 20:51 Dose: 2 mg Trazodone HCl (Trazodone Hcl 50 Mg Tablet) 50 mg PO BEDTIME PRN PRN Reason: Insomnia Last Admin: 05/30/22 21:08 Dose: 50 mg Allergies Allergies Allergy/AdvReac Type Severity Reaction Status Date / Time depakote AdvReac Severe elevated Uncoded 05/19/22 22:38 ammonia Assessment & Plan Assessment & Plan (1) Schizoaffective disorder, bipolar type: Status: Acute Code(s): F25.0 - Schizoaffective disorder, bipolar type Plan 05/05: possibly manic, will invest more effort in trying to get mood stabilizer on board. continue zydis for now, start VPA sprinkles. 05/06: no change in mgmt. 05/07: no change in presentation. change VPA from sprinkles back to pills due to large number of sprinkles pills required to generate 1500 mg of VPA. pt not compliant with VPA, has been taking some zyprexa; change formulation to zydis to improve bioavailability. plan to move to file for commitment next week if pt doesn't soon begin to reliably take medication. 05/08 no change 05/09 no change 05/10: no change to mgmt. chewed meds x 1 over weekend, cheeking/furtively disposing of meds otherwise. 05/11: generally refusing meds. informed he will be filed on tomorrow. attempting to bargain over taking meds and discharge. will investigate ob taining VPA soln. 05/12: commitment paperwork filed. pt took all meds last night and this morning, including liquid VPA. aware of legal circumstance, unclear how well he is able to appreciate it. 05/13: asking about discharge, states he is compliant with meds (as also say nursing staff). states he is feeling better, but unable to say in what way. sleeping and eating well. 05/14: repeated checking-in with MD throughout the day. remains disorganized and apparently RIS. med-compliant. 05/15: sleeping midday. no change in presentation. 05/16: no change in presentation or plan. 05/17: no change in presentation or plan. commitment hearing tomorrow. 05/18: no change in presentation. committed to the hospital at hearing. 05/19: allowed blood draw, VPA level 105 with ammonia 110; DC VPA and start te gretol, as pt will not be able to tolerate VPA due to hyperammonemic encephalopathy. DC zyprexa as well as it lacks usable COUCH. start paliperidone PO, convert to COUCH once it is established pt is tolerating the medication. 05/20: continue to establish on tegretol and invega. introduce COUCH once pt stable on PO formulation for several days. check tegretol levels after about a week. no change in presentation. 05/21 continue current medication. 05/22 continue current treatment plan 05/23 continue current treatment plan 05/24 continue current medications. continues with psychosis/delusions. 05/25 continue current tx. 05/26 continue tx. 05/27 continue tx. vaughn do tegretol level Sat. 05/28 continue tx. 05/29 continue tx. 05/30 continue tx. not much improvement. continues to self dialoguing 05/31 continue tx. minimal improvement. 06/01 continue tx. may want to consider change in antipsychotic. 06/02: no change since last seen 05/20. on paliperidone 12 mg daily. tegretol level 5.2. trend LFTs; slightly elevated. willing to have lithium added today. 06/03: reports improved concentration today with lithium addition. continue current mgmt. T/C different neuroleptic, T/C increase in tegretol dosing. 06/04: continue current mgmt. check lithium on tuesday. stable presentation. 06/05: continue current mgmt. stable presentation. 06/06: as for 06/05. 06/07: no change in presentation. checking labs tonight. Reason for contiued inpatient stay Substantial Risk for: harm to self, harm to others, inability to function and rapid decompensation Time Spent With Patient Time: Total time managing care of this patient today ____ minutes.
[2022-06-07 18:00] VITALS: BP 135/89; PULSE 97; RESP 18; TEMP 36.6; O2SAT 100
[2022-06-07] MEDS: Docusate Sodium 100 MG CAPSULE PO (20:37)
[2022-06-07] MEDS: Prazosin HCL 1 MG CAPSULE 2 MG PO (20:38)
[2022-06-07] MEDS: Melatonin 3 MG TABLET 6 MG PO (20:38)
[2022-06-07 21:16] LABS: Anion Gap 12 (12-20); Blood Urea Nitrogen 19 mg/dL (9-16); Calcium 9.7 mg/dL (8.4-10.2); Carbon Dioxide 25 mmol/L (22-29); Chloride 106 mmol/L (96-108); Creatinine Clr Calc Pharmacy 136.5; Estimated Glomerular Filt Rate > 60; Glucose Random 108 mg/dL (60-115); Potassium 4.2 mmol/L (3.3-5.1); Sodium 139 mmol/L (135-145)
[2022-06-07 21:20] LABS: Carbamazepine Tegretol 7.7 mcg/mL (5.0-12.0)
[2022-06-07 21:22] LABS: Lithium 0.34 mmol/L (0.60-1.20)
[2022-06-08 06:00] VITALS: BP 144/82; PULSE 90; RESP 18; TEMP 36.8; O2SAT 98
[2022-06-08] MEDS: Lithium Carbonate ER 450 MG TABLET.ER PO ×2 (09:35→20:46)
[2022-06-08] MEDS: carBAMazepine 200 MG/10 ML ORAL.SUSP PO ×2 (09:35→20:45)
[2022-06-08] MEDS: Paliperidone ER 6 MG TAB.ER.24 PO ×2 (09:35→20:46)
--- NOTE | 2022-06-08 13:33 | P.PNPSI_ITS ---
Subjective Subjective Date of Service: 06/08/22 Reason For Visit: psychosis/nikita Subjective Notes: Section 8 Interim History: Pt walking up and down the bonner. He is laughing to himself. He continues to laugh throughout interview. When asked reason for laughing, pt walked away. He returns when this remote mortgage underwriter informs him that interview is not over. He denies SI/HI. He reports medications are good! Medication Compliance: Yes Mental Status Exam Mental Status Exam Narrative: Appearance: up and about the unit Behavior: engaging on very limited subject matter Psychomotor: pacing the halls Speech: spontaneous, rapid; nml amount TP: perhaps slightly more organized today TC: vague, vacuous Mood: euthymic Affect: full range, normo-intense, non-labile. bizarre smiling and laughing not c/w context. AH/VH: none expressed SI: none expressed HI: none expressed Insight/judgment: impaired x 2. Memory/cog: alert, not oriented to situation. impaired secondary to psychiatric symptoms. Patient Appearance: Appropriate Patient Orientation: Person and Situation Level of Consciousness: Restless Patient Behavior: Guarded and Passive Mood Description: Withdrawn Affect Description: Constricted Patient Cognition Impaired: No Ability to Follow Directions: Good Speech Pattern: Clear Diagnostics Vital Signs (24Hr): Vital Signs - 24 hr 06/07/22 18:00 06/08/22 06:00 Temperature 97.8 F 98.2 F Pulse Rate 97 90 Respiratory Rate 18 18 Blood Pressure 135/89 144/82 H Pulse Oximetry 100 98 Oxygen Delivery Method Room Air BiPAP Room Air BMI result Body Mass Index 25.9 Labs 05/29/22 06:53 06/07/22 20:36 Labs: Laboratory Results - last 48 hr 06/07/22 06/07/22 06/07/22 20:36 20:36 20:36 Sodium 139 Potassium 4.2 Chloride 106 Carbon Dioxide 25 Anion Gap 12 BUN 19 H Creatinine 0.87 Estim Creat Clear Calc 136.5 Estimated GFR > 60 Random Glucose 108 Calcium 9.7 Carbamazepine 7.7 [place] 0.34 L Medications Medications Current Medications Acetaminophen (Acetaminophen 325 Mg Tablet) 650 mg PO Q6H PRN PRN Reason: Headache/Pain Mild Scale (1-3) Last Admin: 06/07/22 09:50 Dose: 650 mg Al Hydroxide/Mg Hydroxide (Magnesium Hydrox/Alum Hydrox 30 Ml Oral.Susp) 30 ml PO Q6H PRN PRN Reason: Heartburn/Nausea Last Admin: 05/30/22 17:26 Dose: 30 ml Carbamazepine (Carbamazepine 200 Mg/10 Ml Oral.Susp) 200 mg PO BID [facility] Last Admin: 06/08/22 09:35 Dose: 200 mg Docusate Sodium (Docusate Sodium 100 Mg Capsule) 100 mg PO BEDTIME JELANI Last Admin: 06/07/22 20:37 Dose: 100 mg Hydroxyzine HCl (Hydroxyzine Hcl 25 Mg Tablet) 25 mg PO Q6H PRN PRN Reason: Anxiety Last Admin: 06/07/22 07:21 Dose: 25 mg [place] Carbonate ([place] Carbonate Er 450 Mg Tablet.Er) 450 mg PO BID JELANI Last Admin: 06/08/22 09:35 Dose: 450 mg Magnesium Hydroxide (Milk Of Magnesia 30 Ml Oral.Susp) 30 ml PO DAILY PRN PRN Reason: Constipation Last Admin: 05/15/22 15:47 Dose: 30 ml Melatonin (Melatonin 3 Mg Tablet) 6 mg PO BEDTIME JELANI Last Admin: 06/07/22 20:38 Dose: 6 mg Paliperidone (Paliperidone Er 6 Mg Tab.Er.24) 6 mg PO BID JELANI Last Admin: 06/08/22 09:35 Dose: 6 mg Prazosin HCl (Prazosin Hcl 1 Mg Capsule) 2 mg PO BEDTIME [facility]; Protocol Last Admin: 06/07/22 20:38 Dose: 2 mg Trazodone HCl (Trazodone Hcl 50 Mg Tablet) 50 mg PO BEDTIME PRN PRN Reason: Insomnia Last Admin: 05/30/22 21:08 Dose: 50 mg Allergies Allergies Allergy/AdvReac Type Severity Reaction Status Date / Time depakote AdvReac Severe elevated Uncoded 05/19/22 22:38 ammonia Assessment & Plan Assessment & Plan (1) Schizoaffective disorder, bipolar type: Status: Acute Code(s): F25.0 - Schizoaffective disorder, bipolar type Plan 05/05: possibly manic, will invest more effort in trying to get mood stabilizer on board. continue zydis for now, start VPA sprinkles. 05/06: no change in mgmt. 05/07: no change in presentation. change VPA from sprinkles back to pills due to large number of sprinkles pills required to generate 1500 mg of VPA. pt not compliant with VPA, has been taking some zyprexa; change formulation to zydis to improve bioavailability. plan to move to file for commitment next week if pt doesn't soon begin to reliably take medication. 05/08 no change 05/09 no change 05/10: no change to mgmt. chewed meds x 1 over weekend, cheeking/furtively disposing of meds otherwise. 05/11: generally refusing meds. informed he will be filed on tomorrow. attempting to bargain over taking meds and discharge. will investigate obtaining VPA soln. 05/12: commitment paperwork filed. pt took all meds last night and this morning, including liquid VPA. aware of legal circumstance, unclear how well he is able to appreciate it. 05/13: asking about discharge, states he is compliant with meds (as also say nursing staff). states he is feeling better, but unable to say in what way. sleeping and eating well. 05/14: repeated checking-in with MD throughout the day. remains disorganized and apparently RIS. med-compliant. 05/15: sleeping midday. no change in presentation. 05/16: no change in presentation or plan. 05/17: no change in presentation or plan. commitment hearing tomorrow. 05/18: no change in presentation. committed to the hospital at hearing. 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 DC zyprexa as well as it lacks usable COUCH. start paliperidone PO, convert to COUCH once it is established pt is tolerating the medication. 05/20: continue to establish on tegretol and invega. introduce COUCH once pt stable on PO formulation for several days. check tegretol levels after about a week. no change in presentation. 05/21 continue current medication. 05/22 continue current treatment plan 05/23 continue current treatment plan 05/24 continue current medications. continues with psychosis/delusions. 05/25 continue current tx. 05/26 continue tx. 05/27 continue tx. vaughn do tegretol level Sat. 05/28 continue tx. 05/29 continue tx. 05/30 continue tx. not much improvement. continues to self dialoguing 05/31 continue tx. minimal improvement. 06/01 continue tx. may want to consider change in antipsychotic. 06/02: no change since last seen 05/20. on paliperidone 12 mg daily. tegretol level 5.2. trend LFTs; slightly elevated. willing to have lithium added today. 06/03: reports improved concentration today with lithium addition. continue current mgmt. T/C different neuroleptic, T/C increase in tegretol dosing. 06/04: continue current mgmt. check lithium on tuesday. stable presentation. 06/05: continue current mgmt. stable presentation. 06/06: as for 06/05. 06/07: no change in presentation. checking labs tonight. 06/08 continue tx. Reason for contiued inpatient stay Substantial Risk for: inability to function Time Spent With Patient Time: Total time managing care of this patient today ____ minutes.
[2022-06-08 20:43] VITALS: BP 114/53; PULSE 82; RESP 18; TEMP 36.8; O2SAT 98
[2022-06-08] MEDS: Docusate Sodium 100 MG CAPSULE PO (20:45)
[2022-06-08] MEDS: Melatonin 3 MG TABLET 6 MG PO (20:46)
[2022-06-08] MEDS: Prazosin HCL 1 MG CAPSULE 2 MG PO (20:46)
[2022-06-08] MEDS: Acetaminophen 325 MG TABLET 650 MG PO (21:38)
[2022-06-08] MEDS: hydrOXYzine HCL 25 MG TABLET PO (21:39)
[2022-06-09] MEDS: Lithium Carbonate ER 450 MG TABLET.ER PO (08:02)
[2022-06-09] MEDS: carBAMazepine 200 MG/10 ML ORAL.SUSP PO (08:02)
[2022-06-09] MEDS: Paliperidone ER 6 MG TAB.ER.24 PO ×2 (08:02→20:33)
[2022-06-09 09:13] VITALS: BP 114/55; PULSE 91; RESP 16; TEMP 36.6; O2SAT 98
[2022-06-09] MEDS: carBAMazepine 100 MG TAB.CHEW PO (11:18)
[2022-06-09] MEDS: Lithium Carbonate 300 MG TABLET 150 MG PO (11:18)
--- NOTE | 2022-06-09 13:03 | P.PNPSI_ITS ---
Subjective Subjective Date of Service: 06/09/22 Reason For Visit: psychosis/nikita Interim History: pt with no change in presentation. discussed lab results with pt, and increase in lithium and tegretol dosing. pt continues to appear to have little appreciation for circumstance or process. per staff, appears anxious, pacing, laughing. RIS. delayed responses. punching mattress in his room. increase in sexualized statements. family mtg held with father. Mental Status Exam Mental Status Exam Narrative: Appearance: up and about the unit Behavior: engaging on very limited subject matter Psychomotor: pacing the halls Speech: spontaneous, rapid; nml amount TP: disorganized TC: vague, vacuous Mood: euphoric Affect: full range, normo-intense, non-labile. bizarre smiling and laughing not c/w context. AH/VH: none expressed SI: none expressed HI: none expressed Insight/judgment: impaired x 2. Memory/cog: alert, not oriented to situation. impaired secondary to psychiatric symptoms. Diagnostics Vital Signs (24Hr): Vital Signs - 24 hr 06/08/22 20:43 06/09/22 09:13 Temperature 98.2 F 97.8 F Pulse Rate 82 91 Respiratory Rate 18 16 Blood Pressure 114/53 L 114/55 L Pulse Oximetry 98 98 Oxygen Delivery Method Room Air Room Air BMI result Body Mass Index 25.9 Labs 05/29/22 06:53 06/07/22 20:36 Labs: Laboratory Results - last 48 hr 06/07/22 06/07/22 06/07/22 20:36 20:36 20:36 Sodium 139 Potassium 4.2 Chloride 106 Carbon Dioxide 25 Anion Gap 12 BUN 19 H Creatinine 0.87 Estim Creat Clear Calc 136.5 Estimated GFR > 60 Random Glucose 108 Calcium 9.7 Carbamazepine 7.7 [place] 0.34 L Medications Medications Current Medications Acetaminophen (Acetaminophen 325 Mg Tablet) 650 mg PO Q6H PRN PRN Reason: Headache/Pain Mild Scale (1-3) Last Admin: 06/08/22 21:38 Dose: 650 mg Al Hydroxide/Mg Hydroxide (Magnesium Hydrox/Alum Hydrox 30 Ml Oral.Susp) 30 ml PO Q6H PRN PRN Reason: Heartburn/Nausea Last Admin: 05/30/22 17:26 Dose: 30 ml Carbamazepine (Carbamazepine 200 Mg/10 Ml Oral.Susp) 300 mg PO BID JELANI Docusate Sodium (Docusate Sodium 100 Mg Capsule) 100 mg PO BEDTIME JELANI Last Admin: 06/08/22 20:45 Dose: 100 mg Hydroxyzine HCl (Hydroxyzine Hcl 25 Mg Tablet) 25 mg PO Q6H PRN PRN Reason: Anxiety Last Admin: 06/08/22 21:39 Dose: 25 mg [place] Carbonate ([place] Carbonate Er 300 Mg Tablet.Er) 600 mg PO BID JELANI Magnesium Hydroxide (Milk Of Magnesia 30 Ml Oral.Susp) 30 ml PO DAILY PRN PRN Reason: Constipation Last Admin: 05/15/22 15:47 Dose: 30 ml Melatonin (Melatonin 3 Mg Tablet) 6 mg PO BEDTIME JELANI Last Admin: 06/08/22 20:46 Dose: 6 mg Paliperidone (Paliperidone Er 6 Mg Tab.Er.24) 6 mg PO BID JELANI Last Admin: 06/09/22 08:02 Dose: 6 mg Prazosin HCl (Prazosin Hcl 1 Mg Capsule) 2 mg PO BEDTIME JELANI; Protocol Last Admin: 06/08/22 20:46 Dose: 2 mg Trazodone HCl (Trazodone Hcl 50 Mg Tablet) 50 mg PO BEDTIME PRN PRN Reason: Insomnia Last Admin: 05/30/22 21:08 Dose: 50 mg Allergies Allergies Allergy/AdvReac Type Severity Reaction Status Date / Time depakote AdvReac Severe elevated Uncoded 05/19/22 22:38 ammonia Assessment & Plan Assessment & Plan (1) Schizoaffective disorder, bipolar type: Status: Acute Code(s): F25.0 - Schizoaffective disorder, bipolar type Plan 05/05: possibly manic, will invest more effort in trying to get mood stabilizer on board. continue zydis for now, start VPA sprinkles. 05/06: no change in mgmt. 05/07: no change in presentation. change VPA from sprinkles back to pills due to large number of sprinkles pills required to generate 1500 mg of VPA. pt not compliant with VPA, has been taking some zyprexa; change formulation to zydis to improve bioavailability. plan to move to file for commitment next week if pt doesn't soon begin to reliably take medication. 05/08 no change 05/09 no change 05/10: no change to mgmt. chewed meds x 1 over weekend, cheeking/furtively disposing of meds otherwise. 05/11: generally refusing meds. informed he will be filed on tomorrow. attempting to bargain over taking meds and discharge. will investigate obtaining VPA soln. 05/12: commitment paperwork filed. pt took all meds last night and this morning, including liquid VPA. aware of legal circumstance, unclear how well he is able to appreciate it. 05/13: asking about discharge, states he is compliant with meds (as also say nursing staff). states he is feeling better, but unable to say in what way. sleeping and eating well. 05/14: repeated checking-in with MD throughout the day. remains disorganized and apparently RIS. med-compliant. 05/15: sleeping midday. no change in presentation. 05/16: no change in presentation or plan. 05/17: no change in presentation or plan. commitment hearing tomorrow. 05/18: no change in presentation. committed to the hospital at hearing. 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 DC zyprexa as well as it lacks usable COUCH. start paliperidone PO, convert to COUCH once it is established pt is tolerating the medication. 05/20: continue to establish on tegretol and invega. introduce COUCH once pt stable on PO formulation for several days. check tegretol levels after about a week. no change in presentation. 05/21 continue current medication. 05/22 continue current treatment plan 05/23 continue current treatment plan 05/24 continue current medications. continues with psychosis/delusions. 05/25 continue current tx. 05/26 continue tx. 05/27 continue tx. vaughn do tegretol level Sat. 05/28 continue tx. 05/29 continue tx. 05/30 continue tx. not much improvement. continues to self dialoguing 05/31 continue tx. minimal improvement. 06/01 continue tx. may want to consider change in antipsychotic. 06/02: no change since last seen 05/20. on paliperidone 12 mg daily. tegretol level 5.2. trend LFTs; slightly elevated. willing to have lithium added today. 06/03: reports improved concentration today with lithium addition. continue current mgmt. T/C different neuroleptic, T/C increase in tegretol dosing. 06/04: continue current mgmt. check lithium on tuesday. stable presentation. 06/05: continue current mgmt. stable presentation. 06/06: as for 06/05. 06/07: no change in presentation. checking labs tonight. 06/08 continue tx. 06/09: tegretol 7.7, lithium 0.34. increase tegretol dosing to 300 BID and lithium dosing to 600 BID. no change in presentation. Reason for contiued inpatient stay Substantial Risk for: inability to function and rapid decompensation Time Spent With Patient Time: Total time managing care of this patient today ___35_ minutes.
[2022-06-09 18:00] VITALS: BP 129/80; PULSE 100; RESP 14; TEMP 36.7
[2022-06-09] MEDS: carBAMazepine 200 MG/10 ML ORAL.SUSP 300 MG PO (20:32)
[2022-06-09] MEDS: Prazosin HCL 1 MG CAPSULE 2 MG PO (20:33)
[2022-06-09] MEDS: Docusate Sodium 100 MG CAPSULE PO (20:33)
[2022-06-09] MEDS: Lithium Carbonate ER 300 MG TABLET.ER 600 MG PO (20:33)
[2022-06-09] MEDS: Melatonin 3 MG TABLET 6 MG PO (20:33)
[2022-06-10 07:00] VITALS: BMI 26.9
[2022-06-10 08:36] VITALS: BP 123/68; PULSE 90; RESP 18; TEMP 36.4; O2SAT 99
[2022-06-10] MEDS: carBAMazepine 200 MG/10 ML ORAL.SUSP 300 MG PO ×2 (10:59→20:52)
[2022-06-10] MEDS: Lithium Carbonate ER 300 MG TABLET.ER 600 MG PO ×2 (11:01→20:50)
[2022-06-10] MEDS: Paliperidone ER 6 MG TAB.ER.24 PO ×2 (11:01→20:50)
[2022-06-10] MEDS: hydrOXYzine HCL 25 MG TABLET PO (14:33)
[2022-06-10] MEDS: Magnesium Hydrox/Alum Hydrox 30 ML ORAL.SUSP PO (15:46)
--- NOTE | 2022-06-10 16:02 | HO.PSYCHPN ---
Subjective Subjective Date of Service: 06/10/22 Reason For Visit: psychosis/nikita Interim History: no change in presentation. per staff, pleasant. distractible. pacing. denies Sx. laughing/talking to self. eating much. not attending groups. Mental Status Exam Mental Status Exam Narrative: Appearance: up and about the unit Behavior: engaging on very limited subject matter Psychomotor: pacing the halls Speech: spontaneous, rapid; nml amount TP: disorganized TC: vague, vacuous Mood: euphoric Affect: full range, normo-intense, non-labile. bizarre smiling and laughing not c/w context. AH/VH: none expressed SI: none expressed HI: none expressed Insight/judgment: impaired x 2. Memory/cog: alert, not oriented to situation. impaired secondary to psychiatric symptoms. Diagnostics Vital Signs (24Hr): Vital Signs - 24 hr 06/09/22 18:00 06/10/22 08:36 Temperature 98.1 F 97.5 F Pulse Rate 100 90 Respiratory Rate 14 18 Blood Pressure 129/80 123/68 Pulse Oximetry 99 Oxygen Delivery Method Room Air BMI result Body Mass Index 26.9 Labs 05/29/22 06:53 06/07/22 20:36 Medications Medications Current Medications Acetaminophen (Acetaminophen 325 Mg Tablet) 650 mg PO Q6H PRN PRN Reason: Headache/Pain Mild Scale (1-3) Last Admin: 06/08/22 21:38 Dose: 650 mg Al Hydroxide/Mg Hydroxide (Magnesium Hydrox/Alum Hydrox 30 Ml Oral.Susp) 30 ml PO Q6H PRN PRN Reason: Heartburn/Nausea Last Admin: 06/10/22 15:46 Dose: 30 ml Carbamazepine (Carbamazepine 200 Mg/10 Ml Oral.Susp) 300 mg PO BID [facility] Last Admin: 06/10/22 10:59 Dose: 300 mg Docusate Sodium (Docusate Sodium 100 Mg Capsule) 100 mg PO BEDTIME [facility] Last Admin: 06/09/22 20:33 Dose: 100 mg Hydroxyzine HCl (Hydroxyzine Hcl 25 Mg Tablet) 25 mg PO Q6H PRN PRN Reason: Anxiety Last Admin: 06/10/22 14:33 Dose: 25 mg [place] Carbonate ([place] Carbonate Er 300 Mg Tablet.Er) 600 mg PO BID [facility] Last Admin: 06/10/22 11:01 Dose: 600 mg Magnesium Hydroxide (Milk Of Magnesia 30 Ml Oral.Susp) 30 ml PO DAILY PRN PRN Reason: Constipation Last Admin: 05/15/22 15:47 Dose: 30 ml Melatonin (Melatonin 3 Mg Tablet) 6 mg PO BEDTIME JELANI Last Admin: 06/09/22 20:33 Dose: 6 mg Paliperidone (Paliperidone Er 6 Mg Tab.Er.24) 6 mg PO BID JELANI Last Admin: 06/10/22 11:01 Dose: 6 mg Prazosin HCl (Prazosin Hcl 1 Mg Capsule) 2 mg PO BEDTIME JELANI; Protocol Last Admin: 06/09/22 20:33 Dose: 2 mg Trazodone HCl (Trazodone Hcl 50 Mg Tablet) 50 mg PO BEDTIME PRN PRN Reason: Insomnia Last Admin: 05/30/22 21:08 Dose: 50 mg Allergies Allergies Allergy/AdvReac Type Severity Reaction Status Date / Time depakote AdvReac Severe elevated Uncoded 05/19/22 22:38 ammonia Assessment & Plan Assessment & Plan (1) Schizoaffective disorder, bipolar type: Status: Acute Code(s): F25.0 - Schizoaffective disorder, bipolar type Plan 05/05: possibly manic, will invest more effort in trying to get mood stabilizer on board. continue zydis for now, start VPA sprinkles. 05/06: no change in mgmt. 05/07: no change in presentation. change VPA from sprinkles back to pills due to large number of sprinkles pills required to generate 1500 mg of VPA. pt not compliant with VPA, has been taking some zyprexa; change formulation to zydis to improve bioavailability. plan to move to file for commitment next week if pt doesn't soon begin to reliably take medication. 05/08 no change 05/09 no change 05/10: no change to mgmt. chewed meds x 1 over weekend, cheeking/furtively disposing of meds otherwise. 05/11: generally refusing meds. informed he will be filed on tomorrow. attempting to bargain over taking meds and discharge. will investigate obtaining VPA soln. 05/12: commitment paperwork filed. pt took all meds last night and this morning, including liquid VPA. aware of legal circumstance, unclear how well he is able to appreciate it. 05/13: asking about discharge, states he is compliant with meds (as also say nursing staff). states he is feeling better, but unable to say in what way. sleeping and eating well. 05/14: repeated checking-in with MD throughout the day. remains disorganized and apparently RIS. med-compliant. 05/15: sleeping midday. no change in presentation. 05/16: no change in presentation or plan. 05/17: no change in presentation or plan. commitment hearing tomorrow. 05/18: no change in presentation. committed to the hospital at [facility]. 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 DC zyprexa as well as it lacks usable COUCH. start paliperidone PO, convert to COUCH once it is established pt is tolerating the medication. 05/20: continue to establish on tegretol and invega. introduce COUCH once pt stable on PO formulation for several days. check tegretol levels after about a week. no change in presentation. 05/21 continue current medication. 05/22 continue current treatment plan 05/23 continue current treatment plan 05/24 continue current medications. continues with psychosis/delusions. 05/25 continue current tx. 05/26 continue tx. 05/27 continue tx. vaughn do tegretol level Sat. 05/28 continue tx. 05/29 continue tx. 05/30 continue tx. not much improvement. continues to self dialoguing 05/31 continue tx. minimal improvement. 06/01 continue tx. may want to consider change in antipsychotic. 06/02: no change since last seen 05/20. on paliperidone 12 mg daily. tegretol level 5.2. trend LFTs; slightly elevated. willing to have lithium added today. 06/03: reports improved concentration today with lithium addition. continue current mgmt. T/C different neuroleptic, T/C increase in tegretol dosing. 06/04: continue current mgmt. check lithium on tuesday. stable presentation. 06/05: continue current mgmt. stable presentation. 06/06: as for 06/05. 06/07: no change in presentation. checking labs tonight. 06/08 continue tx. 06/09: tegretol 7.7, lithium 0.34. increase tegretol dosing to 300 BID and lithium dosing to 600 BID. no change in presentation. /: no change in presentation. Reason for contiued inpatient stay Substantial Risk for: inability to function and rapid decompensation Time Spent With Patient Time: Total time managing care of this patient today __20__ minutes.
[2022-06-10] MEDS: Milk of Magnesia 30 ML ORAL.SUSP PO (17:35)
[2022-06-10 20:48] VITALS: BP 150/71; PULSE 102; RESP 18; TEMP 36.6; O2SAT 96
[2022-06-10] MEDS: Melatonin 3 MG TABLET 6 MG PO (20:50)
[2022-06-10] MEDS: Prazosin HCL 1 MG CAPSULE 2 MG PO (20:51)
[2022-06-10] MEDS: Docusate Sodium 100 MG CAPSULE PO (20:51)
[2022-06-11] MEDS: carBAMazepine 200 MG/10 ML ORAL.SUSP 300 MG PO ×2 (08:49→20:46)
[2022-06-11] MEDS: Lithium Carbonate ER 300 MG TABLET.ER 600 MG PO ×2 (08:51→20:42)
[2022-06-11] MEDS: Paliperidone ER 6 MG TAB.ER.24 PO ×2 (08:52→20:43)
[2022-06-11 08:55] VITALS: BP 141/83; PULSE 100; RESP 18; TEMP 36.2; O2SAT 99
[2022-06-11] MEDS: Magnesium Hydrox/Alum Hydrox 30 ML ORAL.SUSP PO (12:36)
[2022-06-11] MEDS: hydrOXYzine HCL 25 MG TABLET PO (13:49)
--- NOTE | 2022-06-11 14:46 | PC.NURSE ---
Per SW and RN, pt may only ask to go to the kitchen on the top of the hour.
--- NOTE | 2022-06-11 14:50 | HO.PSYCHPN ---
Subjective Subjective Date of Service: 06/11/22 Reason For Visit: psychosis/nikita Interim History: no change in presentation. per staff, pacing, restless. no change. met with PACT clinician yesterday. sleeping well. Mental Status Exam Mental Status Exam Narrative: Appearance: up and about the unit Behavior: engaging on very limited subject matter Psychomotor: pacing the halls Speech: spontaneous, rapid; nml amount TP: disorganized TC: vague, vacuous Mood: euphoric Affect: full range, normo-intense, non-labile. bizarre smiling and laughing not c/w context. AH/VH: none expressed SI: none expressed HI: none expressed Insight/judgment: impaired x 2. Memory/cog: alert, not oriented to situation. impaired secondary to psychiatric symptoms. Diagnostics Vital Signs (24Hr): Vital Signs - 24 hr 06/10/22 20:48 06/11/22 08:55 Temperature 97.8 F 97.2 F Pulse Rate 102 H 100 Respiratory Rate 18 18 Blood Pressure 150/71 H 141/83 H Pulse Oximetry 96 99 Oxygen Delivery Method Room Air Room Air BMI result Body Mass Index 26.9 Labs 05/29/22 06:53 06/07/22 20:36 Medications Medications Current Medications Acetaminophen (Acetaminophen 325 Mg Tablet) 650 mg PO Q6H PRN PRN Reason: Headache/Pain Mild Scale (1-3) Last Admin: 06/08/22 21:38 Dose: 650 mg Al Hydroxide/Mg Hydroxide (Magnesium Hydrox/Alum Hydrox 30 Ml Oral.Susp) 30 ml PO Q6H PRN PRN Reason: Heartburn/Nausea Last Admin: 06/11/22 12:36 Dose: 30 ml Carbamazepine (Carbamazepine 200 Mg/10 Ml Oral.Susp) 300 mg PO BID [facility] Last Admin: 06/11/22 08:49 Dose: 300 mg Docusate Sodium (Docusate Sodium 100 Mg Capsule) 100 mg PO BEDTIME [facility] Last Admin: 06/10/22 20:51 Dose: 100 mg Hydroxyzine HCl (Hydroxyzine Hcl 25 Mg Tablet) 25 mg PO Q6H PRN PRN Reason: Anxiety Last Admin: 06/11/22 13:49 Dose: 25 mg [place] Carbonate ([place] Carbonate Er 300 Mg Tablet.Er) 600 mg PO BID [facility] Last Admin: 06/11/22 08:51 Dose: 600 mg Magnesium Hydroxide (Milk Of Magnesia 30 Ml Oral.Susp) 30 ml PO DAILY PRN PRN Reason: Constipation Last Admin: 06/10/22 17:35 Dose: 30 ml Melatonin (Melatonin 3 Mg Tablet) 6 mg PO BEDTIME JELANI Last Admin: 06/10/22 20:50 Dose: 6 mg Paliperidone (Paliperidone Er 6 Mg Tab.Er.24) 6 mg PO BID JELANI Last Admin: 06/11/22 08:52 Dose: 6 mg Prazosin HCl (Prazosin Hcl 1 Mg Capsule) 2 mg PO BEDTIME JELANI; Protocol Last Admin: 06/10/22 20:51 Dose: 2 mg Trazodone HCl (Trazodone Hcl 50 Mg Tablet) 50 mg PO BEDTIME PRN PRN Reason: Insomnia Last Admin: 05/30/22 21:08 Dose: 50 mg Allergies Allergies Allergy/AdvReac Type Severity Reaction Status Date / Time depakote AdvReac Severe elevated Uncoded 05/19/22 22:38 ammonia Assessment & Plan Assessment & Plan (1) Schizoaffective disorder, bipolar type: Status: Acute Code(s): F25.0 - Schizoaffective disorder, bipolar type Plan 05/05: possibly manic, will invest more effort in trying to get mood stabilizer on board. continue zydis for now, start VPA sprinkles. 05/06: no change in mgmt. 05/07: no change in presentation. change VPA from sprinkles back to pills due to large number of sprinkles pills required to generate 1500 mg of VPA. pt not compliant with VPA, has been taking some zyprexa; change formulation to zydis to improve bioavailability. plan to move to file for commitment next week if pt doesn't soon begin to reliably take medication. 05/08 no change 05/09 no change 05/10: no change to mgmt. chewed meds x 1 over weekend, cheeking/furtively disposing of meds otherwise. 05/11: generally refusing meds. informed he will be filed on tomorrow. attempting to bargain over taking meds and discharge. will investigate obtaining VPA soln. 05/12: commitment paperwork filed. pt took all meds last night and this morning, including liquid VPA. aware of legal circumstance, unclear how well he is able to appreciate it. 05/13: asking about discharge, states he is compliant with meds (as also say nursing staff). states he is feeling better, but unable to say in what way. sleeping and eating well. 05/14: repeated checking-in with MD throughout the day. remains disorganized and apparently RIS. med-compliant. 05/15: sleeping midday. no change in presentation. 05/16: no change in presentation or plan. 05/17: no change in presentation or plan. commitment hearing tomorrow. 05/18: no change in presentation. committed to the hospital at [facility]. 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 DC zyprexa as well as it lacks usable COUCH. start paliperidone PO, convert to COUCH once it is established pt is tolerating the medication. 05/20: continue to establish on tegretol and invega. introduce COUCH once pt stable on PO formulation for several days. check tegretol levels after about a week. no change in presentation. 05/21 continue current medication. 05/22 continue current treatment plan 05/23 continue current treatment plan 05/24 continue current medications. continues with psychosis/delusions. 05/25 continue current tx. 05/26 continue tx. 05/27 continue tx. vaughn do tegretol level Sat. 05/28 continue tx. 05/29 continue tx. 05/30 continue tx. not much improvement. continues to self dialoguing 05/31 continue tx. minimal improvement. 06/01 continue tx. may want to consider change in antipsychotic. 06/02: no change since last seen 05/20. on paliperidone 12 mg daily. tegretol level 5.2. trend LFTs; slightly elevated. willing to have lithium added today. 06/03: reports improved concentration today with lithium addition. continue current mgmt. T/C different neuroleptic, T/C increase in tegretol dosing. 06/04: continue current mgmt. check lithium on tuesday. stable presentation. 06/05: continue current mgmt. stable presentation. 06/06: as for 06/05. 06/07: no change in presentation. checking labs tonight. 06/08 continue tx. 06/09: tegretol 7.7, lithium 0.34. increase tegretol dosing to 300 BID and lithium dosing to 600 BID. no change in presentation. 06/10: no change in presentation. 06/11: hypertensive and borderline tachy. follow. stable presentation, continue current mgmt. check labs early next week. Reason for contiued inpatient stay Substantial Risk for: inability to function and rapid decompensation Time Spent With Patient Time: Total time managing care of this patient today _25___ minutes.
[2022-06-11 20:35] VITALS: BP 137/93; PULSE 94; RESP 18; TEMP 36.4; O2SAT 98
[2022-06-11] MEDS: Prazosin HCL 1 MG CAPSULE 2 MG PO (20:44)
[2022-06-11] MEDS: Melatonin 3 MG TABLET 6 MG PO (20:46)
[2022-06-11] MEDS: Docusate Sodium 100 MG CAPSULE PO (20:46)
[2022-06-11] MEDS: traZODone HCL 50 MG TABLET PO (20:46)
[2022-06-12] MEDS: Paliperidone ER 6 MG TAB.ER.24 PO ×2 (09:03→20:16)
[2022-06-12] MEDS: Lithium Carbonate ER 300 MG TABLET.ER 600 MG PO ×2 (09:03→20:16)
[2022-06-12] MEDS: carBAMazepine 200 MG/10 ML ORAL.SUSP 300 MG PO ×2 (09:05→20:19)
[2022-06-12 10:33] VITALS: BP 126/60; PULSE 86; RESP 16; TEMP 36.7; O2SAT 97
--- NOTE | 2022-06-12 12:46 | HO.PSYCHPN ---
Subjective Subjective Date of Service: 06/12/22 Reason For Visit: psychosis/nikita Subjective Notes: Section 8 Healthcare Proxy: No Guardianship: Yes Medical Problems Affecting Mental Status: No Interim History: Pt focused on his snacks- sat down to watch tv, answered some of my questions but not about whether he was hearing voices or paranoid Appears thought blocked at times just staring at me Medication Compliance: Yes Side effects from medications: No Attending Groups: Intermittent Review of Systems Acute medical concerns: No Medical Review of Systems: unchanged Mental Status Exam Mental Status Exam Narrative: malodorous by nursing report Patient Orientation: Person, Place, Time and Situation Level of Consciousness: Awake Patient Behavior: Guarded and Wandering Mood Description: Calm Affect Description: Flat Speech Pattern: Impoverished, Delayed and Long Pauses Thought Process: Distracted and Confusion Thought Content: positive for Poverty of Content and positive for Thought Blocking Abnormal Motor Activity Signs and Symptoms: Restlessness Judgement: Poor Diagnostics Vital Signs (24Hr): Vital Signs - 24 hr 06/11/22 20:35 06/12/22 10:33 Temperature 97.5 F 98.0 F Pulse Rate 94 86 Respiratory Rate 18 16 Blood Pressure 137/93 H 126/60 Pulse Oximetry 98 97 Oxygen Delivery Method Room Air Room Air BMI result Body Mass Index 26.9 Labs 05/29/22 06:53 06/07/22 20:36 Medications Medications Current Medications Acetaminophen (Acetaminophen 325 Mg Tablet) 650 mg PO Q6H PRN PRN Reason: Headache/Pain Mild Scale (1-3) Last Admin: 06/08/22 21:38 Dose: 650 mg Al Hydroxide/Mg Hydroxide (Magnesium Hydrox/Alum Hydrox 30 Ml Oral.Susp) 30 ml PO Q6H PRN PRN Reason: Heartburn/Nausea Last Admin: 06/11/22 12:36 Dose: 30 ml Carbamazepine (Carbamazepine 200 Mg/10 Ml Oral.Susp) 300 mg PO BID JELANI Last Admin: 06/12/22 09:05 Dose: 300 mg Docusate Sodium (Docusate Sodium 100 Mg Capsule) 100 mg PO BEDTIME JELANI Last Admin: 06/11/22 20:46 Dose: 100 mg Hydroxyzine HCl (Hydroxyzine Hcl 25 Mg Tablet) 25 mg PO Q6H PRN PRN Reason: Anxiety Last Admin: 06/11/22 13:49 Dose: 25 mg [place] Carbonate ([place] Carbonate Er 300 Mg Tablet.Er) 600 mg PO BID JELANI Last Admin: 06/12/22 09:03 Dose: 600 mg Magnesium Hydroxide (Milk Of Magnesia 30 Ml Oral.Susp) 30 ml PO DAILY PRN PRN Reason: Constipation Last Admin: 06/10/22 17:35 Dose: 30 ml Melatonin (Melatonin 3 Mg Tablet) 6 mg PO BEDTIME JELANI Last Admin: 06/11/22 20:46 Dose: 6 mg Paliperidone (Paliperidone Er 6 Mg Tab.Er.24) 6 mg PO BID JELANI Last Admin: 06/12/22 09:03 Dose: 6 mg Prazosin HCl (Prazosin Hcl 1 Mg Capsule) 2 mg PO BEDTIME JELANI; Protocol Last Admin: 06/11/22 20:44 Dose: 2 mg Trazodone HCl (Trazodone Hcl 50 Mg Tablet) 50 mg PO BEDTIME PRN PRN Reason: Insomnia Last Admin: 06/11/22 20:46 Dose: 50 mg Allergies Allergies Allergy/AdvReac Type Severity Reaction Status Date / Time depakote AdvReac Severe elevated Uncoded 05/19/22 22:38 ammonia Assessment & Plan Assessment & Plan (1) Schizoaffective disorder, bipolar type: Status: Acute Code(s): F25.0 - Schizoaffective disorder, bipolar type Assessment and Plan: ongoing thought disorder at least 06/12/22 Plan 05/05: possibly manic, will invest more effort in trying to get mood stabilizer on board. continue zydis for now, start VPA sprinkles. 05/06: no change in mgmt. 05/07: no change in presentation. change VPA from sprinkles back to pills due to large number of sprinkles pills required to generate 1500 mg of VPA. pt not compliant with VPA, has been taking some zyprexa; change formulation to zydis to improve bioavailability. plan to move to file for commitment next week if pt doesn't soon begin to reliably take medication. 05/08 no change 05/09 no change 05/10: no change to mgmt. chewed meds x 1 over weekend, cheeking/furtively disposing of meds otherwise. 05/11: generally refusing meds. informed he will be filed on tomorrow. attempting to bargain over taking meds and discharge. will investigate obtaining VPA soln. 05/12: commitment paperwork filed. pt took all meds last night and this morning, including liquid VPA. aware of legal circumstance, unclear how well he is able to appreciate it. 05/13: asking about discharge, states he is compliant with meds (as also say nursing staff). states he is feeling better, but unable to say in what way. sleeping and eating well. 05/14: repeated checking-in with MD throughout the day. remains disorganized and apparently RIS. med-compliant. 05/15: sleeping midday. no change in presentation. 05/16: no change in presentation or plan. 05/17: no change in presentation or plan. commitment hearing tomorrow. 05/18: no change in presentation. committed to the hospital at hearing. 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 DC zyprexa as well as it lacks usable COUCH. start paliperidone PO, convert to COUCH once it is established pt is tolerating the medication. 05/20: continue to establish on tegretol and invega. introduce COUCH once pt stable on PO formulation for several days. check tegretol levels after about a week. no change in presentation. 05/21 continue current medication. 05/22 continue current treatment plan 05/23 continue current treatment plan 05/24 continue current medications. continues with psychosis/delusions. 05/25 continue current tx. 05/26 continue tx. 05/27 continue tx. vaughn do tegretol level Sat. 05/28 continue tx. 05/29 continue tx. 05/30 continue tx. not much improvement. continues to self dialoguing 05/31 continue tx. minimal improvement. 06/01 continue tx. may want to consider change in antipsychotic. 06/02: no change since last seen 05/20. on paliperidone 12 mg daily. tegretol level 5.2. trend LFTs; slightly elevated. willing to have lithium added today. 06/03: reports improved concentration today with lithium addition. continue current mgmt. T/C different neuroleptic, T/C increase in tegretol dosing. 06/04: continue current mgmt. check lithium on tuesday. stable presentation. 06/05: continue current mgmt. stable presentation. 06/06: as for 06/05. 06/07: no change in presentation. checking labs tonight. 06/08 continue tx. 06/09: tegretol 7.7, lithium 0.34. increase tegretol dosing to 300 BID and lithium dosing to 600 BID. no change in presentation. 06/10: no change in presentation. 06/11: hypertensive and borderline tachy. follow. stable presentation, continue current mgmt. check labs early next week. Informed Consent: further education needed Reason for contiued inpatient stay Substantial Risk for: inability to function and rapid decompensation Time Spent With Patient Time: Total time managing care of this patient today ____ minutes.
[2022-06-12 20:05] VITALS: BP 173/94; PULSE 85; RESP 18; TEMP 36.3; O2SAT 95
[2022-06-12] MEDS: Melatonin 3 MG TABLET 6 MG PO (20:17)
[2022-06-12] MEDS: Prazosin HCL 1 MG CAPSULE 2 MG PO (20:17)
[2022-06-12] MEDS: traZODone HCL 50 MG TABLET PO (20:18)
[2022-06-12] MEDS: Docusate Sodium 100 MG CAPSULE PO (20:19)
[2022-06-13] MEDS: Magnesium Hydrox/Alum Hydrox 30 ML ORAL.SUSP PO (00:09)
[2022-06-13 08:50] VITALS: BP 139/65; PULSE 73; RESP 18; TEMP 36.6; O2SAT 96
[2022-06-13] MEDS: Lithium Carbonate ER 300 MG TABLET.ER 600 MG PO ×2 (10:02→20:03)
[2022-06-13] MEDS: carBAMazepine 200 MG/10 ML ORAL.SUSP 300 MG PO ×2 (10:02→20:02)
[2022-06-13] MEDS: Paliperidone ER 6 MG TAB.ER.24 PO ×2 (10:02→20:03)
--- NOTE | 2022-06-13 10:25 | PC.NURSE ---
Linens changed. Attempted to engage patient in clean up but patient unable. Patient with repetitive behaviors including shutting bedroom door several times, entering and leaving the bathroom.
[2022-06-13] MEDS: Acetaminophen 325 MG TABLET 650 MG PO (11:56)
--- NOTE | 2022-06-13 14:08 | P.PNPSI_ITS ---
Subjective Subjective Date of Service: 06/13/22 Reason For Visit: psychosis/nikita Subjective Notes: Section 8 Healthcare Proxy: No Guardianship: Yes Medical Problems Affecting Mental Status: No Interim History: Nursing report patient doesn't seem much better, fairly confused, could not help make bed even to hold a corner, - appears preoccupied with internal distractions smiling , laughing inapp times to self- [facility] Medication Compliance: Yes Side effects from medications: No Attending Groups: No Review of Systems Acute medical concerns: No Medical Review of Systems: unchanged Mental Status Exam Mental Status Exam Narrative: malodorous by nursing report Patient Orientation: Person, Place, Time and Situation Level of Consciousness: Awake Patient Behavior: Guarded and Wandering Mood Description: Calm Affect Description: Flat Speech Pattern: Impoverished, Delayed and Long Pauses Thought Process: Distracted and Confusion Thought Content: positive for Poverty of Content and positive for Thought Blocking Abnormal Motor Activity Signs and Symptoms: Restlessness Judgement: Poor Diagnostics Vital Signs (24Hr): Vital Signs - 24 hr 06/12/22 20:05 06/13/22 08:50 Temperature 97.4 F 97.8 F Pulse Rate 85 73 Respiratory Rate 18 18 Blood Pressure 173/94 H 139/65 Pulse Oximetry 95 96 Oxygen Delivery Method Room Air Room Air BMI result Body Mass Index 26.9 Labs 05/29/22 06:53 06/07/22 20:36 Medications Medications Current Medications Acetaminophen (Acetaminophen 325 Mg Tablet) 650 mg PO Q6H PRN PRN Reason: Headache/Pain Mild Scale (1-3) Last Admin: 06/13/22 11:56 Dose: 650 mg Al Hydroxide/Mg Hydroxide (Magnesium Hydrox/Alum Hydrox 30 Ml Oral.Susp) 30 ml PO Q6H PRN PRN Reason: Heartburn/Nausea Last Admin: 06/13/22 00:09 Dose: 30 ml Carbamazepine (Carbamazepine 200 Mg/10 Ml Oral.Susp) 300 mg PO BID JELANI Last Admin: 06/13/22 10:02 Dose: 300 mg Docusate Sodium (Docusate Sodium 100 Mg Capsule) 100 mg PO BEDTIME JELANI Last Admin: 06/12/22 20:19 Dose: 100 mg Hydroxyzine HCl (Hydroxyzine Hcl 25 Mg Tablet) 25 mg PO Q6H PRN PRN Reason: Anxiety Last Admin: 06/11/22 13:49 Dose: 25 mg [place] Carbonate ([place] Carbonate Er 300 Mg Tablet.Er) 600 mg PO BID JELANI Last Admin: 06/13/22 10:02 Dose: 600 mg Magnesium Hydroxide (Milk Of Magnesia 30 Ml Oral.Susp) 30 ml PO DAILY PRN PRN Reason: Constipation Last Admin: 06/10/22 17:35 Dose: 30 ml Melatonin (Melatonin 3 Mg Tablet) 6 mg PO BEDTIME JELANI Last Admin: 06/12/22 20:17 Dose: 6 mg Paliperidone (Paliperidone Er 6 Mg Tab.Er.24) 6 mg PO BID JELANI Last Admin: 06/13/22 10:02 Dose: 6 mg Prazosin HCl (Prazosin Hcl 1 Mg Capsule) 2 mg PO BEDTIME JELANI; Protocol Last Admin: 06/12/22 20:17 Dose: 2 mg Trazodone HCl (Trazodone Hcl 50 Mg Tablet) 50 mg PO BEDTIME PRN PRN Reason: Insomnia Last Admin: 06/12/22 20:18 Dose: 50 mg Allergies Allergies Allergy/AdvReac Type Severity Reaction Status Date / Time depakote AdvReac Severe elevated Uncoded 05/19/22 22:38 ammonia Assessment & Plan Assessment & Plan (1) Schizoaffective disorder, bipolar type: Status: Acute Code(s): F25.0 - Schizoaffective disorder, bipolar type Assessment and Plan: ongoing thought disorder at least 06/12/22 Plan 05/05: possibly manic, will invest more effort in trying to get mood stabilizer on board. continue zydis for now, start VPA sprinkles. 05/06: no change in mgmt. 05/07: no change in presentation. change VPA from sprinkles back to pills due to large number of sprinkles pills required to generate 1500 mg of VPA. pt not compliant with VPA, has been taking some zyprexa; change formulation to zydis to improve bioavailability. plan to move to file for commitment next week if pt doesn't soon begin to reliably take medication. 05/08 no change 05/09 no change 05/10: no change to mgmt. chewed meds x 1 over weekend, cheeking/furtively disposing of meds otherwise. 05/11: generally refusing meds. informed he will be filed on tomorrow. attempting to bargain over taking meds and discharge. will investigate obtaining VPA soln. 05/12: commitment paperwork filed. pt took all meds last night and this morning, including liquid VPA. aware of legal circumstance, unclear how well he is able to appreciate it. 05/13: asking about discharge, states he is compliant with meds (as also say nursing staff). states he is feeling better, but unable to say in what way. sleeping and eating well. 05/14: repeated checking-in with MD throughout the day. remains disorganized and apparently RIS. med-compliant. 05/15: sleeping midday. no change in presentation. 05/16: no change in presentation or plan. 05/17: no change in presentation or plan. commitment hearing tomorrow. 05/18: no change in presentation. committed to the hospital at [facility]. 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 DC zyprexa as well as it lacks usable COUCH. start paliperidone PO, convert to COUCH once it is established pt is tolerating the medication. 05/20: continue to establish on tegretol and invega. introduce COUCH once pt stable on PO formulation for several days. check tegretol levels after about a week. no change in presentation. 05/21 continue current medication. 05/22 continue current treatment plan 05/23 continue current treatment plan 05/24 continue current medications. continues with psychosis/delusions. 05/25 continue current tx. 05/26 continue tx. 05/27 continue tx. vaughn do tegretol level Sat. 05/28 continue tx. 05/29 continue tx. 05/30 continue tx. not much improvement. continues to self dialoguing 05/31 continue tx. minimal improvement. 06/01 continue tx. may want to consider change in antipsychotic. 06/02: no change since last seen 05/20. on paliperidone 12 mg daily. tegretol level 5.2. trend LFTs; slightly elevated. willing to have lithium added today. 06/03: reports improved concentration today with lithium addition. continue current mgmt. T/C different neuroleptic, T/C increase in tegretol dosing. 06/04: continue current mgmt. check lithium on tuesday. stable presentation. 06/05: continue current mgmt. stable presentation. 06/06: as for 2/25. 06/07: no change in presentation. checking labs tonight. 06/08 continue tx. 06/09: tegretol 7.7, lithium 0.34. increase tegretol dosing to 300 BID and lithium dosing to 600 BID. no change in presentation. 06/10: no change in presentation. 06/11: hypertensive and borderline tachy. follow. stable presentation, continue current mgmt. check labs early next week. Patient educated on: medication risk/benefits Informed Consent: further education needed Reason for contiued inpatient stay Substantial Risk for: inability to function and rapid decompensation Time Spent With Patient Time: Total time managing care of this patient today ____ minutes.
[2022-06-13 20:00] VITALS: BP 139/75; PULSE 109; RESP 18; TEMP 36.6; O2SAT 95
[2022-06-13] MEDS: Docusate Sodium 100 MG CAPSULE PO (20:03)
[2022-06-13] MEDS: Prazosin HCL 1 MG CAPSULE 2 MG PO (20:03)
[2022-06-13] MEDS: traZODone HCL 50 MG TABLET PO (20:03)
[2022-06-13] MEDS: Melatonin 3 MG TABLET 6 MG PO (20:03)
[2022-06-14] MEDS: hydrOXYzine HCL 25 MG TABLET PO (04:20)
[2022-06-14 08:00] VITALS: BP 135/59; PULSE 62; TEMP 36.5; O2SAT 98
[2022-06-14] MEDS: Paliperidone ER 6 MG TAB.ER.24 PO ×2 (08:33→21:05)
[2022-06-14] MEDS: carBAMazepine 200 MG/10 ML ORAL.SUSP 300 MG PO ×2 (08:33→21:06)
[2022-06-14] MEDS: Lithium Carbonate ER 300 MG TABLET.ER 600 MG PO (08:33)
[2022-06-14 08:41] LABS: Lithium 0.67 mmol/L (0.60-1.20)
--- NOTE | 2022-06-14 14:52 | P.PNPSI_ITS ---
Subjective Subjective Date of Service: 06/14/22 Reason For Visit: psychosis/nikita Interim History: no change in presentation. focused on discharge, unable to integrate information. per staff, difficult to engage. disorganized, pacing. asking for snacks. laughing to self, RIS. up at 0430 today talking to himself. Mental Status Exam Mental Status Exam Narrative: Appearance: up and about the unit Behavior: engaging on very limited subject matter Psychomotor: pacing the halls Speech: spontaneous, rapid; nml amount TP: disorganized TC: vague, vacuous Mood: euphoric Affect: full range, normo-intense, non-labile. bizarre smiling and laughing not c/w context. AH/VH: none expressed SI: none expressed HI: none expressed Insight/judgment: impaired x 2. Memory/cog: alert, not oriented to situation. impaired secondary to psychiatric symptoms. Diagnostics Vital Signs (24Hr): Vital Signs - 24 hr 06/13/22 20:00 06/14/22 08:00 Temperature 97.8 F 97.7 F Pulse Rate 109 H 62 Respiratory Rate 18 Blood Pressure 139/75 135/59 L Pulse Oximetry 95 98 Oxygen Delivery Method Room Air Room Air BMI result Body Mass Index 26.9 Labs 05/29/22 06:53 06/07/22 20:36 Labs: Laboratory Results - last 48 hr 06/14/22 08:21 [place] 0.67 Medications Medications Current Medications Acetaminophen (Acetaminophen 325 Mg Tablet) 650 mg PO Q6H PRN PRN Reason: Headache/Pain Mild Scale (1-3) Last Admin: 06/13/22 11:56 Dose: 650 mg Al Hydroxide/Mg Hydroxide (Magnesium Hydrox/Alum Hydrox 30 Ml Oral.Susp) 30 ml PO Q6H PRN PRN Reason: Heartburn/Nausea Last Admin: 06/13/22 00:09 Dose: 30 ml Carbamazepine (Carbamazepine 200 Mg/10 Ml Oral.Susp) 300 mg PO BID JELANI Last Admin: 06/14/22 08:33 Dose: 300 mg Docusate Sodium (Docusate Sodium 100 Mg Capsule) 100 mg PO BEDTIME JELANI Last Admin: 06/13/22 20:03 Dose: 100 mg Hydroxyzine HCl (Hydroxyzine Hcl 25 Mg Tablet) 25 mg PO Q6H PRN PRN Reason: Anxiety Last Admin: 06/14/22 04:20 Dose: 25 mg [place] Carbonate ([place] Carbonate Er 300 Mg Tablet.Er) 600 mg PO BID JELANI Last Admin: 06/14/22 08:33 Dose: 600 mg Magnesium Hydroxide (Milk Of Magnesia 30 Ml Oral.Susp) 30 ml PO DAILY PRN PRN Reason: Constipation Last Admin: 06/10/22 17:35 Dose: 30 ml Melatonin (Melatonin 3 Mg Tablet) 6 mg PO BEDTIME JELANI Last Admin: 06/13/22 20:03 Dose: 6 mg Paliperidone (Paliperidone Er 6 Mg Tab.Er.24) 6 mg PO BID JELANI Last Admin: 06/14/22 08:33 Dose: 6 mg Prazosin HCl (Prazosin Hcl 1 Mg Capsule) 2 mg PO BEDTIME JELANI; Protocol Last Admin: 06/13/22 20:03 Dose: 2 mg Trazodone HCl (Trazodone Hcl 50 Mg Tablet) 50 mg PO BEDTIME PRN PRN Reason: Insomnia Last Admin: 06/13/22 20:03 Dose: 50 mg Allergies Allergies Allergy/AdvReac Type Severity Reaction Status Date / Time depakote AdvReac Severe elevated Uncoded 05/19/22 22:38 ammonia Assessment & Plan Assessment & Plan (1) Schizoaffective disorder, bipolar type: Status: Acute Code(s): F25.0 - Schizoaffective disorder, bipolar type Assessment and Plan: ongoing thought disorder at least 06/12/22 Plan 05/05: possibly manic, will invest more effort in trying to get mood stabilizer on board. continue zydis for now, start VPA sprinkles. 05/06: no change in mgmt. 05/07: no change in presentation. change VPA from sprinkles back to pills due to large number of sprinkles pills required to generate 1500 mg of VPA. pt not compliant with VPA, has been taking some zyprexa; change formulation to zydis to improve bioavailability. plan to move to file for commitment next week if pt doesn't soon begin to reliably take medication. 05/08 no change 05/09 no change 05/10: no change to mgmt. chewed meds x 1 over weekend, cheeking/furtively disposing of meds otherwise. 05/11: generally refusing meds. informed he will be filed on tomorrow. attempting to bargain over taking meds and discharge. will investigate sai AWAN soln. 05/12: commitment paperwork filed. pt took all meds last night and this morning, including liquid VPA. aware of legal circumstance, unclear how well he is able to appreciate it. 05/13: asking about discharge, states he is compliant with meds (as also say nursing staff). states he is feeling better, but unable to say in what way. sleeping and eating well. 05/14: repeated checking-in with MD throughout the day. remains disorganized and apparently RIS. med-compliant. 05/15: sleeping midday. no change in presentation. 05/16: no change in presentation or plan. 05/17: no change in presentation or plan. commitment hearing tomorrow. 05/18: no change in presentation. committed to the hospital at hearing. 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 DC zyprexa as well as it lacks usable COUCH. start paliperidone PO, convert to COUCH once it is established pt is tolerating the medication. 05/20: continue to establish on tegretol and invega. introduce COUCH once pt stable on PO formulation for several days. check tegretol levels after about a week. no change in presentation. 05/21 continue current medication. 05/22 continue current treatment plan 05/23 continue current treatment plan 05/24 continue current medications. continues with psychosis/delusions. 05/25 continue current tx. 05/26 continue tx. 05/27 continue tx. vaughn do tegretol level Sat. 05/28 continue tx. 05/29 continue tx. 05/30 continue tx. not much improvement. continues to self dialoguing 05/31 continue tx. minimal improvement. 06/01 continue tx. may want to consider change in antipsychotic. 06/02: no change since last seen 05/20. on paliperidone 12 mg daily. tegretol level 5.2. trend LFTs; slightly elevated. willing to have lithium added today. 06/03: reports improved concentration today with lithium addition. continue current mgmt. T/C different neuroleptic, T/C increase in tegretol dosing. 06/04: continue current mgmt. check lithium on tuesday. stable presentation. 06/05: continue current mgmt. stable presentation. 06/06: as for 06/05. 06/07: no change in presentation. checking labs tonight. 06/08 continue tx. 06/09: tegretol 7.7, lithium 0.34. increase tegretol dosing to 300 BID and lithi um dosing to 600 BID. no change in presentation. 06/10: no change in presentation. 06/11: hypertensive and borderline tachy. follow. stable presentation, continue current mgmt. check labs early next week. 06/14: lithium checked today, 0.67. increase lithium dosing from 600 BID to 600/900. check tegretol level and rest of labs tomorrow morning. no change in presentation. Reason for contiued inpatient stay Substantial Risk for: harm to self, harm to others, inability to function and rapid decompensation Time Spent With Patient Time: Total time managing care of this patient today __25__ minutes.
[2022-06-14 15:37] VITALS: BP 137/69; BP 138/72; BP 141/79; PULSE 94; PULSE 98; PULSE 99
[2022-06-14] MEDS: Melatonin 3 MG TABLET 6 MG PO (21:05)
[2022-06-14] MEDS: Lithium Carbonate ER 450 MG TABLET.ER 900 MG PO (21:05)
[2022-06-14] MEDS: Prazosin HCL 1 MG CAPSULE 2 MG PO (21:05)
[2022-06-14] MEDS: Docusate Sodium 100 MG CAPSULE PO (21:06)
[2022-06-14] MEDS: traZODone HCL 50 MG TABLET PO (21:06)
[2022-06-14 21:10] VITALS: BP 129/77; PULSE 100; RESP 18; TEMP 36.9; O2SAT 94
[2022-06-15 08:54] LABS: MANUAL DIFF FLAG NO
[2022-06-15 09:08] LABS: Basophils Percent Auto 0.2 % (0-2); Eosinophils Absolute Auto 0.1 X10*3/uL (0.0-0.4); Eosinophils Percent Auto 1.5 % (0-4); Hemoglobin 15.4 g/dl (14.0-18.0); Imm Gran Abs Auto 0.01 X10*3/uL (0.00-0.03); Imm Gran Pct Auto 0.2 % (0.0-0.4); Lymphocytes Absolute Auto 1.3 X10*3/uL (1.2-4.9); Lymphocytes Percent Auto 30.7 % (20-40); Mean Corpuscular Hemoglobin 30.1 pg (27.0-33.0); Mean Corpuscular Volume 86.1 fL (80.0-98.0); Mean Platelet Volume 10.8 fL (9.4-12.4); Monocytes Absolute Auto 0.5 X10*3/uL (0.1-1.2); Monocytes Percent Auto 11.3 % (2-11); Neutrophils Absolute Auto 2.3 x10*3/uL (2.0-8.3); Neutrophils Percent Auto 56.1 % (45-73); Platelet Count 168 X10*3/uL (160-400); Red Blood Count 5.11 X10*6/uL (4.60-5.80); Red Cell Distribution Width 12.1 % (11.0-16.0); White Blood Count 4.1 X10*3/uL (4.8-10.8)
[2022-06-15 09:23] VITALS: BP 152/70; PULSE 87; RESP 18; TEMP 36.4; O2SAT 99
[2022-06-15] MEDS: Paliperidone ER 6 MG TAB.ER.24 PO ×2 (09:24→21:03)
[2022-06-15] MEDS: Lithium Carbonate ER 300 MG TABLET.ER 600 MG PO (09:24)
[2022-06-15 09:39] LABS: Alanine Aminotransferase 68 U/L (0-40); Albumin Level 4.1 g/dL (3.5-5.0); Alkaline Phosphatase 83 U/L (39-117); Anion Gap 12 (12-20); Aspartate Amino Transferase 55 U/L (5-37); Bilirubin Direct < 0.2 mg/dL (0.0-0.5); Bilirubin Total 0.5 mg/dL (0.0-1.0); Blood Urea Nitrogen 17 mg/dL (9-16); Carbon Dioxide 24 mmol/L (22-29); Chloride 107 mmol/L (96-108); Creatinine Clr Calc Pharmacy 138.1; Estimated Glomerular Filt Rate > 60; Glucose Random 92 mg/dL (60-115); Potassium 4.1 mmol/L (3.3-5.1); Sodium 139 mmol/L (135-145); Total Protein 6.1 g/dL (6.5-8.0)
[2022-06-15 09:42] LABS: Carbamazepine Tegretol 6.2 mcg/mL (5.0-12.0)
[2022-06-15] MEDS: carBAMazepine 200 MG/10 ML ORAL.SUSP 300 MG PO (11:05)
--- NOTE | 2022-06-15 16:26 | P.PNPSI_ITS ---
Subjective Subjective Date of Service: 06/15/22 Reason For Visit: psychosis/nikita Interim History: calm, cooperative. no change in presentation. denies dizziness. per staff, staring at RN station, RIS but denies Sx. Mental Status Exam Mental Status Exam Narrative: Appearance: up and about the unit Behavior: engaging on very limited subject matter Psychomotor: pacing the halls Speech: spontaneous, rapid; nml amount TP: disorganized TC: vague, vacuous Mood: euphoric Affect: full range, normo-intense, non-labile. bizarre smiling and laughing not c/w context. AH/VH: none expressed SI: none expressed HI: none expressed Insight/judgment: impaired x 2. Memory/cog: alert, not oriented to situation. impaired secondary to psychiatric symptoms. Diagnostics Vital Signs (24Hr): Vital Signs - 24 hr 06/14/22 21:10 06/15/22 09:23 Temperature 98.4 F 97.6 F Pulse Rate 100 87 Respiratory Rate 18 18 Blood Pressure 129/77 152/70 H Pulse Oximetry 94 99 Oxygen Delivery Method Room Air Room Air BMI result Body Mass Index 26.9 Labs 06/15/22 08:45 06/15/22 08:45 Labs: Laboratory Results - last 48 hr 06/14/22 06/15/22 06/15/22 08:21 08:45 08:45 WBC 4.1 L RBC 5.11 Hgb 15.4 Hct 44.0 MCV 86.1 MCH 30.1 MCHC 35.0 RDW 12.1 Plt Count 168 MPV 10.8 Immature Gran % (Auto) 0.2 Neut % (Auto) 56.1 Lymph % (Auto) 30.7 [place] % (Auto) 11.3 H Eos % (Auto) 1.5 Baso % (Auto) 0.2 Lymph # (Auto) 1.3 [place] # (Auto) 0.5 Eos # (Auto) 0.1 Baso # (Auto) 0.0 Abs Immat Gran (auto) 0.01 Absolute Neuts (auto) 2.3 Absolute Nucleated RBC 0.000 Nucleated RBC % (auto) 0.0 Sodium 139 Potassium 4.1 Chloride 107 Carbon Dioxide 24 Anion Gap 12 BUN 17 H Creatinine 0.86 Estim Creat Clear Calc 138.1 Estimated GFR > 60 Random Glucose 92 Calcium 9.0 D Total Bilirubin 0.5 Direct Bilirubin < 0.2 AST 55 H ALT 68 H Alkaline Phosphatase 83 Total Protein 6.1 L Albumin 4.1 Carbamazepine [place] 0.67 06/15/22 08:45 WBC RBC Hgb Hct MCV MCH MCHC RDW Plt Count MPV Immature Gran % (Auto) Neut % (Auto) Lymph % (Auto) [place] % (Auto) Eos % (Auto) Baso % (Auto) Lymph # (Auto) [place] # (Auto) Eos # (Auto) Baso # (Auto) Abs Immat Gran (auto) Absolute Neuts (auto) Absolute Nucleated RBC Nucleated RBC % (auto) Sodium Potassium Chloride Carbon Dioxide Anion Gap BUN Creatinine Estim Creat Clear Calc Estimated GFR Random Glucose Calcium Total Bilirubin Direct Bilirubin AST ALT Alkaline Phosphatase Total Protein Albumin Carbamazepine 6.2 [place] Medications Medications Current Medications Acetaminophen (Acetaminophen 325 Mg Tablet) 650 mg PO Q6H PRN PRN Reason: Headache/Pain Mild Scale (1-3) Last Admin: 06/13/22 11:56 Dose: 650 mg Al Hydroxide/Mg Hydroxide (Magnesium Hydrox/Alum Hydrox 30 Ml Oral.Susp) 30 ml PO Q6H PRN PRN Reason: Heartburn/Nausea Last Admin: 06/13/22 00:09 Dose: 30 ml Carbamazepine (Carbamazepine 200 Mg/10 Ml Oral.Susp) 300 mg PO BID JELANI Last Admin: 06/15/22 11:05 Dose: 300 mg Docusate Sodium (Docusate Sodium 100 Mg Capsule) 100 mg PO BEDTIME JELANI Last Admin: 06/14/22 21:06 Dose: 100 mg Hydroxyzine HCl (Hydroxyzine Hcl 25 Mg Tablet) 25 mg PO Q6H PRN PRN Reason: Anxiety Last Admin: 06/14/22 04:20 Dose: 25 mg [place] Carbonate ([place] Carbonate Er 300 Mg Tablet.Er) 600 mg PO DAILY JELANI Last Admin: 06/15/22 09:24 Dose: 600 mg [place] Carbonate ([place] Carbonate Er 450 Mg Tablet.Er) 900 mg PO BEDTIME JELANI Last Admin: 06/14/22 21:05 Dose: 900 mg Magnesium Hydroxide (Milk Of Magnesia 30 Ml Oral.Susp) 30 ml PO DAILY PRN PRN Reason: Constipation Last Admin: 06/10/22 17:35 Dose: 30 ml Melatonin (Melatonin 3 Mg Tablet) 6 mg PO BEDTIME JELANI Last Admin: 06/14/22 21:05 Dose: 6 mg Paliperidone (Paliperidone Er 6 Mg Tab.Er.24) 6 mg PO BID JELANI Last Admin: 06/15/22 09:24 Dose: 6 mg Prazosin HCl (Prazosin Hcl 1 Mg Capsule) 2 mg PO BEDTIME JELANI; Protocol Last Admin: 06/14/22 21:05 Dose: 2 mg Trazodone HCl (Trazodone Hcl 50 Mg Tablet) 50 mg PO BEDTIME PRN PRN Reason: Insomnia Last Admin: 06/14/22 21:06 Dose: 50 mg Allergies Allergies Allergy/AdvReac Type Severity Reaction Status Date / Time depakote AdvReac Severe elevated Uncoded 05/19/22 22:38 ammonia Assessment & Plan Assessment & Plan (1) Schizoaffective disorder, bipolar type: Status: Acute Code(s): F25.0 - Schizoaffective disorder, bipolar type Assessment and Plan: ongoing thought disorder at least 06/12/22 Plan 05/05: possibly manic, will invest more effort in trying to get mood stabilizer on board. continue zydis for now, start VPA sprinkles. 05/06: no change in mgmt. 05/07: no change in presentation. change VPA from sprinkles back to pills due to large number of sprinkles pills required to generate 1500 mg of VPA. pt not compliant with VPA, has been taking some zyprexa; change formulation to zydis to improve bioavailability. plan to move to file for commitment next week if pt doesn't soon begin to reliably take medication. 05/08 no change 05/09 no change 05/10: no change to mgmt. chewed meds x 1 over weekend, cheeking/furtively d isposing of meds otherwise. 05/11: generally refusing meds. informed he will be filed on tomorrow. attempting to bargain over taking meds and discharge. will investigate obtaining VPA soln. 05/12: commitment paperwork filed. pt took all meds last night and this morning, including liquid VPA. aware of legal circumstance, unclear how well he is able to appreciate it. 22: asking about discharge, states he is compliant with meds (as also say nursing staff). states he is feeling better, but unable to say in what way. sleeping and eating well. 23: repeated checking-in with MD throughout the day. remains disorganized and apparently RIS. med-compliant. 05/15: sleeping midday. no change in presentation. 05/16: no change in presentation or plan. 05/17: no change in presentation or plan. commitment hearing tomorrow. 05/18: no change in presentation. committed to the hospital at [facility]. 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 DC zyprexa as well as it lacks usable COUCH. start paliperidone PO, convert to COUCH once it is established pt is tolerating the medication. 05/20: continue to establish on tegretol and invega. introduce COUCH once pt stable on PO formulation for several days. check tegretol levels after about a week. no change in presentation. 05/21 continue current medication. 05/22 continue current treatment plan 05/23 continue current treatment plan 05/24 continue current medications. continues with psychosis/delusions. 05/25 continue current tx. 05/26 continue tx. 05/27 continue tx. vaughn do tegretol level Sat. 05/28 continue tx. 05/29 continue tx. 05/30 continue tx. not much improvement. continues to self dialoguing 05/31 continue tx. minimal improvement. 06/01 continue tx. may want to consider change in antipsychotic. 06/02: no change since last seen 05/20. on paliperidone 12 mg daily. tegretol level 5.2. trend LFTs; slightly elevated. willing to have lithium added today. 06/03: reports improved concentration today with lithium addition. continue current mgmt. T/C different neuroleptic, T/C increase in tegretol dosing. 06/04: continue current mgmt. check lithium on tuesday. stable presentation. 06/05: continue current mgmt. stable presentation. 06/06: as for 06/05. 06/07: no change in presentation. checking labs tonight. 06/08 continue tx. 06/09: tegretol 7.7, lithium 0.34. increase tegretol dosing to 300 BID and lithium dosing to 600 BID. no change in presentation. 06/10: no change in presentation. 06/11: hypertensive and borderline tachy. follow. stable presentation, continue current mgmt. check labs early next week. 06/14: lithium checked today, 0.67. increase lithium dosing from 600 BID to 600/900. check tegretol level and rest of labs tomorrow morning. no change in presentation. 06/15: tegretol level 6.2 currently. pt is reported to have c/o dizziness, but denies said Sx upon MD inquiry. increase tegretol from 300 BID to 300/400 as of tonight. T/C change in neuroleptic. no change in presentation. Reason for contiued inpatient stay Substantial Risk for: inability to function and rapid decompensation Time Spent With Patient Time: Total time managing care of this patient today __25__ minutes.
[2022-06-15] MEDS: hydrOXYzine HCL 25 MG TABLET PO (16:52)
[2022-06-15 18:00] VITALS: BP 117/55; PULSE 104; RESP 18; TEMP 36.4; O2SAT 97
[2022-06-15] MEDS: carBAMazepine 200 MG/10 ML ORAL.SUSP 400 MG PO (21:02)
[2022-06-15] MEDS: Prazosin HCL 1 MG CAPSULE 2 MG PO (21:03)
[2022-06-15] MEDS: Docusate Sodium 100 MG CAPSULE PO (21:03)
[2022-06-15] MEDS: Melatonin 3 MG TABLET 6 MG PO (21:03)
[2022-06-15] MEDS: Lithium Carbonate ER 450 MG TABLET.ER 900 MG PO (21:03)
[2022-06-16 08:37] VITALS: BP 127/57; PULSE 98; RESP 18; TEMP 36.4; O2SAT 95
[2022-06-16] MEDS: Lithium Carbonate ER 300 MG TABLET.ER 600 MG PO (08:39)
[2022-06-16] MEDS: Paliperidone ER 6 MG TAB.ER.24 PO ×2 (08:39→20:33)
[2022-06-16] MEDS: carBAMazepine 200 MG/10 ML ORAL.SUSP 300 MG PO (08:41)
[2022-06-16] MEDS: Magnesium Hydrox/Alum Hydrox 30 ML ORAL.SUSP PO (10:23)
--- NOTE | 2022-06-16 16:19 | HO.PSYCHPN ---
Subjective Subjective Date of Service: 06/16/22 Reason For Visit: psychosis/nikita Interim History: no change in presentation. per staff, no change in presentation. Mental Status Exam Mental Status Exam Narrative: Appearance: up and about the unit Behavior: engaging on very limited subject matter Psychomotor: pacing the halls Speech: spontaneous, rapid; nml amount TP: disorganized TC: vague, vacuous Mood: euphoric Affect: full range, normo-intense, non-labile. bizarre smiling and laughing not c/w context. AH/VH: none expressed SI: none expressed HI: none expressed Insight/judgment: impaired x 2. Memory/cog: alert, not oriented to situation. impaired secondary to psychiatric symptoms. Diagnostics Vital Signs (24Hr): Vital Signs - 24 hr 06/15/22 18:00 06/16/22 08:37 Temperature 97.6 F 97.6 F Pulse Rate 104 H 98 Respiratory Rate 18 18 Blood Pressure 117/55 L 127/57 L Pulse Oximetry 97 95 Oxygen Delivery Method Room Air Room Air BMI result Body Mass Index 26.9 Labs 06/15/22 08:45 06/15/22 08:45 Labs: Laboratory Results - last 48 hr 06/15/22 06/15/22 06/15/22 08:45 08:45 08:45 WBC 4.1 L RBC 5.11 Hgb 15.4 Hct 44.0 MCV 86.1 MCH 30.1 MCHC 35.0 RDW 12.1 Plt Count 168 MPV 10.8 Immature Gran % (Auto) 0.2 Neut % (Auto) 56.1 Lymph % (Auto) 30.7 [place] % (Auto) 11.3 H Eos % (Auto) 1.5 Baso % (Auto) 0.2 Lymph # (Auto) 1.3 [place] # (Auto) 0.5 Eos # (Auto) 0.1 Baso # (Auto) 0.0 Abs Immat Gran (auto) 0.01 Absolute Neuts (auto) 2.3 Absolute Nucleated RBC 0.000 Nucleated RBC % (auto) 0.0 Sodium 139 Potassium 4.1 Chloride 107 Carbon Dioxide 24 Anion Gap 12 BUN 17 H Creatinine 0.86 Estim Creat Clear Calc 138.1 Estimated GFR > 60 Random Glucose 92 Calcium 9.0 D Total Bilirubin 0.5 Direct Bilirubin < 0.2 AST 55 H ALT 68 H Alkaline Phosphatase 83 Total Protein 6.1 L Albumin 4.1 Carbamazepine 6.2 Medications Medications Current Medications Acetaminophen (Acetaminophen 325 Mg Tablet) 650 mg PO Q6H PRN PRN Reason: Headache/Pain Mild Scale (1-3) Last Admin: 06/13/22 11:56 Dose: 650 mg [place] Hydroxide/Mg Hydroxide (Magnesium Hydrox/Alum Hydrox 30 Ml Oral.Susp) 30 ml PO Q6H PRN PRN Reason: Heartburn/Nausea Last Admin: 06/16/22 10:23 Dose: 30 ml Carbamazepine (Carbamazepine 200 Mg/10 Ml Oral.Susp) 300 mg PO DAILY JELANI Last Admin: 06/16/22 08:41 Dose: 300 mg Carbamazepine (Carbamazepine 200 Mg/10 Ml Oral.Susp) 400 mg PO BEDTIME JELANI Last Admin: 06/15/22 21:02 Dose: 400 mg Docusate Sodium (Docusate Sodium 100 Mg Capsule) 100 mg PO BEDTIME JELANI Last Admin: 06/15/22 21:03 Dose: 100 mg Hydroxyzine HCl (Hydroxyzine Hcl 25 Mg Tablet) 25 mg PO Q6H PRN PRN Reason: Anxiety Last Admin: 06/15/22 16:52 Dose: 25 mg [place] Carbonate ([place] Carbonate Er 300 Mg Tablet.Er) 600 mg PO DAILY JELANI Last Admin: 06/16/22 08:39 Dose: 600 mg [place] Carbonate ([place] Carbonate Er 450 Mg Tablet.Er) 900 mg PO BEDTIME JELANI Last Admin: 06/15/22 21:03 Dose: 900 mg Magnesium Hydroxide (Milk Of Magnesia 30 Ml Oral.Susp) 30 ml PO DAILY PRN PRN Reason: Constipation Last Admin: 06/10/22 17:35 Dose: 30 ml Melatonin (Melatonin 3 Mg Tablet) 6 mg PO BEDTIME JELANI Last Admin: 06/15/22 21:03 Dose: 6 mg Paliperidone (Paliperidone Er 6 Mg Tab.Er.24) 6 mg PO BID JELANI Last Admin: 06/16/22 08:39 Dose: 6 mg Prazosin HCl (Prazosin Hcl 1 Mg Capsule) 2 mg PO BEDTIME JELANI; Protocol Last Admin: 06/15/22 21:03 Dose: 2 mg Trazodone HCl (Trazodone Hcl 50 Mg Tablet) 50 mg PO BEDTIME PRN PRN Reason: Insomnia Last Admin: 06/14/22 21:06 Dose: 50 mg Allergies Allergies Allergy/AdvReac Type Severity Reaction Status Date / Time depakote AdvReac Severe elevated Uncoded 05/19/22 22:38 ammonia Assessment & Plan Assessment & Plan (1) Schizoaffective disorder, bipolar type: Status: Acute Code(s): F25.0 - Schizoaffective disorder, bipolar type Assessment and Plan: ongoing thought disorder at least 06/12/22 Plan 05/05: possibly manic, will invest more effort in trying to get mood stabilizer on board. continue zydis for now, start VPA sprinkles. 05/06: no change in mgmt. 05/07: no change in presentation. change VPA from sprinkles back to pills due to large number of sprinkles pills required to generate 1500 mg of VPA. pt not compliant with VPA, has been taking some zyprexa; change formulation to zydis to improve bioavailability. plan to move to file for commitment next week if pt doesn't soon begin to reliably take medication. 05/08 no change 05/09 no change 05/10: no change to mgmt. chewed meds x 1 over weekend, cheeking/furtively disposing of meds otherwise. 05/11: generally refusing meds. informed he will be filed on tomorrow. attempting to bargain over taking meds and discharge. will investigate obtaining VPA soln. 05/12: commitment paperwork filed. pt took all meds last night and this morning, including liquid VPA. aware of legal circumstance, unclear how well he is able to appreciate it. 2: asking about discharge, states he is compliant with meds (as also say nursing staff). states he is feeling better, but unable to say in what way. sleeping and eating well. 2: repeated checking-in with MD throughout the day. remains disorganized and apparently RIS. med-compliant. 05/15: sleeping midday. no change in presentation. 05/16: no change in presentation or plan. 05/17: no change in presentation or plan. commitment hearing tomorrow. 05/18: no change in presentation. committed to the hospital at hearing. 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 DC zyprexa as well as it lacks usable COUCH. start paliperidone PO, convert to COUCH once it is established pt is tolerating the medication. 05/20: continue to establish on tegretol and invega. introduce COUCH once pt stable on PO formulation for several days. check tegretol levels after about a week. no change in presentation. 05/21 continue current medication. 05/22 continue current treatment plan 05/23 continue current treatment plan 05/24 continue current medications. continues with psychosis/delusions. 05/25 continue current tx. 05/26 continue tx. 05/27 continue tx. vaughn do tegretol level Sat. 05/28 continue tx. 05/29 continue tx. 05/30 continue tx. not much improvement. continues to self dialoguing 05/31 continue tx. minimal improvement. 06/01 continue tx. may want to consider change in antipsychotic. 06/02: no change since last seen 05/20. on paliperidone 12 mg daily. tegretol level 5.2. trend LFTs; slightly elevated. willing to have lithium added today. 06/03: reports improved concentration today with lithium addition. continue current mgmt. T/C different neuroleptic, T/C increase in tegretol dosing. 06/04: continue current mgmt. check lithium on tuesday. stable presentation. 06/05: continue current mgmt. stable presentation. 06/06: as for 06/05. 06/07: no change in presentation. checking labs tonight. 06/08 continue tx. 06/09: tegretol 7.7, lithium 0.34. increase tegretol dosing to 300 BID and lithium dosing to 600 BID. no change in presentation. 06/10: no change in presentation. 06/11: hypertensive and borderline tachy. follow. stable presentation, continue current mgmt. check labs early next week. 06/14: lithium checked today, 0.67. increase lithium dosing from 600 BID to 600/900. check tegretol level and rest of labs tomorrow morning. no change in presentation. 06/15: tegretol level 6.2 currently. pt is reported to have c/o dizziness, but denies said Sx upon MD inquiry. increase tegretol from 300 BID to 300/400 as of tonight. T/C change in neuroleptic. no change in presentation. 06/16: no change in plan or presentation for today. Reason for contiued inpatient stay Substantial Risk for: inability to function and rapid decompensation Time Spent With Patient Time: Total time managing care of this patient today ____ minutes.
[2022-06-16 20:30] VITALS: BP 131/86; PULSE 82; RESP 18; TEMP 36.4; O2SAT 98
[2022-06-16] MEDS: carBAMazepine 200 MG/10 ML ORAL.SUSP 400 MG PO (20:32)
[2022-06-16] MEDS: Docusate Sodium 100 MG CAPSULE PO (20:33)
[2022-06-16] MEDS: Prazosin HCL 1 MG CAPSULE 2 MG PO (20:33)
[2022-06-16] MEDS: Melatonin 3 MG TABLET 6 MG PO (20:34)
[2022-06-16] MEDS: Lithium Carbonate ER 450 MG TABLET.ER 900 MG PO (20:34)
[2022-06-17 07:00] VITALS: BMI 27.8
[2022-06-17] MEDS: Lithium Carbonate ER 300 MG TABLET.ER 600 MG PO (09:03)
[2022-06-17] MEDS: Paliperidone ER 6 MG TAB.ER.24 PO (09:03)
[2022-06-17] MEDS: carBAMazepine 200 MG/10 ML ORAL.SUSP 300 MG PO (09:04)
[2022-06-17 09:05] VITALS: BP 127/72; PULSE 80; RESP 20; TEMP 36.4; O2SAT 100
[2022-06-17] MEDS: Omeprazole 20 MG CAPSULE.DR PO (11:20)
--- NOTE | 2022-06-17 14:50 | P.PNPSI_ITS ---
Subjective Subjective Date of Service: 06/17/22 Reason For Visit: psychosis/nikita Interim History: no change in presentation. per staff, pacing, self-dialoguing. asked female staff to apply bodywash to him. needing redirection. denies anx/dep. sleeping well. spat out one of his psych meds. Mental Status Exam Mental Status Exam Narrative: Appearance: up and about the unit Behavior: engaging on very limited subject matter Psychomotor: pacing the halls Speech: spontaneous, rapid; nml amount TP: disorganized TC: vague, vacuous Mood: euphoric Affect: full range, normo-intense, non-labile. bizarre smiling and laughing not c/w context. AH/VH: none expressed SI: none expressed HI: none expressed Insight/judgment: impaired x 2. Memory/cog: alert, not oriented to situation. impaired secondary to psychiatric symptoms. Diagnostics Vital Signs (24Hr): Vital Signs - 24 hr 06/16/22 20:30 06/17/22 09:05 Temperature 97.6 F 97.6 F Pulse Rate 82 80 Respiratory Rate 18 20 Blood Pressure 131/86 127/72 Pulse Oximetry 98 100 Oxygen Delivery Method Room Air Room Air BMI result Body Mass Index 27.8 Labs 06/15/22 08:45 06/15/22 08:45 Medications Medications Current Medications Acetaminophen (Acetaminophen 325 Mg Tablet) 650 mg PO Q6H PRN PRN Reason: Headache/Pain Mild Scale (1-3) Last Admin: 06/13/22 11:56 Dose: 650 mg Al Hydroxide/Mg Hydroxide (Magnesium Hydrox/Alum Hydrox 30 Ml Oral.Susp) 30 ml PO Q6H PRN PRN Reason: Heartburn/Nausea Last Admin: 06/16/22 10:23 Dose: 30 ml Benztropine Mesylate (Benztropine Mesylate 1 Mg Tablet) 1 mg PO TID PRN PRN Reason: Extrapyramidal Effects Carbamazepine (Carbamazepine 200 Mg/10 Ml Oral.Susp) 300 mg PO DAILY JELANI Last Admin: 06/17/22 09:04 Dose: 300 mg Carbamazepine (Carbamazepine 200 Mg/10 Ml Oral.Susp) 400 mg PO BEDTIME JELANI Last Admin: 06/16/22 20:32 Dose: 400 mg Diphenhydramine HCl (Diphenhydramine Hcl 12.5 Mg/5 Ml Liquid) 25 mg PO BID JELANI Docusate Sodium (Docusate Sodium 100 Mg Capsule) 100 mg PO BEDTIME JELANI Last Admin: 06/16/22 20:33 Dose: 100 mg Haloperidol Lactate (Haloperidol Lactate Oral Conc 10 Mg/5 Ml Oral.Conc) 5 mg PO BID JELANI Hydroxyzine HCl (Hydroxyzine Hcl 25 Mg Tablet) 25 mg PO Q6H PRN PRN Reason: Anxiety Last Admin: 06/15/22 16:52 Dose: 25 mg [place] Carbonate ([place] Carbonate Er 300 Mg Tablet.Er) 600 mg PO DAILY JELANI Last Admin: 06/17/22 09:03 Dose: 600 mg [place] Carbonate ([place] Carbonate Er 450 Mg Tablet.Er) 900 mg PO BEDTIME JELANI Last Admin: 06/16/22 20:34 Dose: 900 mg Magnesium Hydroxide (Milk Of Magnesia 30 Ml Oral.Susp) 30 ml PO DAILY PRN PRN Reason: Constipation Last Admin: 06/10/22 17:35 Dose: 30 ml Melatonin (Melatonin 3 Mg Tablet) 6 mg PO BEDTIME JELANI Last Admin: 06/16/22 20:34 Dose: 6 mg Omeprazole (Omeprazole 20 Mg Capsule.Dr) 20 mg PO DAILY@0630 JELANI Last Admin: 06/17/22 11:20 Dose: 20 mg Prazosin HCl (Prazosin Hcl 1 Mg Capsule) 2 mg PO BEDTIME JELANI; Protocol Last Admin: 06/16/22 20:33 Dose: 2 mg Trazodone HCl (Trazodone Hcl 50 Mg Tablet) 50 mg PO BEDTIME PRN PRN Reason: Insomnia Last Admin: 06/14/22 21:06 Dose: 50 mg Allergies Allergies Allergy/AdvReac Type Severity Reaction Status Date / Time depakote AdvReac Severe elevated Uncoded 05/19/22 22:38 ammonia Assessment & Plan Assessment & Plan (1) Schizoaffective disorder, bipolar type: Status: Acute Code(s): F25.0 - Schizoaffective disorder, bipolar type Assessment and Plan: ongoing thought disorder at least 06/12/22 Plan 05/05: possibly manic, will invest more effort in trying to get mood stabilizer on board. continue zydis for now, start VPA sprinkles. 05/06: no change in mgmt. 05/07: no change in presentation. change VPA from sprinkles back to pills due to large number of sprinkles pills required to generate 1500 mg of VPA. pt not compliant with VPA, has been taking some zyprexa; change formulation to zydis to improve bioavailability. plan to move to file for commitment next week if pt doesn't soon begin to reliably take medication. 05/08 no change 05/09 no change 05/10: no change to mgmt. chewed meds x 1 over weekend, cheeking/furtively disposing of meds otherwise. 05/11: generally refusing meds. informed he will be filed on tomorrow. attempting to bargain over taking meds and discharge. will investigate obtaining VPA soln. 05/12: commitment paperwork filed. pt took all meds last night and this morning, including liquid VPA. aware of legal circumstance, unclear how well he is able to appreciate it. 05/13: asking about discharge, states he is compliant with meds (as also say nursing staff). states he is feeling better, but unable to say in what way. sleeping and eating well. 05/14: repeated checking-in with MD throughout the day. remains disorganized and apparently RIS. med-compliant. 05/15: sleeping midday. no change in presentation. 05/16: no change in presentation or plan. 05/17: no change in presentation or plan. commitment hearing tomorrow. 05/18: no change in presentation. committed to the hospital at hearing. 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 DC zyprexa as well as it lacks usable COUCH. start paliperidone PO, convert to COUCH once it is established pt is tolerating the medication. 05/20: continue to establish on tegretol and invega. introduce COUCH once pt stable on PO formulation for several days. check tegretol levels after about a week. no change in presentation. 05/21 continue current medication. 05/22 continue current treatment plan 05/23 continue current treatment plan 05/24 continue current medications. continues with psychosis/delusions. 05/25 continue current tx. 05/26 continue tx. 05/27 continue tx. vaughn do tegretol level Sat. 05/28 continue tx. 05/29 continue tx. 05/30 continue tx. not much improvement. continues to self dialoguing 05/31 continue tx. minimal improvement. 06/01 continue tx. may want to consider change in antipsychotic. 06/02: no change since last seen 05/20. on paliperidone 12 mg daily. tegretol level 5.2. trend LFTs; slightly elevated. willing to have lithium added today. 06/03: reports improved concentration today with lithium addition. continue current mgmt. T/C different neuroleptic, T/C increase in tegretol dosing. 06/04: continue current mgmt. check lithium on tuesday. stable presentation. 06/05: continue current mgmt. stable presentation. 06/06: as for 06/05. 06/07: no change in presentation. checking labs tonight. 06/08 continue tx. 06/09: tegretol 7.7, lithium 0.34. increase tegretol dosing to 300 BID and lithium dosing to 600 BID. no change in presentation. 06/10: no change in presentation. 06/11: hypertensive and borderline tachy. follow. stable presentation, continue current mgmt. check labs early next week. 06/14: lithium checked today, 0.67. increase lithium dosing from 600 BID to 6 00/900. check tegretol level and rest of labs tomorrow morning. no change in presentation. 06/15: tegretol level 6.2 currently. pt is reported to have c/o dizziness, but denies said Sx upon MD inquiry. increase tegretol from 300 BID to 300/400 as of tonight. T/C change in neuroleptic. no change in presentation. 06/16: no change in plan or presentation for today. 06/17: no change in presentation. check head CT, U/A, ESR, TORIN, TSH/T4, B12/folate, HIV, Hep C, RPR. lab abnormalities include chronic leukopenia, increase urine spec grav w/proteinuria and ketonuria. DC paliperidone as it appears to have changed nothing, start trial of haldol. thus far zyprexa and invega have not helped. haldol, prolixin, and abilify are the medications which remain on the [facility]evo's order. Reason for contiued inpatient stay Substantial Risk for: inability to function and rapid decompensation Time Spent With Patient Time: Total time managing care of this patient today __35__ minutes.
[2022-06-17 16:00] LABS: Appearance Urine Clear; Color Urine Yellow; Glucose Urine UA Negative (Negative); Leukocyte Esterase Urine Negative (Negative); Nitrite Urine Negative (Negative); PH 7.5 (5.0-9.0); Urine Blood Negative (Negative); Urine Ketones Negative (Negative); Urine Protein Negative (Neg-Trace)
[2022-06-17 20:35] VITALS: BP 135/70; PULSE 93; RESP 18; TEMP 36.2; O2SAT 96
[2022-06-17] MEDS: Lithium Carbonate ER 450 MG TABLET.ER 900 MG PO (20:41)
[2022-06-17] MEDS: traZODone HCL 50 MG TABLET PO (20:42)
[2022-06-17] MEDS: Prazosin HCL 1 MG CAPSULE 2 MG PO (20:42)
[2022-06-17] MEDS: Docusate Sodium 100 MG CAPSULE PO (20:43)
[2022-06-17] MEDS: Melatonin 3 MG TABLET 6 MG PO (20:43)
[2022-06-17] MEDS: carBAMazepine 200 MG/10 ML ORAL.SUSP 400 MG PO (20:44)
[2022-06-17] MEDS: diphenhydrAMINE HCl 12.5 MG/5 ML LIQUID 25 MG PO (20:45)
[2022-06-17] MEDS: Haloperidol Lactate Oral Conc 10 MG/5 ML ORAL.CONC 5 MG PO (20:46)
[2022-06-18] MEDS: Lithium Carbonate ER 300 MG TABLET.ER 600 MG PO (08:29)
[2022-06-18] MEDS: Omeprazole 20 MG CAPSULE.DR PO (08:29)
[2022-06-18] MEDS: carBAMazepine 200 MG/10 ML ORAL.SUSP 300 MG PO (08:30)
[2022-06-18] MEDS: diphenhydrAMINE HCl 12.5 MG/5 ML LIQUID 25 MG PO ×2 (08:31→21:38)
[2022-06-18] MEDS: Haloperidol Lactate Oral Conc 10 MG/5 ML ORAL.CONC 5 MG PO ×2 (08:32→21:36)
[2022-06-18 08:40] VITALS: BP 126/72; PULSE 75; RESP 20; TEMP 36.4; O2SAT 98
--- NOTE | 2022-06-18 14:54 | P.PNPSI_ITS ---
Subjective Subjective Date of Service: 06/18/22 Reason For Visit: psychosis/nikita Interim History: no change. reports no side effects from haldol. declined to allow lab draw yesterday. per staff, pleasant, bizarre. laughing, asking same question repeatedly. not attending groups. slept well. Mental Status Exam Mental Status Exam Narrative: Appearance: up and about the unit Behavior: engaging on very limited subject matter Psychomotor: pacing the halls Speech: spontaneous, rapid; nml amount TP: disorganized TC: vague, vacuous Mood: euphoric Affect: full range, normo-intense, non-labile. bizarre smiling and laughing not c/w context. AH/VH: none expressed SI: none expressed HI: none expressed Insight/judgment: impaired x 2. Memory/cog: alert, not oriented to situation. impaired secondary to psychiatric symptoms. Diagnostics Vital Signs (24Hr): Vital Signs - 24 hr 06/17/22 20:35 06/18/22 08:40 Temperature 97.2 F 97.6 F Pulse Rate 93 75 Respiratory Rate 18 20 Blood Pressure 135/70 126/72 Pulse Oximetry 96 98 Oxygen Delivery Method Room Air Room Air BMI result Body Mass Index 27.8 Labs 06/15/22 08:45 06/15/22 08:45 Labs: Laboratory Results - last 48 hr 06/17/22 15:45 Urine Color Yellow Urine Appearance Clear Urine pH 7.5 Ur Specific [place] 1.020 Urine Protein Negative Urine Glucose (UA) Negative Urine Ketones Negative Urine Blood Negative Urine Nitrite Negative Ur Leukocyte Esterase Negative Imaging Radiology Impressions: ITS Impressions Head CT 06/17/22 15:28 IMPRESSION: No acute intracranial abnormality including hemorrhage, mass effect, hydrocephalus, or acute territorial edematous infarction. Medications Medications Current Medications Acetaminophen (Acetaminophen 325 Mg Tablet) 650 mg PO Q6H PRN PRN Reason: Headache/Pain Mild Scale (1-3) Last Admin: 06/13/22 11:56 Dose: 650 mg Al Hydroxide/Mg Hydroxide (Magnesium Hydrox/Alum Hydrox 30 Ml Oral.Susp) 30 ml PO Q6H PRN PRN Reason: Heartburn/Nausea Last Admin: 06/16/22 10:23 Dose: 30 ml Benztropine Mesylate (Benztropine Mesylate 1 Mg Tablet) 1 mg PO TID PRN PRN Reason: Extrapyramidal Effects Carbamazepine (Carbamazepine 200 Mg/10 Ml Oral.Susp) 300 mg PO DAILY [facility] Last Admin: 06/18/22 08:30 Dose: 300 mg Carbamazepine (Carbamazepine 200 Mg/10 Ml Oral.Susp) 400 mg PO BEDTIME JELNAI Last Admin: 06/17/22 20:44 Dose: 400 mg Diphenhydramine HCl (Diphenhydramine Hcl 12.5 Mg/5 Ml Liquid) 25 mg PO BID JELANI Last Admin: 06/18/22 08:31 Dose: 25 mg Docusate Sodium (Docusate Sodium 100 Mg Capsule) 100 mg PO BEDTIME JELANI Last Admin: 06/17/22 20:43 Dose: 100 mg Haloperidol Lactate (Haloperidol Lactate Oral Conc 10 Mg/5 Ml Oral.Conc) 5 mg PO BID [facility] Last Admin: 06/18/22 08:32 Dose: 5 mg Haloperidol Lactate (Haloperidol Lactate 5 Mg/Ml Vial) 5 mg IM BID PRN PRN Reason: refusal of PO; per gomez order Hydroxyzine HCl (Hydroxyzine Hcl 25 Mg Tablet) 25 mg PO Q6H PRN PRN Reason: Anxiety Last Admin: 06/15/22 16:52 Dose: 25 mg [place] Carbonate ([place] Carbonate Er 300 Mg Tablet.Er) 600 mg PO DAILY [facility] Last Admin: 06/18/22 08:29 Dose: 600 mg [place] Carbonate ([place] Carbonate Er 450 Mg Tablet.Er) 900 mg PO BEDTIME JELANI Last Admin: 06/17/22 20:41 Dose: 900 mg Magnesium Hydroxide (Milk Of Magnesia 30 Ml Oral.Susp) 30 ml PO DAILY PRN PRN Reason: Constipation Last Admin: 06/10/22 17:35 Dose: 30 ml Melatonin (Melatonin 3 Mg Tablet) 6 mg PO BEDTIME JELANI Last Admin: 06/17/22 20:43 Dose: 6 mg Omeprazole (Omeprazole 20 Mg Capsule.Dr) 20 mg PO DAILY@0630 [facility] Last Admin: 06/18/22 08:29 Dose: 20 mg Prazosin HCl (Prazosin Hcl 1 Mg Capsule) 2 mg PO BEDTIME [facility]; Protocol Last Admin: 06/17/22 20:42 Dose: 2 mg Trazodone HCl (Trazodone Hcl 50 Mg Tablet) 50 mg PO BEDTIME PRN PRN Reason: Insomnia Last Admin: 06/17/22 20:42 Dose: 50 mg Allergies Allergies Allergy/AdvReac Type Severity Reaction Status Date / Time depakote AdvReac Severe elevated Uncoded 05/19/22 22:38 ammonia Assessment & Plan Assessment & Plan (1) Schizoaffective disorder, bipolar type: Status: Acute Code(s): F25.0 - Schizoaffective disorder, bipolar type Assessment and Plan: ongoing thought disorder at least 06/12/22 Plan 05/05: possibly manic, will invest more effort in trying to get mood stabilizer on board. continue zydis for now, start VPA sprinkles. 05/06: no change in mgmt. 05/07: no change in presentation. change VPA from sprinkles back to pills due to large number of sprinkles pills required to generate 1500 mg of VPA. pt not compliant with VPA, has been taking some zyprexa; change formulation to zydis to improve bioavailability. plan to move to file for commitment next week if pt doesn't soon begin to reliably take medication. 05/08 no change 05/09 no change 05/10: no change to mgmt. chewed meds x 1 over weekend, cheeking/furtively disposing of meds otherwise. 05/11: generally refusing meds. informed he will be filed on tomorrow. attempting to bargain over taking meds and discharge. will investigate obtaining VPA soln. 05/12: commitment paperwork filed. pt took all meds last night and this morning, including liquid VPA. aware of legal circumstance, unclear how well he is able to appreciate it. 05/13: asking about discharge, states he is compliant with meds (as also say nursing staff). states he is feeling better, but unable to say in what way. sleeping and eating well. 2: repeated checking-in with MD throughout the day. remains disorganized and apparently RIS. med-compliant. 05/15: sleeping midday. no change in presentation. 05/16: no change in presentation or plan. 05/17: no change in presentation or plan. commitment hearing tomorrow. 05/18: no change in presentation. committed to the hospital at hearing. 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 DC zyprexa as well as it lacks usable COUCH. start paliperidone PO, convert to COUCH once it is established pt is tolerating the medication. 05/20: continue to establish on tegretol and invega. introduce COUCH once pt stable on PO formulation for several days. check tegretol levels after about a week. no change in presentation. 05/21 continue current medication. 05/22 continue current treatment plan 05/23 continue current treatment plan 05/24 continue current medications. continues with psychosis/delusions. 05/25 continue current tx. 05/26 continue tx. 05/27 continue tx. vaughn do tegretol level Sat. 05/28 continue tx. 05/29 continue tx. 05/30 continue tx. not much improvement. continues to self dialoguing 05/31 continue tx. minimal improvement. 06/01 continue tx. may want to consider change in antipsychotic. 06/02: no change since last seen 05/20. on paliperidone 12 mg daily. tegretol level 5.2. trend LFTs; slightly elevated. willing to have lithium added today. 06/03: reports improved concentration today with lithium addition. continue current mgmt. T/C different neuroleptic, T/C increase in tegretol dosing. 06/04: continue current mgmt. check lithium on tuesday. stable presentation. 06/05: continue current mgmt. stable presentation. 06/06: as for 06/05. 06/07: no change in presentation. checking labs tonight. 06/08 continue tx. 06/09: tegretol 7.7, lithium 0.34. increase tegretol dosing to 300 BID and lithium dosing to 600 BID. no change in presentation. 06/10: no change in presentation. 06/11: hypertensive and borderline tachy. follow. stable presentation, continue current mgmt. check labs early next week. 06/14: lithium checked today, 0.67. increase lithium dosing from 600 BID to 600/900. check tegretol level and rest of labs tomorrow morning. no change in presentation. 06/15: tegretol level 6.2 currently. pt is reported to have c/o dizziness, but denies said Sx upon MD inquiry. increase tegretol from 300 BID to 300/400 as of tonight. T/C change in neuroleptic. no change in presentation. 06/16: no change in plan or presentation for today. 06/17: no change in presentation. check head CT, U/A, ESR, TORIN, TSH/T4, B12/folate, HIV, Hep C, RPR. lab abnormalities include chronic leukopenia, increase urine spec grav w/proteinuria and ketonuria. DC paliperidone as it appears to have changed nothing, start trial of haldol. thus far zyprexa and invega have not helped. haldol, prolixin, and abilify are the medications which remain on the [facility]'s order. 06/18: tolerating haldol currently. no change in presentation. continue current mgmt. Reason for contiued inpatient stay Substantial Risk for: inability to function and rapid decompensation Time Spent With Patient Time: Total time managing care of this patient today ____ minutes.
[2022-06-18] MEDS: hydrOXYzine HCL 25 MG TABLET PO (17:45)
[2022-06-18 20:15] VITALS: BP 136/79; PULSE 92; RESP 18; TEMP 36.4; O2SAT 96
[2022-06-18] MEDS: Docusate Sodium 100 MG CAPSULE PO (21:39)
[2022-06-18] MEDS: Prazosin HCL 1 MG CAPSULE 2 MG PO (21:39)
[2022-06-18] MEDS: Lithium Carbonate ER 450 MG TABLET.ER 900 MG PO (21:40)
[2022-06-18] MEDS: Melatonin 3 MG TABLET 6 MG PO (21:40)
[2022-06-18] MEDS: carBAMazepine 200 MG TABLET 400 MG PO (21:41)
[2022-06-18] MEDS: Acetaminophen 325 MG TABLET 650 MG PO (22:45)
[2022-06-19 09:33] VITALS: BP 126/59; PULSE 90; RESP 18; TEMP 36.8; O2SAT 97
[2022-06-19] MEDS: Haloperidol Lactate Oral Conc 10 MG/5 ML ORAL.CONC 5 MG PO ×2 (09:55→20:40)
[2022-06-19] MEDS: Omeprazole 20 MG CAPSULE.DR PO (09:55)
[2022-06-19] MEDS: diphenhydrAMINE HCl 12.5 MG/5 ML LIQUID 25 MG PO ×2 (09:55→20:38)
[2022-06-19] MEDS: Lithium Carbonate ER 300 MG TABLET.ER 600 MG PO (09:56)
--- NOTE | 2022-06-19 11:04 | P.PNPSI_ITS ---
Subjective Subjective Date of Service: 06/19/22 Reason For Visit: psychosis/nikita Subjective Notes: Section 8 Healthcare Proxy: No Interim History: Patient was seen and discussed in rounds today. Records and plans were reviewed. He was in bed and refuse to get up. He did state that he has no problems or questions. He is reported to be isolative, having inappropriate affect. Eating and sleeping adequately. Appears to be less anxious. Appears to be responding to internal stimuli her staff report Medication Compliance: Yes Side effects from medications: No Review of Systems Review of Systems Yes Unobtainable due to mental condition Mental Status Exam Mental Status Exam Narrative: In today's visit he was in bed and refused to get up. Speech is scant. No eye contact. He could not be assessed formally Diagnostics Vital Signs (24Hr): Vital Signs - 24 hr 06/18/22 20:15 06/19/22 09:33 Temperature 97.6 F 98.2 F Pulse Rate 92 90 Respiratory Rate 18 18 Blood Pressure 136/79 126/59 L Pulse Oximetry 96 97 Oxygen Delivery Method Room Air Room Air BMI result Body Mass Index 27.8 Labs 06/15/22 08:45 06/15/22 08:45 Labs: Laboratory Results - last 48 hr 06/17/22 15:45 Urine Color Yellow Urine Appearance Clear Urine pH 7.5 Ur Specific [place] 1.020 Urine Protein Negative Urine Glucose (UA) Negative Urine Ketones Negative Urine Blood Negative Urine Nitrite Negative Ur Leukocyte Esterase Negative Imaging Radiology Impressions: ITS Impressions Head CT 06/17/22 15:28 IMPRESSION: No acute intracranial abnormality including hemorrhage, mass effect, hydrocephalus, or acute territorial edematous infarction. Medications Medications Current Medications Acetaminophen (Acetaminophen 325 Mg Tablet) 650 mg PO Q6H PRN PRN Reason: Headache/Pain Mild Scale (1-3) Last Admin: 06/18/22 22:45 Dose: 650 mg Al Hydroxide/Mg Hydroxide (Magnesium Hydrox/Alum Hydrox 30 Ml Oral.Susp) 30 ml PO Q6H PRN PRN Reason: Heartburn/Nausea Last Admin: 06/16/22 10:23 Dose: 30 ml Benztropine Mesylate (Benztropine Mesylate 1 Mg Tablet) 1 mg PO TID PRN PRN Reason: Extrapyramidal Effects Diphenhydramine HCl (Diphenhydramine Hcl 12.5 Mg/5 Ml Liquid) 25 mg PO BID JELANI Last Admin: 06/19/22 09:55 Dose: 25 mg Docusate Sodium (Docusate Sodium 100 Mg Capsule) 100 mg PO BEDTIME JELANI Last Admin: 06/18/22 21:39 Dose: 100 mg Haloperidol Lactate (Haloperidol Lactate Oral Conc 10 Mg/5 Ml Oral.Conc) 5 mg PO BID JELANI Last Admin: 06/19/22 09:55 Dose: 5 mg Haloperidol Lactate (Haloperidol Lactate 5 Mg/Ml Vial) 5 mg IM BID PRN PRN Reason: refusal of PO; per gomez order Hydroxyzine HCl (Hydroxyzine Hcl 25 Mg Tablet) 25 mg PO Q6H PRN PRN Reason: Anxiety Last Admin: 06/18/22 17:45 Dose: 25 mg [place] Carbonate ([place] Carbonate Er 300 Mg Tablet.Er) 600 mg PO DAILY [facility] Last Admin: 06/19/22 09:56 Dose: 600 mg [place] Carbonate ([place] Carbonate Er 450 Mg Tablet.Er) 900 mg PO BEDTIME [facility] Last Admin: 06/18/22 21:40 Dose: 900 mg Magnesium Hydroxide (Milk Of Magnesia 30 Ml Oral.Susp) 30 ml PO DAILY PRN PRN Reason: Constipation Last Admin: 06/10/22 17:35 Dose: 30 ml Melatonin (Melatonin 3 Mg Tablet) 6 mg PO BEDTIME JELANI Last Admin: 06/18/22 21:40 Dose: 6 mg Non-Formulary Medication ( Carbamazepine 100 Mg /5 Ml Oral.Susp) 300 mg PO DAILY [facility] Last Admin: 06/19/22 09:55 Dose: 300 mg Non-Formulary Medication ( Carbamazepine 100 Mg /5 Ml Oral.Susp) 400 mg PO BEDTIME [facility] Omeprazole (Omeprazole 20 Mg Capsule.Dr) 20 mg PO DAILY@0630 [facility] Last Admin: 06/19/22 09:55 Dose: 20 mg Prazosin HCl (Prazosin Hcl 1 Mg Capsule) 2 mg PO BEDTIME [facility]; Protocol Last Admin: 06/18/22 21:39 Dose: 2 mg Trazodone HCl (Trazodone Hcl 50 Mg Tablet) 50 mg PO BEDTIME PRN PRN Reason: Insomnia Last Admin: 06/17/22 20:42 Dose: 50 mg Allergies Allergies Allergy/AdvReac Type Severity Reaction Status Date / Time depakote AdvReac Severe elevated Uncoded 05/19/22 22:38 ammonia Assessment & Plan Assessment & Plan (1) Schizoaffective disorder, bipolar type: Status: Acute Code(s): F25.0 - Schizoaffective disorder, bipolar type Assessment and Plan: ongoing thought disorder at least 06/12/22 Plan 05/05: possibly manic, will invest more effort in trying to get mood stabilizer on board. continue zydis for now, start VPA sprinkles. 05/06: no change in mgmt. 05/07: no change in presentation. change VPA from sprinkles back to pills due to large number of sprinkles pills required to generate 1500 mg of VPA. pt not compliant with VPA, has been taking some zyprexa; change formulation to zydis to improve bioavailability. plan to move to file for commitment next week if pt doesn't soon begin to reliably take medication. 05/08 no change 05/09 no change 05/10: no change to mgmt. chewed meds x 1 over weekend, cheeking/furtively dis posing of meds otherwise. 05/11: generally refusing meds. informed he will be filed on tomorrow. at tempting to bargain over taking meds and discharge. will investigate obtaining VPA soln. 05/12: commitment paperwork filed. pt took all meds last night and this morning, including liquid VPA. aware of legal circumstance, unclear how well he is able to appreciate it. 2: asking about discharge, states he is compliant with meds (as also say nursing staff). states he is feeling better, but unable to say in what way. sleeping and eating well. 2/3: repeated checking-in with MD throughout the day. remains disorganized and apparently RIS. med-compliant. 05/15: sleeping midday. no change in presentation. 05/16: no change in presentation or plan. 05/17: no change in presentation or plan. commitment hearing tomorrow. 05/18: no change in presentation. committed to the hospital at hearing. 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 DC zyprexa as well as it lacks usable COUCH. start paliperidone PO, convert to COUCH once it is established pt is tolerating the medication. 05/20: continue to establish on tegretol and invega. introduce COUCH once pt stable on PO formulation for several days. check tegretol levels after about a week. no change in presentation. 05/21 continue current medication. 05/22 continue current treatment plan 05/23 continue current treatment plan 05/24 continue current medications. continues with psychosis/delusions. 05/25 continue current tx. 05/26 continue tx. 05/27 continue tx. vaughn do tegretol level Sat. 05/28 continue tx. 05/29 continue tx. 05/30 continue tx. not much improvement. continues to self dialoguing 05/31 continue tx. minimal improvement. 06/01 continue tx. may want to consider change in antipsychotic. 06/02: no change since last seen 05/20. on paliperidone 12 mg daily. tegretol level 5.2. trend LFTs; slightly elevated. willing to have lithium added today. 06/03: reports improved concentration today with lithium addition. continue current mgmt. T/C different neuroleptic, T/C increase in tegretol dosing. 06/04: continue current mgmt. check lithium on tuesday. stable presentation. 06/05: continue current mgmt. stable presentation. 06/06: as for 06/05. 06/07: no change in presentation. checking labs tonight. 06/08 continue tx. 06/09: tegretol 7.7, lithium 0.34. increase tegretol dosing to 300 BID and lithium dosing to 600 BID. no change in presentation. 06/10: no change in presentation. 06/11: hypertensive and borderline tachy. follow. stable presentation, continue current mgmt. check labs early next week. 06/14: lithium checked today, 0.67. increase lithium dosing from 600 BID to 600/900. check tegretol level and rest of labs tomorrow morning. no change in presentation. 06/15: tegretol level 6.2 currently. pt is reported to have c/o dizziness, but denies said Sx upon MD inquiry. increase tegretol from 300 BID to 300/400 as of tonight. T/C change in neuroleptic. no change in presentation. 06/16: no change in plan or presentation for today. 06/17: no change in presentation. check head CT, U/A, ESR, TORIN, TSH/T4, B12 /folate, HIV, Hep C, RPR. lab abnormalities include chronic leukopenia, increase urine spec grav w/proteinuria and ketonuria. DC paliperidone as it appears to have changed nothing, start trial of haldol. thus far zyprexa and invega have not helped. haldol, prolixin, and abilify are the medications which remain on the stevo's order. 06/18: tolerating haldol currently. no change in presentation. continue current mgmt. 06/19: Continue current regimen and plans Reason for contiued inpatient stay Substantial Risk for: med/psych decompensation Time Spent With Patient Time: Total time managing care of this patient today ____ minutes.
[2022-06-19] MEDS: Lithium Carbonate ER 450 MG TABLET.ER 900 MG PO (20:38)
[2022-06-19] MEDS: Prazosin HCL 1 MG CAPSULE 2 MG PO (20:39)
[2022-06-19] MEDS: Melatonin 3 MG TABLET 6 MG PO (20:39)
[2022-06-19] MEDS: Docusate Sodium 100 MG CAPSULE PO (20:40)
[2022-06-19 20:41] VITALS: BP 154/68; PULSE 85; RESP 18; TEMP 36.4; O2SAT 96
[2022-06-20 08:23] VITALS: BP 145/89; PULSE 106; RESP 18; TEMP 36.5; O2SAT 96
[2022-06-20] MEDS: diphenhydrAMINE HCl 12.5 MG/5 ML LIQUID 25 MG PO ×2 (08:24→21:44)
[2022-06-20] MEDS: Lithium Carbonate ER 300 MG TABLET.ER 600 MG PO (08:24)
[2022-06-20] MEDS: Haloperidol Lactate Oral Conc 10 MG/5 ML ORAL.CONC 5 MG PO ×2 (08:24→21:45)
[2022-06-20] MEDS: Omeprazole 20 MG CAPSULE.DR PO (08:24)
--- NOTE | 2022-06-20 09:55 | HO.PSYCHPN ---
Subjective Subjective Date of Service: 06/20/22 Reason For Visit: psychosis/nikita Subjective Notes: Section 8 Healthcare Proxy: No Interim History: Patient was seen and discussed in rounds today. Records and plans were reviewed. He was up and was willing to engage in the interview. He continues to be hard to engage. He has delayed responses and appears to be responding to internal stimuli. He denies any auditory or visual hallucination but behavior indicates otherwise. He has been eating and sleeping adequately. No side effects. No changes were made today Medication Compliance: Yes Side effects from medications: No Review of Systems Review of Systems Yes Unobtainable due to mental condition Mental Status Exam Mental Status Exam Narrative: In today's visit he is alert, pleasant and interactive within his means and current mental status. Speech is normal. Some eye contact. Affect is inappropriate at times. He denies any AVH but appears to be responding to internal stimuli. He denies any suicidal homicidal ideations. Cognitively he is preoccupied and hard to assess. Judgment is probably impaired Diagnostics Vital Signs (24Hr): Vital Signs - 24 hr 06/19/22 09:33 06/19/22 20:41 06/20/22 08:23 Temperature 98.2 F 97.6 F 97.7 F Pulse Rate 90 85 106 H Respiratory Rate 18 18 18 Blood Pressure 126/59 L 154/68 H 145/89 H Pulse Oximetry 97 96 96 Oxygen Delivery Method Room Air Room Air Room Air BMI result Body Mass Index 27.8 Labs 06/15/22 08:45 06/15/22 08:45 Imaging Radiology Impressions: ITS Impressions Head CT 06/17/22 15:28 IMPRESSION: No acute intracranial abnormality including hemorrhage, mass effect, hydrocephalus, or acute territorial edematous infarction. Medications Medications Current Medications Acetaminophen (Acetaminophen 325 Mg Tablet) 650 mg PO Q6H PRN PRN Reason: Headache/Pain Mild Scale (1-3) Last Admin: 06/18/22 22:45 Dose: 650 mg Al Hydroxide/Mg Hydroxide (Magnesium Hydrox/Alum Hydrox 30 Ml Oral.Susp) 30 ml PO Q6H PRN PRN Reason: Heartburn/Nausea Last Admin: 06/16/22 10:23 Dose: 30 ml Benztropine Mesylate (Benztropine Mesylate 1 Mg Tablet) 1 mg PO TID PRN PRN Reason: Extrapyramidal Effects Diphenhydramine HCl (Diphenhydramine Hcl 12.5 Mg/5 Ml Liquid) 25 mg PO BID COUNT [facility]CLUDES [facility] Last Admin: 06/20/22 08:24 Dose: 25 mg Docusate Sodium (Docusate Sodium 100 Mg Capsule) 100 mg PO BEDTIME JELANI Last Admin: 06/19/22 20:40 Dose: 100 mg Haloperidol Lactate (Haloperidol Lactate Oral Conc 10 Mg/5 Ml Oral.Conc) 5 mg PO BID COUNT [facility]CLUDES [facility] Last Admin: 06/20/22 08:24 Dose: 5 mg Haloperidol Lactate (Haloperidol Lactate 5 Mg/Ml Vial) 5 mg IM BID PRN PRN Reason: refusal of PO; per gomez order Hydroxyzine HCl (Hydroxyzine Hcl 25 Mg Tablet) 25 mg PO Q6H PRN PRN Reason: Anxiety Last Admin: 06/18/22 17:45 Dose: 25 mg [place] Carbonate ([place] Carbonate Er 300 Mg Tablet.Er) 600 mg PO DAILY [facility] Last Admin: 06/20/22 08:24 Dose: 600 mg [place] Carbonate ([place] Carbonate Er 450 Mg Tablet.Er) 900 mg PO BEDTIME [facility] Last Admin: 06/19/22 20:38 Dose: 900 mg Magnesium Hydroxide (Milk Of Magnesia 30 Ml Oral.Susp) 30 ml PO DAILY PRN PRN Reason: Constipation Last Admin: 06/10/22 17:35 Dose: 30 ml Melatonin (Melatonin 3 Mg Tablet) 6 mg PO BEDTIME JELANI Last Admin: 06/19/22 20:39 Dose: 6 mg Non-Formulary Medication ( Carbamazepine 100 Mg /5 Ml Oral.Susp) 300 mg PO DAILY [facility] Last Admin: 06/20/22 08:25 Dose: 300 mg Non-Formulary Medication ( Carbamazepine 100 Mg /5 Ml Oral.Susp) 400 mg PO BEDTIME [facility] Last Admin: 06/19/22 20:39 Dose: 400 mg Omeprazole (Omeprazole 20 Mg Capsule.Dr) 20 mg PO DAILY@0630 [facility] Last Admin: 06/20/22 08:24 Dose: 20 mg Prazosin HCl (Prazosin Hcl 1 Mg Capsule) 2 mg PO BEDTIME [facility]; Protocol Last Admin: 06/19/22 20:39 Dose: 2 mg Trazodone HCl (Trazodone Hcl 50 Mg Tablet) 50 mg PO BEDTIME PRN PRN Reason: Insomnia Last Admin: 06/17/22 20:42 Dose: 50 mg Allergies Allergies Allergy/AdvReac Type Severity Reaction Status Date / Time depakote AdvReac Severe elevated Uncoded 05/19/22 22:38 ammonia Assessment & Plan Assessment & Plan (1) Schizoaffective disorder, bipolar type: Status: Acute Code(s): F25.0 - Schizoaffective disorder, bipolar type Assessment and Plan: ongoing thought disorder at least 06/12/22 Plan 05/05: possibly manic, will invest more effort in trying to get mood stabilizer on board. continue zydis for now, start VPA sprinkles. 05/06: no change in mgmt. 05/07: no change in presentation. change VPA from sprinkles back to pills due to large number of sprinkles pills required to generate 1500 mg of VPA. pt not compliant with VPA, has been taking some zyprexa; change formulation to zydis to improve bioavailability. plan to move to file for commitment next week if pt doesn't soon begin to reliably take medication. 05/08 no change 05/09 no change 05/10: no change to mgmt. chewed meds x 1 over weekend, cheeking/furtively disposing of meds otherwise. 05/11: generally refusing meds. informed he will be filed on tomorrow. attempting to bargain over taking meds and discharge. will investigate obtaining VPA soln. 05/12: commitment paperwork filed. pt took all meds last night and this morning, including liquid VPA. aware of legal circumstance, unclear how well he is able to appreciate it. 2: asking about discharge, states he is compliant with meds (as also say nursing staff). states he is feeling better, but unable to say in what way. sleeping and eating well. 2: repeated checking-in with MD throughout the day. remains disorganized and apparently RIS. med-compliant. 05/15: sleeping midday. no change in presentation. 05/16: no change in presentation or plan. 05/17: no change in presentation or plan. commitment hearing tomorrow. 05/18: no change in presentation. committed to the hospital at hearing. 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 DC zyprexa as well as it lacks usable COUCH. start paliperidone PO, convert to COUCH once it is established pt is tolerating the medication. 05/20: continue to establish on tegretol and invega. introduce COUCH once pt stable on PO formulation for several days. check tegretol levels after about a week. no change in presentation. 05/21 continue current medication. 05/22 continue current treatment plan 05/23 continue current treatment plan 05/24 continue current medications. continues with psychosis/delusions. 05/25 continue current tx. 05/26 continue tx. 05/27 continue tx. vaughn do tegretol level Sat. 05/28 continue tx. 05/29 continue tx. 05/30 continue tx. not much improvement. continues to self dialoguing 05/31 continue tx. minimal improvement. 06/01 continue tx. may want to consider change in antipsychotic. 06/02: no change since last seen 05/20. on paliperidone 12 mg daily. tegretol level 5.2. trend LFTs; slightly elevated. willing to have lithium added today. 06/03: reports improved concentration today with lithium addition. continue current mgmt. T/C different neuroleptic, T/C increase in tegretol dosing. 06/04: continue current mgmt. check lithium on tuesday. stable presentation. 06/05: continue current mgmt. stable presentation. 06/06: as for 06/05. 06/07: no change in presentation. checking labs tonight. 06/08 continue tx. 06/09: tegretol 7.7, lithium 0.34. increase tegretol dosing to 300 BID and lithium dosing to 600 BID. no change in presentation. 06/10: no change in presentation. 06/11: hypertensive and borderline tachy. follow. stable presentation, continue current mgmt. check labs early next week. 06/14: lithium checked today, 0.67. increase lithium dosing from 600 BID to 600/900. check tegretol level and rest of labs tomorrow morning. no change in presentation. 06/15: tegretol level 6.2 currently. pt is reported to have c/o dizziness, but denies said Sx upon MD inquiry. increase tegretol from 300 BID to 300/400 as of tonight. T/C change in neuroleptic. no change in presentation. 06/16: no change in plan or presentation for today. 06/17: no change in presentation. check head CT, U/A, ESR, TORIN, TSH/T4, B12/folate, HIV, Hep C, RPR. lab abnormalities include chronic leukopenia, increase urine spec grav w/proteinuria and ketonuria. DC paliperidone as it appears to have changed nothing, start trial of haldol. thus far zyprexa and invega have not helped. haldol, prolixin, and abilify are the medications which remain on the [facility]evo's order. 06/18: tolerating haldol currently. no change in presentation. continue current mgmt. 06/19: Continue current regimen and plans 06/20: Continue current regimen plans Reason for contiued inpatient stay Substantial Risk for: med/psych decompensation Time Spent With Patient Time: Total time managing care of this patient today ____ minutes.
[2022-06-20] MEDS: Acetaminophen 325 MG TABLET 650 MG PO (16:07)
[2022-06-20 21:04] VITALS: BP 143/65; PULSE 102; RESP 18; TEMP 36.4; O2SAT 96
[2022-06-20] MEDS: Lithium Carbonate ER 450 MG TABLET.ER 900 MG PO (21:41)
[2022-06-20] MEDS: Prazosin HCL 1 MG CAPSULE 2 MG PO (21:42)
[2022-06-20] MEDS: traZODone HCL 50 MG TABLET PO (21:43)
[2022-06-20] MEDS: Melatonin 3 MG TABLET 6 MG PO (21:43)
[2022-06-20] MEDS: Docusate Sodium 100 MG CAPSULE PO (21:44)
[2022-06-20] MEDS: Magnesium Hydrox/Alum Hydrox 30 ML ORAL.SUSP PO (21:48)
[2022-06-21 09:10] VITALS: BP 133/69; PULSE 78; RESP 18; TEMP 36.6; O2SAT 98
[2022-06-21] MEDS: Lithium Carbonate ER 300 MG TABLET.ER 600 MG PO (09:29)
[2022-06-21] MEDS: diphenhydrAMINE HCl 12.5 MG/5 ML LIQUID 25 MG PO ×2 (09:30→20:56)
[2022-06-21] MEDS: Omeprazole 20 MG CAPSULE.DR PO (09:30)
[2022-06-21] MEDS: Haloperidol Lactate Oral Conc 10 MG/5 ML ORAL.CONC 5 MG PO (09:31)
--- NOTE | 2022-06-21 15:48 | P.PNPSI_ITS ---
Subjective Subjective Date of Service: 06/21/22 Reason For Visit: psychosis/nikita Interim History: no change in presentation. per staff, slightly more spontaneous. bizarre. RIS. laughing. pleasant. Mental Status Exam Mental Status Exam Narrative: Appearance: up and about the unit Behavior: engaging on very limited subject matter Psychomotor: pacing the halls Speech: spontaneous, rapid; nml amount TP: disorganized TC: vague, vacuous Mood: euphoric Affect: full range, normo-intense, non-labile. bizarre smiling and laughing not c/w context. AH/VH: none expressed SI: none expressed HI: none expressed Insight/judgment: impaired x 2. Memory/cog: alert, not oriented to situation. impaired secondary to psychiatric symptoms. Diagnostics Vital Signs (24Hr): Vital Signs - 24 hr 06/20/22 21:04 06/21/22 09:10 Temperature 97.6 F 97.8 F Pulse Rate 102 H 78 Respiratory Rate 18 18 Blood Pressure 143/65 H 133/69 Pulse Oximetry 96 98 Oxygen Delivery Method Room Air Room Air BMI result Body Mass Index 27.8 Labs 06/15/22 08:45 06/15/22 08:45 Imaging Radiology Impressions: ITS Impressions Head CT 06/17/22 15:28 IMPRESSION: No acute intracranial abnormality including hemorrhage, mass effect, hydrocephalus, or acute territorial edematous infarction. Medications Medications Current Medications Acetaminophen (Acetaminophen 325 Mg Tablet) 650 mg PO Q6H PRN PRN Reason: Headache/Pain Mild Scale (1-3) Last Admin: 06/20/22 16:07 Dose: 650 mg Al Hydroxide/Mg Hydroxide (Magnesium Hydrox/Alum Hydrox 30 Ml Oral.Susp) 30 ml PO Q6H PRN PRN Reason: Heartburn/Nausea Last Admin: 06/20/22 21:48 Dose: 30 ml Benztropine Mesylate (Benztropine Mesylate 1 Mg Tablet) 1 mg PO TID PRN PRN Reason: Extrapyramidal Effects Carbamazepine (Carbamazepine 200 Mg/10 Ml Oral.Susp) 400 mg PO BEDTIME JELANI Diphenhydramine HCl (Diphenhydramine Hcl 12.5 Mg/5 Ml Liquid) 25 mg PO BID JELANI Last Admin: 06/21/22 09:30 Dose: 25 mg Docusate Sodium (Docusate Sodium 100 Mg Capsule) 100 mg PO BEDTIME JELANI Last Admin: 06/20/22 21:44 Dose: 100 mg Haloperidol Lactate (Haloperidol Lactate Oral Conc 10 Mg/5 Ml Oral.Conc) 5 mg PO BID [facility] Last Admin: 06/21/22 09:31 Dose: 5 mg Haloperidol Lactate (Haloperidol Lactate 5 Mg/Ml Vial) 5 mg IM BID PRN PRN Reason: refusal of PO; per gomez order Hydroxyzine HCl (Hydroxyzine Hcl 25 Mg Tablet) 25 mg PO Q6H PRN PRN Reason: Anxiety Last Admin: 06/18/22 17:45 Dose: 25 mg [place] Carbonate (Concow Carbonate Er 300 Mg Tablet.Er) 600 mg PO DAILY [facility] Last Admin: 06/21/22 09:29 Dose: 600 mg [place] Carbonate (Concow Carbonate Er 450 Mg Tablet.Er) 900 mg PO BEDTIME JELANI Last Admin: 06/20/22 21:41 Dose: 900 mg Magnesium Hydroxide (Milk Of Magnesia 30 Ml Oral.Susp) 30 ml PO DAILY PRN PRN Reason: Constipation Last Admin: 06/10/22 17:35 Dose: 30 ml Melatonin (Melatonin 3 Mg Tablet) 6 mg PO BEDTIME JELANI Last Admin: 06/20/22 21:43 Dose: 6 mg Non-Formulary Medication ( Carbamazepine 100 Mg /5 Ml Oral.Susp) 300 mg PO DAILY [facility] Last Admin: 06/21/22 09:33 Dose: 300 mg Omeprazole (Omeprazole 20 Mg Capsule.Dr) 20 mg PO DAILY@0630 [facility] Last Admin: 06/21/22 09:30 Dose: 20 mg Prazosin HCl (Prazosin Hcl 1 Mg Capsule) 2 mg PO BEDTIME [facility]; Protocol Last Admin: 06/20/22 21:42 Dose: 2 mg Trazodone HCl (Trazodone Hcl 50 Mg Tablet) 50 mg PO BEDTIME PRN PRN Reason: Insomnia Last Admin: 06/20/22 21:43 Dose: 50 mg Allergies Allergies Allergy/AdvReac Type Severity Reaction Status Date / Time depakote AdvReac Severe elevated Uncoded 05/19/22 22:38 ammonia Assessment & Plan Assessment & Plan (1) Schizoaffective disorder, bipolar type: Status: Acute Code(s): F25.0 - Schizoaffective disorder, bipolar type Assessment and Plan: ongoing thought disorder at least 06/12/22 Plan 05/05: possibly manic, will invest more effort in trying to get mood stabilizer on board. continue zydis for now, start VPA sprinkles. 05/06: no change in mgmt. 05/07: no change in presentation. change VPA from sprinkles back to pills due to large number of sprinkles pills required to generate 1500 mg of VPA. pt not compliant with VPA, has been taking some zyprexa; change formulation to zydis to improve bioavailability. plan to move to file for commitment next week if pt doesn't soon begin to reliably take medication. 05/08 no change 05/09 no change 05/10: no change to mgmt. chewed meds x 1 over weekend, cheeking/furtively disposing of meds otherwise. 05/11: generally refusing meds. informed he will be filed on tomorrow. attempting to bargain over taking meds and discharge. will investigate obtaining VPA soln. 05/12: commitment paperwork filed. pt took all meds last night and this morning, including liquid VPA. aware of legal circumstance, unclear how well he is able to appreciate it. 2: asking about discharge, states he is compliant with meds (as also say nursing staff). states he is feeling better, but unable to say in what way. sleeping and eating well. 2/3: repeated checking-in with MD throughout the day. remains disorganized and apparently RIS. med-compliant. 24: sleeping midday. no change in presentation. 05/16: no change in presentation or plan. 05/17: no change in presentation or plan. commitment hearing tomorrow. 05/18: no change in presentation. committed to the hospital at [facility]. 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 DC zyprexa as well as it lacks usable COUCH. start paliperidone PO, convert to COUCH once it is established pt is tolerating the medication. 05/20: continue to establish on tegretol and invega. introduce COUCH once pt stable on PO formulation for several days. check tegretol levels after about a week. no change in presentation. 05/21 continue current medication. 05/22 continue current treatment plan 05/23 continue current treatment plan 05/24 continue current medications. continues with psychosis/delusions. 05/25 continue current tx. 05/26 continue tx. 05/27 continue tx. vaughn do tegretol level Sat. 05/28 continue tx. 05/29 continue tx. 05/30 continue tx. not much improvement. continues to self dialoguing 05/31 continue tx. minimal improvement. 06/01 continue tx. may want to consider change in antipsychotic. 06/02: no change since last seen 05/20. on paliperidone 12 mg daily. tegretol level 5.2. trend LFTs; slightly elevated. willing to have lithium added today. 06/03: reports improved concentration today with lithium addition. continue current mgmt. T/C different neuroleptic, T/C increase in tegretol dosing. 06/04: continue current mgmt. check lithium on tuesday. stable presentation. 06/05: continue current mgmt. stable presentation. 06/06: as for 06/05. 06/07: no change in presentation. checking labs tonight. 06/08 continue tx. 06/09: tegretol 7.7, lithium 0.34. increase tegretol dosing to 300 BID and lithium dosing to 600 BID. no change in presentation. 06/10: no change in presentation. 06/11: hypertensive and borderline tachy. follow. stable presentation, continue current mgmt. check labs early next week. 06/14: lithium checked today, 0.67. increase lithium dosing from 600 BID to 600/900. check tegretol level and rest of labs tomorrow morning. no change in presentation. 06/15: tegretol level 6.2 currently. pt is reported to have c/o dizziness, but denies said Sx upon MD inquiry. increase tegretol from 300 BID to 300/400 as of tonight. T/C change in neuroleptic. no change in presentation. 06/16: no change in plan or presentation for today. 06/17: no change in presentation. check head CT, U/A, ESR, TORIN, TSH/T4, B12/folate, HIV, Hep C, RPR. lab abnormalities include chronic leukopenia, increase urine spec grav w/proteinuria and ketonuria. DC paliperidone as it appears to have changed nothing, start trial of haldol. thus far zyprexa and invega have not helped. haldol, prolixin, and abilify are the medications which remain on the stevo's order. 06/18: tolerating haldol currently. no change in presentation. continue cur rent mgmt. 06/19: Continue current regimen and plans 06/20: Continue current regimen plans 06/21: no change in presentation. increase haldol from 5 BID to 7.5 BID. otherwise continue current mgmt. Reason for contiued inpatient stay Substantial Risk for: harm to self, harm to others, inability to function and rapid decompensation Time Spent With Patient Time: Total time managing care of this patient today __20__ minutes.
[2022-06-21 20:35] VITALS: BP 133/62; PULSE 88; RESP 18; TEMP 36.4; O2SAT 96
[2022-06-21] MEDS: Lithium Carbonate ER 450 MG TABLET.ER 900 MG PO (20:53)
[2022-06-21] MEDS: Prazosin HCL 1 MG CAPSULE 2 MG PO (20:54)
[2022-06-21] MEDS: Melatonin 3 MG TABLET 6 MG PO (20:55)
[2022-06-21] MEDS: traZODone HCL 50 MG TABLET PO (20:55)
[2022-06-21] MEDS: Docusate Sodium 100 MG CAPSULE PO (20:55)
[2022-06-21] MEDS: carBAMazepine 200 MG/10 ML ORAL.SUSP 400 MG PO (20:57)
[2022-06-21] MEDS: Haloperidol Lactate Oral Conc 10 MG/5 ML ORAL.CONC 7.5 MG PO (20:58)
[2022-06-22 09:00] VITALS: BP 139/67; PULSE 92; TEMP 36.5; O2SAT 97
[2022-06-22] MEDS: Lithium Carbonate ER 300 MG TABLET.ER 600 MG PO (09:34)
[2022-06-22] MEDS: Omeprazole 20 MG CAPSULE.DR PO (09:34)
[2022-06-22] MEDS: diphenhydrAMINE HCl 12.5 MG/5 ML LIQUID 25 MG PO ×2 (09:35→20:15)
[2022-06-22] MEDS: Haloperidol Lactate Oral Conc 10 MG/5 ML ORAL.CONC 7.5 MG PO ×2 (09:38→20:15)
--- NOTE | 2022-06-22 16:23 | P.PNPSI_ITS ---
Subjective Subjective Date of Service: 06/22/22 Reason For Visit: psychosis/nikita Interim History: no change in presentation. denies AH, says his mood is good. per staff, wandering. preoccupied and withdrawn. RIS. uncomfortable with new roommate. Mental Status Exam Mental Status Exam Narrative: Appearance: up and about the unit Behavior: engaging on very limited subject matter Psychomotor: pacing the halls Speech: spontaneous, rapid; nml amount TP: disorganized TC: vague, vacuous Mood: good Affect: full range, normo-intense, non-labile. bizarre smiling and laughing not c/w context. AH/VH: none expressed SI: none expressed HI: none expressed Insight/judgment: impaired x 2. Memory/cog: alert, not oriented to situation. impaired secondary to psychiatric symptoms. Diagnostics Vital Signs (24Hr): Vital Signs - 24 hr 06/21/22 20:35 06/22/22 09:00 Temperature 97.6 F 97.7 F Pulse Rate 88 92 Respiratory Rate 18 Blood Pressure 133/62 139/67 Pulse Oximetry 96 97 Oxygen Delivery Method Room Air Room Air BMI result Body Mass Index 27.8 Labs 06/15/22 08:45 06/15/22 08:45 Imaging Radiology Impressions: ITS Impressions Head CT 06/17/22 15:28 IMPRESSION: No acute intracranial abnormality including hemorrhage, mass effect, hydrocephalus, or acute territorial edematous infarction. Medications Medications Current Medications Acetaminophen (Acetaminophen 325 Mg Tablet) 650 mg PO Q6H PRN PRN Reason: Headache/Pain Mild Scale (1-3) Last Admin: 06/20/22 16:07 Dose: 650 mg Al Hydroxide/Mg Hydroxide (Magnesium Hydrox/Alum Hydrox 30 Ml Oral.Susp) 30 ml PO Q6H PRN PRN Reason: Heartburn/Nausea Last Admin: 06/20/22 21:48 Dose: 30 ml Benztropine Mesylate (Benztropine Mesylate 1 Mg Tablet) 1 mg PO TID PRN PRN Reason: Extrapyramidal Effects Carbamazepine (Carbamazepine 200 Mg/10 Ml Oral.Susp) 400 mg PO BEDTIME JELANI Last Admin: 06/21/22 20:57 Dose: 400 mg Carbamazepine (Carbamazepine 200 Mg/10 Ml Oral.Susp) 300 mg PO DAILY [facility] Diphenhydramine HCl (Diphenhydramine Hcl 12.5 Mg/5 Ml Liquid) 25 mg PO BID [facility] Last Admin: 06/22/22 09:35 Dose: 25 mg Docusate Sodium (Docusate Sodium 100 Mg Capsule) 100 mg PO BEDTIME [facility] Last Admin: 06/21/22 20:55 Dose: 100 mg Haloperidol Lactate (Haloperidol Lactate 5 Mg/Ml Vial) 5 mg IM BID PRN PRN Reason: refusal of PO; per gomez order Haloperidol Lactate (Haloperidol Lactate Oral Conc 10 Mg/5 Ml Oral.Conc) 7.5 mg PO BID [facility] Last Admin: 06/22/22 09:38 Dose: 7.5 mg Hydroxyzine HCl (Hydroxyzine Hcl 25 Mg Tablet) 25 mg PO Q6H PRN PRN Reason: Anxiety Last Admin: 06/18/22 17:45 Dose: 25 mg [place] Carbonate ([place] Carbonate Er 300 Mg Tablet.Er) 600 mg PO DAILY [facility] Last Admin: 06/22/22 09:34 Dose: 600 mg [place] Carbonate ([place] Carbonate Er 450 Mg Tablet.Er) 900 mg PO BEDTIME [facility] Last Admin: 06/21/22 20:53 Dose: 900 mg Magnesium Hydroxide (Milk Of Magnesia 30 Ml Oral.Susp) 30 ml PO DAILY PRN PRN Reason: Constipation Last Admin: 06/10/22 17:35 Dose: 30 ml Melatonin (Melatonin 3 Mg Tablet) 6 mg PO BEDTIME [facility] Last Admin: 06/21/22 20:55 Dose: 6 mg Omeprazole (Omeprazole 20 Mg Capsule.Dr) 20 mg PO DAILY@0630 [facility] Last Admin: 06/22/22 09:34 Dose: 20 mg Prazosin HCl (Prazosin Hcl 1 Mg Capsule) 2 mg PO BEDTIME [facility]; Protocol Last Admin: 06/21/22 20:54 Dose: 2 mg Trazodone HCl (Trazodone Hcl 50 Mg Tablet) 50 mg PO BEDTIME PRN PRN Reason: Insomnia Last Admin: 06/21/22 20:55 Dose: 50 mg Allergies Allergies Allergy/AdvReac Type Severity Reaction Status Date / Time depakote AdvReac Severe elevated Uncoded 05/19/22 22:38 ammonia Assessment & Plan Assessment & Plan (1) Schizoaffective disorder, bipolar type: Status: Acute Code(s): F25.0 - Schizoaffective disorder, bipolar type Assessment and Plan: ongoing thought disorder at least 06/12/22 Plan 05/05: possibly manic, will invest more effort in trying to get mood stabilizer on board. continue zydis for now, start VPA sprinkles. 05/06: no change in mgmt. 05/07: no change in presentation. change VPA from sprinkles back to pills due to large number of sprinkles pills required to generate 1500 mg of VPA. pt not compliant with VPA, has been taking some zyprexa; change formulation to zydis to improve bioavailability. plan to move to file for commitment next week if pt doesn't soon begin to reliably take medication. 05/08 no change 05/09 no change 05/10: no change to mgmt. chewed meds x 1 over weekend, cheeking/furtively disposing of meds otherwise. 05/11: generally refusing meds. informed he will be filed on tomorrow. attempting to bargain over taking meds and discharge. will investigate obtaining VPA soln. 05/12: commitment paperwork filed. pt took all meds last night and this morning, including liquid VPA. aware of legal circumstance, unclear how well he is able to appreciate it. 2: asking about discharge, states he is compliant with meds (as also say nursing staff). states he is feeling better, but unable to say in what way. sleeping and eating well. 05/14: repeated checking-in with MD throughout the day. remains disorganized and apparently RIS. med-compliant. 05/15: sleeping midday. no change in presentation. 05/16: no change in presentation or plan. 05/17: no change in presentation or plan. commitment hearing tomorrow. 05/18: no change in presentation. committed to the hospital at [facility]. 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 DC zyprexa as well as it lacks usable COUCH. start paliperidone PO, convert to COUCH once it is established pt is tolerating the medication. 05/20: continue to establish on tegretol and invega. introduce COUCH once pt stable on PO formulation for several days. check tegretol levels after about a week. no change in presentation. 05/21 continue current medication. 05/22 continue current treatment plan 05/23 continue current treatment plan 05/24 continue current medications. continues with psychosis/delusions. 05/25 continue current tx. 05/26 continue tx. 05/27 continue tx. vaughn do tegretol level Sat. 05/28 continue tx. 05/29 continue tx. 05/30 continue tx. not much improvement. continues to self dialoguing 05/31 continue tx. minimal improvement. 06/01 continue tx. may want to consider change in antipsychotic. 06/02: no change since last seen 05/20. on paliperidone 12 mg daily. tegretol level 5.2. trend LFTs; slightly elevated. willing to have lithium added today. 06/03: reports improved concentration today with lithium addition. continue current mgmt. T/C different neuroleptic, T/C increase in tegretol dosing. 06/04: continue current mgmt. check lithium on tuesday. stable presentation. 06/05: continue current mgmt. stable presentation. 06/06: as for 06/05. 06/07: no change in presentation. checking labs tonight. 06/08 continue tx. 06/09: tegretol 7.7, lithium 0.34. increase tegretol dosing to 300 BID and lithium dosing to 600 BID. no change in presentation. 06/10: no change in presentation. 06/11: hypertensive and borderline tachy. follow. stable presentation, continue current mgmt. check labs early next week. 06/14: lithium checked today, 0.67. increase lithium dosing from 600 BID to 600/900. check tegretol level and rest of labs tomorrow morning. no change in presentation. 06/15: tegretol level 6.2 currently. pt is reported to have c/o dizziness, but denies said Sx upon MD inquiry. increase tegretol from 300 BID to 300/400 as of tonight. T/C change in neuroleptic. no change in presentation. 06/16: no change in plan or presentation for today. 06/17: no change in presentation. check head CT, U/A, ESR, TORIN, TSH/T4, B12/folate, HIV, Hep C, RPR. lab abnormalities include chronic leukopenia, increase urine spec grav w/proteinuria and ketonuria. DC paliperidone as it appears to have changed nothing, start trial of haldol. thus far zyprexa and invega have not helped. haldol, prolixin, and abilify are the medications which remain on the stevo's order. 06/18: tolerating haldol currently. no change in presentation. continue current mgmt. 06/19: Continue current regimen and plans 06/20: Continue current regimen plans 06/21: no change in presentation. increase haldol from 5 BID to 7.5 BID. otherwise continue current mgmt. 06/22: continue current mgmt. no change in presentation. case discussed with medical data analyst. Reason for contiued inpatient stay Substantial Risk for: inability to function and rapid decompensation Time Spent With Patient Time: Total time managing care of this patient today __35__ minutes.
[2022-06-22] MEDS: Acetaminophen 325 MG TABLET 650 MG PO (18:40)
[2022-06-22 20:10] VITALS: BP 128/83; PULSE 84; RESP 16; TEMP 36.6; O2SAT 97
[2022-06-22] MEDS: Melatonin 3 MG TABLET 6 MG PO (20:13)
[2022-06-22] MEDS: Prazosin HCL 1 MG CAPSULE 2 MG PO (20:14)
[2022-06-22] MEDS: Lithium Carbonate ER 450 MG TABLET.ER 900 MG PO (20:14)
[2022-06-22] MEDS: carBAMazepine 200 MG/10 ML ORAL.SUSP 400 MG PO (20:15)
[2022-06-22] MEDS: Docusate Sodium 100 MG CAPSULE PO (20:15)
[2022-06-23 09:02] VITALS: BP 105/57; PULSE 73; RESP 20; TEMP 36.4; O2SAT 97
[2022-06-23] MEDS: Omeprazole 20 MG CAPSULE.DR PO (09:03)
[2022-06-23] MEDS: Lithium Carbonate ER 300 MG TABLET.ER 600 MG PO (09:04)
[2022-06-23] MEDS: diphenhydrAMINE HCl 12.5 MG/5 ML LIQUID 25 MG PO ×2 (09:05→20:36)
[2022-06-23] MEDS: Haloperidol Lactate Oral Conc 10 MG/5 ML ORAL.CONC 7.5 MG PO ×2 (09:07→20:36)
[2022-06-23] MEDS: carBAMazepine 200 MG/10 ML ORAL.SUSP 300 MG PO (09:11)
[2022-06-23] MEDS: Acetaminophen 325 MG TABLET 650 MG PO (15:03)
--- NOTE | 2022-06-23 15:34 | P.PNPSI_ITS ---
Subjective Subjective Date of Service: 06/23/22 Reason For Visit: psychosis/nikita Interim History: no change in presentation. Mental Status Exam Mental Status Exam Narrative: Appearance: up and about the unit Behavior: engaging on very limited subject matter Psychomotor: pacing the halls Speech: spontaneous, rapid; nml amount TP: disorganized TC: vague, vacuous Mood: good Affect: full range, normo-intense, non-labile. bizarre smiling and laughing not c/w context. AH/VH: none expressed SI: none expressed HI: none expressed Insight/judgment: impaired x 2. Memory/cog: alert, not oriented to situation. impaired secondary to psychiatric symptoms. Diagnostics Vital Signs (24Hr): Vital Signs - 24 hr 06/22/22 20:10 06/23/22 09:02 Temperature 97.8 F 97.6 F Pulse Rate 84 73 Respiratory Rate 16 20 Blood Pressure 128/83 105/57 L Pulse Oximetry 97 97 Oxygen Delivery Method Room Air Room Air BMI result Body Mass Index 27.8 Labs 06/15/22 08:45 06/15/22 08:45 Imaging Radiology Impressions: ITS Impressions Head CT 06/17/22 15:28 IMPRESSION: No acute intracranial abnormality including hemorrhage, mass effect, hydrocephalus, or acute territorial edematous infarction. Medications Medications Current Medications Acetaminophen (Acetaminophen 325 Mg Tablet) 650 mg PO Q6H PRN PRN Reason: Headache/Pain Mild Scale (1-3) Last Admin: 06/23/22 15:03 Dose: 650 mg Al Hydroxide/Mg Hydroxide (Magnesium Hydrox/Alum Hydrox 30 Ml Oral.Susp) 30 ml PO Q6H PRN PRN Reason: Heartburn/Nausea Last Admin: 06/20/22 21:48 Dose: 30 ml Benztropine Mesylate (Benztropine Mesylate 1 Mg Tablet) 1 mg PO TID PRN PRN Reason: Extrapyramidal Effects Carbamazepine (Carbamazepine 200 Mg/10 Ml Oral.Susp) 400 mg PO BEDTIME JELANI Last Admin: 06/22/22 20:15 Dose: 400 mg Carbamazepine (Carbamazepine 200 Mg/10 Ml Oral.Susp) 300 mg PO DAILY JELANI Last Admin: 06/23/22 09:11 Dose: 300 mg Diphenhydramine HCl (Diphenhydramine Hcl 12.5 Mg/5 Ml Liquid) 25 mg PO BID JELANI Last Admin: 06/23/22 09:05 Dose: 25 mg Docusate Sodium (Docusate Sodium 100 Mg Capsule) 100 mg PO BEDTIME JELANI Last Admin: 06/22/22 20:15 Dose: 100 mg Haloperidol Lactate (Haloperidol Lactate 5 Mg/Ml Vial) 5 mg IM BID PRN PRN Reason: refusal of PO; per gomez order Haloperidol Lactate (Haloperidol Lactate Oral Conc 10 Mg/5 Ml Oral.Conc) 7.5 mg PO BID [facility] Last Admin: 06/23/22 09:07 Dose: 7.5 mg Hydroxyzine HCl (Hydroxyzine Hcl 25 Mg Tablet) 25 mg PO Q6H PRN PRN Reason: Anxiety Last Admin: 06/18/22 17:45 Dose: 25 mg [place] Carbonate ([place] Carbonate Er 300 Mg Tablet.Er) 600 mg PO DAILY [facility] Last Admin: 06/23/22 09:04 Dose: 600 mg [place] Carbonate ([place] Carbonate Er 450 Mg Tablet.Er) 900 mg PO BEDTIME [facility] Last Admin: 06/22/22 20:14 Dose: 900 mg Magnesium Hydroxide (Milk Of Magnesia 30 Ml Oral.Susp) 30 ml PO DAILY PRN PRN Reason: Constipation Last Admin: 06/10/22 17:35 Dose: 30 ml Melatonin (Melatonin 3 Mg Tablet) 6 mg PO BEDTIME [facility] Last Admin: 06/22/22 20:13 Dose: 6 mg Omeprazole (Omeprazole 20 Mg Capsule.Dr) 20 mg PO DAILY@0630 [facility] Last Admin: 06/23/22 09:03 Dose: 20 mg Prazosin HCl (Prazosin Hcl 1 Mg Capsule) 2 mg PO BEDTIME [facility]; Protocol Last Admin: 06/22/22 20:14 Dose: 2 mg Trazodone HCl (Trazodone Hcl 50 Mg Tablet) 50 mg PO BEDTIME PRN PRN Reason: Insomnia Last Admin: 06/21/22 20:55 Dose: 50 mg Allergies Allergies Allergy/AdvReac Type Severity Reaction Status Date / Time depakote AdvReac Severe elevated Uncoded 05/19/22 22:38 ammonia Assessment & Plan Assessment & Plan (1) Schizoaffective disorder, bipolar type: Status: Acute Code(s): F25.0 - Schizoaffective disorder, bipolar type Assessment and Plan: ongoing thought disorder at least 06/12/22 Plan 05/05: possibly manic, will invest more effort in trying to get mood stabilizer on board. continue zydis for now, start VPA sprinkles. 05/06: no change in mgmt. 05/07: no change in presentation. change VPA from sprinkles back to pills due to large number of sprinkles pills required to generate 1500 mg of VPA. pt not compliant with VPA, has been taking some zyprexa; change formulation to zydis to improve bioavailability. plan to move to file for commitment next week if pt doesn't soon begin to reliably take medication. 05/08 no change 05/09 no change 05/10: no change to mgmt. chewed meds x 1 over weekend, cheeking/furtively disposing of meds otherwise. 05/11: generally refusing meds. informed he will be filed on tomorrow. attempting to bargain over taking meds and discharge. will investigate obtaining VPA soln. 05/12: commitment paperwork filed. pt took all meds last night and this morning, including liquid VPA. aware of legal circumstance, unclear how well he is able to appreciate it. 2: asking about discharge, states he is compliant with meds (as also say nursing staff). states he is feeling better, but unable to say in what way. sleeping and eating well. 23: repeated checking-in with MD throughout the day. remains disorganized and apparently RIS. med-compliant. 05/15: sleeping midday. no change in presentation. 05/16: no change in presentation or plan. 05/17: no change in presentation or plan. commitment hearing tomorrow. 05/18: no change in presentation. committed to the hospital at [facility]. 05/19: allowed blood draw, VPA level 105 with ammonia 110; DC VPA and start tegretol, as pt will not be able to tolerate VPA due to hyperammonemic encephalo olivia. DC zyprexa as well as it lacks usable COUCH. start paliperidone PO, convert to COUCH once it is established pt is tolerating the medication. 05/20: continue to establish on tegretol and invega. introduce COUCH once pt stable on PO formulation for several days. check tegretol levels after about a week. no change in presentation. 05/21 continue current medication. 05/22 continue current treatment plan 05/23 continue current treatment plan 05/24 continue current medications. continues with psychosis/delusions. 05/25 continue current tx. 05/26 continue tx. 05/27 continue tx. vaughn do tegretol level Sat. 05/28 continue tx. 05/29 continue tx. 05/30 continue tx. not much improvement. continues to self dialoguing 05/31 continue tx. minimal improvement. 06/01 continue tx. may want to consider change in antipsychotic. 06/02: no change since last seen 05/20. on paliperidone 12 mg daily. tegretol level 5.2. trend LFTs; slightly elevated. willing to have lithium added today. 06/03: reports improved concentration today with lithium addition. continue current mgmt. T/C different neuroleptic, T/C increase in tegretol dosing. 06/04: continue current mgmt. check lithium on tuesday. stable presentation. 06/05: continue current mgmt. stable presentation. 06/06: as for 06/05. 06/07: no change in presentation. checking labs tonight. 06/08 continue tx. 06/09: tegretol 7.7, lithium 0.34. increase tegretol dosing to 300 BID and lithium dosing to 600 BID. no change in presentation. 06/10: no change in presentation. 06/11: hypertensive and borderline tachy. follow. stable presentation, continue current mgmt. check labs early next week. 06/14: lithium checked today, 0.67. increase lithium dosing from 600 BID to 600/900. check tegretol level and rest of labs tomorrow morning. no change in presentation. 06/15: tegretol level 6.2 currently. pt is reported to have c/o dizziness, but denies said Sx upon MD inquiry. increase tegretol from 300 BID to 300/400 as of tonight. T/C change in neuroleptic. no change in presentation. 06/16: no change in plan or presentation for today. 06/17: no change in presentation. check head CT, U/A, ESR, TORIN, TSH/T4, B12/folate, HIV, Hep C, RPR. lab abnormalities include chronic leukopenia, increase urine spec grav w/proteinuria and ketonuria. DC paliperidone as it appears to have changed nothing, start trial of haldol. thus far zyprexa and invega have not helped. haldol, prolixin, and abilify are the medications which remain on the stevo's order. 06/18: tolerating haldol currently. no change in presentation. continue current mgmt. 06/19: Continue current regimen and plans 06/20: Continue current regimen plans 06/21: no change in presentation. increase haldol from 5 BID to 7.5 BID. otherwise continue current mgmt. 06/22: continue current mgmt. no change in presentation. case discussed with medical receptionist biller. 06/23: continue current mgmt. no change in presentation. T/C petitioning court for clozaril and ECT. Reason for contiued inpatient stay Substantial Risk for: harm to self, harm to others, inability to function and rapid decompensation Time Spent With Patient Time: Total time managing care of this patient today __25__ minutes.
[2022-06-23] MEDS: hydrOXYzine HCL 25 MG TABLET PO (18:27)
[2022-06-23 20:35] VITALS: BP 136/66; PULSE 77; RESP 16; TEMP 36.4; O2SAT 95
[2022-06-23] MEDS: carBAMazepine 200 MG/10 ML ORAL.SUSP 400 MG PO (20:36)
[2022-06-23] MEDS: Lithium Carbonate ER 450 MG TABLET.ER 900 MG PO (20:36)
[2022-06-23] MEDS: Docusate Sodium 100 MG CAPSULE PO (20:36)
[2022-06-23] MEDS: Prazosin HCL 1 MG CAPSULE 2 MG PO (20:37)
[2022-06-23] MEDS: Melatonin 3 MG TABLET 6 MG PO (20:37)
[2022-06-24 07:00] VITALS: BMI 26.3
[2022-06-24 09:24] VITALS: BP 123/66; PULSE 74; RESP 18; TEMP 36.2; O2SAT 98
[2022-06-24] MEDS: Omeprazole 20 MG CAPSULE.DR PO (09:25)
[2022-06-24] MEDS: Lithium Carbonate ER 300 MG TABLET.ER 600 MG PO (09:25)
[2022-06-24] MEDS: diphenhydrAMINE HCl 12.5 MG/5 ML LIQUID 25 MG PO ×2 (09:26→21:35)
[2022-06-24] MEDS: Haloperidol Lactate Oral Conc 10 MG/5 ML ORAL.CONC 7.5 MG PO ×2 (09:27→21:35)
[2022-06-24] MEDS: carBAMazepine 200 MG/10 ML ORAL.SUSP 300 MG PO (09:28)
[2022-06-24] MEDS: hydrOXYzine HCL 25 MG TABLET PO (11:57)
--- NOTE | 2022-06-24 14:19 | P.PNPSI_ITS ---
Subjective Subjective Date of Service: 06/24/22 Reason For Visit: psychosis/nikita Interim History: no change in presentation. per staff, attended three groups yesterday, isolative. sleeping well. eating, showering. no change in presentation. Mental Status Exam Mental Status Exam Narrative: Appearance: up and about the unit Behavior: engaging on very limited subject matter Psychomotor: pacing the halls Speech: spontaneous, rapid; nml amount TP: disorganized TC: vague, vacuous Mood: good Affect: full range, normo-intense, non-labile. bizarre smiling and laughing not c/w context. AH/VH: none expressed SI: none expressed HI: none expressed Insight/judgment: impaired x 2. Memory/cog: alert, not oriented to situation. impaired secondary to psychiatric symptoms. Diagnostics Vital Signs (24Hr): Vital Signs - 24 hr 06/23/22 20:35 06/24/22 09:24 Temperature 97.6 F 97.2 F Pulse Rate 77 74 Respiratory Rate 16 18 Blood Pressure 136/66 123/66 Pulse Oximetry 95 98 Oxygen Delivery Method Room Air Room Air BMI result Body Mass Index 26.3 Labs 06/15/22 08:45 06/15/22 08:45 Imaging Radiology Impressions: ITS Impressions Head CT 06/17/22 15:28 IMPRESSION: No acute intracranial abnormality including hemorrhage, mass effect, hydrocephalus, or acute territorial edematous infarction. Medications Medications Current Medications Acetaminophen (Acetaminophen 325 Mg Tablet) 650 mg PO Q6H PRN PRN Reason: Headache/Pain Mild Scale (1-3) Last Admin: 06/23/22 15:03 Dose: 650 mg Al Hydroxide/Mg Hydroxide (Magnesium Hydrox/Alum Hydrox 30 Ml Oral.Susp) 30 ml PO Q6H PRN PRN Reason: Heartburn/Nausea Last Admin: 06/20/22 21:48 Dose: 30 ml Benztropine Mesylate (Benztropine Mesylate 1 Mg Tablet) 1 mg PO TID PRN PRN Reason: Extrapyramidal Effects Carbamazepine (Carbamazepine 200 Mg/10 Ml Oral.Susp) 400 mg PO BEDTIME JELANI Last Admin: 06/23/22 20:36 Dose: 400 mg Carbamazepine (Carbamazepine 200 Mg/10 Ml Oral.Susp) 300 mg PO DAILY JELANI Last Admin: 06/24/22 09:28 Dose: 300 mg Diphenhydramine HCl (Diphenhydramine Hcl 12.5 Mg/5 Ml Liquid) 25 mg PO BID [facility] Last Admin: 06/24/22 09:26 Dose: 25 mg Docusate Sodium (Docusate Sodium 100 Mg Capsule) 100 mg PO BEDTIME [facility] Last Admin: 06/23/22 20:36 Dose: 100 mg Haloperidol Lactate (Haloperidol Lactate 5 Mg/Ml Vial) 5 mg IM BID PRN PRN Reason: refusal of PO; per gomez order Haloperidol Lactate (Haloperidol Lactate Oral Conc 10 Mg/5 Ml Oral.Conc) 7.5 mg PO BID [facility] Last Admin: 06/24/22 09:27 Dose: 7.5 mg Hydroxyzine HCl (Hydroxyzine Hcl 25 Mg Tablet) 25 mg PO Q6H PRN PRN Reason: Anxiety Last Admin: 06/24/22 11:57 Dose: 25 mg [place] Carbonate ([place] Carbonate Er 300 Mg Tablet.Er) 600 mg PO DAILY [facility] Last Admin: 06/24/22 09:25 Dose: 600 mg [place] Carbonate ([place] Carbonate Er 450 Mg Tablet.Er) 900 mg PO BEDTIME [facility] Last Admin: 06/23/22 20:36 Dose: 900 mg Magnesium Hydroxide (Milk Of Magnesia 30 Ml Oral.Susp) 30 ml PO DAILY PRN PRN Reason: Constipation Last Admin: 06/10/22 17:35 Dose: 30 ml Melatonin (Melatonin 3 Mg Tablet) 6 mg PO BEDTIME [facility] Last Admin: 06/23/22 20:37 Dose: 6 mg Omeprazole (Omeprazole 20 Mg Capsule.Dr) 20 mg PO DAILY@0630 [facility] Last Admin: 06/24/22 09:25 Dose: 20 mg Prazosin HCl (Prazosin Hcl 1 Mg Capsule) 2 mg PO BEDTIME [facility]; Protocol Last Admin: 06/23/22 20:37 Dose: 2 mg Trazodone HCl (Trazodone Hcl 50 Mg Tablet) 50 mg PO BEDTIME PRN PRN Reason: Insomnia Last Admin: 06/21/22 20:55 Dose: 50 mg Allergies Allergies Allergy/AdvReac Type Severity Reaction Status Date / Time depakote AdvReac Severe elevated Uncoded 05/19/22 22:38 ammonia Assessment & Plan Assessment & Plan (1) Schizoaffective disorder, bipolar type: Status: Acute Code(s): F25.0 - Schizoaffective disorder, bipolar type Assessment and Plan: ongoing thought disorder at least 3/4/23 Plan 05/05: possibly manic, will invest more effort in trying to get mood stabilizer on board. continue zydis for now, start VPA sprinkles. 05/06: no change in mgmt. 05/07: no change in presentation. change VPA from sprinkles back to pills due to large number of sprinkles pills required to generate 1500 mg of VPA. pt not compliant with VPA, has been taking some zyprexa; change formulation to zydis to improve bioavailability. plan to move to file for commitment next week if pt doesn't soon begin to reliably take medication. 05/08 no change 05/09 no change 05/10: no change to mgmt. chewed meds x 1 over weekend, cheeking/furtively disposing of meds otherwise. 05/11: generally refusing meds. informed he will be filed on tomorrow. attempting to bargain over taking meds and discharge. will investigate obtaining VPA soln. 05/12: commitment paperwork filed. pt took all meds last night and this morning, including liquid VPA. aware of legal circumstance, unclear how well he is able to appreciate it. 2: asking about discharge, states he is compliant with meds (as also say nursing staff). states he is feeling better, but unable to say in what way. sleeping and eating well. 05/14: repeated checking-in with MD throughout the day. remains disorganized and apparently RIS. med-compliant. 05/15: sleeping midday. no change in presentation. 05/16: no change in presentation or plan. 05/17: no change in presentation or plan. commitment hearing tomorrow. 05/18: no change in presentation. committed to the hospital at hearing. 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 DC zyprexa as well as it lacks usable COUCH. start paliperidone PO, convert to COUCH once it is established pt is tolerating the medication. 05/20: continue to establish on tegretol and invega. introduce COUCH once pt stable on PO formulation for several days. check tegretol levels after about a week. no change in presentation. 05/21 continue current medication. 05/22 continue current treatment plan 05/23 continue current treatment plan 05/24 continue current medications. continues with psychosis/delusions. 05/25 continue current tx. 05/26 continue tx. 05/27 continue tx. vaughn do tegretol level Sat. 05/28 continue tx. 05/29 continue tx. 05/30 continue tx. not much improvement. continues to self dialoguing 05/31 continue tx. minimal improvement. 06/01 continue tx. may want to consider change in antipsychotic. 06/02: no change since last seen 05/20. on paliperidone 12 mg daily. tegretol level 5.2. trend LFTs; slightly elevated. willing to have lithium added today. 06/03: reports improved concentration today with lithium addition. continue current mgmt. T/C different neuroleptic, T/C increase in tegretol dosing. 06/04: continue current mgmt. check lithium on tuesday. stable presentation. 06/05: continue current mgmt. stable presentation. 06/06: as for 06/05. 06/07: no change in presentation. checking labs tonight. 06/08 continue tx. 06/09: tegretol 7.7, lithium 0.34. increase tegretol dosing to 300 BID and lithium dosing to 600 BID. no change in presentation. 06/10: no change in presentation. 06/11: hypertensive and borderline tachy. follow. stable presentation, continue current mgmt. check labs early next week. 06/14: lithium checked today, 0.67. increase lithium dosing from 600 BID to 600/900. check tegretol level and rest of labs tomorrow morning. no change in presentation. 06/15: tegretol level 6.2 currently. pt is reported to have c/o dizziness, but sadia dowling said Sx upon MD inquiry. increase tegretol from 300 BID to 300/400 as of tonight. T/C change in neuroleptic. no change in presentation. 06/16: no change in plan or presentation for today. 06/17: no change in presentation. check head CT, U/A, ESR, TORIN, TSH/T4, B12/folate, HIV, Hep C, RPR. lab abnormalities include chronic leukopenia, increase urine spec grav w/proteinuria and ketonuria. DC paliperidone as it appears to have changed nothing, start trial of haldol. thus far zyprexa and invega have not helped. haldol, prolixin, and abilify are the medications which remain on the [facility]evo's order. 06/18: tolerating haldol currently. no change in presentation. continue current mgmt. 06/19: Continue current regimen and plans 06/20: Continue current regimen plans 06/21: no change in presentation. increase haldol from 5 BID to 7.5 BID. otherwise continue current mgmt. 06/22: continue current mgmt. no change in presentation. case discussed with medical clinic manager. 06/23: continue current mgmt. no change in presentation. T/C petitioning court for clozaril and ECT 06/24: continue current mgmt. no change in presentation. T/C petitioning court for clozaril and ECT.. Reason for contiued inpatient stay Substantial Risk for: inability to function and rapid decompensation Time Spent With Patient Time: Total time managing care of this patient today _20___ minutes.
[2022-06-24] MEDS: Magnesium Hydrox/Alum Hydrox 30 ML ORAL.SUSP PO (17:39)
[2022-06-24] MEDS: carBAMazepine 200 MG/10 ML ORAL.SUSP 400 MG PO (21:35)
[2022-06-24 21:45] VITALS: BP 119/70; PULSE 84; RESP 18; TEMP 36.7; O2SAT 97
[2022-06-24] MEDS: Docusate Sodium 100 MG CAPSULE PO (21:46)
[2022-06-24] MEDS: Melatonin 3 MG TABLET 6 MG PO (21:47)
[2022-06-24] MEDS: traZODone HCL 50 MG TABLET PO (21:47)
[2022-06-24] MEDS: Benztropine Mesylate 1 MG TABLET PO (21:47)
[2022-06-24] MEDS: Prazosin HCL 1 MG CAPSULE 2 MG PO (21:48)
[2022-06-24] MEDS: Lithium Carbonate ER 450 MG TABLET.ER 900 MG PO (21:48)
[2022-06-25 08:35] VITALS: BP 126/61; PULSE 82; RESP 17; TEMP 36.6; O2SAT 97
[2022-06-25] MEDS: Lithium Carbonate ER 300 MG TABLET.ER 600 MG PO (09:08)
[2022-06-25] MEDS: Omeprazole 20 MG CAPSULE.DR PO (09:08)
[2022-06-25] MEDS: Haloperidol Lactate Oral Conc 10 MG/5 ML ORAL.CONC 7.5 MG PO ×2 (09:08→21:25)
[2022-06-25] MEDS: diphenhydrAMINE HCl 12.5 MG/5 ML LIQUID 25 MG PO ×2 (09:11→21:25)
[2022-06-25] MEDS: carBAMazepine 200 MG/10 ML ORAL.SUSP 300 MG PO (09:12)
[2022-06-25] MEDS: Acetaminophen 325 MG TABLET 650 MG PO (14:19)
--- NOTE | 2022-06-25 14:23 | HO.PSYCHPN ---
Subjective Subjective Date of Service: 06/25/22 Reason For Visit: psychosis/nikita Interim History: no change in presentation. told MD he had induced vomiting last night bcse the liquid medication didn't taste good. he was advised to have some water after taking the medication. per staff, no change in presentation. guarded, avoidant. disorganized, distracted. focused on food. appeared to be cheeking meds last night. Mental Status Exam Mental Status Exam Narrative: Appearance: up and about the unit Behavior: engaging on very limited subject matter Psychomotor: pacing the halls Speech: spontaneous, rapid; nml amount TP: disorganized TC: vague, vacuous Mood: good Affect: full range, normo-intense, non-labile. bizarre smiling and laughing not c/w context. AH/VH: none expressed SI: none expressed HI: none expressed Insight/judgment: impaired x 2. Memory/cog: alert, not oriented to situation. impaired secondary to psychiatric symptoms. Diagnostics Vital Signs (24Hr): Vital Signs - 24 hr 06/24/22 21:45 06/25/22 08:35 Temperature 98.1 F 97.9 F Pulse Rate 84 82 Respiratory Rate 18 17 Blood Pressure 119/70 126/61 Pulse Oximetry 97 97 Oxygen Delivery Method Room Air Room Air BMI result Body Mass Index 26.3 Labs 06/15/22 08:45 06/15/22 08:45 Imaging Radiology Impressions: ITS Impressions Head CT 06/17/22 15:28 IMPRESSION: No acute intracranial abnormality including hemorrhage, mass effect, hydrocephalus, or acute territorial edematous infarction. Medications Medications Current Medications Acetaminophen (Acetaminophen 325 Mg Tablet) 650 mg PO Q6H PRN PRN Reason: Headache/Pain Mild Scale (1-3) Last Admin: 06/25/22 14:19 Dose: 650 mg Al Hydroxide/Mg Hydroxide (Magnesium Hydrox/Alum Hydrox 30 Ml Oral.Susp) 30 ml PO Q6H PRN PRN Reason: Heartburn/Nausea Last Admin: 06/24/22 17:39 Dose: 30 ml Benztropine Mesylate (Benztropine Mesylate 1 Mg Tablet) 1 mg PO TID PRN PRN Reason: Extrapyramidal Effects Last Admin: 06/24/22 21:47 Dose: 1 mg Carbamazepine (Carbamazepine 200 Mg/10 Ml Oral.Susp) 400 mg PO BEDTIME JELANI Last Admin: 06/24/22 21:35 Dose: 400 mg Carbamazepine (Carbamazepine 200 Mg/10 Ml Oral.Susp) 300 mg PO DAILY [facility] Last Admin: 06/25/22 09:12 Dose: 300 mg Diphenhydramine HCl (Diphenhydramine Hcl 12.5 Mg/5 Ml Liquid) 25 mg PO BID [facility] Last Admin: 06/25/22 09:11 Dose: 25 mg Docusate Sodium (Docusate Sodium 100 Mg Capsule) 100 mg PO BEDTIME JELANI Last Admin: 06/24/22 21:46 Dose: 100 mg Haloperidol Lactate (Haloperidol Lactate 5 Mg/Ml Vial) 5 mg IM BID PRN PRN Reason: refusal of PO; per gomez order Haloperidol Lactate (Haloperidol Lactate Oral Conc 10 Mg/5 Ml Oral.Conc) 7.5 mg PO BID [facility] Last Admin: 06/25/22 09:08 Dose: 7.5 mg Hydroxyzine HCl (Hydroxyzine Hcl 25 Mg Tablet) 25 mg PO Q6H PRN PRN Reason: Anxiety Last Admin: 06/24/22 11:57 Dose: 25 mg [place] Carbonate ([place] Carbonate Er 300 Mg Tablet.Er) 600 mg PO DAILY [facility] Last Admin: 06/25/22 09:08 Dose: 600 mg [place] Carbonate ([place] Carbonate Er 450 Mg Tablet.Er) 900 mg PO BEDTIME [facility] Last Admin: 06/24/22 21:48 Dose: 900 mg Magnesium Hydroxide (Milk Of Magnesia 30 Ml Oral.Susp) 30 ml PO DAILY PRN PRN Reason: Constipation Last Admin: 06/10/22 17:35 Dose: 30 ml Melatonin (Melatonin 3 Mg Tablet) 6 mg PO BEDTIME [facility] Last Admin: 06/24/22 21:47 Dose: 6 mg Omeprazole (Omeprazole 20 Mg Capsule.Dr) 20 mg PO DAILY@0630 [facility] Last Admin: 06/25/22 09:08 Dose: 20 mg Prazosin HCl (Prazosin Hcl 1 Mg Capsule) 2 mg PO BEDTIME [facility]; Protocol Last Admin: 06/24/22 21:48 Dose: 2 mg Trazodone HCl (Trazodone Hcl 50 Mg Tablet) 50 mg PO BEDTIME PRN PRN Reason: Insomnia Last Admin: 06/24/22 21:47 Dose: 50 mg Allergies Allergies Allergy/AdvReac Type Severity Reaction Status Date / Time depakote AdvReac Severe elevated Uncoded 05/19/22 22:38 ammonia Assessment & Plan Assessment & Plan (1) Schizoaffective disorder, bipolar type: Status: Acute Code(s): F25.0 - Schizoaffective disorder, bipolar type Assessment and Plan: ongoing thought disorder at least 06/12/22 Plan 05/05: possibly manic, will invest more effort in trying to get mood stabilizer on board. continue zydis for now, start VPA sprinkles. 05/06: no change in mgmt. 05/07: no change in presentation. change VPA from sprinkles back to pills due to large number of sprinkles pills required to generate 1500 mg of VPA. pt not compliant with VPA, has been taking some zyprexa; change formulation to zydis to improve bioavailability. plan to move to file for commitment next week if pt doesn't soon begin to reliably take medication. 05/08 no change 05/09 no change 05/10: no change to mgmt. chewed meds x 1 over weekend, cheeking/furtively disposing of meds otherwise. 05/11: generally refusing meds. informed he will be filed on tomorrow. attempting to bargain over taking meds and discharge. will investigate obtaining VPA soln. 05/12: commitment paperwork filed. pt took all meds last night and this morning, including liquid VPA. aware of legal circumstance, unclear how well he is able to appreciate it. 05/13: asking about discharge, states he is compliant with meds (as also say nursing staff). states he is feeling better, but unable to say in what way. sleeping and eating well. 2: repeated checking-in with MD throughout the day. remains disorganized and apparently RIS. med-compliant. 05/15: sleeping midday. no change in presentation. 05/16: no change in presentation or plan. 05/17: no change in presentation or plan. commitment hearing tomorrow. 05/18: no change in presentation. committed to the hospital at [facility]. 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 DC zyprexa as well as it lacks usable COUCH. start paliperidone PO, convert to COUCH once it is established pt is tolerating the medication. 05/20: continue to establish on tegretol and invega. introduce COUCH once pt stable on PO formulation for several days. check tegretol levels after about a week. no change in presentation. 05/21 continue current medication. 05/22 continue current treatment plan 05/23 continue current treatment plan 05/24 continue current medications. continues with psychosis/delusions. 05/25 continue current tx. 05/26 continue tx. 05/27 continue tx. vaughn do tegretol level Sat. 05/28 continue tx. 05/29 continue tx. 05/30 continue tx. not much improvement. continues to self dialoguing 05/31 continue tx. minimal improvement. 06/01 continue tx. may want to consider change in antipsychotic. 06/02: no change since last seen 05/20. on paliperidone 12 mg daily. tegretol level 5.2. trend LFTs; slightly elevated. willing to have lithium added today. 06/03: reports improved concentration today with lithium addition. continue current mgmt. T/C different neuroleptic, T/C increase in tegretol dosing. 06/04: continue current mgmt. check lithium on tuesday. stable presentation. 06/05: continue current mgmt. stable presentation. 06/06: as for 06/05. 06/07: no change in presentation. checking labs tonight. 06/08 continue tx. 06/09: tegretol 7.7, lithium 0.34. increase tegretol dosing to 300 BID and lithium dosing to 600 BID. no change in presentation. 06/10: no change in presentation. 06/11: hypertensive and borderline tachy. follow. stable presentation, continue current mgmt. check labs early next week. 06/14: lithium checked today, 0.67. increase lithium dosing from 600 BID to 600/900. check tegretol level and rest of labs tomorrow morning. no change in presentation. 06/15: tegretol level 6.2 currently. pt is reported to have c/o dizziness, but denies said Sx upon MD inquiry. increase tegretol from 300 BID to 300/400 as of tonight. T/C change in neuroleptic. no change in presentation. 06/16: no change in plan or presentation for today. 06/17: no change in presentation. check head CT, U/A, ESR, TORIN, TSH/T4, B12/folate, HIV, Hep C, RPR. lab abnormalities include chronic leukopenia, increase urine spec grav w/proteinuria and ketonuria. DC paliperidone as it appears to have changed nothing, start trial of haldol. thus far zyprexa and invega have not helped. haldol, prolixin, and abilify are the medications which remain on the stevo's order. 06/18: tolerating haldol currently. no change in presentation. continue current mgmt. 06/19: Continue current regimen and plans 06/20: Continue current regimen plans 06/21: no change in presentation. increase haldol from 5 BID to 7.5 BID. otherwise continue current mgmt. 06/22: continue current mgmt. no change in presentation. case discussed with medical library assistant. 06/23: continue current mgmt. no change in presentation. T/C petitioning court for clozaril and ECT 06/24: continue current mgmt. no change in presentation. T/C petitioning court for clozaril and ECT. 06/25: no change. pt reported inducing vomiting after taking meds. staff believe pt cheeked meds last night and then went immediately to the bathroom. place patient on 1:1 for 30 minutes after meals. Reason for contiued inpatient stay Substantial Risk for: harm to self, harm to others, inability to function and rapid decompensation Time Spent With Patient Time: Total time managing care of this patient today _25___ minutes.
[2022-06-25] MEDS: hydrOXYzine HCL 25 MG TABLET PO (14:41)
[2022-06-25 21:25] VITALS: BP 144/76; PULSE 90; RESP 18; TEMP 36.6; O2SAT 96
[2022-06-25] MEDS: carBAMazepine 200 MG/10 ML ORAL.SUSP 400 MG PO (21:25)
[2022-06-25] MEDS: Melatonin 3 MG TABLET 6 MG PO (21:28)
[2022-06-25] MEDS: Docusate Sodium 100 MG CAPSULE PO (21:28)
[2022-06-25] MEDS: Lithium Carbonate ER 450 MG TABLET.ER 900 MG PO (21:28)
[2022-06-25] MEDS: traZODone HCL 50 MG TABLET PO (21:28)
[2022-06-25] MEDS: Benztropine Mesylate 1 MG TABLET PO (21:28)
[2022-06-25] MEDS: Prazosin HCL 1 MG CAPSULE 2 MG PO (21:28)
[2022-06-26 09:30] VITALS: BP 132/60; PULSE 67; RESP 18; TEMP 36.7; O2SAT 99
[2022-06-26] MEDS: Lithium Carbonate ER 300 MG TABLET.ER 600 MG PO (10:29)
[2022-06-26] MEDS: diphenhydrAMINE HCl 12.5 MG/5 ML LIQUID 25 MG PO ×2 (10:31→21:47)
[2022-06-26] MEDS: Omeprazole 20 MG CAPSULE.DR PO (10:31)
[2022-06-26] MEDS: carBAMazepine 200 MG/10 ML ORAL.SUSP 300 MG PO (10:33)
[2022-06-26] MEDS: Haloperidol Lactate Oral Conc 10 MG/5 ML ORAL.CONC 7.5 MG PO ×2 (10:35→21:48)
--- NOTE | 2022-06-26 12:39 | P.PNPSI_ITS ---
Subjective Subjective Date of Service: 06/26/22 Reason For Visit: psychosis/nikita Subjective Notes: Section 7 and Section 8 Interim History: The nursing staff reported the patient is on precautions for cheeking medication, he had been perseverative at times denies anxiety or depression he looks slightly confused. On interview the patient was on his bed and he was reluctant to engage in conversation. No new symptoms Mental Status Exam Mental Status Exam Patient Appearance: Appropriate Patient Orientation: Person Level of Consciousness: Awake and Lethargic Patient Behavior: Guarded Mood Description: Withdrawn Affect Description: Constricted Patient Cognition Impaired: Yes Ability to Follow Directions: Good Hallucinations: None Delusions: Paranoid Ideation Thought Process: Distracted and Slowed Thinking Thought Content: positive for Diagonal, positive for Circumstantial and positive for Loose Associations Judgement: Poor Diagnostics Vital Signs (24Hr): Vital Signs - 24 hr 06/25/22 21:25 06/26/22 09:30 Temperature 97.8 F 98.0 F Pulse Rate 90 67 Respiratory Rate 18 18 Blood Pressure 144/76 H 132/60 Pulse Oximetry 96 99 Oxygen Delivery Method Room Air Room Air BMI result Body Mass Index 26.3 Labs 06/15/22 08:45 06/15/22 08:45 Imaging Radiology Impressions: ITS Impressions Head CT 06/17/22 15:28 IMPRESSION: No acute intracranial abnormality including hemorrhage, mass effect, hydrocephalus, or acute territorial edematous infarction. Medications Medications Current Medications Acetaminophen (Acetaminophen 325 Mg Tablet) 650 mg PO Q6H PRN PRN Reason: Headache/Pain Mild Scale (1-3) Last Admin: 06/25/22 14:19 Dose: 650 mg Al Hydroxide/Mg Hydroxide (Magnesium Hydrox/Alum Hydrox 30 Ml Oral.Susp) 30 ml PO Q6H PRN PRN Reason: Heartburn/Nausea Last Admin: 06/24/22 17:39 Dose: 30 ml Benztropine Mesylate (Benztropine Mesylate 1 Mg Tablet) 1 mg PO TID PRN PRN Reason: Extrapyramidal Effects Last Admin: 06/25/22 21:28 Dose: 1 mg Carbamazepine (Carbamazepine 200 Mg/10 Ml Oral.Susp) 400 mg PO BEDTIME JELANI Last Admin: 06/25/22 21:25 Dose: 400 mg Carbamazepine (Carbamazepine 200 Mg/10 Ml Oral.Susp) 300 mg PO DAILY JELANI Last Admin: 06/26/22 10:33 Dose: 300 mg Diphenhydramine HCl (Diphenhydramine Hcl 12.5 Mg/5 Ml Liquid) 25 mg PO BID [facility] Last Admin: 06/26/22 10:31 Dose: 25 mg Docusate Sodium (Docusate Sodium 100 Mg Capsule) 100 mg PO BEDTIME JELANI Last Admin: 06/25/22 21:28 Dose: 100 mg Haloperidol Lactate (Haloperidol Lactate 5 Mg/Ml Vial) 5 mg IM BID PRN PRN Reason: refusal of PO; per gomez order Haloperidol Lactate (Haloperidol Lactate Oral Conc 10 Mg/5 Ml Oral.Conc) 7.5 mg PO BID [facility] Last Admin: 06/26/22 10:35 Dose: 7.5 mg Hydroxyzine HCl (Hydroxyzine Hcl 25 Mg Tablet) 25 mg PO Q6H PRN PRN Reason: Anxiety Last Admin: 06/25/22 14:41 Dose: [address] [place] Carbonate ([place] Carbonate Er 300 Mg Tablet.Er) 600 mg PO DAILY [facility] Last Admin: 06/26/22 10:29 Dose: [address] [place] Carbonate ([place] Carbonate Er 450 Mg Tablet.Er) 900 mg PO BEDTIME [facility] Last Admin: 06/25/22 21:28 Dose: 900 mg Magnesium Hydroxide (Milk Of Magnesia 30 Ml Oral.Susp) 30 ml PO DAILY PRN PRN Reason: Constipation Last Admin: 06/10/22 17:35 Dose: 30 ml Melatonin (Melatonin 3 Mg Tablet) 6 mg PO BEDTIME [facility] Last Admin: 06/25/22 21:28 Dose: 6 mg Omeprazole (Omeprazole 20 Mg Capsule.Dr) 20 mg PO DAILY@0630 [facility] Last Admin: 06/26/22 10:31 Dose: 20 mg Prazosin HCl (Prazosin Hcl 1 Mg Capsule) 2 mg PO BEDTIME [facility]; Protocol Last Admin: 06/25/22 21:28 Dose: 2 mg Trazodone HCl (Trazodone Hcl 50 Mg Tablet) 50 mg PO BEDTIME PRN PRN Reason: Insomnia Last Admin: 06/25/22 21:28 Dose: 50 mg Allergies Allergies Allergy/AdvReac Type Severity Reaction Status Date / Time depakote AdvReac Severe elevated Uncoded 05/19/22 22:38 ammonia Assessment & Plan Assessment & Plan (1) Schizoaffective disorder, bipolar type: Status: Acute Code(s): F25.0 - Schizoaffective disorder, bipolar type Assessment and Plan: ongoing thought disorder at least 06/12/22 Plan 05/05: possibly manic, will invest more effort in trying to get mood stabilizer on board. continue zydis for now, start VPA sprinkles. 05/06: no change in mgmt. 05/07: no change in presentation. change VPA from sprinkles back to pills due to large number of sprinkles pills required to generate 1500 mg of VPA. pt not compliant with VPA, has been taking some zyprexa; change formulation to zydis to improve bioavailability. plan to move to file for commitment next week if pt doesn't soon begin to reliably take medication. 05/08 no change 05/09 no change 05/10: no change to mgmt. chewed meds x 1 over weekend, cheeking/furtively disposing of meds otherwise. 05/11: generally refusing meds. informed he will be filed on tomorrow. attempting to bargain over taking meds and discharge. will investigate obtaining VPA soln. 05/12: commitment paperwork filed. pt took all meds last night and this morning, including liquid VPA. aware of legal circumstance, unclear how well he is able to appreciate it. 2: asking about discharge, states he is compliant with meds (as also say nursing staff). states he is feeling better, but unable to say in what way. sleeping and eating well. 23: repeated checking-in with MD throughout the day. remains disorganized and apparently RIS. med-compliant. 05/15: sleeping midday. no change in presentation. 05/16: no change in presentation or plan. 05/17: no change in presentation or plan. commitment hearing tomorrow. 05/18: no change in presentation. committed to the hospital at hearing. 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 DC zyprexa as well as it lacks usable COUCH. start paliperidone PO, convert to COUCH once it is established pt is tolerating the medication. 05/20: continue to establish on tegretol and invega. introduce COUCH once pt stable on PO formulation for several days. check tegretol levels after about a week. no change in presentation. 05/21 continue current medication. 05/22 continue current treatment plan 05/23 continue current treatment plan 05/24 continue current medications. continues with psychosis/delusions. 05/25 continue current tx. 05/26 continue tx. 05/27 continue tx. vaughn do tegretol level Sat. 05/28 continue tx. 05/29 continue tx. 05/30 continue tx. not much improvement. continues to self dialoguing 05/31 continue tx. minimal improvement. 06/01 continue tx. may want to consider change in antipsychotic. 06/02: no change since last seen 05/20. on paliperidone 12 mg daily. tegretol level 5.2. trend LFTs; slightly elevated. willing to have lithium added today. 06/03: reports improved concentration today with lithium addition. continue current mgmt. T/C different neuroleptic, T/C increase in tegretol dosing. 06/04: continue current mgmt. check lithium on tuesday. stable presentation. 06/05: continue current mgmt. stable presentation. 06/06: as for 06/05. 06/07: no change in presentation. checking labs tonight. 06/08 continue tx. 06/09: tegretol 7.7, lithium 0.34. increase tegretol dosing to 300 BID and lithium dosing to 600 BID. no change in presentation. 06/10: no change in presentation. 06/11: hypertensive and borderline tachy. follow. stable presentation, continue current mgmt. check labs early next week. 06/14: lithium checked today, 0.67. increase lithium dosing from 600 BID to 600/900. check tegretol level and rest of labs tomorrow morning. no change in presentation. 06/15: tegretol level 6.2 currently. pt is reported to have c/o dizziness, but denies said Sx upon MD inquiry. increase tegretol from 300 BID to 300/400 as of tonight. T/C change in neuroleptic. no change in presentation. 06/16: no change in plan or presentation for today. 06/17: no change in presentation. check head CT, U/A, ESR, TORIN, TSH/T4, B12/folate, HIV, Hep C, RPR. lab abnormalities include chronic leukopenia, increase urine spec grav w/proteinuria and ketonuria. DC paliperidone as it appears to have changed nothing, start trial of haldol. thus far zyprexa and invega have not helped. haldol, prolixin, and abilify are the medications which remain on the stevo's order. 06/18: tolerating haldol currently. no change in presentation. continue current mgmt. 06/19: Continue current regimen and plans 06/20: Continue current regimen plans 06/21: no change in presentation. increase haldol from 5 BID to 7.5 BID. otherwise continue current mgmt. 06/22: continue current mgmt. no change in presentation. case discussed with medical records director. 06/23: continue current mgmt. no change in presentation. T/C petitioning court for clozaril and ECT 06/24: continue current mgmt. no change in presentation. T/C petitioning court for clozaril and ECT. 06/25: no change. pt reported inducing vomiting after taking meds. staff believe pt cheeked meds last night and then went immediately to the bathroom. place patient on 1:1 for 30 minutes after meals. 06/26 keep same treatment Reason for contiued inpatient stay Substantial Risk for: inability to function, rapid decompensation and med/psych decompensation Time Spent With Patient Time: Total time managing care of this patient today _20___ minutes.
[2022-06-26 14:53] VITALS: BP 123/63; PULSE 93; RESP 18; TEMP 36.5; O2SAT 97
[2022-06-26 21:44] VITALS: BP 147/63; PULSE 100; RESP 18; TEMP 36.1; O2SAT 96
[2022-06-26] MEDS: Docusate Sodium 100 MG CAPSULE PO (21:45)
[2022-06-26] MEDS: Melatonin 3 MG TABLET 6 MG PO (21:45)
[2022-06-26] MEDS: Lithium Carbonate ER 450 MG TABLET.ER 900 MG PO (21:45)
[2022-06-26] MEDS: Prazosin HCL 1 MG CAPSULE 2 MG PO (21:47)
[2022-06-26] MEDS: carBAMazepine 200 MG/10 ML ORAL.SUSP 400 MG PO (21:47)
[2022-06-26] MEDS: Benztropine Mesylate 1 MG TABLET PO (21:47)
[2022-06-26] MEDS: traZODone HCL 50 MG TABLET PO (21:47)
[2022-06-27] MEDS: Omeprazole 20 MG CAPSULE.DR PO (08:19)
[2022-06-27] MEDS: Lithium Carbonate ER 300 MG TABLET.ER 600 MG PO (08:19)
[2022-06-27 08:20] VITALS: BP 133/67; PULSE 79; RESP 16; TEMP 36.7; O2SAT 98
[2022-06-27] MEDS: carBAMazepine 200 MG/10 ML ORAL.SUSP 300 MG PO (08:20)
[2022-06-27] MEDS: Haloperidol Lactate Oral Conc 10 MG/5 ML ORAL.CONC 7.5 MG PO ×2 (08:20→20:23)
[2022-06-27] MEDS: diphenhydrAMINE HCl 12.5 MG/5 ML LIQUID 25 MG PO ×2 (08:20→20:23)
--- NOTE | 2022-06-27 13:27 | P.PNPSI_ITS ---
Subjective Subjective Date of Service: 06/27/22 Reason For Visit: psychosis/nikita Subjective Notes: Conditional Voluntary Interim History: The nursing staff reported the patient had been disorganized at times glove into himself responding to internal stimuli. He slept last night. On interview the patient denies new symptoms his feels okay but he looks internally preoccupied. Mental Status Exam Mental Status Exam Patient Appearance: Well Grooomed Patient Orientation: Person and Situation Level of Consciousness: Awake Patient Behavior: Guarded Mood Description: Constricted Affect Description: Blunted Patient Cognition Impaired: Yes Ability to Follow Directions: Fair Speech Pattern: Clear Hallucinations: None Delusions: Paranoid Ideation Thought Process: Evasive and Slowed Thinking Thought Content: positive for [place] Judgement: Fair Diagnostics Vital Signs (24Hr): Vital Signs - 24 hr 06/26/22 14:53 06/26/22 21:44 06/27/22 08:20 Temperature 97.7 F 97.0 F 98.0 F Pulse Rate 93 100 79 Respiratory Rate 18 18 16 Blood Pressure 123/63 147/63 H 133/67 Pulse Oximetry 97 96 98 Oxygen Delivery Method Room Air Room Air Room Air BMI result Body Mass Index 26.3 Labs 06/15/22 08:45 06/15/22 08:45 Imaging Radiology Impressions: ITS Impressions Head CT 06/17/22 15:28 IMPRESSION: No acute intracranial abnormality including hemorrhage, mass effect, hydrocephalus, or acute territorial edematous infarction. Medications Medications Current Medications Acetaminophen (Acetaminophen 325 Mg Tablet) 650 mg PO Q6H PRN PRN Reason: Headache/Pain Mild Scale (1-3) Last Admin: 06/25/22 14:19 Dose: 650 mg Al Hydroxide/Mg Hydroxide (Magnesium Hydrox/Alum Hydrox 30 Ml Oral.Susp) 30 ml PO Q6H PRN PRN Reason: Heartburn/Nausea Last Admin: 06/24/22 17:39 Dose: 30 ml Benztropine Mesylate (Benztropine Mesylate 1 Mg Tablet) 1 mg PO TID PRN PRN Reason: Extrapyramidal Effects Last Admin: 06/26/22 21:47 Dose: 1 mg Carbamazepine (Carbamazepine 200 Mg/10 Ml Oral.Susp) 400 mg PO BEDTIME JELANI Last Admin: 06/26/22 21:47 Dose: 400 mg Carbamazepine (Carbamazepine 200 Mg/10 Ml Oral.Susp) 300 mg PO DAILY JELANI Last Admin: 06/27/22 08:20 Dose: 300 mg Diphenhydramine HCl (Diphenhydramine Hcl 12.5 Mg/5 Ml Liquid) 25 mg PO BID [facility] Last Admin: 06/27/22 08:20 Dose: 25 mg Docusate Sodium (Docusate Sodium 100 Mg Capsule) 100 mg PO BEDTIME [facility] Last Admin: 06/26/22 21:45 Dose: 100 mg Haloperidol Lactate (Haloperidol Lactate 5 Mg/Ml Vial) 5 mg IM BID PRN PRN Reason: refusal of PO; per gomez order Haloperidol Lactate (Haloperidol Lactate Oral Conc 10 Mg/5 Ml Oral.Conc) 7.5 mg PO BID [facility] Last Admin: 06/27/22 08:20 Dose: 7.5 mg Hydroxyzine HCl (Hydroxyzine Hcl 25 Mg Tablet) 25 mg PO Q6H PRN PRN Reason: Anxiety Last Admin: 06/25/22 14:41 Dose: 25 mg [place] Carbonate (Curtice Carbonate Er 300 Mg Tablet.Er) 600 mg PO DAILY [facility] Last Admin: 06/27/22 08:19 Dose: 600 mg [place] Carbonate ([place] Carbonate Er 450 Mg Tablet.Er) 900 mg PO BEDTIME [facility] Last Admin: 06/26/22 21:45 Dose: 900 mg Magnesium Hydroxide (Milk Of Magnesia 30 Ml Oral.Susp) 30 ml PO DAILY PRN PRN Reason: Constipation Last Admin: 06/10/22 17:35 Dose: 30 ml Melatonin (Melatonin 3 Mg Tablet) 6 mg PO BEDTIME [facility] Last Admin: 06/26/22 21:45 Dose: 6 mg Omeprazole (Omeprazole 20 Mg Capsule.Dr) 20 mg PO DAILY@0630 [facility] Last Admin: 06/27/22 08:19 Dose: 20 mg Prazosin HCl (Prazosin Hcl 1 Mg Capsule) 2 mg PO BEDTIME [facility]; Protocol Last Admin: 06/26/22 21:47 Dose: 2 mg Trazodone HCl (Trazodone Hcl 50 Mg Tablet) 50 mg PO BEDTIME PRN PRN Reason: Insomnia Last Admin: 06/26/22 21:47 Dose: 50 mg Allergies Allergies Allergy/AdvReac Type Severity Reaction Status Date / Time depakote AdvReac Severe elevated Uncoded 05/19/22 22:38 ammonia Assessment & Plan Assessment & Plan (1) Schizoaffective disorder, bipolar type: Status: Acute Code(s): F25.0 - Schizoaffective disorder, bipolar type Assessment and Plan: ongoing thought disorder at least 06/12/22 Plan 05/05: possibly manic, will invest more effort in trying to get mood stabilizer on board. continue zydis for now, start VPA sprinkles. 05/06: no change in mgmt. 05/07: no change in presentation. change VPA from sprinkles back to pills due to large number of sprinkles pills required to generate 1500 mg of VPA. pt not compliant with VPA, has been taking some zyprexa; change formulation to zydis to improve bioavailability. plan to move to file for commitment next week if pt doesn't soon begin to reliably take medication. 05/08 no change 05/09 no change 05/10: no change to mgmt. chewed meds x 1 over weekend, cheeking/furtively disposing of meds otherwise. 05/11: generally refusing meds. informed he will be filed on tomorrow. attempting to bargain over taking meds and discharge. will investigate obtaining VPA soln. 05/12: commitment paperwork filed. pt took all meds last night and this morning, including liquid VPA. aware of legal circumstance, unclear how well he is able to appreciate it. 2: asking about discharge, states he is compliant with meds (as also say nursing staff). states he is feeling better, but unable to say in what way. sleeping and eating well. 23: repeated checking-in with MD throughout the day. remains disorganized and apparently RIS. med-compliant. 05/15: sleeping midday. no change in presentation. 05/16: no change in presentation or plan. 05/17: no change in presentation or plan. commitment hearing tomorrow. 05/18: no change in presentation. committed to the hospital at hearing. 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 DC zyprexa as well as it lacks usable COUCH. start paliperidone PO, convert to COUCH once it is established pt is tolerating the medication. 05/20: continue to establish on tegretol and invega. introduce COUCH once pt stable on PO formulation for several days. check tegretol levels after about a week. no change in presentation. 05/21 continue current medication. 05/22 continue current treatment plan 05/23 continue current treatment plan 05/24 continue current medications. continues with psychosis/delusions. 05/25 continue current tx. 05/26 continue tx. 05/27 continue tx. vaughn do tegretol level Sat. 05/28 continue tx. 05/29 continue tx. 05/30 continue tx. not much improvement. continues to self dialoguing 05/31 continue tx. minimal improvement. 06/01 continue tx. may want to consider change in antipsychotic. 06/02: no change since last seen 05/20. on paliperidone 12 mg daily. tegretol level 5.2. trend LFTs; slightly elevated. willing to have lithium added today. 06/03: reports improved concentration today with lithium addition. continue current mgmt. T/C different neuroleptic, T/C increase in tegretol dosing. 06/04: continue current mgmt. check lithium on tuesday. stable presentation. 06/05: continue current mgmt. stable presentation. 06/06: as for 06/05. 06/07: no change in presentation. checking labs tonight. 06/08 continue tx. 06/09: tegretol 7.7, lithium 0.34. increase tegretol dosing to 300 BID and lithium dosing to 600 BID. no change in presentation. 06/10: no change in presentation. 06/11: hypertensive and borderline tachy. follow. stable presentation, continue current mgmt. check labs early next week. 06/14: lithium checked today, 0.67. increase lithium dosing from 600 BID to 600/900. check tegretol level and rest of labs tomorrow morning. no change in presentation. 06/15: tegretol level 6.2 currently. pt is reported to have c/o dizziness, but denies said Sx upon MD inquiry. increase tegretol from 300 BID to 300/400 as of tonight. T/C change in neuroleptic. no change in presentation. 06/16: no change in plan or presentation for today. 06/17: no change in presentation. check head CT, U/A, ESR, TORIN, TSH/T4, B12/folate, HIV, Hep C, RPR. lab abnormalities include chronic leukopenia, increase urine spec grav w/proteinuria and ketonuria. DC paliperidone as it appears to have changed nothing, start trial of haldol. thus far zyprexa and invega have not helped. haldol, prolixin, and abilify are the medications which remain on the stevo's order. 06/18: tolerating haldol currently. no change in presentation. continue current mgmt. 06/19: Continue current regimen and plans 06/20: Continue current regimen plans 06/21: no change in presentation. increase haldol from 5 BID to 7.5 BID. otherwise continue current mgmt. 06/22: continue current mgmt. no change in presentation. case discussed with medical service technician. 06/23: continue current mgmt. no change in presentation. T/C petitioning court for clozaril and ECT 06/24: continue current mgmt. no change in presentation. T/C petitioning court for clozaril and ECT. 06/25: no change. pt reported inducing vomiting after taking meds. staff believe pt cheeked meds last night and then went immediately to the bathroom. place patient on 1:1 for 30 minutes after meals. 06/26 keep same treatment 06/27 keep same treatment. Reason for contiued inpatient stay Substantial Risk for: inability to function, rapid decompensation and med/psych decompensation Time Spent With Patient Time: Total time managing care of this patient today _20___ minutes.
[2022-06-27] MEDS: Throat Lozenge, Medicated LOZENGE 1 LOZENGE MUCOUS MEM ×3 (14:37→20:23)
[2022-06-27 17:46] VITALS: BP 136/67; PULSE 111; RESP 20; TEMP 36.4; O2SAT 96
[2022-06-27] MEDS: Docusate Sodium 100 MG CAPSULE PO (20:23)
[2022-06-27] MEDS: Prazosin HCL 1 MG CAPSULE 2 MG PO (20:23)
[2022-06-27] MEDS: Melatonin 3 MG TABLET 6 MG PO (20:23)
[2022-06-27] MEDS: Lithium Carbonate ER 450 MG TABLET.ER 900 MG PO (20:23)
[2022-06-27] MEDS: carBAMazepine 200 MG/10 ML ORAL.SUSP 400 MG PO (20:23)
[2022-06-28 06:00] VITALS: BP 140/70; PULSE 88; RESP 18; TEMP 36.3; O2SAT 97
[2022-06-28] MEDS: Throat Lozenge, Medicated LOZENGE 1 LOZENGE MUCOUS MEM ×3 (06:36→22:43)
[2022-06-28 08:08] VITALS: BMI 27.5
[2022-06-28] MEDS: Lithium Carbonate ER 300 MG TABLET.ER 600 MG PO (08:52)
[2022-06-28] MEDS: Omeprazole 20 MG CAPSULE.DR PO (08:52)
[2022-06-28] MEDS: Haloperidol Lactate Oral Conc 10 MG/5 ML ORAL.CONC 7.5 MG PO ×2 (08:53→21:18)
[2022-06-28] MEDS: diphenhydrAMINE HCl 12.5 MG/5 ML LIQUID 25 MG PO ×2 (08:53→21:20)
[2022-06-28] MEDS: carBAMazepine 200 MG/10 ML ORAL.SUSP 300 MG PO ×2 (08:53→21:21)
--- NOTE | 2022-06-28 14:23 | P.PNPSI_ITS ---
Subjective Subjective Date of Service: 06/28/22 Reason For Visit: psychosis/nikita Interim History: no change in presentation, generally speaking, but no overt whispering to self. laughing to self. asking about discharge. per staff, visible, quiet, withdrawn. taking medication. good appetite. poor sleep last night, up repeatedly for snacks. some hypersexual questions to female staff. Mental Status Exam Mental Status Exam Narrative: Appearance: up and about the unit Behavior: engaging on very limited subject matter Psychomotor: pacing the halls Speech: spontaneous, rapid; nml amount TP: disorganized TC: vague, vacuous Mood: good Affect: full range, normo-intense, non-labile. bizarre smiling and laughing not c/w context. AH/VH: none expressed SI: none expressed HI: none expressed Insight/judgment: impaired x 2. Memory/cog: alert, not oriented to situation. impaired secondary to psychiatric symptoms. Diagnostics Vital Signs (24Hr): Vital Signs - 24 hr 06/27/22 17:46 06/28/22 06:00 Temperature 97.6 F 97.4 F Pulse Rate 111 H 88 Respiratory Rate 20 18 Blood Pressure 136/67 140/70 H Pulse Oximetry 96 97 Oxygen Delivery Method Room Air Room Air BMI result Body Mass Index 27.5 Labs 06/15/22 08:45 06/15/22 08:45 Imaging Radiology Impressions: ITS Impressions Head CT 06/17/22 15:28 IMPRESSION: No acute intracranial abnormality including hemorrhage, mass effect, hydrocephalus, or acute territorial edematous infarction. Medications Medications Current Medications Acetaminophen (Acetaminophen 325 Mg Tablet) 650 mg PO Q6H PRN PRN Reason: Headache/Pain Mild Scale (1-3) Last Admin: 06/25/22 14:19 Dose: 650 mg Al Hydroxide/Mg Hydroxide (Magnesium Hydrox/Alum Hydrox 30 Ml Oral.Susp) 30 ml PO Q6H PRN PRN Reason: Heartburn/Nausea Last Admin: 06/24/22 17:39 Dose: 30 ml Benzocaine (Throat Lozenge, Medicated Lozenge) 1 lozenge MUCOUS MEM Q2H PRN PRN Reason: Sore Throat Last Admin: 06/28/22 06:36 Dose: 1 lozenge Benztropine Mesylate (Benztropine Mesylate 1 Mg Tablet) 1 mg PO TID PRN PRN Reason: Extrapyramidal Effects Last Admin: 06/26/22 21:47 Dose: 1 mg Carbamazepine (Carbamazepine 200 Mg/10 Ml Oral.Susp) 400 mg PO BEDTIME JELANI Last Admin: 06/27/22 20:23 Dose: 400 mg Carbamazepine (Carbamazepine 200 Mg/10 Ml Oral.Susp) 300 mg PO DAILY JELANI Last Admin: 06/28/22 08:53 Dose: 300 mg Diphenhydramine HCl (Diphenhydramine Hcl 12.5 Mg/5 Ml Liquid) 25 mg PO BID JELANI Last Admin: 06/28/22 08:53 Dose: 25 mg Docusate Sodium (Docusate Sodium 100 Mg Capsule) 100 mg PO BEDTIME JELANI Last Admin: 06/27/22 20:23 Dose: 100 mg Haloperidol Lactate (Haloperidol Lactate 5 Mg/Ml Vial) 5 mg IM BID PRN PRN Reason: refusal of PO; per gomez order Haloperidol Lactate (Haloperidol Lactate Oral Conc 10 Mg/5 Ml Oral.Conc) 7.5 mg PO BID JELANI Last Admin: 06/28/22 08:53 Dose: 7.5 mg Hydroxyzine HCl (Hydroxyzine Hcl 25 Mg Tablet) 25 mg PO Q6H PRN PRN Reason: Anxiety Last Admin: 06/25/22 14:41 Dose: 25 mg [place] Carbonate ([place] Carbonate Er 300 Mg Tablet.Er) 600 mg PO DAILY JELANI Last Admin: 06/28/22 08:52 Dose: 600 mg [place] Carbonate ([place] Carbonate Er 450 Mg Tablet.Er) 900 mg PO BEDTIME JELANI Last Admin: 06/27/22 20:23 Dose: 900 mg Magnesium Hydroxide (Milk Of Magnesia 30 Ml Oral.Susp) 30 ml PO DAILY PRN PRN Reason: Constipation Last Admin: 06/10/22 17:35 Dose: 30 ml Melatonin (Melatonin 3 Mg Tablet) 6 mg PO BEDTIME JELANI Last Admin: 06/27/22 20:23 Dose: 6 mg Omeprazole (Omeprazole 20 Mg Capsule.Dr) 20 mg PO DAILY@0630 [facility]EL[facility] Last Admin: 06/28/22 08:52 Dose: 20 mg Prazosin HCl (Prazosin Hcl 1 Mg Capsule) 2 mg PO BEDTIME JELANI; Protocol Last Admin: 06/27/22 20:23 Dose: 2 mg Trazodone HCl (Trazodone Hcl 50 Mg Tablet) 50 mg PO BEDTIME PRN PRN Reason: Insomnia Last Admin: 06/26/22 21:47 Dose: 50 mg Allergies Allergies Allergy/AdvReac Type Severity Reaction Status Date / Time depakote AdvReac Severe elevated Uncoded 05/19/22 22:38 ammonia Assessment & Plan Assessment & Plan (1) Schizoaffective disorder, bipolar type: Status: Acute Code(s): F25.0 - Schizoaffective disorder, bipolar type Assessment and Plan: ongoing thought disorder at least 06/12/22 Plan 05/05: possibly manic, will invest more effort in trying to get mood stabilizer on board. continue zydis for now, start VPA sprinkles. 05/06: no change in mgmt. 05/07: no change in presentation. change VPA from sprinkles back to pills due to large number of sprinkles pills required to generate 1500 mg of VPA. pt not compliant with VPA, has been taking some zyprexa; change formulation to zydis to improve bioavailability. plan to move to file for commitment next week if pt doesn't soon begin to reliably take medication. 05/08 no change 05/09 no change 05/10: no change to mgmt. chewed meds x 1 over weekend, cheeking/furtively disposing of meds otherwise. 05/11: generally refusing meds. informed he will be filed on tomorrow. attempting to bargain over taking meds and discharge. will investigate obtainin g VPA soln. 05/12: commitment paperwork filed. pt took all meds last night and this morning, including liquid VPA. aware of legal circumstance, unclear how well he is able to appreciate it. 22: asking about discharge, states he is compliant with meds (as also say nursing staff). states he is feeling better, but unable to say in what way. sleeping and eating well. 2/3: repeated checking-in with MD throughout the day. remains disorganized and apparently RIS. med-compliant. 05/15: sleeping midday. no change in presentation. 05/16: no change in presentation or plan. 05/17: no change in presentation or plan. commitment hearing tomorrow. 05/18: no change in presentation. committed to the hospital at hearing. 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 DC zyprexa as well as it lacks usable COUCH. start paliperidone PO, convert to COUCH once it is established pt is tolerating the medication. 05/20: continue to establish on tegretol and invega. introduce COUCH once pt stable on PO formulation for several days. check tegretol levels after about a week. no change in presentation. 05/21 continue current medication. 05/22 continue current treatment plan 05/23 continue current treatment plan 05/24 continue current medications. continues with psychosis/delusions. 05/25 continue current tx. 05/26 continue tx. 05/27 continue tx. vaughn do tegretol level Sat. 05/28 continue tx. 05/29 continue tx. 05/30 continue tx. not much improvement. continues to self dialoguing 05/31 continue tx. minimal improvement. 06/01 continue tx. may want to consider change in antipsychotic. 06/02: no change since last seen 05/20. on paliperidone 12 mg daily. tegretol level 5.2. trend LFTs; slightly elevated. willing to have lithium added today. 06/03: reports improved concentration today with lithium addition. continue current mgmt. T/C different neuroleptic, T/C increase in tegretol dosing. 06/04: continue current mgmt. check lithium on tuesday. stable presentation. 06/05: continue current mgmt. stable presentation. 06/06: as for 06/05. 06/07: no change in presentation. checking labs tonight. 06/08 continue tx. 06/09: tegretol 7.7, lithium 0.34. increase tegretol dosing to 300 BID and lithi um dosing to 600 BID. no change in presentation. 06/10: no change in presentation. 06/11: hypertensive and borderline tachy. follow. stable presentation, continue current mgmt. check labs early next week. 06/14: lithium checked today, 0.67. increase lithium dosing from 600 BID to 600/900. check tegretol level and rest of labs tomorrow morning. no change in presentation. 06/15: tegretol level 6.2 currently. pt is reported to have c/o dizziness, but denies said Sx upon MD inquiry. increase tegretol from 300 BID to 300/400 as of tonight. T/C change in neuroleptic. no change in presentation. 06/16: no change in plan or presentation for today. 06/17: no change in presentation. check head CT, U/A, ESR, TORIN, TSH/T4, B12/folate, HIV, Hep C, RPR. lab abnormalities include chronic leukopenia, increase urine spec grav w/proteinuria and ketonuria. DC paliperidone as it appears to have changed nothing, start trial of haldol. thus far zyprexa and invega have not helped. haldol, prolixin, and abilify are the medications which remain on the stevo's order. 06/18: tolerating haldol currently. no change in presentation. continue current mgmt. 06/19: Continue current regimen and plans 06/20: Continue current regimen plans 06/21: no change in presentation. increase haldol from 5 BID to 7.5 BID. otherwise continue current mgmt. 06/22: continue current mgmt. no change in presentation. case discussed with medical parasitologist. 06/23: continue current mgmt. no change in presentation. T/C petitioning court for clozaril and ECT 06/24: continue current mgmt. no change in presentation. T/C petitioning court for clozaril and ECT. 06/25: no change. pt reported inducing vomiting after taking meds. staff believe pt cheeked meds last night and then went immediately to the bathroom. place patient on 1:1 for 30 minutes after meals. 06/26 keep same treatment 06/27 keep same treatment. 06/28: no whispering to self, but laughing continues. requesting discharge. no substantial progress. begin taper of tegretol as not having substantially modified presentation (reduce 300/400 --> 200/300 as of tonight). discuss w/med providers in med providers' mtg tomorrow. Reason for contiued inpatient stay Substantial Risk for: inability to function and rapid decompensation Time Spent With Patient Time: Total time managing care of this patient today __20__ minutes.
--- NOTE | 2022-06-28 14:26 | PC.NURSE ---
Treatment Plan for Ralf (per Social Work and nursing) Food Monitoring: Starting on 06/29/22 during the hours of 7am and 9pm Ralf will be allowed snacks either from the kitchen or from what his father brought. These can be allowed every two hours at the top of the hour. The concern is the amount of food he is consuming and the weight he is putting on. After 9pm he can have one more snack at either 10pm or 11pm if he is up but not both. The healthier the food the closer to bed the better. We have also spoken with Dad as well about these goals. These snacks are in conjunction with his normal meals from dining.
[2022-06-28 20:30] VITALS: BP 134/61; PULSE 92; RESP 18; TEMP 36.4; O2SAT 98
[2022-06-28] MEDS: Docusate Sodium 100 MG CAPSULE PO (21:22)
[2022-06-28] MEDS: Prazosin HCL 1 MG CAPSULE 2 MG PO (21:22)
[2022-06-28] MEDS: Lithium Carbonate ER 450 MG TABLET.ER 900 MG PO (21:22)
[2022-06-28] MEDS: Melatonin 3 MG TABLET 6 MG PO (21:22)
--- NOTE | 2022-06-29 03:39 | PC.NURSE ---
Ralf remains penetrative, and intrusive with staff and peers. he continues to respond to internal stimuli and to frequently be seen smiling to himself. He requested a cough drop multiple times while this check writer was helping another patient. several minutes later when this check writer brought the patient his cough drop he I'm tired of this fucking shit in response to this check writer asking him to sit up for the cough drop. no other verbally aggressive statements made. continue plan of care
[2022-06-29 09:22] VITALS: BP 131/62; PULSE 92; RESP 18; TEMP 36.6; O2SAT 97
[2022-06-29] MEDS: Lithium Carbonate ER 300 MG TABLET.ER 600 MG PO (09:23)
[2022-06-29] MEDS: Omeprazole 20 MG CAPSULE.DR PO (09:23)
[2022-06-29] MEDS: Haloperidol Lactate Oral Conc 10 MG/5 ML ORAL.CONC 7.5 MG PO (09:24)
[2022-06-29] MEDS: carBAMazepine 200 MG/10 ML ORAL.SUSP PO (09:26)
[2022-06-29] MEDS: diphenhydrAMINE HCl 12.5 MG/5 ML LIQUID 25 MG PO ×2 (09:26→20:09)
--- NOTE | 2022-06-29 14:44 | P.PNPSI_ITS ---
Subjective Subjective Date of Service: 06/29/22 Reason For Visit: psychosis/nikita Interim History: no change in presentation. per staff, appearing a bit more hypersexual in recent days, otherwise no change in presentation. Mental Status Exam Mental Status Exam Narrative: Appearance: up and about the unit Behavior: engaging on very limited subject matter Psychomotor: pacing the halls Speech: spontaneous, rapid; nml amount TP: disorganized TC: vague, vacuous Mood: good Affect: full range, normo-intense, non-labile. bizarre smiling and laughing not c/w context. AH/VH: none expressed SI: none expressed HI: none expressed Insight/judgment: impaired x 2. Memory/cog: alert, not oriented to situation. impaired secondary to psychiatric symptoms. Diagnostics Vital Signs (24Hr): Vital Signs - 24 hr 06/28/22 20:30 06/29/22 09:22 Temperature 97.6 F 97.9 F Pulse Rate 92 92 Respiratory Rate 18 18 Blood Pressure 134/61 131/62 Pulse Oximetry 98 97 Oxygen Delivery Method Room Air Room Air BMI result Body Mass Index 27.5 Labs 06/15/22 08:45 06/15/22 08:45 Imaging Radiology Impressions: ITS Impressions Head CT 06/17/22 15:28 IMPRESSION: No acute intracranial abnormality including hemorrhage, mass effect, hydrocephalus, or acute territorial edematous infarction. Medications Medications Current Medications Acetaminophen (Acetaminophen 325 Mg Tablet) 650 mg PO Q6H PRN PRN Reason: Headache/Pain Mild Scale (1-3) Last Admin: 06/25/22 14:19 Dose: 650 mg Al Hydroxide/Mg Hydroxide (Magnesium Hydrox/Alum Hydrox 30 Ml Oral.Susp) 30 ml PO Q6H PRN PRN Reason: Heartburn/Nausea Last Admin: 06/24/22 17:39 Dose: 30 ml Benzocaine (Throat Lozenge, Medicated Lozenge) 1 lozenge MUCOUS MEM Q2H PRN PRN Reason: Sore Throat Last Admin: 06/28/22 22:43 Dose: 1 lozenge Benztropine Mesylate (Benztropine Mesylate 1 Mg Tablet) 1 mg PO TID PRN PRN Reason: Extrapyramidal Effects Last Admin: 06/26/22 21:47 Dose: 1 mg Carbamazepine (Carbamazepine 200 Mg/10 Ml Oral.Susp) 300 mg PO BEDTIME JELANI Last Admin: 06/28/22 21:21 Dose: 300 mg Carbamazepine (Carbamazepine 200 Mg/10 Ml Oral.Susp) 200 mg PO DAILY [facility] Last Admin: 06/29/22 09:26 Dose: 200 mg Diphenhydramine HCl (Diphenhydramine Hcl 12.5 Mg/5 Ml Liquid) 25 mg PO BID [facility] Last Admin: 06/29/22 09:26 Dose: 25 mg Docusate Sodium (Docusate Sodium 100 Mg Capsule) 100 mg PO BEDTIME JELANI Last Admin: 06/28/22 21:22 Dose: 100 mg Haloperidol Lactate (Haloperidol Lactate 5 Mg/Ml Vial) 5 mg IM BID PRN PRN Reason: refusal of PO; per gomez order Haloperidol Lactate (Haloperidol Lactate Oral Conc 10 Mg/5 Ml Oral.Conc) 7.5 mg PO BID [facility] Last Admin: 06/29/22 09:24 Dose: 7.5 mg Hydroxyzine HCl (Hydroxyzine Hcl 25 Mg Tablet) 25 mg PO Q6H PRN PRN Reason: Anxiety Last Admin: 06/25/22 14:41 Dose: 25 mg [place] Carbonate ([place] Carbonate Er 300 Mg Tablet.Er) 600 mg PO DAILY [facility] Last Admin: 06/29/22 09:23 Dose: 600 mg [place] Carbonate ([place] Carbonate Er 450 Mg Tablet.Er) 900 mg PO BEDTIME [facility] Last Admin: 06/28/22 21:22 Dose: 900 mg Magnesium Hydroxide (Milk Of Magnesia 30 Ml Oral.Susp) 30 ml PO DAILY PRN PRN Reason: Constipation Last Admin: 06/10/22 17:35 Dose: 30 ml Melatonin (Melatonin 3 Mg Tablet) 6 mg PO BEDTIME [facility] Last Admin: 06/28/22 21:22 Dose: 6 mg Omeprazole (Omeprazole 20 Mg Capsule.Dr) 20 mg PO DAILY@0630 [facility] Last Admin: 06/29/22 09:23 Dose: 20 mg Prazosin HCl (Prazosin Hcl 1 Mg Capsule) 2 mg PO BEDTIME [facility]; Protocol Last Admin: 06/28/22 21:22 Dose: 2 mg Trazodone HCl (Trazodone Hcl 50 Mg Tablet) 50 mg PO BEDTIME PRN PRN Reason: Insomnia Last Admin: 06/26/22 21:47 Dose: 50 mg Allergies Allergies Allergy/AdvReac Type Severity Reaction Status Date / Time depakote AdvReac Severe elevated Uncoded 05/19/22 22:38 ammonia Assessment & Plan Assessment & Plan (1) Schizoaffective disorder, bipolar type: Status: Acute Code(s): F25.0 - Schizoaffective disorder, bipolar type Assessment and Plan: ongoing thought disorder at least 06/12/22 Plan 05/05: possibly manic, will invest more effort in trying to get mood stabilizer on board. continue zydis for now, start VPA sprinkles. 05/06: no change in mgmt. 05/07: no change in presentation. change VPA from sprinkles back to pills due to large number of sprinkles pills required to generate 1500 mg of VPA. pt not compliant with VPA, has been taking some zyprexa; change formulation to zydis to improve bioavailability. plan to move to file for commitment next week if pt doesn't soon begin to reliably take medication. 05/08 no change 05/09 no change 05/10: no change to mgmt. chewed meds x 1 over weekend, cheeking/furtively disposing of meds otherwise. 05/11: generally refusing meds. informed he will be filed on tomorrow. attempting to bargain over taking meds and discharge. will investigate obtaining VPA soln. 05/12: commitment paperwork filed. pt took all meds last night and this morning, including liquid VPA. aware of legal circumstance, unclear how well he is able to appreciate it. 05/13: asking about discharge, states he is compliant with meds (as also say nursing staff). states he is feeling better, but unable to say in what way. sleeping and eating well. 2: repeated checking-in with MD throughout the day. remains disorganized and apparently RIS. med-compliant. 05/15: sleeping midday. no change in presentation. 05/16: no change in presentation or plan. 05/17: no change in presentation or plan. commitment hearing tomorrow. 05/18: no change in presentation. committed to the hospital at [facility]. 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 DC zyprexa as well as it lacks usable COUCH. start paliperidone PO, convert to COUCH once it is established pt is tolerating the medication. 05/20: continue to establish on tegretol and invega. introduce COUCH once pt stable on PO formulation for several days. check tegretol levels after about a week. no change in presentation. 05/21 continue current medication. 05/22 continue current treatment plan 05/23 continue current treatment plan 05/24 continue current medications. continues with psychosis/delusions. 05/25 continue current tx. 05/26 continue tx. 05/27 continue tx. vaughn do tegretol level Sat. 05/28 continue tx. 05/29 continue tx. 05/30 continue tx. not much improvement. continues to self dialoguing 05/31 continue tx. minimal improvement. 06/01 continue tx. may want to consider change in antipsychotic. 06/02: no change since last seen 05/20. on paliperidone 12 mg daily. tegretol level 5.2. trend LFTs; slightly elevated. willing to have lithium added today. 06/03: reports improved concentration today with lithium addition. continue current mgmt. T/C different neuroleptic, T/C increase in tegretol dosing. 06/04: continue current mgmt. check lithium on tuesday. stable presentation. 06/05: continue current mgmt. stable presentation. 06/06: as for 06/05. 06/07: no change in presentation. checking labs tonight. 06/08 continue tx. 06/09: tegretol 7.7, lithium 0.34. increase tegretol dosing to 300 BID and lithium dosing to 600 BID. no change in presentation. 06/10: no change in presentation. 06/11: hypertensive and borderline tachy. follow. stable presentation, continue current mgmt. check labs early next week. 06/14: lithium checked today, 0.67. increase lithium dosing from 600 BID to 600/900. check tegretol level and rest of labs tomorrow morning. no change in presentation. 06/15: tegretol level 6.2 currently. pt is reported to have c/o dizziness, but denies said Sx upon MD inquiry. increase tegretol from 300 BID to 300/400 as of tonight. T/C change in neuroleptic. no change in presentation. 06/16: no change in plan or presentation for today. 06/17: no change in presentation. check head CT, U/A, ESR, TORIN, TSH/T4, B12/folate, HIV, Hep C, RPR. lab abnormalities include chronic leukopenia, increase urine spec grav w/proteinuria and ketonuria. DC paliperidone as it ap pears to have changed nothing, start trial of haldol. thus far zyprexa and invega have not helped. haldol, prolixin, and abilify are the medications which remain on the stevo's order. 06/18: tolerating haldol currently. no change in presentation. continue current mgmt. 06/19: Continue current regimen and plans 06/20: Continue current regimen plans 06/21: no change in presentation. increase haldol from 5 BID to 7.5 BID. otherwise continue current mgmt. 06/22: continue current mgmt. no change in presentation. case discussed with medical office scheduler. 06/23: continue current mgmt. no change in presentation. T/C petitioning court for clozaril and ECT 06/24: continue current mgmt. no change in presentation. T/C petitioning court for clozaril and ECT. 06/25: no change. pt reported inducing vomiting after taking meds. staff believe pt cheeked meds last night and then went immediately to the bathroom. place patient on 1:1 for 30 minutes after meals. 06/26 keep same treatment 06/27 keep same treatment. 06/28: no whispering to self, but laughing continues. requesting discharge. no substantial progress. begin taper of tegretol as not having substantially modified presentation (reduce 300/400 --> 200/300 as of [place]). discuss w/med providers in med providers' mtg tomorrow. 06/29: increase haldol to 10 BID. discussed case at providers' mtg. plan to pursue clozapine/ECT. Reason for contiued inpatient stay Substantial Risk for: harm to self, harm to others, inability to function and rapid decompensation Time Spent With Patient Time: Total time managing care of this patient today __35__ minutes.
[2022-06-29] MEDS: Throat Lozenge, Medicated LOZENGE 1 LOZENGE MUCOUS MEM (18:14)
[2022-06-29] MEDS: carBAMazepine 200 MG/10 ML ORAL.SUSP 300 MG PO (20:10)
[2022-06-29] MEDS: Haloperidol Lactate Oral Conc 10 MG/5 ML ORAL.CONC PO (20:10)
[2022-06-29] MEDS: Docusate Sodium 100 MG CAPSULE PO (20:11)
[2022-06-29] MEDS: Prazosin HCL 1 MG CAPSULE 2 MG PO (20:11)
[2022-06-29] MEDS: Melatonin 3 MG TABLET 6 MG PO (20:11)
[2022-06-29] MEDS: Lithium Carbonate ER 450 MG TABLET.ER 900 MG PO (20:11)
[2022-06-29 20:14] VITALS: BP 129/69; PULSE 91; TEMP 36.6; O2SAT 96
[2022-06-30] MEDS: Omeprazole 20 MG CAPSULE.DR PO (05:31)
[2022-06-30] MEDS: Throat Lozenge, Medicated LOZENGE 1 LOZENGE MUCOUS MEM (05:31)
[2022-06-30 09:32] VITALS: BP 130/59; PULSE 79; RESP 18; TEMP 36.4; O2SAT 97
[2022-06-30] MEDS: hydrOXYzine HCL 25 MG TABLET PO (09:33)
[2022-06-30] MEDS: Lithium Carbonate ER 300 MG TABLET.ER 600 MG PO (09:34)
[2022-06-30] MEDS: diphenhydrAMINE HCl 12.5 MG/5 ML LIQUID 25 MG PO ×2 (09:35→20:47)
[2022-06-30] MEDS: Haloperidol Lactate Oral Conc 10 MG/5 ML ORAL.CONC PO (09:36)
[2022-06-30] MEDS: carBAMazepine 200 MG/10 ML ORAL.SUSP PO ×2 (09:37→20:46)
--- NOTE | 2022-06-30 15:05 | HO.PSYCHPN ---
Subjective Subjective Date of Service: 06/30/22 Reason For Visit: psychosis/nikita Interim History: stable presentation. focussed on discharge. agreeable to start haldol decanoate with plan to discharge shortly after second dose. per staff, no change in presentation. Mental Status Exam Mental Status Exam Narrative: Appearance: up and about the unit Behavior: engaging on very limited subject matter Psychomotor: pacing the halls Speech: spontaneous, rapid; nml amount TP: disorganized TC: vague, vacuous Mood: good Affect: full range, normo-intense, non-labile. bizarre smiling and laughing not c/w context. AH/VH: none expressed SI: none expressed HI: none expressed Insight/judgment: impaired x 2. Memory/cog: alert, not oriented to situation. impaired secondary to psychiatric symptoms. Diagnostics Vital Signs (24Hr): Vital Signs - 24 hr 06/29/22 20:14 06/30/22 09:32 Temperature 97.9 F 97.6 F Pulse Rate 91 79 Respiratory Rate 18 Blood Pressure 129/69 130/59 L Pulse Oximetry 96 97 Oxygen Delivery Method Room Air Room Air BMI result Body Mass Index 27.5 Labs 06/15/22 08:45 06/15/22 08:45 Imaging Radiology Impressions: ITS Impressions Head CT 06/17/22 15:28 IMPRESSION: No acute intracranial abnormality including hemorrhage, mass effect, hydrocephalus, or acute territorial edematous infarction. Medications Medications Current Medications Acetaminophen (Acetaminophen 325 Mg Tablet) 650 mg PO Q6H PRN PRN Reason: Headache/Pain Mild Scale (1-3) Last Admin: 06/25/22 14:19 Dose: 650 mg Al Hydroxide/Mg Hydroxide (Magnesium Hydrox/Alum Hydrox 30 Ml Oral.Susp) 30 ml PO Q6H PRN PRN Reason: Heartburn/Nausea Last Admin: 06/24/22 17:39 Dose: 30 ml Benzocaine (Throat Lozenge, Medicated Lozenge) 1 lozenge MUCOUS MEM Q2H PRN PRN Reason: Sore Throat Last Admin: 06/30/22 05:31 Dose: 1 lozenge Benztropine Mesylate (Benztropine Mesylate 1 Mg Tablet) 1 mg PO TID PRN PRN Reason: Extrapyramidal Effects Last Admin: 06/26/22 21:47 Dose: 1 mg Carbamazepine (Carbamazepine 200 Mg/10 Ml Oral.Susp) 200 mg PO DAILY [facility] Last Admin: 06/30/22 09:37 Dose: 200 mg Carbamazepine (Carbamazepine 200 Mg/10 Ml Oral.Susp) 200 mg PO BEDTIME [facility]EL[facility] Diphenhydramine HCl (Diphenhydramine Hcl 12.5 Mg/5 Ml Liquid) 25 mg PO BID [facility] Last Admin: 06/30/22 09:35 Dose: 25 mg Docusate Sodium (Docusate Sodium 100 Mg Capsule) 100 mg PO BEDTIME [facility] Last Admin: 06/29/22 20:11 Dose: 100 mg Haloperidol Decanoate (Haloperidol Decanoate 50 Mg/Ml Ampul) 200 mg IM ONCE ONE Stop: 07/05/22 10:37 Haloperidol Lactate (Haloperidol Lactate 5 Mg/Ml Vial) 5 mg IM BID PRN PRN Reason: refusal of PO; per gomez order Hydroxyzine HCl (Hydroxyzine Hcl 25 Mg Tablet) 25 mg PO Q6H PRN PRN Reason: Anxiety Last Admin: 06/30/22 09:33 Dose: 25 mg [place] Carbonate ([place] Carbonate Er 300 Mg Tablet.Er) 600 mg PO DAILY [facility] Last Admin: 06/30/22 09:34 Dose: 600 mg [place] Carbonate ([place] Carbonate Er 450 Mg Tablet.Er) 900 mg PO BEDTIME [facility] Last Admin: 06/29/22 20:11 Dose: 900 mg Magnesium Hydroxide (Milk Of Magnesia 30 Ml Oral.Susp) 30 ml PO DAILY PRN PRN Reason: Constipation Last Admin: 06/10/22 17:35 Dose: 30 ml Melatonin (Melatonin 3 Mg Tablet) 6 mg PO BEDTIME [facility]EL[facility] Last Admin: 06/29/22 20:11 Dose: 6 mg Omeprazole (Omeprazole 20 Mg Capsule.Dr) 20 mg PO DAILY@0630 [facility] Last Admin: 06/30/22 05:31 Dose: 20 mg Prazosin HCl (Prazosin Hcl 1 Mg Capsule) 2 mg PO BEDTIME [facility]ELANI; Protocol Last Admin: 06/29/22 20:11 Dose: 2 mg Trazodone HCl (Trazodone Hcl 50 Mg Tablet) 50 mg PO BEDTIME PRN PRN Reason: Insomnia Last Admin: 06/26/22 21:47 Dose: 50 mg Allergies Allergies Allergy/AdvReac Type Severity Reaction Status Date / Time depakote AdvReac Severe elevated Uncoded 05/19/22 22:38 ammonia Assessment & Plan Assessment & Plan (1) Schizoaffective disorder, bipolar type: Status: Acute Code(s): F25.0 - Schizoaffective disorder, bipolar type Assessment and Plan: ongoing thought disorder at least 06/12/22 Plan 05/05: possibly manic, will invest more effort in trying to get mood stabilizer on board. continue zydis for now, start VPA sprinkles. 05/06: no change in mgmt. 05/07: no change in presentation. change VPA from sprinkles back to pills due to large number of sprinkles pills required to generate 1500 mg of VPA. pt not compliant with VPA, has been taking some zyprexa; change formulation to zydis to improve bioavailability. plan to move to file for commitment next week if pt doesn't soon begin to reliably take medication. 05/08 no change 05/09 no change 05/10: no change to mgmt. chewed meds x 1 over weekend, cheeking/furtively disposing of meds otherwise. 05/11: generally refusing meds. informed he will be filed on tomorrow. attempting to bargain over taking meds and discharge. will investigate obtaining VPA soln. 05/12: commitment paperwork filed. pt took all meds last night and this morning, including liquid VPA. aware of legal circumstance, unclear how well he is able to appreciate it. 2: asking about discharge, states he is compliant with meds (as also say nursing staff). states he is feeling better, but unable to say in what way. sleeping and eating well. 23: repeated checking-in with MD throughout the day. remains disorganized and apparently RIS. med-compliant. 05/15: sleeping midday. no change in presentation. 05/16: no change in presentation or plan. 05/17: no change in presentation or plan. commitment hearing tomorrow. 05/18: no change in presentation. committed to the hospital at hearing. 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 DC zyprexa as well as it lacks usable COUCH. start paliperidone PO, convert to COUCH once it is established pt is tolerating the medication. 05/20: continue to establish on tegretol and invega. introduce COUCH once pt stable on PO formulation for several days. check tegretol levels after about a week. no change in presentation. 05/21 continue current medication. 05/22 continue current treatment plan 05/23 continue current treatment plan 05/24 continue current medications. continues with psychosis/delusions. 05/25 continue current tx. 05/26 continue tx. 05/27 continue tx. vaughn do tegretol level Sat. 05/28 continue tx. 05/29 continue tx. 05/30 continue tx. not much improvement. continues to self dialoguing 05/31 continue tx. minimal improvement. 06/01 continue tx. may want to consider change in antipsychotic. 06/02: no change since last seen 05/20. on paliperidone 12 mg daily. tegretol level 5.2. trend LFTs; slightly elevated. willing to have lithium added today. 06/03: reports improved concentration today with lithium addition. continue current mgmt. T/C different neuroleptic, T/C increase in tegretol dosing. 06/04: continue current mgmt. check lithium on tuesday. stable presentation. 06/05: continue current mgmt. stable presentation. 06/06: as for 06/05. 06/07: no change in presentation. checking labs tonight. 06/08 continue tx. 06/09: tegretol 7.7, lithium 0.34. increase tegretol dosing to 300 BID and lithium dosing to 600 BID. no change in presentation. 06/10: no change in presentation. 06/11: hypertensive and borderline tachy. follow. stable presentation, continue current mgmt. check labs early next week. 06/14: lithium checked today, 0.67. increase lithium dosing from 600 BID to 600/900. check tegretol level and rest of labs tomorrow morning. no change in presentation. 06/15: tegretol level 6.2 currently. pt is reported to have c/o dizziness, but denies said Sx upon MD inquiry. increase tegretol from 300 BID to 300/400 as of tonight. T/C change in neuroleptic. no change in presentation. 06/16: no change in plan or presentation for today. 06/17: no change in presentation. check head CT, U/A, ESR, TORIN, TSH/T4, B12/folate, HIV, Hep C, RPR. lab abnormalities include chronic leukopenia, increase urine spec grav w/proteinuria and ketonuria. DC paliperidone as it appears to have changed nothing, start trial of haldol. thus far zyprexa and invega have not helped. haldol, prolixin, and abilify are the medications which remain on the [facility]evo's order. 06/18: tolerating haldol currently. no change in presentation. continue current mgmt. 06/19: Continue current regimen and plans 06/20: Continue current regimen plans 06/21: no change in presentation. increase haldol from 5 BID to 7.5 BID. otherwise continue current mgmt. 06/22: continue current mgmt. no change in presentation. case discussed with medical record assistant. 06/23: continue current mgmt. no change in presentation. T/C petitioning court for clozaril and ECT 06/24: continue current mgmt. no change in presentation. T/C petitioning court for clozaril and ECT. 06/25: no change. pt reported inducing vomiting after taking meds. staff believe pt cheeked meds last night and then went immediately to the bathroom. place patient on 1:1 for 30 minutes after meals. 06/26 keep same treatment 06/27 keep same treatment. 06/28: no whispering to self, but laughing continues. requesting discharge. no substantial progress. begin taper of tegretol as not having substantially modified presentation (reduce 300/400 --> 200/300 as of tonight). discuss w/med providers in med providers' mtg tomorrow. 06/29: increase haldol to 10 BID. discussed case at providers' mtg. plan to pursue clozapine/ECT. 06/30: after further discussion with medical record assistant freida, plan devised to give COUCH antipsychotic now and see if pt can stabilize over next several months with that therapy. if he recidivates shortly, commitment and clozapine/ECT orders will be pursued. continue tegretol taper and DC prior to discharge. Reason for contiued inpatient stay Substantial Risk for: inability to function and rapid decompensation Time Spent With Patient Time: Total time managing care of this patient today __25__ minutes.
[2022-06-30] MEDS: Magnesium Hydrox/Alum Hydrox 30 ML ORAL.SUSP PO (20:25)
[2022-06-30] MEDS: Docusate Sodium 100 MG CAPSULE PO (20:47)
[2022-06-30] MEDS: Prazosin HCL 1 MG CAPSULE 2 MG PO (20:47)
[2022-06-30] MEDS: Lithium Carbonate ER 450 MG TABLET.ER 900 MG PO (20:47)
[2022-06-30] MEDS: traZODone HCL 50 MG TABLET PO (20:47)
[2022-06-30] MEDS: Melatonin 3 MG TABLET 6 MG PO (20:48)
[2022-06-30 20:52] VITALS: BP 129/64; PULSE 87; TEMP 37.1; O2SAT 100
[2022-07-01] MEDS: Throat Lozenge, Medicated LOZENGE 1 LOZENGE MUCOUS MEM ×2 (05:45→16:18)
[2022-07-01 07:00] VITALS: BMI 27.3
[2022-07-01 09:00] VITALS: BP 149/74; PULSE 104; RESP 18; TEMP 36.4; O2SAT 97
[2022-07-01] MEDS: Omeprazole 20 MG CAPSULE.DR PO (09:11)
[2022-07-01] MEDS: Lithium Carbonate ER 300 MG TABLET.ER 600 MG PO (09:11)
[2022-07-01] MEDS: diphenhydrAMINE HCl 12.5 MG/5 ML LIQUID 25 MG PO ×2 (09:11→20:44)
[2022-07-01] MEDS: carBAMazepine 200 MG/10 ML ORAL.SUSP PO ×2 (09:12→20:44)
--- NOTE | 2022-07-01 14:11 | HO.PSYCHPN ---
Subjective Subjective Date of Service: 07/01/22 Reason For Visit: psychosis/nikita Interim History: no change in presentation. had IM haldol dec yesterday. perseverative with re discharge date. per staff, denies Sx. says he's safe. laughing out loud in the milieu. disorganized. sleeping well. mtg with father tomorrow at 2. Mental Status Exam Mental Status Exam Narrative: Appearance: up and about the unit Behavior: engaging on very limited subject matter Psychomotor: pacing the halls Speech: spontaneous, rapid; nml amount TP: disorganized TC: vague, vacuous Mood: good Affect: full range, normo-intense, non-labile. bizarre smiling and laughing not c/w context. AH/VH: none expressed SI: none expressed HI: none expressed Insight/judgment: impaired x 2. Memory/cog: alert, not oriented to situation. impaired secondary to psychiatric symptoms. Diagnostics Vital Signs (24Hr): Vital Signs - 24 hr 06/30/22 20:52 07/01/22 09:00 Temperature 98.7 F 97.6 F Pulse Rate 87 104 H Respiratory Rate 18 Blood Pressure 129/64 149/74 H Pulse Oximetry 100 97 Oxygen Delivery Method Room Air Room Air BMI result Body Mass Index 27.3 Labs 06/15/22 08:45 06/15/22 08:45 Imaging Radiology Impressions: ITS Impressions Head CT 06/17/22 15:28 IMPRESSION: No acute intracranial abnormality including hemorrhage, mass effect, hydrocephalus, or acute territorial edematous infarction. Medications Medications Current Medications Acetaminophen (Acetaminophen 325 Mg Tablet) 650 mg PO Q6H PRN PRN Reason: Headache/Pain Mild Scale (1-3) Last Admin: 06/25/22 14:19 Dose: 650 mg Al Hydroxide/Mg Hydroxide (Magnesium Hydrox/Alum Hydrox 30 Ml Oral.Susp) 30 ml PO Q6H PRN PRN Reason: Heartburn/Nausea Last Admin: 06/30/22 20:25 Dose: 30 ml Benzocaine (Throat Lozenge, Medicated Lozenge) 1 lozenge MUCOUS MEM Q2H PRN PRN Reason: Sore Throat Last Admin: 07/01/22 05:45 Dose: 1 lozenge Benztropine Mesylate (Benztropine Mesylate 1 Mg Tablet) 1 mg PO TID PRN PRN Reason: Extrapyramidal Effects Last Admin: 06/26/22 21:47 Dose: 1 mg Carbamazepine (Carbamazepine 200 Mg/10 Ml Oral.Susp) 200 mg PO DAILY JELANI Last Admin: 07/01/22 09:12 Dose: 200 mg Carbamazepine (Carbamazepine 200 Mg/10 Ml Oral.Susp) 200 mg PO BEDTIME JELANI Last Admin: 06/30/22 20:46 Dose: 200 mg Diphenhydramine HCl (Diphenhydramine Hcl 12.5 Mg/5 Ml Liquid) 25 mg PO BID JELANI Last Admin: 07/01/22 09:11 Dose: 25 mg Docusate Sodium (Docusate Sodium 100 Mg Capsule) 100 mg PO BEDTIME JELANI Last Admin: 06/30/22 20:47 Dose: 100 mg Haloperidol Decanoate (Haloperidol Decanoate 50 Mg/Ml Ampul) 200 mg IM ONCE ONE Stop: 07/05/22 10:37 Haloperidol Lactate (Haloperidol Lactate 5 Mg/Ml Vial) 5 mg IM BID PRN PRN Reason: refusal of PO; per gomez order Hydroxyzine HCl (Hydroxyzine Hcl 25 Mg Tablet) 25 mg PO Q6H PRN PRN Reason: Anxiety Last Admin: 06/30/22 09:33 Dose: 25 mg [place] Carbonate ([place] Carbonate Er 300 Mg Tablet.Er) 600 mg PO DAILY JELANI Last Admin: 07/01/22 09:11 Dose: 600 mg [place] Carbonate ([place] Carbonate Er 450 Mg Tablet.Er) 900 mg PO BEDTIME JELANI Last Admin: 06/30/22 20:47 Dose: 900 mg Magnesium Hydroxide (Milk Of Magnesia 30 Ml Oral.Susp) 30 ml PO DAILY PRN PRN Reason: Constipation Last Admin: 06/10/22 17:35 Dose: 30 ml Melatonin (Melatonin 3 Mg Tablet) 6 mg PO BEDTIME JELANI Last Admin: 06/30/22 20:48 Dose: 6 mg Omeprazole (Omeprazole 20 Mg Capsule.Dr) 20 mg PO DAILY@0630 JELANI Last Admin: 07/01/22 09:11 Dose: 20 mg Prazosin HCl (Prazosin Hcl 1 Mg Capsule) 2 mg PO BEDTIME JELANI; Protocol Last Admin: 06/30/22 20:47 Dose: 2 mg Trazodone HCl (Trazodone Hcl 50 Mg Tablet) 50 mg PO BEDTIME PRN PRN Reason: Insomnia Last Admin: 06/30/22 20:47 Dose: 50 mg Allergies Allergies Allergy/AdvReac Type Severity Reaction Status Date / Time depakote AdvReac Severe elevated Uncoded 05/19/22 22:38 ammonia Assessment & Plan Assessment & Plan (1) Schizoaffective disorder, bipolar type: Status: Acute Code(s): F25.0 - Schizoaffective disorder, bipolar type Assessment and Plan: ongoing thought disorder at least 06/12/22 Plan 05/05: possibly manic, will invest more effort in trying to get mood stabilizer on board. continue zydis for now, start VPA sprinkles. 05/06: no change in mgmt. 05/07: no change in presentation. change VPA from sprinkles back to pills due to large number of sprinkles pills required to generate 1500 mg of VPA. pt not compliant with VPA, has been taking some zyprexa; change formulation to zydis to improve bioavailability. plan to move to file for commitment next week if pt doesn't soon begin to reliably take medication. 05/08 no change 05/09 no change 05/10: no change to mgmt. chewed meds x 1 over weekend, cheeking/furtively disposing of meds otherwise. 05/11: generally refusing meds. informed he will be filed on tomorrow. attempting to bargain over taking meds and discharge. will investigate obtaining VPA soln. 05/12: commitment paperwork filed. pt took all meds last night and this morning, including liquid VPA. aware of legal circumstance, unclear how well he is able to appreciate it. 22: asking about discharge, states he is compliant with meds (as also say nursing staff). states he is feeling better, but unable to say in what way. sleeping and eating well. 2/3: repeated checking-in with MD throughout the day. remains disorganized and apparently RIS. med-compliant. 05/15: sleeping midday. no change in presentation. 05/16: no change in presentation or plan. 05/17: no change in presentation or plan. commitment hearing tomorrow. 05/18: no change in presentation. committed to the hospital at hearing. 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 DC zyprexa as well as it lacks usable COUCH. start paliperidone PO, convert to COUCH once it is established pt is tolerating the medication. 05/20: continue to establish on tegretol and invega. introduce COUCH once pt stable on PO formulation for several days. check tegretol levels after about a week. no change in presentation. 05/21 continue current medication. 05/22 continue current treatment plan 05/23 continue current treatment plan 05/24 continue current medications. continues with psychosis/delusions. 05/25 continue current tx. 05/26 continue tx. 05/27 continue tx. vaughn do tegretol level Sat. 05/28 continue tx. 05/29 continue tx. 05/30 continue tx. not much improvement. continues to self dialoguing 05/31 continue tx. minimal improvement. 06/01 continue tx. may want to consider change in antipsychotic. 06/02: no change since last seen 05/20. on paliperidone 12 mg daily. tegretol level 5.2. trend LFTs; slightly elevated. willing to have lithium added today. 06/03: reports improved concentration today with lithium addition. continue current mgmt. T/C different neuroleptic, T/C increase in tegretol dosing. 06/04: continue current mgmt. check lithium on tuesday. stable presentation. 06/05: continue current mgmt. stable presentation. 06/06: as for 06/05. 06/07: no change in presentation. checking labs tonight. 06/08 continue tx. 06/09: tegretol 7.7, lithium 0.34. increase tegretol dosing to 300 BID and lithium dosing to 600 BID. no change in presentation. 06/10: no change in presentation. 06/11: hypertensive and borderline tachy. follow. stable presentation, continue current mgmt. check labs early next week. 06/14: lithium checked today, 0.67. increase lithium dosing from 600 BID to 600/900. check tegretol level and rest of labs tomorrow morning. no change in presentation. 06/15: tegretol level 6.2 currently. pt is reported to have c/o dizziness, but denies said Sx upon MD inquiry. increase tegretol from 300 BID to 300/400 as of tonight. T/C change in neuroleptic. no change in presentation. 06/16: no change in plan or presentation for today. 06/17: no change in presentation. check head CT, U/A, ESR, TORIN, TSH/T4, B12/folate, HIV, Hep C, RPR. lab abnormalities include chronic leukopenia, increase urine spec grav w/proteinuria and ketonuria. DC paliperidone as it appears to have changed nothing, start trial of haldol. thus far zyprexa and invega have not helped. haldol, prolixin, and abilify are the medications which remain on the stevo's order. 06/18: tolerating haldol currently. no change in presentation. continue current mgmt. 06/19: Continue current regimen and plans 06/20: Continue current regimen plans 06/21: no change in presentation. increase haldol from 5 BID to 7.5 BID. otherwise continue current mgmt. 06/22: continue current mgmt. no change in presentation. case discussed with medical laboratory technical officer. 06/23: continue current mgmt. no change in presentation. T/C petitioning court for clozaril and ECT 06/24: continue current mgmt. no change in presentation. T/C petitioning court for clozaril and ECT. 06/25: no change. pt reported inducing vomiting after taking meds. staff believe pt cheeked meds last night and then went immediately to the bathroom. place patient on 1:1 for 30 minutes after meals. 06/26 keep same treatment 06/27 keep same treatment. 06/28: no whispering to self, but laughing continues. requesting discharge. no substantial progress. begin taper of tegretol as not having substantially modified presentation (reduce 300/400 --> 200/300 as of ton). discuss w/med providers in med providers' mtg tomorrow. 06/29: increase haldol to 10 BID. discussed case at providers' mtg. plan to pursue clozapine/ECT. 06/30: after further discussion with medical laboratory technical officer freida, plan devised to give COUCH antipsychotic now and see if pt can stabilize over next several months with that therapy. if he recidivates shortly, commitment and clozapine/ECT orders will be pursued. continue tegretol taper and DC prior to discharge. 07/01: decrease tegretol 200 BID to 100/200 as of tomorrow. scheduled for 200 mg haldol dec on tuesday. otherwise continue current mgmt. family mtg with father tomorrow at 2. Reason for contiued inpatient stay Substantial Risk for: harm to self, harm to others, inability to function and rapid decompensation Time Spent With Patient Time: Total time managing care of this patient today __25__ minutes.
[2022-07-01 20:36] VITALS: BP 147/73; PULSE 97; RESP 18; TEMP 36.6; O2SAT 94
[2022-07-01] MEDS: traZODone HCL 50 MG TABLET PO (20:43)
[2022-07-01] MEDS: Lithium Carbonate ER 450 MG TABLET.ER 900 MG PO (20:43)
[2022-07-01] MEDS: Docusate Sodium 100 MG CAPSULE PO (20:44)
[2022-07-01] MEDS: Prazosin HCL 1 MG CAPSULE 2 MG PO (20:44)
[2022-07-01] MEDS: Benztropine Mesylate 1 MG TABLET PO (20:44)
[2022-07-01] MEDS: Melatonin 3 MG TABLET 6 MG PO (20:44)
[2022-07-02] MEDS: Omeprazole 20 MG CAPSULE.DR PO (06:09)
[2022-07-02] MEDS: Lithium Carbonate ER 300 MG TABLET.ER 600 MG PO (08:51)
[2022-07-02] MEDS: diphenhydrAMINE HCl 12.5 MG/5 ML LIQUID 25 MG PO ×2 (08:52→20:42)
[2022-07-02] MEDS: carBAMazepine 200 MG/10 ML ORAL.SUSP 100 MG PO (08:52)
[2022-07-02 09:10] VITALS: BP 138/68; PULSE 102; RESP 20; TEMP 36.3; O2SAT 98
--- NOTE | 2022-07-02 15:12 | P.PNPSI_ITS ---
Subjective Subjective Date of Service: 07/02/22 Reason For Visit: psychosis/nikita Interim History: seen both individually throughout the day as well as in mtg with father, PACT team staff, and SW. at meeting discussed pt progress and discharge plans. pt hoping for discharge next week after getting haldol 200 mg IM on tuesday. per staff, pacing. difficult to engage. med-compliant. slept from 2130 on. Mental Status Exam Mental Status Exam Narrative: Appearance: up and about the unit Behavior: engaging on very limited subject matter Psychomotor: pacing the halls Speech: spontaneous, rapid; nml amount TP: disorganized TC: vague, vacuous Mood: good Affect: full range, normo-intense, non-labile. bizarre smiling and laughing not c/w context. AH/VH: none expressed SI: none expressed HI: none expressed Insight/judgment: impaired x 2. Memory/cog: alert, not oriented to situation. impaired secondary to psychiatric symptoms. Diagnostics Vital Signs (24Hr): Vital Signs - 24 hr 07/01/22 20:36 07/02/22 09:10 Temperature 97.8 F 97.3 F Pulse Rate 97 102 H Respiratory Rate 18 20 Blood Pressure 147/73 H 138/68 Pulse Oximetry 94 98 Oxygen Delivery Method Room Air Room Air BMI result Body Mass Index 27.3 Labs 06/15/22 08:45 06/15/22 08:45 Imaging Radiology Impressions: ITS Impressions Head CT 06/17/22 15:28 IMPRESSION: No acute intracranial abnormality including hemorrhage, mass effect, hydrocephalus, or acute territorial edematous infarction. Medications Medications Current Medications Acetaminophen (Acetaminophen 325 Mg Tablet) 650 mg PO Q6H PRN PRN Reason: Headache/Pain Mild Scale (1-3) Last Admin: 06/25/22 14:19 Dose: 650 mg Al Hydroxide/Mg Hydroxide (Magnesium Hydrox/Alum Hydrox 30 Ml Oral.Susp) 30 ml PO Q6H PRN PRN Reason: Heartburn/Nausea Last Admin: 06/30/22 20:25 Dose: 30 ml Benzocaine (Throat Lozenge, Medicated Lozenge) 1 lozenge MUCOUS MEM Q2H PRN PRN Reason: Sore Throat Last Admin: 07/01/22 16:18 Dose: 1 lozenge Benztropine Mesylate (Benztropine Mesylate 1 Mg Tablet) 1 mg PO TID PRN PRN Reason: Extrapyramidal Effects Last Admin: 07/01/22 20:44 Dose: 1 mg Carbamazepine (Carbamazepine 200 Mg/10 Ml Oral.Susp) 200 mg PO BEDTIME JELANI Last Admin: 07/01/22 20:44 Dose: 200 mg Carbamazepine (Carbamazepine 200 Mg/10 Ml Oral.Susp) 100 mg PO DAILY JELANI Last Admin: 07/02/22 08:52 Dose: 100 mg Diphenhydramine HCl (Diphenhydramine Hcl 12.5 Mg/5 Ml Liquid) 25 mg PO BID JELANI Last Admin: 07/02/22 08:52 Dose: 25 mg Docusate Sodium (Docusate Sodium 100 Mg Capsule) 100 mg PO BEDTIME JELANI Last Admin: 07/01/22 20:44 Dose: 100 mg Haloperidol Decanoate (Haloperidol Decanoate 50 Mg/Ml Ampul) 200 mg IM ONCE ONE Stop: 07/05/22 10:37 Haloperidol Lactate (Haloperidol Lactate 5 Mg/Ml Vial) 5 mg IM BID PRN PRN Reason: refusal of PO; per gomez order Hydroxyzine HCl (Hydroxyzine Hcl 25 Mg Tablet) 25 mg PO Q6H PRN PRN Reason: Anxiety Last Admin: 06/30/22 09:33 Dose: 25 mg [place] Carbonate ([place] Carbonate Er 300 Mg Tablet.Er) 600 mg PO DAILY JELANI Last Admin: 07/02/22 08:51 Dose: 600 mg [place] Carbonate ([place] Carbonate Er 450 Mg Tablet.Er) 900 mg PO BEDTIME JELANI Last Admin: 07/01/22 20:43 Dose: 900 mg Magn[place] Hydroxide (Milk Of Magnesia 30 Ml Oral.Susp) 30 ml PO DAILY PRN PRN Reason: Constipation Last Admin: 06/10/22 17:35 Dose: 30 ml Melatonin (Melatonin 3 Mg Tablet) 6 mg PO BEDTIME JELANI Last Admin: 07/01/22 20:44 Dose: 6 mg Omeprazole (Omeprazole 20 Mg Capsule.Dr) 20 mg PO DAILY@0630 JELANI Last Admin: 07/02/22 06:09 Dose: 20 mg Prazosin HCl (Prazosin Hcl 1 Mg Capsule) 2 mg PO BEDTIME JELANI; Protocol Last Admin: 07/01/22 20:44 Dose: 2 mg Trazodone HCl (Trazodone Hcl 50 Mg Tablet) 50 mg PO BEDTIME PRN PRN Reason: Insomnia Last Admin: 07/01/22 20:43 Dose: 50 mg Allergies Allergies Allergy/AdvReac Type Severity Reaction Status Date / Time depakote AdvReac Severe elevated Uncoded 05/19/22 22:38 ammonia Assessment & Plan Assessment & Plan (1) Schizoaffective disorder, bipolar type: Status: Acute Code(s): F25.0 - Schizoaffective disorder, bipolar type Assessment and Plan: ongoing thought disorder at least 06/12/22 Plan 05/05: possibly manic, will invest more effort in trying to get mood stabilizer on board. continue zydis for now, start VPA sprinkles. 05/06: no change in mgmt. 05/07: no change in presentation. change VPA from sprinkles back to pills due to large number of sprinkles pills required to generate 1500 mg of VPA. pt not compliant with VPA, has been taking some zyprexa; change formulation to zydis to improve bioavailability. plan to move to file for commitment next week if pt doesn't soon begin to reliably take medication. 05/08 no change 05/09 no change 05/10: no change to mgmt. chewed meds x 1 over weekend, cheeking/furtively disposing of meds otherwise. 05/11: generally refusing meds. informed he will be filed on tomorrow. attempting to bargain over taking meds and discharge. will investigate obtaining VPA soln. 05/12: commitment paperwork filed. pt took all meds last night and this morning, including liquid VPA. aware of legal circumstance, unclear how well he is able to appreciate it. 2: asking about discharge, states he is compliant with meds (as also say nursing staff). states he is feeling better, but unable to say in what way. sleeping and eating well. 23: repeated checking-in with MD throughout the day. remains disorganized and apparently RIS. med-compliant. 05/15: sleeping midday. no change in presentation. 05/16: no change in presentation or plan. 05/17: no change in presentation or plan. commitment hearing tomorrow. 05/18: no change in presentation. committed to the hospital at hearing. 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 DC zyprexa as well as it lacks usable COUCH. start paliperidone PO, convert to COUCH once it is established pt is tolerating the medication. 05/20: continue to establish on tegretol and invega. introduce COUCH once pt stable on PO formulation for several days. check tegretol levels after about a week. no change in presentation. 05/21 continue current medication. 05/22 continue current treatment plan 05/23 continue current treatment plan 05/24 continue current medications. continues with psychosis/delusions. 05/25 continue current tx. 05/26 continue tx. 05/27 continue tx. vaughn do tegretol level Sat. 05/28 continue tx. 05/29 continue tx. 05/30 continue tx. not much improvement. continues to self dialoguing 05/31 continue tx. minimal improvement. 06/01 continue tx. may want to consider change in antipsychotic. 06/02: no change since last seen 05/20. on paliperidone 12 mg daily. tegretol level 5.2. trend LFTs; slightly elevated. willing to have lithium added today. 06/03: reports improved concentration today with lithium addition. continue current mgmt. T/C different neuroleptic, T/C increase in tegretol dosing. 06/04: continue current mgmt. check lithium on tuesday. stable presentation. 06/05: continue current mgmt. stable presentation. 06/06: as for 06/05. 06/07: no change in presentation. checking labs tonight. 06/08 continue tx. 06/09: tegretol 7.7, lithium 0.34. increase tegretol dosing to 300 BID and lithium dosing to 600 BID. no change in presentation. 06/10: no change in presentation. 06/11: hypertensive and borderline tachy. follow. stable presentation, continue current mgmt. check labs early next week. 06/14: lithium checked today, 0.67. increase lithium dosing from 600 BID to 600/900. check tegretol level and rest of labs tomorrow morning. no change in presentation. 06/15: tegretol level 6.2 currently. pt is reported to have c/o dizziness, but denies said Sx upon MD inquiry. increase tegretol from 300 BID to 300/400 as of tonight. T/C change in neuroleptic. no change in presentation. 06/16: no change in plan or presentation for today. 06/17: no change in presentation. check head CT, U/A, ESR, TORIN, TSH/T4, B12/folate, HIV, Hep C, RPR. lab abnormalities include chronic leukopenia, increase urine spec grav w/proteinuria and ketonuria. DC paliperidone as it appears to have changed nothing, start trial of haldol. thus far zyprexa and invega have not helped. haldol, prolixin, and abilify are the medications which remain on the stevo's order. 06/18: tolerating haldol currently. no change in presentation. continue current mgmt. 06/19: Continue current regimen and plans 06/20: Continue current regimen plans 06/21: no change in presentation. increase haldol from 5 BID to 7.5 BID. otherwise continue current mgmt. 06/22: continue current mgmt. no change in presentation. case discussed with biomedical engineering aide. 06/23: continue current mgmt. no change in presentation. T/C petitioning court for clozaril and ECT 06/24: continue current mgmt. no change in presentation. T/C petitioning court for clozaril and ECT. 06/25: no change. pt reported inducing vomiting after taking meds. staff believe pt cheeked meds last night and then went immediately to the bathroom. place patient on 1:1 for 30 minutes after meals. 06/26 keep same treatment 06/27 keep same treatment. 06/28: no whispering to self, but laughing continues. requesting discharge. no substantial progress. begin taper of tegretol as not having substantially modified presentation (reduce 300/400 --> [facility] discuss w/med providers in med providers' mtg tomorrow. 06/29: increase haldol to 10 BID. discussed case at providers' mtg. plan to pursue clozapine/ECT. 06/30: after further discussion with biomedical engineering aide freida, plan devised to give COUCH antipsychotic now and see if pt can stabilize over next several months with that therapy. if he recidivates shortly, commitment and clozapine/ECT orders will be pursued. continue tegretol taper and DC prior to discharge. 07/01: decrease tegretol 200 BID to 100/200 as of tomorrow. scheduled for 200 mg haldol dec on tuesday. otherwise continue current mgmt. family mtg with father tomorrow at 2. 07/02: family mtg held. planning for DC mid-late next week. continue tegretol taper tuesday. Reason for contiued inpatient stay Substantial Risk for: inability to function and rapid decompensation Time Spent With Patient Time: Total time managing care of this patient today __60__ minutes.
[2022-07-02] MEDS: Docusate Sodium 100 MG CAPSULE PO ×2 (15:31→20:41)
[2022-07-02 17:54] VITALS: BP 134/61; PULSE 92; RESP 18; O2SAT 96
[2022-07-02] MEDS: Throat Lozenge, Medicated LOZENGE 1 LOZENGE MUCOUS MEM (18:13)
[2022-07-02] MEDS: Lithium Carbonate ER 450 MG TABLET.ER 900 MG PO (20:41)
[2022-07-02] MEDS: Prazosin HCL 1 MG CAPSULE 2 MG PO (20:41)
[2022-07-02] MEDS: carBAMazepine 200 MG/10 ML ORAL.SUSP PO (20:41)
[2022-07-02] MEDS: Melatonin 3 MG TABLET 6 MG PO (20:41)
[2022-07-03] MEDS: Throat Lozenge, Medicated LOZENGE 1 LOZENGE MUCOUS MEM (06:18)
[2022-07-03 08:15] VITALS: BP 134/62; PULSE 89; RESP 18; TEMP 36.6; O2SAT 96
[2022-07-03] MEDS: Omeprazole 20 MG CAPSULE.DR PO (08:36)
[2022-07-03] MEDS: diphenhydrAMINE HCl 12.5 MG/5 ML LIQUID 25 MG PO ×2 (08:37→20:13)
[2022-07-03] MEDS: Lithium Carbonate ER 300 MG TABLET.ER 600 MG PO (08:38)
[2022-07-03] MEDS: carBAMazepine 200 MG/10 ML ORAL.SUSP 100 MG PO (08:39)
[2022-07-03] MEDS: hydrOXYzine HCL 25 MG TABLET PO (13:18)
--- NOTE | 2022-07-03 15:02 | PC.NURSE ---
Pt appears less agitated after taking hydroxyzine, he showered and now eating sub in milieu area.
--- NOTE | 2022-07-03 18:56 | PC.NURSE ---
Pt visible most of the time in the day room. He appears to be responding to internal stimulation occaisionally noted to be engaged in self dialogue. Pt. makes frequent requests for large quantities of food. He does know that he can have a meal or snack q2 hours, however as the time approaches he begins to request the food as often as q5min. He did have a large sub sandwich at 17:00.
[2022-07-03 20:10] VITALS: BP 141/69; PULSE 91; RESP 18; TEMP 36.6; O2SAT 98
[2022-07-03] MEDS: Lithium Carbonate ER 450 MG TABLET.ER 900 MG PO (20:12)
[2022-07-03] MEDS: Melatonin 3 MG TABLET 6 MG PO (20:12)
[2022-07-03] MEDS: Prazosin HCL 1 MG CAPSULE 2 MG PO (20:12)
[2022-07-03] MEDS: Docusate Sodium 100 MG CAPSULE PO (20:13)
[2022-07-03] MEDS: carBAMazepine 200 MG/10 ML ORAL.SUSP PO (20:14)
--- NOTE | 2022-07-03 22:21 | P.PNPSI_ITS ---
Subjective Subjective Date of Service: 07/03/22 Reason For Visit: psychosis/nikita Interim History: Patient seen. Discussed with the team. He was guarded, paranoid and avoiding talking to this examiner when approached. Somewhat intense. Was seen sprinting in the [place]. He was paranoid. He was difficult to engage. at one point during the day he knocked over a stool. Med-compliant. slept well. Review of Systems Review of Systems Yes Unobtainable due to mental condition Mental Status Exam Mental Status Exam Narrative: Appearance: up and about the unit Behavior: engaging on very limited subject matter Psychomotor: pacing the halls Speech: spontaneous, rapid; nml amount TP: disorganized TC: vague, vacuous Mood: good Affect: full range, normo-intense, non-labile. bizarre smiling and laughing not c/w context. AH/VH: none expressed SI: none expressed HI: none expressed Insight/judgment: impaired x 2. Memory/cog: alert, not oriented to situation. impaired secondary to psychiatric symptoms. Patient Appearance: Well Grooomed Patient Orientation: Person and Situation Level of Consciousness: Awake Patient Behavior: Guarded Mood Description: Constricted Affect Description: Blunted Patient Cognition Impaired: Yes Ability to Follow Directions: Fair Speech Pattern: Clear Diagnostics Vital Signs (24Hr): Vital Signs - 24 hr 07/03/22 08:15 07/03/22 20:10 Temperature 97.8 F 98 F Pulse Rate 89 91 Respiratory Rate 18 18 Blood Pressure 134/62 141/69 H Pulse Oximetry 96 98 Oxygen Delivery Method Room Air Room Air BMI result Body Mass Index 27.3 Labs 06/15/22 08:45 06/15/22 08:45 Imaging Radiology Impressions: ITS Impressions Head CT 06/17/22 15:28 IMPRESSION: No acute intracranial abnormality including hemorrhage, mass effect, hydrocephalus, or acute territorial edematous infarction. Medications Medications Current Medications Acetaminophen (Acetaminophen 325 Mg Tablet) 650 mg PO Q6H PRN PRN Reason: Headache/Pain Mild Scale (1-3) Last Admin: 06/25/22 14:19 Dose: 650 mg Al Hydroxide/Mg Hydroxide (Magnesium Hydrox/Alum Hydrox 30 Ml Oral.Susp) 30 ml PO Q6H PRN PRN Reason: Heartburn/Nausea Last Admin: 06/30/22 20:25 Dose: 30 ml Benzocaine (Throat Lozenge, Medicated Lozenge) 1 lozenge MUCOUS MEM Q2H PRN PRN Reason: Sore Throat Last Admin: 07/03/22 06:18 Dose: 1 lozenge Benztropine Mesylate (Benztropine Mesylate 1 Mg Tablet) 1 mg PO TID PRN PRN Reason: Extrapyramidal Effects Last Admin: 07/01/22 20:44 Dose: 1 mg Carbamazepine (Carbamazepine 200 Mg/10 Ml Oral.Susp) 200 mg PO BEDTIME JELANI Last Admin: 07/03/22 20:14 Dose: 200 mg Carbamazepine (Carbamazepine 200 Mg/10 Ml Oral.Susp) 100 mg PO DAILY JELANI Last Admin: 07/03/22 08:39 Dose: 100 mg Diphenhydramine HCl (Diphenhydramine Hcl 12.5 Mg/5 Ml Liquid) 25 mg PO BID JELANI Last Admin: 07/03/22 20:13 Dose: 25 mg Docusate Sodium (Docusate Sodium 100 Mg Capsule) 100 mg PO BEDTIME JELANI Last Admin: 07/03/22 20:13 Dose: 100 mg Haloperidol (Haloperidol 5 Mg Tablet) 10 mg PO BID PRN PRN Reason: agitation/psychosis Haloperidol Decanoate (Haloperidol Decanoate 50 Mg/Ml Ampul) 200 mg IM ONCE ONE Stop: 07/05/22 10:37 Haloperidol Lactate (Haloperidol Lactate 5 Mg/Ml Vial) 5 mg IM BID PRN PRN Reason: refusal of PO; per gomez order Hydroxyzine HCl (Hydroxyzine Hcl 25 Mg Tablet) 25 mg PO Q6H PRN PRN Reason: Anxiety Last Admin: 07/03/22 13:18 Dose: 25 mg [place] Carbonate ([place] Carbonate Er 300 Mg Tablet.Er) 600 mg PO DAILY JELANI Last Admin: 07/03/22 08:38 Dose: 600 mg [place] Carbonate ([place] Carbonate Er 450 Mg Tablet.Er) 900 mg PO BEDTIME JELANI Last Admin: 07/03/22 20:12 Dose: 900 mg Magnesium Hydroxide (Milk Of Magnesia 30 Ml Oral.Susp) 30 ml PO DAILY PRN PRN Reason: Constipation Last Admin: 06/10/22 17:35 Dose: 30 ml Melatonin (Melatonin 3 Mg Tablet) 6 mg PO BEDTIME JELANI Last Admin: 07/03/22 20:12 Dose: 6 mg Omeprazole (Omeprazole 20 Mg Capsule.Dr) 20 mg PO DAILY@0630 JELANI Last Admin: 07/03/22 08:36 Dose: 20 mg Prazosin HCl (Prazosin Hcl 1 Mg Capsule) 2 mg PO BEDTIME JELANI; Protocol Last Admin: 07/03/22 20:12 Dose: 2 mg Trazodone HCl (Trazodone Hcl 50 Mg Tablet) 50 mg PO BEDTIME PRN PRN Reason: Insomnia Last Admin: 07/01/22 20:43 Dose: 50 mg Allergies Allergies Allergy/AdvReac Type Severity Reaction Status Date / Time depakote AdvReac Severe elevated Uncoded 05/19/22 22:38 ammonia Assessment & Plan Assessment & Plan (1) Schizoaffective disorder, bipolar type: Status: Acute Code(s): F25.0 - Schizoaffective disorder, bipolar type Assessment and Plan: ongoing thought disorder at least 06/12/22 Plan 05/05: possibly manic, will invest more effort in trying to get mood stabilizer on board. continue zydis for now, start VPA sprinkles. 05/06: no change in mgmt. 05/07: no change in presentation. change VPA from sprinkles back to pills due to large number of sprinkles pills required to generate 1500 mg of VPA. pt not compliant with VPA, has been taking some zyprexa; change formulation to zydis to improve bioavailability. plan to move to file for commitment next week if pt doesn't soon begin to reliably take medication. 05/08 no change 05/09 no change 05/10: no change to mgmt. chewed meds x 1 over weekend, cheeking/furtively disposing of meds otherwise. 05/11: generally refusing meds. informed he will be filed on tomorrow. attempting to bargain over taking meds and discharge. will investigate obtaining VPA soln. 05/12: commitment paperwork filed. pt took all meds last night and this morning, including liquid VPA. aware of legal circumstance, unclear how well he is able to appreciate it. 05/13: asking about discharge, states he is compliant with meds (as also say nursing staff). states he is feeling better, but unable to say in what way. sleeping and eating well. 3: repeated checking-in with MD throughout the day. remains disorganized and apparently RIS. med-compliant. 4: sleeping midday. no change in presentation. 05/16: no change in presentation or plan. 05/17: no change in presentation or plan. commitment hearing tomorrow. 05/18: no change in presentation. committed to the hospital at [facility]. 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 DC zyprexa as well as it lacks usable COUCH. start paliperidone PO, convert to COUCH once it is established pt is tolerating the medication. 05/20: continue to establish on tegretol and invega. introduce COUCH once pt stable on PO formulation for several days. check tegretol levels after about a week. no change in presentation. 05/21 continue current medication. 05/22 continue current treatment plan 05/23 continue current treatment plan 05/24 continue current medications. continues with psychosis/delusions. 05/25 continue current tx. 05/26 continue tx. 05/27 continue tx. vaughn do tegretol level Sat. 05/28 continue tx. 05/29 continue tx. 05/30 continue tx. not much improvement. continues to self dialoguing 05/31 continue tx. minimal improvement. 06/01 continue tx. may want to consider change in antipsychotic. 06/02: no change since last seen 05/20. on paliperidone 12 mg daily. tegretol level 5.2. trend LFTs; slightly elevated. willing to have lithium added today. 06/03: reports improved concentration today with lithium addition. continue current mgmt. T/C different neuroleptic, T/C increase in tegretol dosing. 06/04: continue current mgmt. check lithium on tuesday. stable presentation. 06/05: continue current mgmt. stable presentation. 06/06: as for 06/05. 06/07: no change in presentation. checking labs tonight. 06/08 continue tx. 06/09: tegretol 7.7, lithium 0.34. increase tegretol dosing to 300 BID and lithium dosing to 600 BID. no change in presentation. 06/10: no change in presentation. 06/11: hypertensive and borderline tachy. follow. stable presentation, continue current mgmt. check labs early next week. 06/14: lithium checked today, 0.67. increase lithium dosing from 600 BID to 600/900. check tegretol level and rest of labs tomorrow morning. no change in presentation. 06/15: tegretol level 6.2 currently. pt is reported to have c/o dizziness, but denies said Sx upon MD inquiry. increase tegretol from 300 BID to 300/400 as of tonight. T/C change in neuroleptic. no change in presentation. 06/16: no change in plan or presentation for today. 06/17: no change in presentation. check head CT, U/A, ESR, TORIN, TSH/T4, B12/folate, HIV, Hep C, RPR. lab abnormalities include chronic leukopenia, increase urine spec grav w/proteinuria and ketonuria. DC paliperidone as it appears to have changed nothing, start trial of haldol. thus far zyprexa and invega have not helped. haldol, prolixin, and abilify are the medications which remain on the stevo's order. 06/18: tolerating haldol currently. no change in presentation. continue current mgmt. 06/19: Continue current regimen and plans 06/20: Continue current regimen plans 06/21: no change in presentation. increase haldol from 5 BID to 7.5 BID. otherwise continue current mgmt. 06/22: continue current mgmt. no change in presentation. case discussed with medical physicist. 06/23: continue current mgmt. no change in presentation. T/C petitioning court for clozaril and ECT 06/24: continue current mgmt. no change in presentation. T/C petitioning court for clozaril and ECT. 06/25: no change. pt reported inducing vomiting after taking meds. staff be lieve pt cheeked meds last night and then went immediately to the bathroom. place patient on 1:1 for 30 minutes after meals. 06/26 keep same treatment 06/27 keep same treatment. 06/28: no whispering to self, but laughing continues. requesting discharge. no substantial progress. begin taper of tegretol as not having substantially modified presentation (reduce 300/400 --> 200/300 as of tonight). discuss w/med providers in med providers' mtg tomorrow. 06/29: increase haldol to 10 BID. discussed case at providers' mtg. plan to pursue clozapine/ECT. 06/30: after further discussion with medical physicist freida, plan devised to give COUCH antipsychotic now and see if pt can stabilize over next several months with that therapy. if he recidivates shortly, commitment and clozapine/ECT orders will be pursued. continue tegretol taper and DC prior to discharge. 07/01: decrease tegretol 200 BID to 100/200 as of tomorrow. scheduled for 200 mg haldol dec on tuesday. otherwise continue current mgmt. family mtg with father tomorrow at 2. 07/02: family mtg held. planning for DC mid-late next week. continue tegretol taper tuesday. 07/03: Continue treatment plan. Added Haldol PO PRN agitation. Reason for contiued inpatient stay Substantial Risk for: inability to function and rapid decompensation Time Spent With Patient Time: Total time managing care of this patient today ____ minutes.
[2022-07-04 08:30] VITALS: BP 137/61; PULSE 97; RESP 18; TEMP 36.6; O2SAT 98
[2022-07-04] MEDS: Omeprazole 20 MG CAPSULE.DR PO (09:12)
[2022-07-04] MEDS: Lithium Carbonate ER 300 MG TABLET.ER 600 MG PO (09:12)
[2022-07-04] MEDS: diphenhydrAMINE HCl 12.5 MG/5 ML LIQUID 25 MG PO ×2 (09:13→20:23)
[2022-07-04] MEDS: carBAMazepine 200 MG/10 ML ORAL.SUSP 100 MG PO (09:13)
--- NOTE | 2022-07-04 15:54 | PC.NURSE ---
Patients father arrived and dropped off two subway footlong grinders, soda, and a large bag of chips. T/w did education with the father regarding pts weight gain and the negative impacts this could have on his health. The father showed minimal insight and said his son isn't eating the hospital food. I reminded the father of the weight gain and possible impact. The father smiled and left.
[2022-07-04] MEDS: carBAMazepine 200 MG/10 ML ORAL.SUSP PO (20:23)
[2022-07-04] MEDS: Docusate Sodium 100 MG CAPSULE PO (20:23)
[2022-07-04] MEDS: Prazosin HCL 1 MG CAPSULE 2 MG PO (20:23)
[2022-07-04] MEDS: Lithium Carbonate ER 450 MG TABLET.ER 900 MG PO (20:23)
[2022-07-04] MEDS: Melatonin 3 MG TABLET 6 MG PO (20:23)
[2022-07-04 20:30] VITALS: BP 122/75; PULSE 96; RESP 18; TEMP 36.5; O2SAT 95
--- NOTE | 2022-07-04 23:04 | HO.PSYCHPN ---
Subjective Subjective Date of Service: 07/04/22 Reason For Visit: psychosis/nikita Interim History: Patient seen. Discussed with the team. He continues guarded and paranoid. More approachable than yesterday and says he is feeling well today. He didn't take PRN Haldol yesterday as he calmed down after taking hydroxyzine. He has been med compliant. Denies SI. slept well. Review of Systems Review of Systems Yes Unobtainable due to mental condition Mental Status Exam Mental Status Exam Narrative: Appearance: up and about the unit Behavior: engaging on very limited subject matter Psychomotor: pacing the halls Speech: spontaneous, rapid; nml amount TP: disorganized TC: vague, vacuous Mood: good Affect: full range, normo-intense, non-labile. bizarre smiling and laughing not c/w context. AH/VH: none expressed SI: none expressed HI: none expressed Insight/judgment: impaired x 2. Memory/cog: alert, not oriented to situation. impaired secondary to psychiatric symptoms. Patient Appearance: Well Grooomed Patient Orientation: Person and Situation Level of Consciousness: Awake Patient Behavior: Guarded Mood Description: Constricted Affect Description: Blunted Patient Cognition Impaired: Yes Ability to Follow Directions: Fair Speech Pattern: Clear Diagnostics Vital Signs (24Hr): Vital Signs - 24 hr 07/04/22 08:30 07/04/22 20:30 Temperature 97.9 F 97.7 F Pulse Rate 97 96 Respiratory Rate 18 18 Blood Pressure 137/61 122/75 Pulse Oximetry 98 95 Oxygen Delivery Method Room Air Room Air BMI result Body Mass Index 27.3 Labs 06/15/22 08:45 06/15/22 08:45 Imaging Radiology Impressions: ITS Impressions Head CT 06/17/22 15:28 IMPRESSION: No acute intracranial abnormality including hemorrhage, mass effect, hydrocephalus, or acute territorial edematous infarction. Medications Medications Current Medications Acetaminophen (Acetaminophen 325 Mg Tablet) 650 mg PO Q6H PRN PRN Reason: Headache/Pain Mild Scale (1-3) Last Admin: 06/25/22 14:19 Dose: 650 mg Al Hydroxide/Mg Hydroxide (Magnesium Hydrox/Alum Hydrox 30 Ml Oral.Susp) 30 ml PO Q6H PRN PRN Reason: Heartburn/Nausea Last Admin: 06/30/22 20:25 Dose: 30 ml Benzocaine (Throat Lozenge, Medicated Lozenge) 1 lozenge MUCOUS MEM Q2H PRN PRN Reason: Sore Throat Last Admin: 07/03/22 06:18 Dose: 1 lozenge Benztropine Mesylate (Benztropine Mesylate 1 Mg Tablet) 1 mg PO TID PRN PRN Reason: Extrapyramidal Effects Last Admin: 07/01/22 20:44 Dose: 1 mg Carbamazepine (Carbamazepine 200 Mg/10 Ml Oral.Susp) 200 mg PO BEDTIME JELANI Last Admin: 07/04/22 20:23 Dose: 200 mg Carbamazepine (Carbamazepine 200 Mg/10 Ml Oral.Susp) 100 mg PO DAILY JELANI Last Admin: 07/04/22 09:13 Dose: 100 mg Diphenhydramine HCl (Diphenhydramine Hcl 12.5 Mg/5 Ml Liquid) 25 mg PO BID JELANI Last Admin: 07/04/22 20:23 Dose: 25 mg Docusate Sodium (Docusate Sodium 100 Mg Capsule) 100 mg PO BEDTIME JELANI Last Admin: 07/04/22 20:23 Dose: 100 mg Haloperidol (Haloperidol 5 Mg Tablet) 10 mg PO BID PRN PRN Reason: agitation/psychosis Haloperidol Decanoate (Haloperidol Decanoate 50 Mg/Ml Ampul) 200 mg IM ONCE ONE Stop: 07/05/22 10:37 Haloperidol Lactate (Haloperidol Lactate 5 Mg/Ml Vial) 5 mg IM BID PRN PRN Reason: refusal of PO; per gomez order Hydroxyzine HCl (Hydroxyzine Hcl 25 Mg Tablet) 25 mg PO Q6H PRN PRN Reason: Anxiety Last Admin: 07/03/22 13:18 Dose: 25 mg [place] Carbonate ([place] Carbonate Er 300 Mg Tablet.Er) 600 mg PO DAILY JELANI Last Admin: 07/04/22 09:12 Dose: 600 mg [place] Carbonate ([place] Carbonate Er 450 Mg Tablet.Er) 900 mg PO BEDTIME JELANI Last Admin: 07/04/22 20:23 Dose: 900 mg Magnesium Hydroxide (Milk Of Magnesia 30 Ml Oral.Susp) 30 ml PO DAILY PRN PRN Reason: Constipation Last Admin: 06/10/22 17:35 Dose: 30 ml Melatonin (Melatonin 3 Mg Tablet) 6 mg PO BEDTIME JELANI Last Admin: 07/04/22 20:23 Dose: 6 mg Omeprazole (Omeprazole 20 Mg Capsule.Dr) 20 mg PO DAILY@0630 [facility] Last Admin: 07/04/22 09:12 Dose: 20 mg Prazosin HCl (Prazosin Hcl 1 Mg Capsule) 2 mg PO BEDTIME JELANI; Protocol Last Admin: 07/04/22 20:23 Dose: 2 mg Trazodone HCl (Trazodone Hcl 50 Mg Tablet) 50 mg PO BEDTIME PRN PRN Reason: Insomnia Last Admin: 07/01/22 20:43 Dose: 50 mg Allergies Allergies Allergy/AdvReac Type Severity Reaction Status Date / Time depakote AdvReac Severe elevated Uncoded 05/19/22 22:38 ammonia Assessment & Plan Assessment & Plan (1) Schizoaffective disorder, bipolar type: Status: Acute Code(s): F25.0 - Schizoaffective disorder, bipolar type Assessment and Plan: ongoing thought disorder at least 06/12/22 Plan 05/05: possibly manic, will invest more effort in trying to get mood stabilizer on board. continue zydis for now, start VPA sprinkles. 05/06: no change in mgmt. 05/07: no change in presentation. change VPA from sprinkles back to pills due to large number of sprinkles pills required to generate 1500 mg of VPA. pt not compliant with VPA, has been taking some zyprexa; change formulation to zydis to improve bioavailability. plan to move to file for commitment next week if pt doesn't soon begin to reliably take medication. 05/08 no change 05/09 no change 05/10: no change to mgmt. chewed meds x 1 over weekend, cheeking/furtively disposing of meds otherwise. 05/11: generally refusing meds. informed he will be filed on tomorrow. attempting to bargain over taking meds and discharge. will investigate obtaining VPA soln. 05/12: commitment paperwork filed. pt took all meds last night and this morning, including liquid VPA. aware of legal circumstance, unclear how well he is able to appreciate it. 2: asking about discharge, states he is compliant with meds (as also say nursing staff). states he is feeling better, but unable to say in what way. sleeping and eating well. 3: repeated checking-in with MD throughout the day. remains disorganized and apparently RIS. med-compliant. 2/4: sleeping midday. no change in presentation. 05/16: no change in presentation or plan. 05/17: no change in presentation or plan. commitment hearing tomorrow. 05/18: no change in presentation. committed to the hospital at [facility]. 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 DC zyprexa as well as it lacks usable COUCH. start paliperidone PO, convert to COUCH once it is established pt is tolerating the medication. 05/20: continue to establish on tegretol and invega. introduce COUCH once pt stable on PO formulation for several days. check tegretol levels after about a week. no change in presentation. 05/21 continue current medication. 05/22 continue current treatment plan 05/23 continue current treatment plan 05/24 continue current medications. continues with psychosis/delusions. 05/25 continue current tx. 05/26 continue tx. 05/27 continue tx. vaughn do tegretol level Sat. 05/28 continue tx. 05/29 continue tx. 05/30 continue tx. not much improvement. continues to self dialoguing 05/31 continue tx. minimal improvement. 06/01 continue tx. may want to consider change in antipsychotic. 06/02: no change since last seen 05/20. on paliperidone 12 mg daily. tegretol level 5.2. trend LFTs; slightly elevated. willing to have lithium added today. 06/03: reports improved concentration today with lithium addition. continue current mgmt. T/C different neuroleptic, T/C increase in tegretol dosing. 06/04: continue current mgmt. check lithium on tuesday. stable presentation. 06/05: continue current mgmt. stable presentation. 06/06: as for 06/05. 06/07: no change in presentation. checking labs tonight. 06/08 continue tx. 06/09: tegretol 7.7, lithium 0.34. increase tegretol dosing to 300 BID and lithium dosing to 600 BID. no change in presentation. 06/10: no change in presentation. 06/11: hypertensive and borderline tachy. follow. stable presentation, continue current mgmt. check labs early next week. 06/14: lithium checked today, 0.67. increase lithium dosing from 600 BID to 600/900. check tegretol level and rest of labs tomorrow morning. no change in presentation. 06/15: tegretol level 6.2 currently. pt is reported to have c/o dizziness, but denies said Sx upon MD inquiry. increase tegretol from 300 BID to 300/400 as of tonight. T/C change in neuroleptic. no change in presentation. 06/16: no change in plan or presentation for today. 06/17: no change in presentation. check head CT, U/A, ESR, TORIN, TSH/T4, B12/folate, HIV, Hep C, RPR. lab abnormalities include chronic leukopenia, increase urine spec grav w/proteinuria and ketonuria. DC paliperidone as it appears to have changed nothing, start trial of haldol. thus far zyprexa and invega have not helped. haldol, prolixin, and abilify are the medications which remain on the stevo's order. 06/18: tolerating haldol currently. no change in presentation. continue current mgmt. 06/19: Continue current regimen and plans 06/20: Continue current regimen plans 06/21: no change in presentation. increase haldol from 5 BID to 7.5 BID. otherwise continue current mgmt. 06/22: continue current mgmt. no change in presentation. case discussed with medical stenographer. 06/23: continue current mgmt. no change in presentation. T/C petitioning court for clozaril and ECT 06/24: continue current mgmt. no change in presentation. T/C petitioning court for clozaril and ECT. 06/25: no change. pt reported inducing vomiting after taking meds. staff believe pt cheeked meds last night and then went immediately to the bathroom. place patient on 1:1 for 30 minutes after meals. 06/26 keep same treatment 06/27 keep same treatment. 06/28: no whispering to self, but laughing continues. requesting discharge. no substantial progress. begin taper of tegretol as not having substantially modified presentation (reduce 300/400 --> 200/300 as of tonight). discuss w/med providers in med providers' mtg tomorrow. 06/29: increase haldol to 10 BID. discussed case at providers' mtg. plan to pursue clozapine/ECT. 06/30: after further discussion with medical stenographer freida, plan devised to give COUCH antipsychotic now and see if pt can stabilize over next several months with that therapy. if he recidivates shortly, commitment and clozapine/ECT orders will be pursued. continue tegretol taper and DC prior to discharge. 07/01: decrease tegretol 200 BID to 100/200 as of tomorrow. scheduled for 200 mg haldol dec on tuesday. otherwise continue current mgmt. family mtg with father tomorrow at 2. 07/02: family mtg held. planning for DC mid-late next week. continue tegretol taper tuesday. 07/03: Continue treatment plan. Added Haldol PO PRN agitation. 07/04: Continue current tx plan. Reason for contiued inpatient stay Substantial Risk for: harm to others, inability to function and rapid decompensation Time Spent With Patient Time: Total time managing care of this patient today ____ minutes.
[2022-07-05] MEDS: diphenhydrAMINE HCl 12.5 MG/5 ML LIQUID 25 MG PO ×2 (09:40→20:21)
[2022-07-05] MEDS: carBAMazepine 200 MG/10 ML ORAL.SUSP 100 MG PO (09:41)
[2022-07-05] MEDS: Omeprazole 20 MG CAPSULE.DR PO (09:42)
[2022-07-05] MEDS: Lithium Carbonate ER 300 MG TABLET.ER 600 MG PO (09:42)
[2022-07-05 10:53] VITALS: RESP 18
--- NOTE | 2022-07-05 15:05 | HO.PSYCHPN ---
Subjective Subjective Date of Service: 07/05/22 Reason For Visit: psychosis/nikita Interim History: pt at baseline. disorganized, non-sequiturs, bizarre affect, perseverative. i don't have a mental illness. per staff, up early yesterday but stayed in bed. sleeping well. not tolerating groups. dropped pants and touching self in milieu. running through kitchen and laughing. slept last NOC. Mental Status Exam Mental Status Exam Narrative: Appearance: up and about the unit Behavior: engaging on very limited subject matter Psychomotor: pacing the halls Speech: spontaneous, rapid; nml amount TP: disorganized TC: vague, vacuous Mood: good Affect: full range, normo-intense, non-labile. bizarre smiling and laughing not c/w context. AH/VH: none expressed SI: none expressed HI: none expressed Insight/judgment: impaired x 2. Memory/cog: alert, not oriented to situation. impaired secondary to psychiatric symptoms. Diagnostics Vital Signs (24Hr): Vital Signs - 24 hr 07/04/22 20:30 07/05/22 10:53 Temperature 97.7 F Pulse Rate 96 Respiratory Rate 18 18 Blood Pressure 122/75 Pulse Oximetry 95 Oxygen Delivery Method Room Air BMI result Body Mass Index 27.3 Labs 06/15/22 08:45 06/15/22 08:45 Imaging Radiology Impressions: ITS Impressions Head CT 06/17/22 15:28 IMPRESSION: No acute intracranial abnormality including hemorrhage, mass effect, hydrocephalus, or acute territorial edematous infarction. Medications Medications Current Medications Acetaminophen (Acetaminophen 325 Mg Tablet) 650 mg PO Q6H PRN PRN Reason: Headache/Pain Mild Scale (1-3) Last Admin: 06/25/22 14:19 Dose: 650 mg Al Hydroxide/Mg Hydroxide (Magnesium Hydrox/Alum Hydrox 30 Ml Oral.Susp) 30 ml PO Q6H PRN PRN Reason: Heartburn/Nausea Last Admin: 06/30/22 20:25 Dose: 30 ml Benzocaine (Throat Lozenge, Medicated Lozenge) 1 lozenge MUCOUS MEM Q2H PRN PRN Reason: Sore Throat Last Admin: 07/03/22 06:18 Dose: 1 lozenge Benztropine Mesylate (Benztropine Mesylate 1 Mg Tablet) 1 mg PO TID PRN PRN Reason: Extrapyramidal Effects Last Admin: 07/01/22 20:44 Dose: 1 mg Carbamazepine (Carbamazepine 200 Mg/10 Ml Oral.Susp) 200 mg PO DAILY JELANI Carbamazepine (Carbamazepine 200 Mg/10 Ml Oral.Susp) 300 mg PO BEDTIME JELANI Diphenhydramine HCl (Diphenhydramine Hcl 12.5 Mg/5 Ml Liquid) 25 mg PO BID JELANI Last Admin: 07/05/22 09:40 Dose: 25 mg Docusate Sodium (Docusate Sodium 100 Mg Capsule) 100 mg PO BEDTIME JELANI Last Admin: 07/04/22 20:23 Dose: 100 mg Haloperidol (Haloperidol 5 Mg Tablet) 10 mg PO BID PRN PRN Reason: agitation/psychosis Haloperidol Lactate (Haloperidol Lactate 5 Mg/Ml Vial) 5 mg IM BID PRN PRN Reason: refusal of PO; per gomez order Hydroxyzine HCl (Hydroxyzine Hcl 25 Mg Tablet) 25 mg PO Q6H PRN PRN Reason: Anxiety Last Admin: 07/03/22 13:18 Dose: 25 mg [place] Carbonate ([place] Carbonate Er 300 Mg Tablet.Er) 600 mg PO DAILY JELANI Last Admin: 07/05/22 09:42 Dose: 600 mg [place] Carbonate ([place] Carbonate Er 450 Mg Tablet.Er) 900 mg PO BEDTIME JELANI Last Admin: 07/04/22 20:23 Dose: 900 mg Magnesium Hydroxide (Milk Of Magnesia 30 Ml Oral.Susp) 30 ml PO DAILY PRN PRN Reason: Constipation Last Admin: 06/10/22 17:35 Dose: 30 ml Melatonin (Melatonin 3 Mg Tablet) 6 mg PO BEDTIME JELANI Last Admin: 07/04/22 20:23 Dose: 6 mg Omeprazole (Omeprazole 20 Mg Capsule.Dr) 20 mg PO DAILY@0630 JELANI Last Admin: 07/05/22 09:42 Dose: 20 mg Prazosin HCl (Prazosin Hcl 1 Mg Capsule) 2 mg PO BEDTIME JELANI; Protocol Last Admin: 07/04/22 20:23 Dose: 2 mg Trazodone HCl (Trazodone Hcl 50 Mg Tablet) 50 mg PO BEDTIME PRN PRN Reason: Insomnia Last Admin: 07/01/22 20:43 Dose: 50 mg Allergies Allergies Allergy/AdvReac Type Severity Reaction Status Date / Time depakote AdvReac Severe elevated Uncoded 05/19/22 22:38 ammonia Assessment & Plan Assessment & Plan (1) Schizoaffective disorder, bipolar type: Status: Acute Code(s): F25.0 - Schizoaffective disorder, bipolar type Assessment and Plan: ongoing thought disorder at least 06/12/22 Plan 05/05: possibly manic, will invest more effort in trying to get mood stabilizer on board. continue zydis for now, start VPA sprinkles. 05/06: no change in mgmt. 05/07: no change in presentation. change VPA from sprinkles back to pills due to large number of sprinkles pills required to generate 1500 mg of VPA. pt not compliant with VPA, has been taking some zyprexa; change formulation to zydis to improve bioavailability. plan to move to file for commitment next week if pt doesn't soon begin to reliably take medication. 05/08 no change 05/09 no change 05/10: no change to mgmt. chewed meds x 1 over weekend, cheeking/furtively disposing of meds otherwise. 05/11: generally refusing meds. informed he will be filed on tomorrow. attempting to bargain over taking meds and discharge. will investigate obtaining VPA soln. 05/12: commitment paperwork filed. pt took all meds last night and this morning, including liquid VPA. aware of legal circumstance, unclear how well he is able to appreciate it. 22: asking about discharge, states he is compliant with meds (as also say nursing staff). states he is feeling better, but unable to say in what way. sleeping and eating well. 2/3: repeated checking-in with MD throughout the day. remains disorganized and apparently RIS. med-compliant. 24: sleeping midday. no change in presentation. 05/16: no change in presentation or plan. 05/17: no change in presentation or plan. commitment hearing tomorrow. 05/18: no change in presentation. committed to the hospital at hearing. 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 DC zyprexa as well as it lacks usable COUCH. start paliperidone PO, convert to COUCH once it is established pt is tolerating the medication. 05/20: continue to establish on tegretol and invega. introduce COUCH once pt stable on PO formulation for several days. check tegretol levels after about a week. no change in presentation. 05/21 continue current medication. 05/22 continue current treatment plan 05/23 continue current treatment plan 05/24 continue current medications. continues with psychosis/delusions. 05/25 continue current tx. 05/26 continue tx. 05/27 continue tx. vaughn do tegretol level Sat. 05/28 continue tx. 05/29 continue tx. 05/30 continue tx. not much improvement. continues to self dialoguing 05/31 continue tx. minimal improvement. 06/01 continue tx. may want to consider change in antipsychotic. 06/02: no change since last seen 05/20. on paliperidone 12 mg daily. tegretol level 5.2. trend LFTs; slightly elevated. willing to have lithium added today. 06/03: reports improved concentration today with lithium addition. continue current mgmt. T/C different neuroleptic, T/C increase in tegretol dosing. 06/04: continue current mgmt. check lithium on tuesday. stable presentation. 06/05: continue current mgmt. stable presentation. 06/06: as for 06/05. 06/07: no change in presentation. checking labs tonight. 06/08 continue tx. 06/09: tegretol 7.7, lithium 0.34. increase tegretol dosing to 300 BID and lithium dosing to 600 BID. no change in presentation. 06/10: no change in presentation. 06/11: hypertensive and borderline tachy. follow. stable presentation, continue current mgmt. check labs early next week. 06/14: lithium checked today, 0.67. increase lithium dosing from 600 BID to 600/900. check tegretol level and rest of labs tomorrow morning. no change in presentation. 06/15: tegretol level 6.2 currently. pt is reported to have c/o dizziness, but denies said Sx upon MD inquiry. increase tegretol from 300 BID to 300/400 as of tonight. T/C change in neuroleptic. no change in presentation. 06/16: no change in plan or presentation for today. 06/17: no change in presentation. check head CT, U/A, ESR, TORIN, TSH/T4, B12/folate, HIV, Hep C, RPR. lab abnormalities include chronic leukopenia, increase urine spec grav w/proteinuria and ketonuria. DC paliperidone as it appears to have changed nothing, start trial of haldol. thus far zyprexa and invega have not helped. haldol, prolixin, and abilify are the medications which remain on the stevo's order. 06/18: tolerating haldol currently. no change in presentation. continue current mgmt. 06/19: Continue current regimen and plans 06/20: Continue current regimen plans 06/21: no change in presentation. increase haldol from 5 BID to 7.5 BID. otherwise continue current mgmt. 06/22: continue current mgmt. no change in presentation. case discussed with medical billing and coding specialist. 06/23: continue current mgmt. no change in presentation. T/C petitioning court for clozaril and ECT 06/24: continue current mgmt. no change in presentation. T/C petitioning court for clozaril and ECT. 06/25: no change. pt reported inducing vomiting after taking meds. staff believe pt cheeked meds last night and then went immediately to the bathroom. place patient on 1:1 for 30 minutes after meals. 06/26 keep same treatment 06/27 keep same treatment. 06/28: no whispering to self, but laughing continues. requesting discharge. no substantial progress. begin taper of tegretol as not having substantially modified presentation (reduce 300/400 --> 200/300 as of tonight). discuss w/med providers in med providers' mtg tomorrow. 06/29: increase haldol to 10 BID. discussed case at providers' mtg. plan to pursue clozapine/ECT. 06/30: after further discussion with medical billing and coding specialist freida, plan devised to give COUCH antipsychotic now and see if pt can stabilize over next several months with that therapy. if he recidivates shortly, commitment and clozapine/ECT orders will be pursued. continue tegretol taper and DC prior to discharge. 07/01: decrease tegretol 200 BID to 100/200 as of tomorrow. scheduled for 200 mg haldol dec on tuesday. otherwise continue current mgmt. family mtg with father tomorrow at 2. 07/02: family mtg held. planning for DC mid-late next week. continue tegretol taper tuesday. 07/03: Continue treatment plan. Added Haldol PO PRN agitation. 07/04: Continue current tx plan. 07/05: hypersexual, disinhibited over w/e. increase tegretol back to 200/300 (from 100/200). to receive another 200 mg of IM haldol today. restart haldol 5 mg PO BID until discharge. Reason for contiued inpatient stay Substantial Risk for: inability to function and rapid decompensation Time Spent With Patient Time: Total time managing care of this patient today _25___ minutes.
[2022-07-05] MEDS: Haloperidol Lactate Oral Conc 10 MG/5 ML ORAL.CONC 5 MG PO ×2 (16:08→20:21)
[2022-07-05] MEDS: Lithium Carbonate ER 450 MG TABLET.ER 900 MG PO (20:21)
[2022-07-05] MEDS: Prazosin HCL 1 MG CAPSULE 2 MG PO (20:21)
[2022-07-05] MEDS: Melatonin 3 MG TABLET 6 MG PO (20:21)
[2022-07-05] MEDS: Docusate Sodium 100 MG CAPSULE PO (20:21)
[2022-07-05] MEDS: carBAMazepine 200 MG/10 ML ORAL.SUSP 300 MG PO (20:22)
[2022-07-05 20:49] VITALS: BP 139/74; PULSE 80; RESP 16; TEMP 36.6; O2SAT 100
[2022-07-06] MEDS: Lithium Carbonate ER 300 MG TABLET.ER 600 MG PO (09:33)
[2022-07-06] MEDS: Haloperidol Lactate Oral Conc 10 MG/5 ML ORAL.CONC 5 MG PO ×2 (09:33→20:07)
[2022-07-06] MEDS: diphenhydrAMINE HCl 12.5 MG/5 ML LIQUID 25 MG PO ×2 (09:34→20:07)
[2022-07-06] MEDS: Omeprazole 20 MG CAPSULE.DR PO (09:34)
[2022-07-06] MEDS: carBAMazepine 200 MG/10 ML ORAL.SUSP PO ×2 (09:34→20:07)
[2022-07-06 10:23] VITALS: BP 133/66; PULSE 99; RESP 20; TEMP 36.4; O2SAT 96
[2022-07-06 15:03] LABS: Eosinophils Absolute Auto 0.1 X10*3/uL (0.0-0.4); Eosinophils Percent Auto 3.1 % (0-4); Hematocrit 44.3 % (42.0-52.0); Hemoglobin 15.5 g/dl (14.0-18.0); Imm Gran Abs Auto 0.01 X10*3/uL (0.00-0.03); Imm Gran Pct Auto 0.4 % (0.0-0.4); Lymphocytes Absolute Auto 1.1 X10*3/uL (1.2-4.9); MANUAL DIFF FLAG SCAN; Mean Corpuscular Hemoglobin 30.2 pg (27.0-33.0); Mean Corpuscular Volume 86.2 fL (80.0-98.0); Mean Platelet Volume 10.6 fL (9.4-12.4); Monocytes Absolute Auto 0.4 X10*3/uL (0.1-1.2); Neutrophils Percent Auto 37.5 % (45-73); Platelet Count 197 X10*3/uL (160-400); Red Blood Count 5.14 X10*6/uL (4.60-5.80); Red Cell Distribution Width 12.4 % (11.0-16.0); SCAN SMEAR FLAG 1; White Blood Count 2.6 X10*3/uL (4.8-10.8)
[2022-07-06 15:22] LABS: Lithium 0.91 mmol/L (0.60-1.20)
[2022-07-06 15:26] LABS: SLIDE REVIEW VERIFIED
[2022-07-06 15:30] LABS: Alanine Aminotransferase 95 U/L (0-40); Albumin Level 4.6 g/dL (3.5-5.0); Alkaline Phosphatase 114 U/L (39-117); Anion Gap 11 (12-20); Aspartate Amino Transferase 74 U/L (5-37); Bilirubin Direct < 0.2 mg/dL (0.0-0.5); Bilirubin Total 0.5 mg/dL (0.0-1.0); Blood Urea Nitrogen 11 mg/dL (9-16); Calcium 9.8 mg/dL (8.4-10.2); Carbon Dioxide 26 mmol/L (22-29); Chloride 106 mmol/L (96-108); Creatinine Clr Calc Pharmacy 120.2; Estimated Glomerular Filt Rate > 60; Glucose Random 106 mg/dL (60-115); Potassium 4.4 mmol/L (3.3-5.1); Sodium 139 mmol/L (135-145); Total Protein 6.6 g/dL (6.5-8.0)
--- NOTE | 2022-07-06 18:09 | P.PNPSI_ITS ---
Subjective Subjective Date of Service: 07/06/22 Reason For Visit: psychosis/nikita Interim History: no change in presentation. per staff, requiring frequent redirection. smiling, no groups. fixated on DC and food. sleeping well. Mental Status Exam Mental Status Exam Narrative: Appearance: up and about the unit Behavior: engaging on very limited subject matter Psychomotor: pacing the halls Speech: spontaneous, rapid; nml amount TP: disorganized TC: vague, vacuous Mood: good Affect: full range, normo-intense, non-labile. bizarre smiling and laughing not c/w context. AH/VH: none expressed SI: none expressed HI: none expressed Insight/judgment: impaired x 2. Memory/cog: alert, not oriented to situation. impaired secondary to psychiatric symptoms. Diagnostics Vital Signs (24Hr): Vital Signs - 24 hr 07/05/22 20:49 07/06/22 10:23 Temperature 97.8 F 97.6 F Pulse Rate 80 99 Respiratory Rate 16 20 Blood Pressure 139/74 133/66 Pulse Oximetry 100 96 Oxygen Delivery Method Room Air Room Air BMI result Body Mass Index 27.3 Labs 07/06/22 14:27 07/06/22 14:27 Labs: Laboratory Results - last 48 hr 07/06/22 07/06/22 07/06/22 14:27 14:27 14:27 WBC 2.6 L RBC 5.14 Hgb 15.5 Hct 44.3 MCV 86.2 MCH 30.2 MCHC 35.0 RDW 12.4 Plt Count 197 MPV 10.6 Immature Gran % (Auto) 0.4 Neut % (Auto) 37.5 L Lymph % (Auto) 43.0 H [place] % (Auto) 16.0 H Eos % (Auto) 3.1 Baso % (Auto) 0.0 Lymph # (Auto) 1.1 L [place] # (Auto) 0.4 Eos # (Auto) 0.1 Baso # (Auto) 0.0 Abs Immat Gran (auto) 0.01 Absolute Neuts (auto) 1.0 L Absolute Nucleated RBC 0.000 Nucleated RBC % (auto) 0.0 Smear Tech's Comments VERIFIED Sodium 139 Potassium 4.4 Chloride 106 Carbon Dioxide 26 Anion Gap 11 L BUN 11 Creatinine 0.98 Estim Creat Clear Calc 120.2 Estimated GFR > 60 Random Glucose 106 Calcium 9.8 D Total Bilirubin 0.5 Direct Bilirubin < 0.2 AST 74 H ALT 95 H Alkaline Phosphatase 114 Total Protein 6.6 Albumin 4.6 Carbamazepine 8.0 [place] 07/06/22 14:27 WBC RBC Hgb Hct MCV MCH MCHC RDW Plt Count MPV Immature Gran % (Auto) Neut % (Auto) Lymph % (Auto) [place] % (Auto) Eos % (Auto) Baso % (Auto) Lymph # (Auto) [place] # (Auto) Eos # (Auto) Baso # (Auto) Abs Immat Gran (auto) Absolute Neuts (auto) Absolute Nucleated RBC Nucleated RBC % (auto) Smear Tech's Comments Sodium Potassium Chloride Carbon Dioxide Anion Gap BUN Creatinine Estim Creat Clear Calc Estimated GFR Random Glucose Calcium Total Bilirubin Direct Bilirubin AST ALT Alkaline Phosphatase Total Protein Albumin Carbamazepine [place] 0.91 Imaging Radiology Impressions: ITS Impressions Head CT 06/17/22 15:28 IMPRESSION: No acute intracranial abnormality including hemorrhage, mass effect, hydrocephalus, or acute territorial edematous infarction. Medications Medications Current Medications Acetaminophen (Acetaminophen 325 Mg Tablet) 650 mg PO Q6H PRN PRN Reason: Headache/Pain Mild Scale (1-3) Last Admin: 06/25/22 14:19 Dose: 650 mg Al Hydroxide/Mg Hydroxide (Magnesium Hydrox/Alum Hydrox 30 Ml Oral.Susp) 30 ml PO Q6H PRN PRN Reason: Heartburn/Nausea Last Admin: 06/30/22 20:25 Dose: 30 ml Benzocaine (Throat Lozenge, Medicated Lozenge) 1 lozenge MUCOUS MEM Q2H PRN PRN Reason: Sore Throat Last Admin: 07/03/22 06:18 Dose: 1 lozenge Benztropine Mesylate (Benztropine Mesylate 1 Mg Tablet) 1 mg PO TID PRN PRN Reason: Extrapyramidal Effects Last Admin: 07/01/22 20:44 Dose: 1 mg Carbamazepine (Carbamazepine 200 Mg/10 Ml Oral.Susp) 100 mg PO DAILY JELANI Carbamazepine (Carbamazepine 200 Mg/10 Ml Oral.Susp) 200 mg PO BEDTIME JELANI Diphenhydramine HCl (Diphenhydramine Hcl 12.5 Mg/5 Ml Liquid) 25 mg PO BID JELANI Last Admin: 07/06/22 09:34 Dose: 25 mg Docusate Sodium (Docusate Sodium 100 Mg Capsule) 100 mg PO BEDTIME JELANI Last Admin: 07/05/22 20:21 Dose: 100 mg Haloperidol (Haloperidol 5 Mg Tablet) 10 mg PO BID PRN PRN Reason: agitation/psychosis Haloperidol Lactate (Haloperidol Lactate 5 Mg/Ml Vial) 5 mg IM BID PRN PRN Reason: refusal of PO; per gomez order Haloperidol Lactate (Haloperidol Lactate Oral Conc 10 Mg/5 Ml Oral.Conc) 5 mg PO BID [facility] Last Admin: 07/06/22 09:33 Dose: 5 mg Hydroxyzine HCl (Hydroxyzine Hcl 25 Mg Tablet) 25 mg PO Q6H PRN PRN Reason: Anxiety Last Admin: 07/03/22 13:18 Dose: 25 mg [place] Carbonate ([place] Carbonate Er 300 Mg Tablet.Er) 600 mg PO DAILY JELANI Last Admin: 07/06/22 09:33 Dose: 600 mg [place] Carbonate ([place] Carbonate Er 450 Mg Tablet.Er) 900 mg PO BEDTIME JELANI Last Admin: 07/05/22 20:21 Dose: 900 mg Magnesium Hydroxide (Milk Of Magnesia 30 Ml Oral.Susp) 30 ml PO DAILY PRN PRN Reason: Constipation Last Admin: 06/10/22 17:35 Dose: 30 ml Melatonin (Melatonin 3 Mg Tablet) 6 mg PO BEDTIME JELANI Last Admin: 07/05/22 20:21 Dose: 6 mg Omeprazole (Omeprazole 20 Mg Capsule.Dr) 20 mg PO DAILY@0630 [facility] Last Admin: 07/06/22 09:34 Dose: 20 mg Prazosin HCl (Prazosin Hcl 1 Mg Capsule) 2 mg PO BEDTIME JELANI; Protocol Last Admin: 07/05/22 20:21 Dose: 2 mg Trazodone HCl (Trazodone Hcl 50 Mg Tablet) 50 mg PO BEDTIME PRN PRN Reason: Insomnia Last Admin: 07/01/22 20:43 Dose: 50 mg Allergies Allergies Allergy/AdvReac Type Severity Reaction Status Date / Time depakote AdvReac Severe elevated Uncoded 05/19/22 22:38 ammonia Assessment & Plan Assessment & Plan (1) Schizoaffective disorder, bipolar type: Status: Acute Code(s): F25.0 - Schizoaffective disorder, bipolar type Assessment and Plan: ongoing thought disorder at least 06/12/22 Plan 05/05: possibly manic, will invest more effort in trying to get mood stabilizer on board. continue zydis for now, start VPA sprinkles. 05/06: no change in mgmt. 05/07: no change in presentation. change VPA from sprinkles back to pills due to large number of sprinkles pills required to generate 1500 mg of VPA. pt not compliant with VPA, has been taking some zyprexa; change formulation to zydis to improve bioavailability. plan to move to file for commitment next week if pt doesn't soon begin to reliably take medication. 05/08 no change 05/09 no change 05/10: no change to mgmt. chewed meds x 1 over weekend, cheeking/furtively disposing of meds otherwise. 05/11: generally refusing meds. informed he will be filed on tomorrow. attempting to bargain over taking meds and discharge. will investigate obtaining VPA soln. 05/12: commitment paperwork filed. pt took all meds last night and this morning, including liquid VPA. aware of legal circumstance, unclear how well he is able to appreciate it. 05/13: asking about discharge, states he is compliant with meds (as also say nursing staff). states he is feeling better, but unable to say in what way. sleeping and eating well. 23: repeated checking-in with MD throughout the day. remains disorganized and apparently RIS. med-compliant. 05/15: sleeping midday. no change in presentation. 05/16: no change in presentation or plan. 05/17: no change in presentation or plan. commitment hearing tomorrow. 05/18: no change in presentation. committed to the hospital at [facility]. 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 DC zyprexa as well as it lacks usable COUCH. start paliperidone PO, convert to COUCH once it is established pt is tolerating the medication. 05/20: continue to establish on tegretol and invega. introduce COUCH once pt stable on PO formulation for several days. check tegretol levels after about a week. no change in presentation. 05/21 continue current medication. 05/22 continue current treatment plan 05/23 continue current treatment plan 05/24 continue current medications. continues with psychosis/delusions. 05/25 continue current tx. 05/26 continue tx. 05/27 continue tx. vaughn do tegretol level Sat. 05/28 continue tx. 05/29 continue tx. 05/30 continue tx. not much improvement. continues to self dialoguing 05/31 continue tx. minimal improvement. 06/01 continue tx. may want to consider change in antipsychotic. 06/02: no change since last seen 05/20. on paliperidone 12 mg daily. tegretol level 5.2. trend LFTs; slightly elevated. willing to have lithium added today. 06/03: reports improved concentration today with lithium addition. continue current mgmt. T/C different neuroleptic, T/C increase in tegretol dosing. 06/04: continue current mgmt. check lithium on tuesday. stable presentation. 06/05: continue current mgmt. stable presentation. 06/06: as for 06/05. 06/07: no change in presentation. checking labs tonight. 06/08 continue tx. 06/09: tegretol 7.7, lithium 0.34. increase tegretol dosing to 300 BID and lithium dosing to 600 BID. no change in presentation. 06/10: no change in presentation. 06/11: hypertensive and borderline tachy. follow. stable presentation, continue current mgmt. check labs early next week. 06/14: lithium checked today, 0.67. increase lithium dosing from 600 BID to 600/900. check tegretol level and rest of labs tomorrow morning. no change in presentation. 06/15: tegretol level 6.2 currently. pt is reported to have c/o dizziness, but denies said Sx upon MD inquiry. increase tegretol from 300 BID to 300/400 as of tonight. T/C change in neuroleptic. no change in presentation. 06/16: no change in plan or presentation for today. 06/17: no change in presentation. check head CT, U/A, ESR, TORIN, TSH/T4, B12/folate, HIV, Hep C, RPR. lab abnormalities include chronic leukopenia, increase urine spec grav w/proteinuria and ketonuria. DC paliperidone as it appears to have changed nothing, start trial of haldol. thus far zyprexa and invega have not helped. haldol, prolixin, and abilify are the medications which remain on the stevo's order. 06/18: tolerating haldol currently. no change in presentation. continue current mgmt. 06/19: Continue current regimen and plans 06/20: Continue current regimen plans 06/21: no change in presentation. increase haldol from 5 BID to 7.5 BID. o therwise continue current mgmt. 06/22: continue current mgmt. no change in presentation. case discussed with medical practice administrator. 06/23: continue current mgmt. no change in presentation. T/C petitioning court for clozaril and ECT 06/24: continue current mgmt. no change in presentation. T/C petitioning court for clozaril and ECT. 06/25: no change. pt reported inducing vomiting after taking meds. staff believe pt cheeked meds last night and then went immediately to the bathroom. place patient on 1:1 for 30 minutes after meals. 06/26 keep same treatment 06/27 keep same treatment. 06/28: no whispering to self, but laughing continues. requesting discharge. no substantial progress. begin taper of tegretol as not having substantially modified presentation (reduce 300/400 --> 200/300 as of ton). discuss w/med providers in med providers' mtg tomorrow. 06/29: increase haldol to 10 BID. discussed case at providers' mtg. plan to pursue clozapine/ECT. 06/30: after further discussion with medical practice administrator freida, plan devised to give COUCH antipsychotic now and see if pt can stabilize over next several months with that therapy. if he recidivates shortly, commitment and clozapine/ECT orders will be pursued. continue tegretol taper and DC prior to discharge. 07/01: decrease tegretol 200 BID to 100/200 as of tomorrow. scheduled for 200 mg haldol dec on tuesday. otherwise continue current mgmt. family mtg with father tomorrow at 2. 07/02: family mtg held. planning for DC mid-late next week. continue tegretol taper tuesday. 07/03: Continue treatment plan. Added Haldol PO PRN agitation. 07/04: Continue current tx plan. 07/05: hypersexual, disinhibited over w/e. increase tegretol back to 200/300 (from 100/200). to receive another 200 mg of IM haldol today. restart haldol 5 mg PO BID until discharge. 07/06: in light of CBC and LFT abnormalities with most likely culprit being tegretol, reinstitute tegretol taper. decrease dosing from 200/300 back to 100/200 with commitment to complete taper. no concerning behaviors since the w/e. continue current mgmt otherwise. deferring discharge to next week kin light of need for continued stabilization. Reason for contiued inpatient stay Substantial Risk for: inability to function and rapid decompensation Time Spent With Patient Time: Total time managing care of this patient today __25__ minutes.
[2022-07-06 20:00] VITALS: BP 129/68; PULSE 75; RESP 16; TEMP 36.6; O2SAT 95
[2022-07-06] MEDS: Melatonin 3 MG TABLET 6 MG PO (20:07)
[2022-07-06] MEDS: Prazosin HCL 1 MG CAPSULE 2 MG PO (20:07)
[2022-07-06] MEDS: hydrOXYzine HCL 25 MG TABLET PO (20:07)
[2022-07-06] MEDS: Docusate Sodium 100 MG CAPSULE PO (20:07)
[2022-07-06] MEDS: traZODone HCL 50 MG TABLET PO (20:07)
[2022-07-06] MEDS: Lithium Carbonate ER 450 MG TABLET.ER 900 MG PO (20:07)
[2022-07-07] MEDS: Lithium Carbonate ER 300 MG TABLET.ER 600 MG PO (09:22)
[2022-07-07] MEDS: carBAMazepine 200 MG/10 ML ORAL.SUSP 100 MG PO (09:23)
[2022-07-07] MEDS: Omeprazole 20 MG CAPSULE.DR PO (09:24)
[2022-07-07] MEDS: diphenhydrAMINE HCl 12.5 MG/5 ML LIQUID 25 MG PO ×2 (09:24→21:18)
[2022-07-07] MEDS: Haloperidol Lactate Oral Conc 10 MG/5 ML ORAL.CONC 5 MG PO ×2 (09:25→21:20)
[2022-07-07 09:48] VITALS: BP 116/57; PULSE 69; RESP 18; TEMP 36.7; O2SAT 97
--- NOTE | 2022-07-07 16:13 | HO.PSYCHPN ---
Subjective Subjective Date of Service: 07/07/22 Reason For Visit: psychosis/nikiat Interim History: no change in presentation with MD. per staff, pleasant, guarded. anxious. requiring multiple redirections for disrobing, touching his genitalia in milieu. RIS. got traz PRN and slept after MN. Mental Status Exam Mental Status Exam Narrative: Appearance: up and about the unit Behavior: engaging on very limited subject matter Psychomotor: pacing the halls Speech: spontaneous, rapid; nml amount TP: disorganized TC: vague, vacuous Mood: good Affect: full range, normo-intense, non-labile. bizarre smiling and laughing not c/w context. AH/VH: none expressed SI: none expressed HI: none expressed Insight/judgment: impaired x 2. Memory/cog: alert, not oriented to situation. impaired secondary to psychiatric symptoms. Diagnostics Vital Signs (24Hr): Vital Signs - 24 hr 07/06/22 20:00 07/07/22 09:48 Temperature 97.8 F 98.1 F Pulse Rate 75 69 Respiratory Rate 16 18 Blood Pressure 129/68 116/57 L Pulse Oximetry 95 97 Oxygen Delivery Method Room Air Room Air BMI result Body Mass Index 27.3 Labs 07/06/22 14:27 07/06/22 14:27 Labs: Laboratory Results - last 48 hr 07/06/22 07/06/22 07/06/22 14:27 14:27 14:27 WBC 2.6 L RBC 5.14 Hgb 15.5 Hct 44.3 MCV 86.2 MCH 30.2 MCHC 35.0 RDW 12.4 Plt Count 197 MPV 10.6 Immature Gran % (Auto) 0.4 Neut % (Auto) 37.5 L Lymph % (Auto) 43.0 H [place] % (Auto) 16.0 H Eos % (Auto) 3.1 Baso % (Auto) 0.0 Lymph # (Auto) 1.1 L [place] # (Auto) 0.4 Eos # (Auto) 0.1 Baso # (Auto) 0.0 Abs Immat Gran (auto) 0.01 Absolute Neuts (auto) 1.0 L Absolute Nucleated RBC 0.000 Nucleated RBC % (auto) 0.0 Smear Tech's Comments VERIFIED Sodium 139 Potassium 4.4 Chloride 106 Carbon Dioxide 26 Anion Gap 11 L BUN 11 Creatinine 0.98 Estim Creat Clear Calc 120.2 Estimated GFR > 60 Random Glucose 106 Calcium 9.8 D Total Bilirubin 0.5 Direct Bilirubin < 0.2 AST 74 H ALT 95 H Alkaline Phosphatase 114 Total Protein 6.6 Albumin 4.6 Carbamazepine 8.0 [place] 07/06/22 14:27 WBC RBC Hgb Hct MCV MCH MCHC RDW Plt Count MPV Immature Gran % (Auto) Neut % (Auto) Lymph % (Auto) [place] % (Auto) Eos % (Auto) Baso % (Auto) Lymph # (Auto) [place] # (Auto) Eos # (Auto) Baso # (Auto) Abs Immat Gran (auto) Absolute Neuts (auto) Absolute Nucleated RBC Nucleated RBC % (auto) Smear Tech's Comments Sodium Potassium Chloride Carbon Dioxide Anion Gap BUN Creatinine Estim Creat Clear Calc Estimated GFR Random Glucose Calcium Total Bilirubin Direct Bilirubin AST ALT Alkaline Phosphatase Total Protein Albumin Carbamazepine [place] 0.91 Imaging Radiology Impressions: ITS Impressions Head CT 06/17/22 15:28 IMPRESSION: No acute intracranial abnormality including hemorrhage, mass effect, hydrocephalus, or acute territorial edematous infarction. Medications Medications Current Medications Acetaminophen (Acetaminophen 325 Mg Tablet) 650 mg PO Q6H PRN PRN Reason: Headache/Pain Mild Scale (1-3) Last Admin: 06/25/22 14:19 Dose: 650 mg Al Hydroxide/Mg Hydroxide (Magnesium Hydrox/Alum Hydrox 30 Ml Oral.Susp) 30 ml PO Q6H PRN PRN Reason: Heartburn/Nausea Last Admin: 06/30/22 20:25 Dose: 30 ml Benzocaine (Throat Lozenge, Medicated Lozenge) 1 lozenge MUCOUS MEM Q2H PRN PRN Reason: Sore Throat Last Admin: 07/03/22 06:18 Dose: 1 lozenge Benztropine Mesylate (Benztropine Mesylate 1 Mg Tablet) 1 mg PO TID PRN PRN Reason: Extrapyramidal Effects Last Admin: 07/01/22 20:44 Dose: 1 mg Carbamazepine (Carbamazepine 200 Mg/10 Ml Oral.Susp) 100 mg PO DAILY JELANI Last Admin: 07/07/22 09:23 Dose: 100 mg Carbamazepine (Carbamazepine 200 Mg/10 Ml Oral.Susp) 200 mg PO BEDTIME JELANI Last Admin: 07/06/22 20:07 Dose: 200 mg Diphenhydramine HCl (Diphenhydramine Hcl 12.5 Mg/5 Ml Liquid) 25 mg PO BID [facility] Last Admin: 07/07/22 09:24 Dose: 25 mg Docusate Sodium (Docusate Sodium 100 Mg Capsule) 100 mg PO BEDTIME [facility] [place] Last Admin: 07/06/22 20:07 Dose: 100 mg Haloperidol (Haloperidol 5 Mg Tablet) 10 mg PO BID PRN PRN Reason: agitation/psychosis Haloperidol Lactate (Haloperidol Lactate 5 Mg/Ml Vial) 5 mg IM BID PRN PRN Reason: refusal of PO; per gomez order Haloperidol Lactate (Haloperidol Lactate Oral Conc 10 Mg/5 Ml Oral.Conc) 5 mg PO BID [facility] [place] Last Admin: 07/07/22 09:25 Dose: 5 mg Hydroxyzine HCl (Hydroxyzine Hcl 25 Mg Tablet) 25 mg PO Q6H PRN PRN Reason: Anxiety Last Admin: 07/06/22 20:07 Dose: 25 mg [place] Carbonate ([place] Carbonate Er 300 Mg Tablet.Er) 600 mg PO DAILY [facility] [place] Last Admin: 07/07/22 09:22 Dose: 600 mg [place] Carbonate ([place] Carbonate Er 450 Mg Tablet.Er) 900 mg PO BEDTIME [facility] [place] Last Admin: 07/06/22 20:07 Dose: 900 mg Magnesium Hydroxide (Milk Of Magnesia 30 Ml Oral.Susp) 30 ml PO DAILY PRN PRN Reason: Constipation Last Admin: 06/10/22 17:35 Dose: 30 ml Melatonin (Melatonin 3 Mg Tablet) 6 mg PO BEDTIME [facility] [place] Last Admin: 07/06/22 20:07 Dose: 6 mg Omeprazole (Omeprazole 20 Mg Capsule.Dr) 20 mg PO DAILY@0630 [facility] [place] Last Admin: 07/07/22 09:24 Dose: 20 mg Prazosin HCl (Prazosin Hcl 1 Mg Capsule) 2 mg PO BEDTIME [facility]; Protocol Last Admin: 07/06/22 20:07 Dose: 2 mg Trazodone HCl (Trazodone Hcl 50 Mg Tablet) 50 mg PO BEDTIME PRN PRN Reason: Insomnia Last Admin: 07/06/22 20:07 Dose: 50 mg Allergies Allergies Allergy/AdvReac Type Severity Reaction Status Date / Time depakote AdvReac Severe elevated Uncoded 05/19/22 22:38 ammonia Assessment & Plan Assessment & Plan (1) Schizoaffective disorder, bipolar type: Status: Acute Code(s): F25.0 - Schizoaffective disorder, bipolar type Assessment and Plan: ongoing thought disorder at least 06/12/22 Plan 05/05: possibly manic, will invest more effort in trying to get mood stabilizer on board. continue zydis for now, start VPA sprinkles. 05/06: no change in mgmt. 05/07: no change in presentation. change VPA from sprinkles back to pills due to large number of sprinkles pills required to generate 1500 mg of VPA. pt not compliant with VPA, has been taking some zyprexa; change formulation to zydis to improve bioavailability. plan to move to file for commitment next week if pt doesn't soon begin to reliably take medication. 05/08 no change 05/09 no change 05/10: no change to mgmt. chewed meds x 1 over weekend, cheeking/furtively disposing of meds otherwise. 05/11: generally refusing meds. informed he will be filed on tomorrow. attempting to bargain over taking meds and discharge. will investigate obtaining VPA soln. 05/12: commitment paperwork filed. pt took all meds last night and this morning, including liquid VPA. aware of legal circumstance, unclear how well he is able to appreciate it. 2: asking about discharge, states he is compliant with meds (as also say nursing staff). states he is feeling better, but unable to say in what way. sleeping and eating well. 3: repeated checking-in with MD throughout the day. remains disorganized and apparently RIS. med-compliant. 05/15: sleeping midday. no change in presentation. 05/16: no change in presentation or plan. 05/17: no change in presentation or plan. commitment hearing tomorrow. 05/18: no change in presentation. committed to the hospital at hearing. 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 DC zyprexa as well as it lacks usable COUCH. start paliperidone PO, convert to COUCH once it is established pt is tolerating the medication. 05/20: continue to establish on tegretol and invega. introduce COUCH once pt stable on PO formulation for several days. check tegretol levels after about a week. no change in presentation. 05/21 continue current medication. 05/22 continue current treatment plan 05/23 continue current treatment plan 05/24 continue current medications. continues with psychosis/delusions. 05/25 continue current tx. 05/26 continue tx. 05/27 continue tx. vaughn do tegretol level Sat. 05/28 continue tx. 05/29 continue tx. 05/30 continue tx. not much improvement. continues to self dialoguing 05/31 continue tx. minimal improvement. 06/01 continue tx. may want to consider change in antipsychotic. 06/02: no change since last seen 05/20. on paliperidone 12 mg daily. tegretol level 5.2. trend LFTs; slightly elevated. willing to have lithium added today. 06/03: reports improved concentration today with lithium addition. continue current mgmt. T/C different neuroleptic, T/C increase in tegretol dosing. 06/04: continue current mgmt. check lithium on tuesday. stable presentation. 06/05: continue current mgmt. stable presentation. 06/06: as for 06/05. 06/07: no change in presentation. checking labs tonight. 06/08 continue tx. 06/09: tegretol 7.7, lithium 0.34. increase tegretol dosing to 300 BID and lithium dosing to 600 BID. no change in presentation. 06/10: no change in presentation. 06/11: hypertensive and borderline tachy. follow. stable presentation, continue current mgmt. check labs early next week. 06/14: lithium checked today, 0.67. increase lithium dosing from 600 BID to 600/900. check tegretol level and rest of labs tomorrow morning. no change in presentation. 06/15: tegretol level 6.2 currently. pt is reported to have c/o dizziness, but denies said Sx upon MD inquiry. increase tegretol from 300 BID to 300/400 as of tonight. T/C change in neuroleptic. no change in presentation. 06/16: no change in plan or presentation for today. 06/17: no change in presentation. check head CT, U/A, ESR, TORIN, TSH/T4, B12/folate, HIV, Hep C, RPR. lab abnormalities include chronic leukopenia, increase urine spec grav w/proteinuria and ketonuria. DC paliperidone as it appears to have changed nothing, start trial of haldol. thus far zyprexa and invega have not helped. haldol, prolixin, and abilify are the medications which remain on the stevo's order. 06/18: tolerating haldol currently. no change in presentation. continue current mgmt. 06/19: Continue current regimen and plans 06/20: Continue current regimen plans 06/21: no change in presentation. increase haldol from 5 BID to 7.5 BID. otherwise continue current mgmt. 06/22: continue current mgmt. no change in presentation. case discussed with director medical surgical. 06/23: continue current mgmt. no change in presentation. T/C petitioning court for clozaril and ECT 06/24: continue current mgmt. no change in presentation. T/C petitioning court for clozaril and ECT. 06/25: no change. pt reported inducing vomiting after taking meds. staff believe pt cheeked meds last night and then went immediately to the bathroom. place patient on 1:1 for 30 minutes after meals. 06/26 keep same treatment 06/27 keep same treatment. 06/28: no whispering to self, but laughing continues. requesting discharge. no substantial progress. begin taper of tegretol as not having substantially modified presentation (reduce 300/400 --> 200/300 as of ton). discuss w/med providers in med providers' mtg tomorrow. 06/29: increase haldol to 10 BID. discussed case at providers' mtg. plan to pursue clozapine/ECT. 06/30: after further discussion with director medical surgical freida, plan devised to give COUCH antipsychotic now and see if pt can stabilize over next several months with that therapy. if he recidivates shortly, commitment and clozapine/ECT orders will be pursued. continue tegretol taper and DC prior to discharge. 07/01: decrease tegretol 200 BID to 100/200 as of tomorrow. scheduled for 200 mg haldol dec on tuesday. otherwise continue current mgmt. family mtg with father tomorrow at 2. 07/02: family mtg held. planning for DC mid-late next week. continue tegretol taper tuesday. 07/03: Continue treatment plan. Added Haldol PO PRN agitation. 07/04: Continue current tx plan. 07/05: hypersexual, disinhibited over w/e. increase tegretol back to 200/300 (from 100/200). to receive another 200 mg of IM haldol today. restart haldol 5 mg PO BID until discharge. 07/06: in light of CBC and LFT abnormalities with most likely culprit being tegretol, reinstitute tegretol taper. decrease dosing from 200/300 back to 100/200 with commitment to complete taper. no concerning behaviors since the w/e. continue current mgmt otherwise. deferring discharge to next week in light of need for continued stabilization. 07/07: hypersexual behaviors. continue current mgmt. Reason for contiued inpatient stay Substantial Risk for: inability to function and med/psych decompensation Time Spent With Patient Time: Total time managing care of this patient today _25___ minutes.
[2022-07-07 20:00] VITALS: BP 149/66; PULSE 83; RESP 18; TEMP 36.3; O2SAT 97
[2022-07-07] MEDS: carBAMazepine 200 MG/10 ML ORAL.SUSP PO (21:17)
[2022-07-07] MEDS: Melatonin 3 MG TABLET 6 MG PO (21:23)
[2022-07-07] MEDS: Docusate Sodium 100 MG CAPSULE PO (21:23)
[2022-07-07] MEDS: Prazosin HCL 1 MG CAPSULE 2 MG PO (21:23)
[2022-07-07] MEDS: Lithium Carbonate ER 450 MG TABLET.ER 900 MG PO (21:24)
[2022-07-08 07:00] VITALS: BMI 27.5
[2022-07-08 08:48] VITALS: BP 129/63; PULSE 70; RESP 16; TEMP 36.6; O2SAT 98
[2022-07-08] MEDS: Omeprazole 20 MG CAPSULE.DR PO (08:50)
[2022-07-08] MEDS: Lithium Carbonate ER 300 MG TABLET.ER 600 MG PO (08:50)
[2022-07-08] MEDS: Haloperidol Lactate Oral Conc 10 MG/5 ML ORAL.CONC 5 MG PO ×2 (08:52→20:53)
[2022-07-08] MEDS: diphenhydrAMINE HCl 12.5 MG/5 ML LIQUID 25 MG PO ×2 (08:54→20:51)
[2022-07-08] MEDS: carBAMazepine 200 MG/10 ML ORAL.SUSP 100 MG PO ×2 (08:56→20:55)
--- NOTE | 2022-07-08 16:04 | P.PNPSI_ITS ---
Subjective Subjective Date of Service: 07/08/22 Reason For Visit: psychosis/nikita Interim History: no change in presentation aside from napping the past two mornings. per staff, needs redirection. pacing. visited with father. taking meds, sleeping adequately. Mental Status Exam Mental Status Exam Narrative: Appearance: up and about the unit in the afternoon Behavior: engaging on very limited subject matter Psychomotor: pacing the halls Speech: spontaneous, rapid; nml amount TP: disorganized TC: vague, vacuous Mood: good Affect: full range, normo-intense, non-labile. bizarre smiling and laughing not c/w context. AH/VH: none expressed SI: none expressed HI: none expressed Insight/judgment: impaired x 2. Memory/cog: alert, not oriented to situation. impaired secondary to psychiatric symptoms. Diagnostics Vital Signs (24Hr): Vital Signs - 24 hr 07/07/22 20:00 07/08/22 08:48 Temperature 97.4 F 97.8 F Pulse Rate 83 70 Respiratory Rate 18 16 Blood Pressure 149/66 H 129/63 Pulse Oximetry 97 98 Oxygen Delivery Method Room Air Room Air BMI result Body Mass Index 27.3 Labs 07/06/22 14:27 07/06/22 14:27 Imaging Radiology Impressions: ITS Impressions Head CT 06/17/22 15:28 IMPRESSION: No acute intracranial abnormality including hemorrhage, mass effect, hydrocephalus, or acute territorial edematous infarction. Medications Medications Current Medications Acetaminophen (Acetaminophen 325 Mg Tablet) 650 mg PO Q6H PRN PRN Reason: Headache/Pain Mild Scale (1-3) Last Admin: 06/25/22 14:19 Dose: 650 mg Al Hydroxide/Mg Hydroxide (Magnesium Hydrox/Alum Hydrox 30 Ml Oral.Susp) 30 ml PO Q6H PRN PRN Reason: Heartburn/Nausea Last Admin: 06/30/22 20:25 Dose: 30 ml Benzocaine (Throat Lozenge, Medicated Lozenge) 1 lozenge MUCOUS MEM Q2H PRN PRN Reason: Sore Throat Last Admin: 07/03/22 06:18 Dose: 1 lozenge Benztropine Mesylate (Benztropine Mesylate 1 Mg Tablet) 1 mg PO TID PRN PRN Reason: Extrapyramidal Effects Last Admin: 07/01/22 20:44 Dose: 1 mg Carbamazepine (Carbamazepine 200 Mg/10 Ml Oral.Susp) 100 mg PO DAILY [facility] Last Admin: 07/08/22 08:56 Dose: 100 mg Carbamazepine (Carbamazepine 200 Mg/10 Ml Oral.Susp) 200 mg PO BEDTIME JELANI Last Admin: 07/07/22 21:17 Dose: 200 mg Diphenhydramine HCl (Diphenhydramine Hcl 12.5 Mg/5 Ml Liquid) 25 mg PO BID [facility] Last Admin: 07/08/22 08:54 Dose: 25 mg Docusate Sodium (Docusate Sodium 100 Mg Capsule) 100 mg PO BEDTIME JELANI Last Admin: 07/07/22 21:23 Dose: 100 mg Haloperidol (Haloperidol 5 Mg Tablet) 10 mg PO BID PRN PRN Reason: agitation/psychosis Haloperidol Lactate (Haloperidol Lactate 5 Mg/Ml Vial) 5 mg IM BID PRN PRN Reason: refusal of PO; per gomez order Haloperidol Lactate (Haloperidol Lactate Oral Conc 10 Mg/5 Ml Oral.Conc) 5 mg PO BID [facility] Last Admin: 07/08/22 08:52 Dose: 5 mg Hydroxyzine HCl (Hydroxyzine Hcl 25 Mg Tablet) 25 mg PO Q6H PRN PRN Reason: Anxiety Last Admin: 07/06/22 20:07 Dose: 25 mg [place] Carbonate ([place] Carbonate Er 300 Mg Tablet.Er) 600 mg PO DAILY [facility] Last Admin: 07/08/22 08:50 Dose: 600 mg [place] Carbonate ([place] Carbonate Er 450 Mg Tablet.Er) 900 mg PO BEDTIME JELANI Last Admin: 07/07/22 21:24 Dose: 900 mg Magnesium Hydroxide (Milk Of Magnesia 30 Ml Oral.Susp) 30 ml PO DAILY PRN PRN Reason: Constipation Last Admin: 06/10/22 17:35 Dose: 30 ml Melatonin (Melatonin 3 Mg Tablet) 6 mg PO BEDTIME [facility] Last Admin: 07/07/22 21:23 Dose: 6 mg Omeprazole (Omeprazole 20 Mg Capsule.Dr) 20 mg PO DAILY@0630 [facility] Last Admin: 07/08/22 08:50 Dose: 20 mg Prazosin HCl (Prazosin Hcl 1 Mg Capsule) 2 mg PO BEDTIME [facility]; Protocol Last Admin: 07/07/22 21:23 Dose: 2 mg Trazodone HCl (Trazodone Hcl 50 Mg Tablet) 50 mg PO BEDTIME PRN PRN Reason: Insomnia Last Admin: 07/06/22 20:07 Dose: 50 mg Allergies Allergies Allergy/AdvReac Type Severity Reaction Status Date / Time depakote AdvReac Severe elevated Uncoded 05/19/22 22:38 ammonia Assessment & Plan Assessment & Plan (1) Schizoaffective disorder, bipolar type: Status: Acute Code(s): F25.0 - Schizoaffective disorder, bipolar type Assessment and Plan: ongoing thought disorder at least 06/12/22 Plan 05/05: possibly manic, will invest more effort in trying to get mood stabilizer on board. continue zydis for now, start VPA sprinkles. 05/06: no change in mgmt. 05/07: no change in presentation. change VPA from sprinkles back to pills due to large number of sprinkles pills required to generate 1500 mg of VPA. pt not compliant with VPA, has been taking some zyprexa; change formulation to zydis to improve bioavailability. plan to move to file for commitment next week if pt doesn't soon begin to reliably take medication. 05/08 no change 05/09 no change 05/10: no change to mgmt. chewed meds x 1 over weekend, cheeking/furtively disposing of meds otherwise. 05/11: generally refusing meds. informed he will be filed on tomorrow. attempting to bargain over taking meds and discharge. will investigate obtaining VPA soln. 05/12: commitment paperwork filed. pt took all meds last night and this morning, including liquid VPA. aware of legal circumstance, unclear how well he is able to appreciate it. 2: asking about discharge, states he is compliant with meds (as also say nursing staff). states he is feeling better, but unable to say in what way. sleeping and eating well. 2/3: repeated checking-in with MD throughout the day. remains disorganized and apparently RIS. med-compliant. 05/15: sleeping midday. no change in presentation. 05/16: no change in presentation or plan. 05/17: no change in presentation or plan. commitment hearing tomorrow. 05/18: no change in presentation. committed to the hospital at [facility]. 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 DC zyprexa as well as it lacks usable COUCH. start paliperidone PO, convert to COUCH once it is established pt is tolerating the medication. 05/20: continue to establish on tegretol and invega. introduce COUCH once pt stable on PO formulation for several days. check tegretol levels after about a week. no change in presentation. 05/21 continue current medication. 05/22 continue current treatment plan 05/23 continue current treatment plan 05/24 continue current medications. continues with psychosis/delusions. 05/25 continue current tx. 05/26 continue tx. 05/27 continue tx. vaughn do tegretol level Sat. 05/28 continue tx. 05/29 continue tx. 05/30 continue tx. not much improvement. continues to self dialoguing 05/31 continue tx. minimal improvement. 06/01 continue tx. may want to consider change in antipsychotic. 06/02: no change since last seen 05/20. on paliperidone 12 mg daily. tegretol level 5.2. trend LFTs; slightly elevated. willing to have lithium added today. 06/03: reports improved concentration today with lithium addition. continue current mgmt. T/C different neuroleptic, T/C increase in tegretol dosing. 06/04: continue current mgmt. check lithium on tuesday. stable presentation. 06/05: continue current mgmt. stable presentation. 06/06: as for 06/05. 06/07: no change in presentation. checking labs tonight. 06/08 continue tx. 06/09: tegretol 7.7, lithium 0.34. increase tegretol dosing to 300 BID and lithium dosing to 600 BID. no change in presentation. 06/10: no change in presentation. 06/11: hypertensive and borderline tachy. follow. stable presentation, continue current mgmt. check labs early next week. 06/14: lithium checked today, 0.67. increase lithium dosing from 600 BID to 600/900. check tegretol level and rest of labs tomorrow morning. no change in presentation. 06/15: tegretol level 6.2 currently. pt is reported to have c/o dizziness, but denies said Sx upon MD inquiry. increase tegretol from 300 BID to 300/400 as of tonight. T/C change in neuroleptic. no change in presentation. 06/16: no change in plan or presentation for today. 06/17: no change in presentation. check head CT, U/A, ESR, TORIN, TSH/T4, B12/folate, HIV, Hep C, RPR. lab abnormalities include chronic leukopenia, increase urine spec grav w/proteinuria and ketonuria. DC paliperidone as it appears to have changed nothing, start trial of haldol. thus far zyprexa and invega have not helped. haldol, prolixin, and abilify are the medications which remain on the stevo's order. 06/18: tolerating haldol currently. no change in presentation. continue current mgmt. 06/19: Continue current regimen and plans 06/20: Continue current regimen plans 06/21: no change in presentation. increase haldol from 5 BID to 7.5 BID. otherwise continue current mgmt. 06/22: continue current mgmt. no change in presentation. case discussed with center medical specialist. 06/23: continue current mgmt. no change in presentation. T/C petitioning court for clozaril and ECT 06/24: continue current mgmt. no change in presentation. T/C petitioning court for clozaril and ECT. 06/25: no change. pt reported inducing vomiting after taking meds. staff believe pt cheeked meds last night and then went immediately to the bathroom. place patient on 1:1 for 30 minutes after meals. 06/26 keep same treatment 06/27 keep same treatment. 06/28: no whispering to self, but laughing continues. requesting discharge. no substantial progress. begin taper of tegretol as not having substantially modified presentation (reduce 300/400 --> 200/300 as of ton). discuss w/med providers in med providers' mtg tomorrow. 06/29: increase haldol to 10 BID. discussed case at providers' mtg. plan to pursue clozapine/ECT. 06/30: after further discussion with center medical specialist freida, plan devised to give COUCH antipsychotic now and see if pt can stabilize over next several months with that therapy. if he recidivates shortly, commitment and clozapine/ECT orders will be pursued. continue tegretol taper and DC prior to discharge. 07/01: decrease tegretol 200 BID to 100/200 as of tomorrow. scheduled for 200 mg haldol dec on tuesday. otherwise continue current mgmt. family mtg with father tomorrow at 2. 07/02: family mtg held. planning for DC mid-late next week. continue tegretol taper tuesday. 07/03: Continue treatment plan. Added Haldol PO PRN agitation. 07/04: Continue current tx plan. 07/05: hypersexual, disinhibited over w/e. increase tegretol back to 200/300 (from 100/200). to receive another 200 mg of IM haldol today. restart haldol 5 mg PO BID until discharge. 07/06: in light of CBC and LFT abnormalities with most likely culprit being tegretol, reinstitute tegretol taper. decrease dosing from 200/300 back to 100/200 with commitment to complete taper. no concerning behaviors since the w/e. continue current mgmt otherwise. deferring discharge to next week in light of need for continued stabilization. 07/07: hypersexual behaviors. continue current mgmt. 07/08: no noted problematic behaviors in the past day. continue tegretol taper - 100/200 --> 100 BID. Reason for contiued inpatient stay Substantial Risk for: inability to function and rapid decompensation Time Spent With Patient Time: Total time managing care of this patient today ____ minutes.
[2022-07-08 20:45] VITALS: BP 138/79; PULSE 85; RESP 18; TEMP 36.1; O2SAT 97
[2022-07-08] MEDS: Lithium Carbonate ER 450 MG TABLET.ER 900 MG PO (20:47)
[2022-07-08] MEDS: Melatonin 3 MG TABLET 6 MG PO (20:48)
[2022-07-08] MEDS: traZODone HCL 50 MG TABLET PO (20:49)
[2022-07-08] MEDS: Docusate Sodium 100 MG CAPSULE PO (20:49)
[2022-07-08] MEDS: Prazosin HCL 1 MG CAPSULE 2 MG PO (20:50)
[2022-07-08] MEDS: Benztropine Mesylate 1 MG TABLET PO (20:51)
[2022-07-09 08:00] VITALS: BP 137/61; PULSE 65; TEMP 36.6; O2SAT 99
[2022-07-09] MEDS: Haloperidol Lactate Oral Conc 10 MG/5 ML ORAL.CONC 5 MG PO ×2 (09:17→20:38)
[2022-07-09] MEDS: diphenhydrAMINE HCl 12.5 MG/5 ML LIQUID 25 MG PO ×2 (09:19→20:36)
[2022-07-09] MEDS: carBAMazepine 200 MG/10 ML ORAL.SUSP 100 MG PO ×2 (09:20→20:33)
[2022-07-09] MEDS: Omeprazole 20 MG CAPSULE.DR PO (09:21)
[2022-07-09] MEDS: Lithium Carbonate ER 300 MG TABLET.ER 600 MG PO (09:22)
--- NOTE | 2022-07-09 14:37 | P.PNPSI_ITS ---
Subjective Subjective Date of Service: 07/09/22 Reason For Visit: psychosis/nikita Interim History: no change in presentation. unable to cogently explain is inquiry of last aishwarya re penis checks. per staff, perseverative re discharge. no SI/HI. states, meds aren't working. asked of female staff weighing him (in a room where it was just the two of them), is this where they do penis checks? took shower. hand tremor per nursing staff. slept in sensory room. wrote notes for MD in which he indicated he has had enough medication and does not plan to take medication after leaving the hospital. Mental Status Exam Mental Status Exam Narrative: Appearance: up and about the unit in the afternoon Behavior: engaging on very limited subject matter. Psychomotor: pacing the halls. no hand tremor. Speech: spontaneous, rapid; nml amount TP: disorganized, perseverative on limited matters TC: vague, vacuous Mood: good Affect: full range, normo-intense, non-labile. bizarre smiling and laughing not c/w context. AH/VH: none expressed SI: none expressed HI: none expressed Insight/judgment: impaired x 2. Memory/cog: alert, not oriented to situation. impaired secondary to psychiatric symptoms. Diagnostics Vital Signs (24Hr): Vital Signs - 24 hr 07/08/22 20:45 07/09/22 08:00 Temperature 97.0 F 97.9 F Pulse Rate 85 65 Respiratory Rate 18 Blood Pressure 138/79 137/61 Pulse Oximetry 97 99 Oxygen Delivery Method Room Air Room Air BMI result Body Mass Index 27.5 Labs 07/06/22 14:27 07/06/22 14:27 Imaging Radiology Impressions: ITS Impressions Head CT 06/17/22 15:28 IMPRESSION: No acute intracranial abnormality including hemorrhage, mass effect, hydrocephalus, or acute territorial edematous infarction. Medications Medications Current Medications Acetaminophen (Acetaminophen 325 Mg Tablet) 650 mg PO Q6H PRN PRN Reason: Headache/Pain Mild Scale (1-3) Last Admin: 06/25/22 14:19 Dose: 650 mg Al Hydroxide/Mg Hydroxide (Magnesium Hydrox/Alum Hydrox 30 Ml Oral.Susp) 30 ml PO Q6H PRN PRN Reason: Heartburn/Nausea Last Admin: 06/30/22 20:25 Dose: 30 ml Benzocaine (Throat Lozenge, Medicated Lozenge) 1 lozenge MUCOUS MEM Q2H PRN PRN Reason: Sore Throat Last Admin: 07/03/22 06:18 Dose: 1 lozenge Benztropine Mesylate (Benztropine Mesylate 1 Mg Tablet) 1 mg PO TID PRN PRN Reason: Extrapyramidal Effects Last Admin: 07/08/22 20:51 Dose: 1 mg Carbamazepine (Carbamazepine 200 Mg/10 Ml Oral.Susp) 100 mg PO BEDTIME [facility] Last Admin: 07/08/22 20:55 Dose: 100 mg Diphenhydramine HCl (Diphenhydramine Hcl 12.5 Mg/5 Ml Liquid) 25 mg PO BID [facility] Last Admin: 07/09/22 09:19 Dose: 25 mg Docusate Sodium (Docusate Sodium 100 Mg Capsule) 100 mg PO BEDTIME [facility] Last Admin: 07/08/22 20:49 Dose: 100 mg Haloperidol (Haloperidol 5 Mg Tablet) 10 mg PO BID PRN PRN Reason: agitation/psychosis Haloperidol Lactate (Haloperidol Lactate 5 Mg/Ml Vial) 5 mg IM BID PRN PRN Reason: refusal of PO; per gomez order Haloperidol Lactate (Haloperidol Lactate Oral Conc 10 Mg/5 Ml Oral.Conc) 5 mg PO BID [facility] Last Admin: 07/09/22 09:17 Dose: 5 mg Hydroxyzine HCl (Hydroxyzine Hcl 25 Mg Tablet) 25 mg PO Q6H PRN PRN Reason: Anxiety Last Admin: 07/06/22 20:07 Dose: 25 mg [place] Carbonate ([place] Carbonate Er 300 Mg Tablet.Er) 600 mg PO DAILY [facility] Last Admin: 07/09/22 09:22 Dose: 600 mg [place] Carbonate ([place] Carbonate Er 450 Mg Tablet.Er) 900 mg PO BEDTIME [facility] Last Admin: 07/08/22 20:47 Dose: 900 mg Magnesium Hydroxide (Milk Of Magnesia 30 Ml Oral.Susp) 30 ml PO DAILY PRN PRN Reason: Constipation Last Admin: 06/10/22 17:35 Dose: 30 ml Melatonin (Melatonin 3 Mg Tablet) 6 mg PO BEDTIME [facility] Last Admin: 07/08/22 20:48 Dose: 6 mg Omeprazole (Omeprazole 20 Mg Capsule.Dr) 20 mg PO DAILY@0630 [facility] Last Admin: 07/09/22 09:21 Dose: 20 mg Prazosin HCl (Prazosin Hcl 1 Mg Capsule) 2 mg PO BEDTIME [facility]; Protocol Last Admin: 07/08/22 20:50 Dose: 2 mg Trazodone HCl (Trazodone Hcl 50 Mg Tablet) 50 mg PO BEDTIME PRN PRN Reason: Insomnia Last Admin: 07/08/22 20:49 Dose: 50 mg Allergies Allergies Allergy/AdvReac Type Severity Reaction Status Date / Time depakote AdvReac Severe elevated Uncoded 05/19/22 22:38 ammonia Assessment & Plan Assessment & Plan (1) Schizoaffective disorder, bipolar type: Status: Acute Code(s): F25.0 - Schizoaffective disorder, bipolar type Assessment and Plan: ongoing thought disorder at least 06/12/22 Plan 05/05: possibly manic, will invest more effort in trying to get mood stabilizer on board. continue zydis for now, start VPA sprinkles. 05/06: no change in mgmt. 05/07: no change in presentation. change VPA from sprinkles back to pills due to large number of sprinkles pills required to generate 1500 mg of VPA. pt not compliant with VPA, has been taking some zyprexa; change formulation to zydis to improve bioavailability. plan to move to file for commitment next week if pt doesn't soon begin to reliably take medication. 05/08 no change 05/09 no change 05/10: no change to mgmt. chewed meds x 1 over weekend, cheeking/furtively disposing of meds otherwise. 05/11: generally refusing meds. informed he will be filed on tomorrow. attempting to bargain over taking meds and discharge. will investigate obtaining VPA soln. 05/12: commitment paperwork filed. pt took all meds last night and this morning, including liquid VPA. aware of legal circumstance, unclear how well he is able to appreciate it. 22: asking about discharge, states he is compliant with meds (as also say nursing staff). states he is feeling better, but unable to say in what way. sleeping and eating well. 2/3: repeated checking-in with MD throughout the day. remains disorganized and apparently RIS. med-compliant. 05/15: sleeping midday. no change in presentation. 05/16: no change in presentation or plan. 6: no change in presentation or plan. commitment hearing tomorrow. 05/18: no change in presentation. committed to the hospital at [facility]. 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 DC zyprexa as well as it lacks usable COUCH. start paliperidone PO, convert to COUCH once it is established pt is tolerating the medication. 05/20: continue to establish on tegretol and invega. introduce COUCH once pt stable on PO formulation for several days. check tegretol levels after about a week. no change in presentation. 05/21 continue current medication. 05/22 continue current treatment plan 05/23 continue current treatment plan 05/24 continue current medications. continues with psychosis/delusions. 05/25 continue current tx. 05/26 continue tx. 05/27 continue tx. vaughn do tegretol level Sat. 05/28 continue tx. 05/29 continue tx. 05/30 continue tx. not much improvement. continues to self dialoguing 05/31 continue tx. minimal improvement. 06/01 continue tx. may want to consider change in antipsychotic. 06/02: no change since last seen 05/20. on paliperidone 12 mg daily. tegretol level 5.2. trend LFTs; slightly elevated. willing to have lithium added today. 06/03: reports improved concentration today with lithium addition. continue current mgmt. T/C different neuroleptic, T/C increase in tegretol dosing. 06/04: continue current mgmt. check lithium on tuesday. stable presentation. 06/05: continue current mgmt. stable presentation. 06/06: as for 06/05. 06/07: no change in presentation. checking labs tonight. 06/08 continue tx. 06/09: tegretol 7.7, lithium 0.34. increase tegretol dosing to 300 BID and lithium dosing to 600 BID. no change in presentation. 06/10: no change in presentation. 06/11: hypertensive and borderline tachy. follow. stable presentation, continue current mgmt. check labs early next week. 06/14: lithium checked today, 0.67. increase lithium dosing from 600 BID to 600/900. check tegretol level and rest of labs tomorrow morning. no change in presentation. 06/15: tegretol level 6.2 currently. pt is reported to have c/o dizziness, but denies said Sx upon MD inquiry. increase tegretol from 300 BID to 300/400 as of tonight. T/C change in neuroleptic. no change in presentation. 06/16: no change in plan or presentation for today. 06/17: no change in presentation. check head CT, U/A, ESR, TORIN, TSH/T4, B12/folate, HIV, Hep C, RPR. lab abnormalities include chronic leukopenia, increase urine spec grav w/proteinuria and ketonuria. DC paliperidone as it appears to have changed nothing, start trial of haldol. thus far zyprexa and invega have not helped. haldol, prolixin, and abilify are the medications which remain on the stevo's order. 06/18: tolerating haldol currently. no change in presentation. continue current mgmt. 06/19: Continue current regimen and plans 06/20: Continue current regimen plans 06/21: no change in presentation. increase haldol from 5 BID to 7.5 BID. otherwise continue current mgmt. 06/22: continue current mgmt. no change in presentation. case discussed with medical lab scientist. 06/23: continue current mgmt. no change in presentation. T/C petitioning court for clozaril and ECT 06/24: continue current mgmt. no change in presentation. T/C petitioning court for clozaril and ECT. 06/25: no change. pt reported inducing vomiting after taking meds. staff believe pt cheeked meds last night and then went immediately to the bathroom. place patient on 1:1 for 30 minutes after meals. 06/26 keep same treatment 06/27 keep same treatment. 06/28: no whispering to self, but laughing continues. requesting discharge. no substantial progress. begin taper of tegretol as not having substantially modified presentation (reduce 300/400 --> 200/300 as of tonight). discuss w/med providers in med providers' mtg tomorrow. 06/29: increase haldol to 10 BID. discussed case at providers' mtg. plan to pursue clozapine/ECT. 06/30: after further discussion with medical lab scientist freida, plan devised to give COUCH antipsychotic now and see if pt can stabilize over next several months with that therapy. if he recidivates shortly, commitment and clozapine/ECT orders will be pursued. continue tegretol taper and DC prior to discharge. 07/01: decrease tegretol 200 BID to 100/200 as of tomorrow. scheduled for 200 mg haldol dec on tuesday. otherwise continue current mgmt. family mtg with father tomorrow at 2. 07/02: family mtg held. planning for DC mid-late next week. continue tegretol taper tuesday. 07/03: Continue treatment plan. Added Haldol PO PRN agitation. 07/04: Continue current tx plan. 07/05: hypersexual, disinhibited over w/e. increase tegretol back to 200/300 (from 100/200). to receive another 200 mg of IM haldol today. restart haldol 5 mg PO BID until discharge. 07/06: in light of CBC and LFT abnormalities with most likely culprit being tegretol, reinstitute tegretol taper. decrease dosing from 200/300 back to 100/200 with commitment to complete taper. no concerning behaviors since the w/e. continue current mgmt otherwise. deferring discharge to next week in light of need for continued stabilization. 07/07: hypersexual behaviors. continue current mgmt. 07/08: no noted problematic behaviors in the past day. continue tegretol taper - 100/200 --> 100 BID. 07/09: inappropriate sexualized comment to female staff. taper tegretol to 100 QHS. continue current mgmt otherwise. no hand tremor. Reason for contiued inpatient stay Substantial Risk for: harm to self, harm to others, inability to function and rapid decompensation Time Spent With Patient Time: Total time managing care of this patient today ____ minutes.
[2022-07-09 20:13] VITALS: BP 129/60; PULSE 79; RESP 18; TEMP 36.6; O2SAT 98
[2022-07-09] MEDS: Benztropine Mesylate 1 MG TABLET PO (20:38)
[2022-07-09] MEDS: Melatonin 3 MG TABLET 6 MG PO (20:38)
[2022-07-09] MEDS: Acetaminophen 325 MG TABLET 650 MG PO (20:39)
[2022-07-09] MEDS: Lithium Carbonate ER 450 MG TABLET.ER 900 MG PO (20:39)
[2022-07-09] MEDS: Docusate Sodium 100 MG CAPSULE PO (20:39)
[2022-07-09] MEDS: traZODone HCL 50 MG TABLET PO (20:39)
[2022-07-09] MEDS: Prazosin HCL 1 MG CAPSULE 2 MG PO (20:40)
[2022-07-09] MEDS: Sodium Chloride 0.65 % Nasal 44 ML SPRBTL 1 SPRAY NOSTRIL-B (21:41)
[2022-07-10] MEDS: Lithium Carbonate ER 300 MG TABLET.ER 600 MG PO (09:44)
[2022-07-10] MEDS: Omeprazole 20 MG CAPSULE.DR PO (09:44)
[2022-07-10] MEDS: diphenhydrAMINE HCl 12.5 MG/5 ML LIQUID 25 MG PO ×2 (09:44→20:41)
[2022-07-10] MEDS: Haloperidol Lactate Oral Conc 10 MG/5 ML ORAL.CONC 5 MG PO ×2 (09:45→20:41)
--- NOTE | 2022-07-10 09:54 | P.PNPSI_ITS ---
Subjective Subjective Date of Service: 07/10/22 Reason For Visit: psychosis/nikita Subjective Notes: Section 8 Interim History: Pt laughing to himself, asking non stop when is he going to be discharged. He asks this technical report writer to tell Dr. Dasilva let the doctor know I am behaving. Pt seen holding his penis while talking with this technical report writer, when asked he states It's jus t tingling, I don't have underwear. Per nursing, pt slept through the night. Medication Compliance: Yes Review of Systems Review of Systems Yes Unobtainable due to mental condition Mental Status Exam Mental Status Exam Narrative: Appearance: up and about the unit in the afternoon Behavior: engaging on very limited subject matter. Psychomotor: pacing the halls. no hand tremor. Speech: spontaneous, rapid; nml amount TP: disorganized, perseverative on limited matters TC: vague, vacuous Mood: good Affect: full range, normo-intense, non-labile. bizarre smiling and laughing not c/w context. AH/VH: none expressed SI: none expressed HI: none expressed Insight/judgment: impaired x 2. Memory/cog: alert, not oriented to situation. impaired secondary to psychiatric symptoms. Diagnostics Vital Signs (24Hr): Vital Signs - 24 hr 07/09/22 20:13 Temperature 97.8 F Pulse Rate 79 Respiratory Rate 18 Blood Pressure 129/60 Pulse Oximetry 98 Oxygen Delivery Method Room Air BMI result Body Mass Index 27.5 Labs 07/06/22 14:27 07/06/22 14:27 Imaging Radiology Impressions: ITS Impressions Head CT 06/17/22 15:28 IMPRESSION: No acute intracranial abnormality including hemorrhage, mass effect, hydrocephalus, or acute territorial edematous infarction. Medications Medications Current Medications Acetaminophen (Acetaminophen 325 Mg Tablet) 650 mg PO Q6H PRN PRN Reason: Headache/Pain Mild Scale (1-3) Last Admin: 07/09/22 20:39 Dose: 650 mg Al Hydroxide/Mg Hydroxide (Magnesium Hydrox/Alum Hydrox 30 Ml Oral.Susp) 30 ml PO Q6H PRN PRN Reason: Heartburn/Nausea Last Admin: 06/30/22 20:25 Dose: 30 ml Benzocaine (Throat Lozenge, Medicated Lozenge) 1 lozenge MUCOUS MEM Q2H PRN PRN Reason: Sore Throat Last Admin: 07/03/22 06:18 Dose: 1 lozenge Benztropine Mesylate (Benztropine Mesylate 1 Mg Tablet) 1 mg PO TID PRN PRN Reason: Extrapyramidal Effects Last Admin: 07/09/22 20:38 Dose: 1 mg Carbamazepine (Carbamazepine 200 Mg/10 Ml Oral.Susp) 100 mg PO BEDTIME [facility] Last Admin: 07/09/22 20:33 Dose: 100 mg Diphenhydramine HCl (Diphenhydramine Hcl 12.5 Mg/5 Ml Liquid) 25 mg PO BID [facility] Last Admin: 07/10/22 09:44 Dose: 25 mg Docusate Sodium (Docusate Sodium 100 Mg Capsule) 100 mg PO BEDTIME [facility] Last Admin: 07/09/22 20:39 Dose: 100 mg Haloperidol (Haloperidol 5 Mg Tablet) 10 mg PO BID PRN PRN Reason: agitation/psychosis Haloperidol Lactate (Haloperidol Lactate 5 Mg/Ml Vial) 5 mg IM BID PRN PRN Reason: refusal of PO; per gomez order Haloperidol Lactate (Haloperidol Lactate Oral Conc 10 Mg/5 Ml Oral.Conc) 5 mg PO BID [facility] Last Admin: 07/10/22 09:45 Dose: 5 mg Hydroxyzine HCl (Hydroxyzine Hcl 25 Mg Tablet) 25 mg PO Q6H PRN PRN Reason: Anxiety Last Admin: 07/06/22 20:07 Dose: 25 mg [place] Carbonate ([place] Carbonate Er 300 Mg Tablet.Er) 600 mg PO DAILY [facility] Last Admin: 07/10/22 09:44 Dose: 600 mg [place] Carbonate ([place] Carbonate Er 450 Mg Tablet.Er) 900 mg PO BEDTIME [facility] Last Admin: 07/09/22 20:39 Dose: 900 mg Magnesium Hydroxide (Milk Of Magnesia 30 Ml Oral.Susp) 30 ml PO DAILY PRN PRN Reason: Constipation Last Admin: 06/10/22 17:35 Dose: 30 ml Melatonin (Melatonin 3 Mg Tablet) 6 mg PO BEDTIME [facility] Last Admin: 07/09/22 20:38 Dose: 6 mg Omeprazole (Omeprazole 20 Mg Capsule.Dr) 20 mg PO DAILY@0630 [facility] Last Admin: 07/10/22 09:44 Dose: 20 mg Prazosin HCl (Prazosin Hcl 1 Mg Capsule) 2 mg PO BEDTIME [facility]; Protocol Last Admin: 07/09/22 20:40 Dose: 2 mg Sodium Chloride (Sodium Chloride 0.65 % Nasal 44 Ml Sprbtl) 1 spray NOSTRIL-B Q1H PRN PRN Reason: Dry Nasal Passages Last Admin: 07/09/22 21:41 Dose: 1 spray Trazodone HCl (Trazodone Hcl 50 Mg Tablet) 50 mg PO BEDTIME PRN PRN Reason: Insomnia Last Admin: 07/09/22 20:39 Dose: 50 mg Allergies Allergies Allergy/AdvReac Type Severity Reaction Status Date / Time depakote AdvReac Severe elevated Uncoded 05/19/22 22:38 ammonia Assessment & Plan Assessment & Plan (1) Schizoaffective disorder, bipolar type: Status: Acute Code(s): F25.0 - Schizoaffective disorder, bipolar type Assessment and Plan: ongoing thought disorder at least 06/12/22 Plan 05/05: possibly manic, will invest more effort in trying to get mood stabilizer on board. continue zydis for now, start VPA sprinkles. 05/06: no change in mgmt. 05/07: no change in presentation. change VPA from sprinkles back to pills due to large number of sprinkles pills required to generate 1500 mg of VPA. pt not compliant with VPA, has been taking some zyprexa; change formulation to zydis to improve bioavailability. plan to move to file for commitment next week if pt doesn't soon begin to reliably take medication. 05/08 no change 05/09 no change 05/10: no change to mgmt. chewed meds x 1 over weekend, cheeking/furtively disposing of meds otherwise. 05/11: generally refusing meds. informed he will be filed on tomorrow. attempting to bargain over taking meds and discharge. will investigate obtaining VPA soln. 05/12: commitment paperwork filed. pt took all meds last night and this morning, including liquid VPA. aware of legal circumstance, unclear how well he is able to appreciate it. 05/13: asking about discharge, states he is compliant with meds (as also say nursing staff). states he is feeling better, but unable to say in what way. sleeping and eating well. 05/14: repeated checking-in with MD throughout the day. remains disorganized and apparently RIS. med-compliant. 05/15: sleeping midday. no change in presentation. 05/16: no change in presentation or plan. 05/17: no change in presentation or plan. commitment hearing tomorrow. 05/18: no change in presentation. committed to the hospital at hearing. 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 DC zyprexa as well as it lacks usable COUCH. start paliperidone PO, convert to COUCH once it is established pt is tolerating the medication. 05/20: continue to establish on tegretol and invega. introduce CUOCH once pt stable on PO formulation for several days. check tegretol levels after about a week. no change in presentation. 05/21 continue current medication. 05/22 continue current treatment plan 05/23 continue current treatment plan 05/24 continue current medications. continues with psychosis/delusions. 05/25 continue current tx. 05/26 continue tx. 05/27 continue tx. vaughn do tegretol level Sat. 05/28 continue tx. 05/29 continue tx. 05/30 continue tx. not much improvement. continues to self dialoguing 05/31 continue tx. minimal improvement. 06/01 continue tx. may want to consider change in antipsychotic. 06/02: no change since last seen 05/20. on paliperidone 12 mg daily. tegretol level 5.2. trend LFTs; slightly elevated. willing to have lithium added today. 06/03: reports improved concentration today with lithium addition. continue current mgmt. T/C different neuroleptic, T/C increase in tegretol dosing. 06/04: continue current mgmt. check lithium on tuesday. stable presentation. 06/05: continue current mgmt. stable presentation. 06/06: as for 06/05. 06/07: no change in presentation. checking labs tonight. 06/08 continue tx. 06/09: tegretol 7.7, lithium 0.34. increase tegretol dosing to 300 BID and lithium dosing to 600 BID. no change in presentation. 06/10: no change in presentation. 06/11: hypertensive and borderline tachy. follow. stable presentation, continue current mgmt. check labs early next week. 06/14: lithium checked today, 0.67. increase lithium dosing from 600 BID to 600/900. check tegretol level and rest of labs tomorrow morning. no change in presentation. 06/15: tegretol level 6.2 currently. pt is reported to have c/o dizziness, but denies said Sx upon MD inquiry. increase tegretol from 300 BID to 300/400 as of tonight. T/C change in neuroleptic. no change in presentation. 06/16: no change in plan or presentation for today. 06/17: no change in presentation. check head CT, U/A, ESR, TORIN, TSH/T4, B12/folate, HIV, Hep C, RPR. lab abnormalities include chronic leukopenia, increase urine spec grav w/proteinuria and ketonuria. DC paliperidone as it appears to have changed nothing, start trial of haldol. thus far zyprexa and invega have not helped. haldol, prolixin, and abilify are the medications which remain on the [facility]'s order. 06/18: tolerating haldol currently. no change in presentation. continue current mgmt. 06/19: Continue current regimen and plans 06/20: Continue current regimen plans 06/21: no change in presentation. increase haldol from 5 BID to 7.5 BID. otherwise continue current mgmt. 06/22: continue current mgmt. no change in presentation. case discussed with medical data analyst. 06/23: continue current mgmt. no change in presentation. T/C petitioning court for clozaril and ECT 06/24: continue current mgmt. no change in presentation. T/C petitioning court for clozaril and ECT. 06/25: no change. pt reported inducing vomiting after taking meds. staff believe pt cheeked meds last night and then went immediately to the bathroom. place patient on 1:1 for 30 minutes after meals. 06/26 keep same treatment 06/27 keep same treatment. 06/28: no whispering to self, but laughing continues. requesting discharge. no substantial progress. begin taper of tegretol as not having substantially modified presentation (reduce 300/400 --> 200/300 as of tonight). discuss w/med providers in med providers' mtg tomorrow. 06/29: increase haldol to 10 BID. discussed case at providers' mtg. plan to pursue clozapine/ECT. 06/30: after further discussion with medical data analyst freida, plan devised to give COUCH antipsychotic now and see if pt can stabilize over next several months with that therapy. if he recidivates shortly, commitment and clozapine/ECT orders will be pursued. continue tegretol taper and DC prior to discharge. 07/01: decrease tegretol 200 BID to 100/200 as of tomorrow. scheduled for 200 mg haldol dec on tuesday. otherwise continue current mgmt. family mtg with father tomorrow at 2. 07/02: family mtg held. planning for DC mid-late next week. continue tegretol taper tuesday. 07/03: Continue treatment plan. Added Haldol PO PRN agitation. 07/04: Continue current tx plan. 07/05: hypersexual, disinhibited over w/e. increase tegretol back to 200/300 (from 100/200). to receive another 200 mg of IM haldol today. restart haldol 5 mg PO BID until discharge. 07/06: in light of CBC and LFT abnormalities with most likely culprit being tegretol, reinstitute tegretol taper. decrease dosing from 200/300 back to 1 00/200 with commitment to complete taper. no concerning behaviors since the w/e. continue current mgmt otherwise. deferring discharge to next week in light of need for continued stabilization. 07/07: hypersexual behaviors. continue current mgmt. 07/08: no noted problematic behaviors in the past day. continue tegretol taper - 100/200 --> 100 BID. 07/09: inappropriate sexualized comment to female staff. taper tegretol to 100 QHS. continue current mgmt otherwise. no hand tremor. 07/10 continue tx. Reason for contiued inpatient stay Substantial Risk for: inability to function Time Spent With Patient Time: Total time managing care of this patient today ____ minutes.
[2022-07-10 10:07] VITALS: BP 155/64; PULSE 90; RESP 18; TEMP 36.1; O2SAT 99
[2022-07-10] MEDS: hydrOXYzine HCL 25 MG TABLET PO (16:07)
[2022-07-10] MEDS: Sodium Chloride 0.65 % Nasal 44 ML SPRBTL 1 SPRAY NOSTRIL-B (18:38)
[2022-07-10 20:34] VITALS: BP 124/58; PULSE 86; RESP 18; TEMP 36.4; O2SAT 96
[2022-07-10] MEDS: Benztropine Mesylate 1 MG TABLET PO (20:40)
[2022-07-10] MEDS: Docusate Sodium 100 MG CAPSULE PO (20:40)
[2022-07-10] MEDS: traZODone HCL 50 MG TABLET PO (20:40)
[2022-07-10] MEDS: Lithium Carbonate ER 450 MG TABLET.ER 900 MG PO (20:40)
[2022-07-10] MEDS: Prazosin HCL 1 MG CAPSULE 2 MG PO (20:40)
[2022-07-10] MEDS: Melatonin 3 MG TABLET 6 MG PO (20:40)
[2022-07-10] MEDS: carBAMazepine 200 MG/10 ML ORAL.SUSP 100 MG PO (20:41)
[2022-07-11 09:20] VITALS: BP 130/71; PULSE 94; RESP 18; TEMP 36.7; O2SAT 99
[2022-07-11] MEDS: Haloperidol Lactate Oral Conc 10 MG/5 ML ORAL.CONC 5 MG PO ×2 (09:20→20:09)
[2022-07-11] MEDS: Omeprazole 20 MG CAPSULE.DR PO (09:20)
[2022-07-11] MEDS: Lithium Carbonate ER 300 MG TABLET.ER 600 MG PO (09:21)
[2022-07-11] MEDS: diphenhydrAMINE HCl 12.5 MG/5 ML LIQUID 25 MG PO ×2 (09:22→20:09)
[2022-07-11] MEDS: Sodium Chloride 0.65 % Nasal 44 ML SPRBTL 1 SPRAY NOSTRIL-B (11:52)
[2022-07-11] MEDS: hydrOXYzine HCL 25 MG TABLET PO (11:52)
[2022-07-11] MEDS: Docusate Sodium 100 MG CAPSULE PO (20:07)
[2022-07-11] MEDS: Lithium Carbonate ER 450 MG TABLET.ER 900 MG PO (20:07)
[2022-07-11] MEDS: Throat Lozenge, Medicated LOZENGE 1 LOZENGE MUCOUS MEM (20:07)
[2022-07-11] MEDS: Prazosin HCL 1 MG CAPSULE 2 MG PO (20:08)
[2022-07-11] MEDS: Melatonin 3 MG TABLET 6 MG PO (20:09)
[2022-07-11] MEDS: carBAMazepine 200 MG/10 ML ORAL.SUSP 100 MG PO (20:09)
--- NOTE | 2022-07-11 20:10 | P.PNPSI_ITS ---
Subjective Subjective Date of Service: 07/11/22 Reason For Visit: psychosis/nikita Subjective Notes: Section 8 Interim History: Pt asking repeatedly, non stop about when is he going to be discharged and if this parts data writer can talk with Dr. Dasilva today- after telling pt it is Tuesday. He asks this parts data writer to tell Dr. Dasilva let the doctor know I am behaving. Pt suggested to parts data writer note for attending instead of constantly asking staff and this parts data writer about this discharge. Per nursing, pt slept through the night. Review of Systems Review of Systems Yes Unobtainable due to mental condition Mental Status Exam Mental Status Exam Narrative: Appearance: up and about the unit in the afternoon Behavior: engaging on very limited subject matter. Psychomotor: pacing the halls. no hand tremor. Speech: spontaneous, rapid; nml amount TP: disorganized, perseverative on limited matters TC: vague, vacuous Mood: good Affect: full range, normo-intense, non-labile. bizarre smiling and laughing not c/w context. AH/VH: none expressed SI: none expressed HI: none expressed Insight/judgment: impaired x 2. Memory/cog: alert, not oriented to situation. impaired secondary to psychiatric symptoms. Diagnostics Vital Signs (24Hr): Vital Signs - 24 hr 07/10/22 20:34 07/11/22 09:20 Temperature 97.6 F 98.0 F Pulse Rate 86 94 Respiratory Rate 18 18 Blood Pressure 124/58 L 130/71 Pulse Oximetry 96 99 Oxygen Delivery Method Room Air Room Air BMI result Body Mass Index 27.5 Labs 07/06/22 14:27 07/06/22 14:27 Imaging Radiology Impressions: ITS Impressions Head CT 06/17/22 15:28 IMPRESSION: No acute intracranial abnormality including hemorrhage, mass effect, hydrocephalus, or acute territorial edematous infarction. Medications Medications Current Medications Acetaminophen (Acetaminophen 325 Mg Tablet) 650 mg PO Q6H PRN PRN Reason: Headache/Pain Mild Scale (1-3) Last Admin: 07/09/22 20:39 Dose: 650 mg Al Hydroxide/Mg Hydroxide (Magnesium Hydrox/Alum Hydrox 30 Ml Oral.Susp) 30 ml PO Q6H PRN PRN Reason: Heartburn/Nausea Last Admin: 06/30/22 20:25 Dose: 30 ml Benzocaine (Throat Lozenge, Medicated Lozenge) 1 lozenge MUCOUS MEM Q2H PRN PRN Reason: Sore Throat Last Admin: 07/03/22 06:18 Dose: 1 lozenge Benztropine Mesylate (Benztropine Mesylate 1 Mg Tablet) 1 mg PO TID PRN PRN Reason: Extrapyramidal Effects Last Admin: 07/10/22 20:40 Dose: 1 mg Carbamazepine (Carbamazepine 200 Mg/10 Ml Oral.Susp) 100 mg PO BEDTIME JELANI Last Admin: 07/10/22 20:41 Dose: 100 mg Diphenhydramine HCl (Diphenhydramine Hcl 12.5 Mg/5 Ml Liquid) 25 mg PO BID [facility] Last Admin: 07/11/22 09:22 Dose: 25 mg Docusate Sodium (Docusate Sodium 100 Mg Capsule) 100 mg PO BEDTIME JELANI Last Admin: 07/10/22 20:40 Dose: 100 mg Haloperidol (Haloperidol 5 Mg Tablet) 10 mg PO BID PRN PRN Reason: agitation/psychosis Haloperidol Lactate (Haloperidol Lactate 5 Mg/Ml Vial) 5 mg IM BID PRN PRN Reason: refusal of PO; per gomez order Haloperidol Lactate (Haloperidol Lactate Oral Conc 10 Mg/5 Ml Oral.Conc) 5 mg PO BID [facility] Last Admin: 07/11/22 09:20 Dose: 5 mg Hydroxyzine HCl (Hydroxyzine Hcl 25 Mg Tablet) 25 mg PO Q6H PRN PRN Reason: Anxiety Last Admin: 07/11/22 11:52 Dose: 25 mg [place] Carbonate ([place] Carbonate Er 300 Mg Tablet.Er) 600 mg PO DAILY [facility] Last Admin: 07/11/22 09:21 Dose: 600 mg [place] Carbonate ([place] Carbonate Er 450 Mg Tablet.Er) 900 mg PO BEDTIME JELANI Last Admin: 07/10/22 20:40 Dose: 900 mg Magnesium Hydroxide (Milk Of Magnesia 30 Ml Oral.Susp) 30 ml PO DAILY PRN PRN Reason: Constipation Last Admin: 06/10/22 17:35 Dose: 30 ml Melatonin (Melatonin 3 Mg Tablet) 6 mg PO BEDTIME [facility] Last Admin: 07/10/22 20:40 Dose: 6 mg Omeprazole (Omeprazole 20 Mg Capsule.Dr) 20 mg PO DAILY@0630 [facility] Last Admin: 07/11/22 09:20 Dose: 20 mg Prazosin HCl (Prazosin Hcl 1 Mg Capsule) 2 mg PO BEDTIME JELANI; Protocol Last Admin: 07/10/22 20:40 Dose: 2 mg Sodium Chloride (Sodium Chloride 0.65 % Nasal 44 Ml Sprbtl) 1 spray NOSTRIL-B Q1H PRN PRN Reason: Dry Nasal Passages Last Admin: 07/11/22 11:52 Dose: 1 spray Trazodone HCl (Trazodone Hcl 50 Mg Tablet) 50 mg PO BEDTIME PRN PRN Reason: Insomnia Last Admin: 07/10/22 20:40 Dose: 50 mg Allergies Allergies Allergy/AdvReac Type Severity Reaction Status Date / Time depakote AdvReac Severe elevated Uncoded 05/19/22 22:38 ammonia Assessment & Plan Assessment & Plan (1) Schizoaffective disorder, bipolar type: Status: Acute Code(s): F25.0 - Schizoaffective disorder, bipolar type Assessment and Plan: ongoing thought disorder at least 06/12/22 Plan 05/05: possibly manic, will invest more effort in trying to get mood stabilizer on board. continue zydis for now, start VPA sprinkles. 05/06: no change in mgmt. 05/07: no change in presentation. change VPA from sprinkles back to pills due to large number of sprinkles pills required to generate 1500 mg of VPA. pt not compliant with VPA, has been taking some zyprexa; change formulation to zydis to improve bioavailability. plan to move to file for commitment next week if pt doesn't soon begin to reliably take medication. 05/08 no change 05/09 no change 05/10: no change to mgmt. chewed meds x 1 over weekend, cheeking/furtively di sposing of meds otherwise. 05/11: generally refusing meds. informed he will be filed on tomorrow. a ttempting to bargain over taking meds and discharge. will investigate obtaining VPA soln. 05/12: commitment paperwork filed. pt took all meds last night and this morning, including liquid VPA. aware of legal circumstance, unclear how well he is able to appreciate it. 22: asking about discharge, states he is compliant with meds (as also say nursing staff). states he is feeling better, but unable to say in what way. sleeping and eating well. 2/3: repeated checking-in with MD throughout the day. remains disorganized and apparently RIS. med-compliant. 05/15: sleeping midday. no change in presentation. 05/16: no change in presentation or plan. 05/17: no change in presentation or plan. commitment hearing tomorrow. 05/18: no change in presentation. committed to the hospital at [facility]. 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 DC zyprexa as well as it lacks usable COUCH. start paliperidone PO, convert to COUCH once it is established pt is tolerating the medication. 05/20: continue to establish on tegretol and invega. introduce COUCH once pt stable on PO formulation for several days. check tegretol levels after about a week. no change in presentation. 05/21 continue current medication. 05/22 continue current treatment plan 05/23 continue current treatment plan 05/24 continue current medications. continues with psychosis/delusions. 05/25 continue current tx. 05/26 continue tx. 05/27 continue tx. vaughn do tegretol level Sat. 05/28 continue tx. 05/29 continue tx. 05/30 continue tx. not much improvement. continues to self dialoguing 05/31 continue tx. minimal improvement. 06/01 continue tx. may want to consider change in antipsychotic. 06/02: no change since last seen 05/20. on paliperidone 12 mg daily. tegretol level 5.2. trend LFTs; slightly elevated. willing to have lithium added today. 06/03: reports improved concentration today with lithium addition. continue current mgmt. T/C different neuroleptic, T/C increase in tegretol dosing. 06/04: continue current mgmt. check lithium on tuesday. stable presentation. 06/05: continue current mgmt. stable presentation. 06/06: as for 06/05. 06/07: no change in presentation. checking labs tonight. 06/08 continue tx. 06/09: tegretol 7.7, lithium 0.34. increase tegretol dosing to 300 BID and lithium dosing to 600 BID. no change in presentation. 06/10: no change in presentation. 06/11: hypertensive and borderline tachy. follow. stable presentation, continue current mgmt. check labs early next week. 06/14: lithium checked today, 0.67. increase lithium dosing from 600 BID to 600/900. check tegretol level and rest of labs tomorrow morning. no change in presentation. 06/15: tegretol level 6.2 currently. pt is reported to have c/o dizziness, but denies said Sx upon MD inquiry. increase tegretol from 300 BID to 300/400 as of tonight. T/C change in neuroleptic. no change in presentation. 06/16: no change in plan or presentation for today. 06/17: no change in presentation. check head CT, U/A, ESR, TORIN, TSH/T4, B1 2/folate, HIV, Hep C, RPR. lab abnormalities include chronic leukopenia, increase urine spec grav w/proteinuria and ketonuria. DC paliperidone as it appears to have changed nothing, start trial of haldol. thus far zyprexa and invega have not helped. haldol, prolixin, and abilify are the medications which remain on the stevo's order. 06/18: tolerating haldol currently. no change in presentation. continue current mgmt. 06/19: Continue current regimen and plans 06/20: Continue current regimen plans 06/21: no change in presentation. increase haldol from 5 BID to 7.5 BID. otherwise continue current mgmt. 06/22: continue current mgmt. no change in presentation. case discussed with medical professionals. 06/23: continue current mgmt. no change in presentation. T/C petitioning court for clozaril and ECT 06/24: continue current mgmt. no change in presentation. T/C petitioning court for clozaril and ECT. 06/25: no change. pt reported inducing vomiting after taking meds. staff believe pt cheeked meds last night and then went immediately to the bathroom. place patient on 1:1 for 30 minutes after meals. 06/26 keep same treatment 06/27 keep same treatment. 06/28: no whispering to self, but laughing continues. requesting discharge. no substantial progress. begin taper of tegretol as not having substantially modified presentation (reduce 300/400 --> 200/300 as of tonight). discuss w/med providers in med providers' mtg tomorrow. 3/21: increase haldol to 10 BID. discussed case at providers' mtg. plan to pursue clozapine/ECT. 06/30: after further discussion with medical professionals freida, plan devised to give COUCH antipsychotic now and see if pt can stabilize over next several months with that therapy. if he recidivates shortly, commitment and clozapine/ECT orders will be pursued. continue tegretol taper and DC prior to discharge. 07/01: decrease tegretol 200 BID to 100/200 as of tomorrow. scheduled for 200 mg haldol dec on tuesday. otherwise continue current mgmt. family mtg with father tomorrow at 2. 07/02: family mtg held. planning for DC mid-late next week. continue tegretol taper tuesday. 07/03: Continue treatment plan. Added Haldol PO PRN agitation. 07/04: Continue current tx plan. 07/05: hypersexual, disinhibited over w/e. increase tegretol back to 200/300 (from 100/200). to receive another 200 mg of IM haldol today. restart haldol 5 mg PO BID until discharge. 07/06: in light of CBC and LFT abnormalities with most likely culprit being tegretol, reinstitute tegretol taper. decrease dosing from 200/300 back to 100/200 with commitment to complete taper. no concerning behaviors since the w/e. continue current mgmt otherwise. deferring discharge to next week in light of need for continued stabilization. 07/07: hypersexual behaviors. continue current mgmt. 07/08: no noted problematic behaviors in the past day. continue tegretol taper - 100/200 --> 100 BID. 07/09: inappropriate sexualized comment to female staff. taper tegretol to 100 QHS. continue current mgmt otherwise. no hand tremor. 07/10 continue 07/11 continue tx. Reason for contiued inpatient stay Substantial Risk for: inability to function Time Spent With Patient Time: Total time managing care of this patient today ____ minutes.
[2022-07-11 20:14] VITALS: BP 136/63; PULSE 76; RESP 16; TEMP 36.6; O2SAT 99
[2022-07-12 08:00] VITALS: BP 150/70; PULSE 91; TEMP 36.4; O2SAT 97
[2022-07-12] MEDS: Haloperidol Lactate Oral Conc 10 MG/5 ML ORAL.CONC 5 MG PO ×2 (08:21→20:36)
[2022-07-12] MEDS: Omeprazole 20 MG CAPSULE.DR PO (08:21)
[2022-07-12] MEDS: Lithium Carbonate ER 300 MG TABLET.ER 600 MG PO (08:21)
[2022-07-12] MEDS: diphenhydrAMINE HCl 12.5 MG/5 ML LIQUID 25 MG PO ×2 (08:21→20:36)
[2022-07-12] MEDS: Magnesium Hydrox/Alum Hydrox 30 ML ORAL.SUSP PO (10:32)
--- NOTE | 2022-07-12 13:59 | HO.PSYCHPN ---
Subjective Subjective Date of Service: 07/12/22 Reason For Visit: psychosis/nikita Interim History: no change in presentation. seen with TRANG fernandez. asking about discharge. discuss possible DC , assuming no recidivism. per staff, cooperative. perseverating re communication with MD. redirection re getting food, standing by RN station. laughing out loud to himself, taking meds. Mental Status Exam Mental Status Exam Narrative: Appearance: up and about the unit Behavior: engaging on very limited subject matter. Psychomotor: pacing the halls. no hand tremor. Speech: spontaneous, rapid; nml amount TP: disorganized, perseverative on limited matters TC: vague, vacuous Mood: good Affect: full range, normo-intense, non-labile. bizarre smiling and laughing not c/w context. AH/VH: none expressed SI: none expressed HI: none expressed Insight/judgment: impaired x 2. Memory/cog: alert, not oriented to situation. impaired secondary to psychiatric symptoms. Diagnostics Vital Signs (24Hr): Vital Signs - 24 hr 07/11/22 20:14 07/12/22 08:00 Temperature 97.8 F 97.5 F Pulse Rate 76 91 Respiratory Rate 16 Blood Pressure 136/63 150/70 H Pulse Oximetry 99 97 Oxygen Delivery Method Room Air Room Air BMI result Body Mass Index 27.5 Labs 07/06/22 14:27 07/06/22 14:27 Imaging Radiology Impressions: ITS Impressions Head CT 06/17/22 15:28 IMPRESSION: No acute intracranial abnormality including hemorrhage, mass effect, hydrocephalus, or acute territorial edematous infarction. Medications Medications Current Medications Acetaminophen (Acetaminophen 325 Mg Tablet) 650 mg PO Q6H PRN PRN Reason: Headache/Pain Mild Scale (1-3) Last Admin: 07/09/22 20:39 Dose: 650 mg Al Hydroxide/Mg Hydroxide (Magnesium Hydrox/Alum Hydrox 30 Ml Oral.Susp) 30 ml PO Q6H PRN PRN Reason: Heartburn/Nausea Last Admin: 07/12/22 10:32 Dose: 30 ml Benzocaine (Throat Lozenge, Medicated Lozenge) 1 lozenge MUCOUS MEM Q2H PRN PRN Reason: Sore Throat Last Admin: 07/11/22 20:07 Dose: 1 lozenge Benztropine Mesylate (Benztropine Mesylate 1 Mg Tablet) 1 mg PO TID PRN PRN Reason: Extrapyramidal Effects Last Admin: 07/10/22 20:40 Dose: 1 mg Carbamazepine (Carbamazepine 200 Mg/10 Ml Oral.Susp) 100 mg PO BEDTIME JELANI Last Admin: 07/11/22 20:09 Dose: 100 mg Diphenhydramine HCl (Diphenhydramine Hcl 12.5 Mg/5 Ml Liquid) 25 mg PO BID JELANI Last Admin: 07/12/22 08:21 Dose: 25 mg Docusate Sodium (Docusate Sodium 100 Mg Capsule) 100 mg PO BEDTIME JELANI Last Admin: 07/11/22 20:07 Dose: 100 mg Haloperidol (Haloperidol 5 Mg Tablet) 10 mg PO BID PRN PRN Reason: agitation/psychosis Haloperidol Lactate (Haloperidol Lactate 5 Mg/Ml Vial) 5 mg IM BID PRN PRN Reason: refusal of PO; per gomez order Haloperidol Lactate (Haloperidol Lactate Oral Conc 10 Mg/5 Ml Oral.Conc) 5 mg PO BID [facility] Last Admin: 07/12/22 08:21 Dose: 5 mg Hydroxyzine HCl (Hydroxyzine Hcl 25 Mg Tablet) 25 mg PO Q6H PRN PRN Reason: Anxiety Last Admin: 07/11/22 11:52 Dose: 25 mg [place] Carbonate ([place] Carbonate Er 300 Mg Tablet.Er) 600 mg PO DAILY JELANI Last Admin: 07/12/22 08:21 Dose: 600 mg [place] Carbonate ([place] Carbonate Er 450 Mg Tablet.Er) 900 mg PO BEDTIME JELANI Last Admin: 07/11/22 20:07 Dose: 900 mg Magnesium Hydroxide (Milk Of Magnesia 30 Ml Oral.Susp) 30 ml PO DAILY PRN PRN Reason: Constipation Last Admin: 06/10/22 17:35 Dose: 30 ml Melatonin (Melatonin 3 Mg Tablet) 6 mg PO BEDTIME JELANI Last Admin: 07/11/22 20:09 Dose: 6 mg Omeprazole (Omeprazole 20 Mg Capsule.Dr) 20 mg PO DAILY@0630 JELANI Last Admin: 07/12/22 08:21 Dose: 20 mg Prazosin HCl (Prazosin Hcl 1 Mg Capsule) 2 mg PO BEDTIME JELANI; Protocol Last Admin: 07/11/22 20:08 Dose: 2 mg Sodium Chloride (Sodium Chloride 0.65 % Nasal 44 Ml Sprbtl) 1 spray NOSTRIL-B Q1H PRN PRN Reason: Dry Nasal Passages Last Admin: 07/11/22 11:52 Dose: 1 spray Trazodone HCl (Trazodone Hcl 50 Mg Tablet) 50 mg PO BEDTIME PRN PRN Reason: Insomnia Last Admin: 07/10/22 20:40 Dose: 50 mg Allergies Allergies Allergy/AdvReac Type Severity Reaction Status Date / Time depakote AdvReac Severe elevated Uncoded 05/19/22 22:38 ammonia Assessment & Plan Assessment & Plan (1) Schizoaffective disorder, bipolar type: Status: Acute Code(s): F25.0 - Schizoaffective disorder, bipolar type Assessment and Plan: ongoing thought disorder at least 06/12/22 Plan 05/05: possibly manic, will invest more effort in trying to get mood stabilizer on board. continue zydis for now, start VPA sprinkles. 05/06: no change in mgmt. 05/07: no change in presentation. change VPA from sprinkles back to pills due to large number of sprinkles pills required to generate 1500 mg of VPA. pt not compliant with VPA, has been taking some zyprexa; change formulation to zydis to improve bioavailability. plan to move to file for commitment next week if pt doesn't soon begin to reliably take medication. 05/08 no change 05/09 no change 05/10: no change to mgmt. chewed meds x 1 over weekend, cheeking/furtively disposing of meds otherwise. 05/11: generally refusing meds. informed he will be filed on tomorrow. attempting to bargain over taking meds and discharge. will investigate obtaining VPA soln. 05/12: commitment paperwork filed. pt took all meds last night and this morning, including liquid VPA. aware of legal circumstance, unclear how well he is able to appreciate it. 22: asking about discharge, states he is compliant with meds (as also say nursing staff). states he is feeling better, but unable to say in what way. sleeping and eating well. 2/3: repeated checking-in with MD throughout the day. remains disorganized and apparently RIS. med-compliant. 2: sleeping midday. no change in presentation. 05/16: no change in presentation or plan. 6: no change in presentation or plan. commitment hearing tomorrow. 05/18: no change in presentation. committed to the hospital at hearing. 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 DC zyprexa as well as it lacks usable COUCH. start paliperidone PO, convert to COUCH once it is established pt is tolerating the medication. 05/20: continue to establish on tegretol and invega. introduce COUCH once pt stable on PO formulation for several days. check tegretol levels after about a week. no change in presentation. 05/21 continue current medication. 05/22 continue current treatment plan 05/23 continue current treatment plan 05/24 continue current medications. continues with psychosis/delusions. 05/25 continue current tx. 05/26 continue tx. 05/27 continue tx. vaughn do tegretol level Sat. 05/28 continue tx. 05/29 continue tx. 05/30 continue tx. not much improvement. continues to self dialoguing 05/31 continue tx. minimal improvement. 06/01 continue tx. may want to consider change in antipsychotic. 06/02: no change since last seen 05/20. on paliperidone 12 mg daily. tegretol level 5.2. trend LFTs; slightly elevated. willing to have lithium added today. 06/03: reports improved concentration today with lithium addition. continue current mgmt. T/C different neuroleptic, T/C increase in tegretol dosing. 06/04: continue current mgmt. check lithium on tuesday. stable presentation. 06/05: continue current mgmt. stable presentation. 06/06: as for 06/05. 06/07: no change in presentation. checking labs tonight. 06/08 continue tx. 06/09: tegretol 7.7, lithium 0.34. increase tegretol dosing to 300 BID and lithium dosing to 600 BID. no change in presentation. 06/10: no change in presentation. 06/11: hypertensive and borderline tachy. follow. stable presentation, continue current mgmt. check labs early next week. 06/14: lithium checked today, 0.67. increase lithium dosing from 600 BID to 600/900. check tegretol level and rest of labs tomorrow morning. no change in presentation. 06/15: tegretol level 6.2 currently. pt is reported to have c/o dizziness, but denies said Sx upon MD inquiry. increase tegretol from 300 BID to 300/400 as of tonight. T/C change in neuroleptic. no change in presentation. 06/16: no change in plan or presentation for today. 06/17: no change in presentation. check head CT, U/A, ESR, TORIN, TSH/T4, B12/folate, HIV, Hep C, RPR. lab abnormalities include chronic leukopenia, increase urine spec grav w/proteinuria and ketonuria. DC paliperidone as it appears to have changed nothing, start trial of haldol. thus far zyprexa and invega have not helped. haldol, prolixin, and abilify are the medications which remain on the stevo's order. 06/18: tolerating haldol currently. no change in presentation. continue current mgmt. 06/19: Continue current regimen and plans 06/20: Continue current regimen plans 06/21: no change in presentation. increase haldol from 5 BID to 7.5 BID. otherwise continue current mgmt. 06/22: continue current mgmt. no change in presentation. case discussed with medical representative. 06/23: continue current mgmt. no change in presentation. T/C petitioning court for clozaril and ECT 06/24: continue current mgmt. no change in presentation. T/C petitioning court for clozaril and ECT. 06/25: no change. pt reported inducing vomiting after taking meds. staff believe pt cheeked meds last night and then went immediately to the bathroom. place patient on 1:1 for 30 minutes after meals. 06/26 keep same treatment 06/27 keep same treatment. 06/28: no whispering to self, but laughing continues. requesting discharge. no substantial progress. begin taper of tegretol as not having substantially modified presentation (reduce 300/400 --> 200/300 as of tonight). discuss w/med providers in med providers' mtg tomorrow. 06/29: increase haldol to 10 BID. discussed case at providers' mtg. plan to pursue clozapine/ECT. 06/30: after further discussion with medical representative freida, plan devised to give COUCH antipsychotic now and see if pt can stabilize over next several months with that therapy. if he recidivates shortly, commitment and clozapine/ECT orders will be pursued. continue tegretol taper and DC prior to discharge. 07/01: decrease tegretol 200 BID to 100/200 as of tomorrow. scheduled for 200 mg haldol dec on tuesday. otherwise continue current mgmt. family mtg with father tomorrow at 2. 07/02: family mtg held. planning for DC mid-late next week. continue tegretol taper tuesday. 07/03: Continue treatment plan. Added Haldol PO PRN agitation. 07/04: Continue current tx plan. 07/05: hypersexual, disinhibited over w/e. increase tegretol back to 200/300 (from 100/200). to receive another 200 mg of IM haldol today. restart haldol 5 mg PO BID until discharge. 07/06: in light of CBC and LFT abnormalities with most likely culprit being tegretol, reinstitute tegretol taper. decrease dosing from 200/300 back to 100/200 with commitment to complete taper. no concerning behaviors since the w/e. continue current mgmt otherwise. deferring discharge to next week in light of need for continued stabilization. 07/07: hypersexual behaviors. continue current mgmt. 07/08: no noted problematic behaviors in the past day. continue tegretol taper - 100/200 --> 100 BID. 07/09: inappropriate sexualized comment to female staff. taper tegretol to 100 QHS. continue current mgmt otherwise. no hand tremor. 07/10: continue 07/11: continue tx. 07/12: no change in presentation. DC tegretol entirely. otherwise continue current mgmt. considering DC should behavior remain non-problematic. Reason for contiued inpatient stay Substantial Risk for: inability to function and rapid decompensation Time Spent With Patient Time: Total time managing care of this patient today __25__ minutes.
[2022-07-12 20:35] VITALS: BP 140/70; PULSE 76; RESP 16; TEMP 36.4; O2SAT 99
[2022-07-12] MEDS: Melatonin 3 MG TABLET 6 MG PO (20:36)
[2022-07-12] MEDS: Prazosin HCL 1 MG CAPSULE 2 MG PO (20:37)
[2022-07-12] MEDS: Docusate Sodium 100 MG CAPSULE PO (20:37)
[2022-07-12] MEDS: Lithium Carbonate ER 450 MG TABLET.ER 900 MG PO (20:54)
[2022-07-12] MEDS: hydrOXYzine HCL 25 MG TABLET PO (20:54)
[2022-07-13] MEDS: Sodium Chloride 0.65 % Nasal 44 ML SPRBTL 1 SPRAY NOSTRIL-B ×2 (05:30→14:25)
[2022-07-13] MEDS: Omeprazole 20 MG CAPSULE.DR PO (05:31)
[2022-07-13] MEDS: Lithium Carbonate ER 300 MG TABLET.ER 600 MG PO (09:22)
[2022-07-13] MEDS: diphenhydrAMINE HCl 12.5 MG/5 ML LIQUID 25 MG PO ×2 (09:22→21:12)
[2022-07-13] MEDS: Haloperidol Lactate Oral Conc 10 MG/5 ML ORAL.CONC 5 MG PO ×2 (09:22→21:12)
[2022-07-13 09:24] VITALS: BP 131/74; PULSE 105; RESP 18; TEMP 36.3; O2SAT 98
[2022-07-13] MEDS: Milk of Magnesia 30 ML ORAL.SUSP PO (09:31)
--- NOTE | 2022-07-13 14:33 | P.PNPSI_ITS ---
Subjective Subjective Date of Service: 07/13/22 Reason For Visit: psychosis/nikita Interim History: no change in presentation. focussed on discharge . per staff no change in presentation . Mental Status Exam Mental Status Exam Narrative: Appearance: up and about the unit Behavior: engaging on very limited subject matter. Psychomotor: pacing the halls. no hand tremor. Speech: spontaneous, rapid; nml amount TP: disorganized, perseverative on limited matters TC: vague, vacuous Mood: good Affect: full range, normo-intense, non-labile. bizarre smiling and laughing not c/w context. AH/VH: none expressed SI: none expressed HI: none expressed Insight/judgment: impaired x 2. Memory/cog: alert, not oriented to situation. impaired secondary to psychiatric symptoms. Diagnostics Vital Signs (24Hr): Vital Signs - 24 hr 07/12/22 20:35 07/13/22 09:24 Temperature 97.5 F 97.4 F Pulse Rate 76 105 H Respiratory Rate 16 18 Blood Pressure 140/70 H 131/74 Pulse Oximetry 99 98 Oxygen Delivery Method Room Air Room Air BMI result Body Mass Index 27.5 Labs 07/06/22 14:27 07/06/22 14:27 Imaging Radiology Impressions: ITS Impressions Head CT 06/17/22 15:28 IMPRESSION: No acute intracranial abnormality including hemorrhage, mass effect, hydrocephalus, or acute territorial edematous infarction. Medications Medications Current Medications Acetaminophen (Acetaminophen 325 Mg Tablet) 650 mg PO Q6H PRN PRN Reason: Headache/Pain Mild Scale (1-3) Last Admin: 07/09/22 20:39 Dose: 650 mg Al Hydroxide/Mg Hydroxide (Magnesium Hydrox/Alum Hydrox 30 Ml Oral.Susp) 30 ml PO Q6H PRN PRN Reason: Heartburn/Nausea Last Admin: 07/12/22 10:32 Dose: 30 ml Benzocaine (Throat Lozenge, Medicated Lozenge) 1 lozenge MUCOUS MEM Q2H PRN PRN Reason: Sore Throat Last Admin: 07/11/22 20:07 Dose: 1 lozenge Benztropine Mesylate (Benztropine Mesylate 1 Mg Tablet) 1 mg PO TID PRN PRN Reason: Extrapyramidal Effects Last Admin: 07/10/22 20:40 Dose: 1 mg Diphenhydramine HCl (Diphenhydramine Hcl 12.5 Mg/5 Ml Liquid) 25 mg PO BID [facility] Last Admin: 07/13/22 09:22 Dose: 25 mg Docusate Sodium (Docusate Sodium 100 Mg Capsule) 100 mg PO BEDTIME JELANI Last Admin: 07/12/22 20:37 Dose: 100 mg Haloperidol (Haloperidol 5 Mg Tablet) 10 mg PO BID PRN PRN Reason: agitation/psychosis Haloperidol Lactate (Haloperidol Lactate 5 Mg/Ml Vial) 5 mg IM BID PRN PRN Reason: refusal of PO; per gomez order Haloperidol Lactate (Haloperidol Lactate Oral Conc 10 Mg/5 Ml Oral.Conc) 5 mg PO BID [facility] Last Admin: 07/13/22 09:22 Dose: 5 mg Hydroxyzine HCl (Hydroxyzine Hcl 25 Mg Tablet) 25 mg PO Q6H PRN PRN Reason: Anxiety Last Admin: 07/12/22 20:54 Dose: 25 mg Pella Carbonate (Pella Carbonate Er 300 Mg Tablet.Er) 600 mg PO DAILY [facility] Last Admin: 07/13/22 09:22 Dose: 600 mg Pella Carbonate (Pella Carbonate Er 450 Mg Tablet.Er) 900 mg PO BEDTIME [facility] Last Admin: 07/12/22 20:54 Dose: 900 mg Magnesium Hydroxide (Milk Of Magnesia 30 Ml Oral.Susp) 30 ml PO DAILY PRN PRN Reason: Constipation Last Admin: 07/13/22 09:31 Dose: 30 ml Melatonin (Melatonin 3 Mg Tablet) 6 mg PO BEDTIME [facility] Last Admin: 07/12/22 20:36 Dose: 6 mg Omeprazole (Omeprazole 20 Mg Capsule.Dr) 20 mg PO DAILY@0630 [facility] Last Admin: 07/13/22 05:31 Dose: 20 mg Prazosin HCl (Prazosin Hcl 1 Mg Capsule) 2 mg PO BEDTIME [facility]; Protocol Last Admin: 07/12/22 20:37 Dose: 2 mg Sodium Chloride (Sodium Chloride 0.65 % Nasal 44 Ml Sprbtl) 1 spray NOSTRIL-B Q1H PRN PRN Reason: Dry Nasal Passages Last Admin: 07/13/22 14:25 Dose: 1 spray Trazodone HCl (Trazodone Hcl 50 Mg Tablet) 50 mg PO BEDTIME PRN PRN Reason: Insomnia Last Admin: 07/10/22 20:40 Dose: 50 mg Allergies Allergies Allergy/AdvReac Type Severity Reaction Status Date / Time depakote AdvReac Severe elevated Uncoded 05/19/22 22:38 ammonia Assessment & Plan Assessment & Plan (1) Schizoaffective disorder, bipolar type: Status: Acute Code(s): F25.0 - Schizoaffective disorder, bipolar type Assessment and Plan: ongoing thought disorder at least 06/12/22 Plan 05/05: possibly manic, will invest more effort in trying to get mood stabilizer on board. continue zydis for now, start VPA sprinkles. 05/06: no change in mgmt. 05/07: no change in presentation. change VPA from sprinkles back to pills due to large number of sprinkles pills required to generate 1500 mg of VPA. pt not compliant with VPA, has been taking some zyprexa; change formulation to zydis to improve bioavailability. plan to move to file for commitment next week if pt doesn't soon begin to reliably take medication. 05/08 no change 05/09 no change 05/10: no change to mgmt. chewed meds x 1 over weekend, cheeking/furtively disposing of meds otherwise. 05/11: generally refusing meds. informed he will be filed on tomorrow. attempting to bargain over taking meds and discharge. will investigate obtaining VPA soln. 05/12: commitment paperwork filed. pt took all meds last night and this morning, including liquid VPA. aware of legal circumstance, unclear how well he is able to appreciate it. 2: asking about discharge, states he is compliant with meds (as also say nursing staff). states he is feeling better, but unable to say in what way. sleeping and eating well. 23: repeated checking-in with MD throughout the day. remains disorganized and apparently RIS. med-compliant. 05/15: sleeping midday. no change in presentation. 05/16: no change in presentation or plan. 05/17: no change in presentation or plan. commitment hearing tomorrow. 05/18: no change in presentation. committed to the hospital at hearing. 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 DC zyprexa as well as it lacks usable COUCH. start paliperidone PO, convert to COUCH once it is established pt is tolerating the medication. 05/20: continue to establish on tegretol and invega. introduce COUCH once pt stable on PO formulation for several days. check tegretol levels after about a week. no change in presentation. 05/21 continue current medication. 05/22 continue current treatment plan 05/23 continue current treatment plan 05/24 continue current medications. continues with psychosis/delusions. 05/25 continue current tx. 05/26 continue tx. 05/27 continue tx. vaughn do tegretol level Sat. 05/28 continue tx. 05/29 continue tx. 05/30 continue tx. not much improvement. continues to self dialoguing 05/31 continue tx. minimal improvement. 06/01 continue tx. may want to consider change in antipsychotic. 06/02: no change since last seen 05/20. on paliperidone 12 mg daily. tegretol level 5.2. trend LFTs; slightly elevated. willing to have lithium added today. 06/03: reports improved concentration today with lithium addition. continue current mgmt. T/C different neuroleptic, T/C increase in tegretol dosing. 06/04: continue current mgmt. check lithium on tuesday. stable presentation. 06/05: continue current mgmt. stable presentation. 06/06: as for 06/05. 06/07: no change in presentation. checking labs tonight. 06/08 continue tx. 06/09: tegretol 7.7, lithium 0.34. increase tegretol dosing to 300 BID and lithium dosing to 600 BID. no change in presentation. 06/10: no change in presentation. 06/11: hypertensive and borderline tachy. follow. stable presentation, continue current mgmt. check labs early next week. 06/14: lithium checked today, 0.67. increase lithium dosing from 600 BID to 600/900. check tegretol level and rest of labs tomorrow morning. no change in presentation. 06/15: tegretol level 6.2 currently. pt is reported to have c/o dizziness, but denies said Sx upon MD inquiry. increase tegretol from 300 BID to 300/400 as of tonight. T/C change in neuroleptic. no change in presentation. 06/16: no change in plan or presentation for today. 06/17: no change in presentation. check head CT, U/A, ESR, TORIN, TSH/T4, B12/folate, HIV, Hep C, RPR. lab abnormalities include chronic leukopenia, increase urine spec grav w/proteinuria and ketonuria. DC paliperidone as it appears to have changed nothing, start trial of haldol. thus far zyprexa and invega have not helped. haldol, prolixin, and abilify are the medications which remain on the stevo's order. 06/18: tolerating haldol currently. no change in presentation. continue current mgmt. 06/19: Continue current regimen and plans 06/20: Continue current regimen plans 06/21: no change in presentation. increase haldol from 5 BID to 7.5 BID. otherwise continue current mgmt. 06/22: continue current mgmt. no change in presentation. case discussed with medical record transcriber. 06/23: continue current mgmt. no change in presentation. T/C petitioning court for clozaril and ECT 06/24: continue current mgmt. no change in presentation. T/C petitioning court for clozaril and ECT. 06/25: no change. pt reported inducing vomiting after taking meds. staff believe pt cheeked meds last night and then went immediately to the bathroom. place patient on 1:1 for 30 minutes after meals. 06/26 keep same treatment 06/27 keep same treatment. 06/28: no whispering to self, but laughing continues. requesting discharge. no substantial progress. begin taper of tegretol as not having substantially modified presentation (reduce 300/400 --> 200/300 as of ). discuss w/med providers in med providers' mtg tomorrow. 06/29: increase haldol to 10 BID. discussed case at providers' mtg. plan to pursue clozapine/ECT. 06/30: after further discussion with medical record transcriber freida, plan devised to give COUCH antipsychotic now and see if pt can stabilize over next several months with that therapy. if he recidivates shortly, commitment and clozapine/ECT orders will be pursued. continue tegretol taper and DC prior to discharge. 07/01: decrease tegretol 200 BID to 100/200 as of tomorrow. scheduled for 200 mg haldol dec on tuesday. otherwise continue current mgmt. family mtg with father tomorrow at 2. 07/02: family mtg held. planning for DC mid-late next week. continue tegretol taper tuesday. 07/03: Continue treatment plan. Added Haldol PO PRN agitation. 07/04: Continue current tx plan. 07/05: hypersexual, disinhibited over w/e. increase tegretol back to 200/300 (from 100/200). to receive another 200 mg of IM haldol today. restart haldol 5 mg PO BID until discharge. 07/06: in light of CBC and LFT abnormalities with most likely culprit being tegretol, reinstitute tegretol taper. decrease dosing from 200/300 back to 100/200 with commitment to complete taper. no concerning behaviors since the w/e. continue current mgmt otherwise. deferring discharge to next week in light of need for continued stabilization. 07/07: hypersexual behaviors. continue current mgmt. 07/08: no noted problematic behaviors in the past day. continue tegretol taper - 100/200 --> 100 BID. 07/09: inappropriate sexualized comment to female staff. taper tegretol to 100 QHS. continue current mgmt otherwise. no hand tremor. 07/10: continue 07/11: continue tx. 07/12: no change in presentation. DC tegretol entirely. otherwise continue current mgmt. considering DC should behavior remain non-problematic. 07/13: checks labs for cell counts and LFTs. check lithium level and renal fxn. lithium and tegretol levels. no change in presentation, no change in mgmt otherwise. Reason for contiued inpatient stay Substantial Risk for: inability to function and rapid decompensation Time Spent With Patient Time: Total time managing care of this patient today ____ minutes.
[2022-07-13 18:00] VITALS: BP 142/82; PULSE 83; RESP 16; TEMP 36.3; O2SAT 96
[2022-07-13] MEDS: Throat Lozenge, Medicated LOZENGE 1 LOZENGE MUCOUS MEM (18:06)
[2022-07-13] MEDS: Acetaminophen 325 MG TABLET 650 MG PO (18:40)
[2022-07-13] MEDS: Melatonin 3 MG TABLET 6 MG PO (21:12)
[2022-07-13] MEDS: Prazosin HCL 1 MG CAPSULE 2 MG PO (21:12)
[2022-07-13] MEDS: Docusate Sodium 100 MG CAPSULE PO (21:12)
[2022-07-13] MEDS: Lithium Carbonate ER 450 MG TABLET.ER 900 MG PO (21:12)
[2022-07-13] MEDS: Magnesium Hydrox/Alum Hydrox 30 ML ORAL.SUSP PO (21:16)
[2022-07-14 09:18] LABS: MANUAL DIFF FLAG NO
[2022-07-14 09:30] VITALS: BP 142/79; PULSE 100; RESP 16; TEMP 36.4; O2SAT 98
[2022-07-14] MEDS: diphenhydrAMINE HCl 12.5 MG/5 ML LIQUID 25 MG PO ×2 (09:36→20:27)
[2022-07-14] MEDS: Haloperidol Lactate Oral Conc 10 MG/5 ML ORAL.CONC 5 MG PO ×2 (09:36→20:26)
[2022-07-14 09:37] LABS: Basophils Percent Auto 0.4 % (0-2); Eosinophils Absolute Auto 0.2 X10*3/uL (0.0-0.4); Eosinophils Percent Auto 4.6 % (0-4); Hematocrit 45.1 % (42.0-52.0); Hemoglobin 15.7 g/dl (14.0-18.0); Imm Gran Abs Auto 0.07 X10*3/uL (0.00-0.03); Imm Gran Pct Auto 1.4 % (0.0-0.4); Lymphocytes Absolute Auto 1.4 X10*3/uL (1.2-4.9); Lymphocytes Percent Auto 28.5 % (20-40); Mean Corpuscular HGB Conc 34.8 g/dl (31.0-36.0); Mean Corpuscular Hemoglobin 30.2 pg (27.0-33.0); Mean Corpuscular Volume 86.7 fL (80.0-98.0); Monocytes Absolute Auto 0.4 X10*3/uL (0.1-1.2); Monocytes Percent Auto 8.9 % (2-11); Neutrophils Absolute Auto 2.8 x10*3/uL (2.0-8.3); Neutrophils Percent Auto 56.2 % (45-73); Platelet Count 183 X10*3/uL (160-400); Red Cell Distribution Width 12.7 % (11.0-16.0)
[2022-07-14] MEDS: Lithium Carbonate ER 300 MG TABLET.ER 600 MG PO (09:37)
[2022-07-14] MEDS: Omeprazole 20 MG CAPSULE.DR PO (09:37)
[2022-07-14 10:25] LABS: Alanine Aminotransferase 59 U/L (0-40); Albumin Level 4.3 g/dL (3.5-5.0); Alkaline Phosphatase 112 U/L (39-117); Anion Gap 11 (12-20); Aspartate Amino Transferase 40 U/L (5-37); Bilirubin Direct < 0.2 mg/dL (0.0-0.5); Bilirubin Total 0.5 mg/dL (0.0-1.0); Blood Urea Nitrogen 13 mg/dL (9-16); Calcium 9.6 mg/dL (8.4-10.2); Carbon Dioxide 26 mmol/L (22-29); Chloride 107 mmol/L (96-108); Creatinine Clr Calc Pharmacy 143.6; Estimated Glomerular Filt Rate > 60; Glucose Random 96 mg/dL (60-115); Lithium 0.87 mmol/L (0.60-1.20); Potassium 4.4 mmol/L (3.3-5.1); Sodium 140 mmol/L (135-145); Total Protein 6.2 g/dL (6.5-8.0)
[2022-07-14 10:42] LABS: Carbamazepine Tegretol < 2.0 mcg/mL (5.0-12.0)
--- NOTE | 2022-07-14 10:46 | PC.NURSE ---
Dr. Dasilva notified of critical lab value Tegretol reported by CALLIE.
--- NOTE | 2022-07-14 12:44 | PM.PSYDC ---
DS: Providers Provider Date of Service: 07/14/22 Date of admission: 05/04/22 15:52 Primary care physician: Javier Gilliland MD DS: Diagnosis Discharge Diagnosis (1) Schizoaffective disorder, bipolar type: Status: Acute DS: Medications Discharge Medications Home Medications: Previous Rx's Medication Instructions Recorded diphenhydramine HCl 12.5 mg/5 mL 25 mg (10 mL) PO BID 30 days #600 07/14/22 oral liquid mL docusate sodium 100 mg capsule 100 mg PO BEDTIME 30 days #30 caps 07/14/22 haloperidol decanoate 100 mg/mL 300 mg (3 mL) IM Q4W 28 days #3 mL 07/14/22 intramuscular solution (Haldol Decanoate) lithium carbonate 300 mg 600 mg PO DAILY 30 days #60 tabs 07/14/22 tablet,extended release lithium carbonate 450 mg 900 mg PO BEDTIME 30 days #60 tabs 07/14/22 tablet,extended release melatonin 5 mg disintegrating 5 mg PO BEDTIME 30 days #30 tabs 07/14/22 tablet omeprazole 20 mg capsule,delayed 20 mg PO DAILY@0630 30 days #30 07/14/22 release caps prazosin 2 mg capsule 1 cap PO BEDTIME 30 days #30 caps 07/14/22 Mental Status Exam Mental Status Exam Narrative: Appearance: up and about the unit Behavior: engaging on very limited subject matter. Psychomotor: pacing the halls. no hand tremor. Speech: spontaneous, rapid; nml amount TP: disorganized, perseverative on limited matters TC: vague, vacuous Mood: good Affect: full range, normo-intense, non-labile. bizarre smiling and laughing not c/w context. AH/VH: none SI: none HI: none Insight/judgment: impaired x 2. Memory/cog: alert, not oriented to situation. impaired secondary to psychiatric symptoms. Data Data Completed and Pending Completed studies during hospitalization [Text1]: 07/14/22 07/14/22 07/14/22 09:14 09:14 09:14 WBC 5.0 RBC 5.20 Hgb 15.7 Hct 45.1 MCV 86.7 MCH 30.2 MCHC 34.8 RDW 12.7 Plt Count 183 MPV 10.0 Immature Gran % (Auto) 1.4 H Neut % (Auto) 56.2 Lymph % (Auto) 28.5 [facility] % (Auto) 8.9 Eos % (Auto) 4.6 H Baso % (Auto) 0.4 Lymph # (Auto) 1.4 [facility] # (Auto) 0.4 Eos # (Auto) 0.2 Baso # (Auto) 0.0 Abs Immat Gran (auto) 0.07 H Absolute Neuts (auto) 2.8 Absolute Nucleated RBC 0.000 Nucleated RBC % (auto) 0.0 Sodium 140 Potassium 4.4 Chloride 107 Carbon Dioxide 26 Anion Gap 11 L BUN 13 Creatinine 0.82 Estim Creat Clear Calc 143.6 Estimated GFR > 60 Random Glucose 96 Calcium 9.6 Total Bilirubin 0.5 Direct Bilirubin < 0.2 AST 40 H ALT 59 H Alkaline Phosphatase 112 Total Protein 6.2 L Albumin 4.3 Carbamazepine < 2.0 L* Boswell 07/14/22 09:14 WBC RBC Hgb Hct MCV MCH MCHC RDW Plt Count MPV Immature Gran % (Auto) Neut % (Auto) Lymph % (Auto) [facility] % (Auto) Eos % (Auto) Baso % (Auto) Lymph # (Auto) [facility] # (Auto) Eos # (Auto) Baso # (Auto) Abs Immat Gran (auto) Absolute Neuts (auto) Absolute Nucleated RBC Nucleated RBC % (auto) Sodium Potassium Chloride Carbon Dioxide Anion Gap BUN Creatinine Estim Creat Clear Calc Estimated GFR Random Glucose Calcium Total Bilirubin Direct Bilirubin AST ALT Alkaline Phosphatase Total Protein Albumin Carbamazepine Boswell 0.87 Imaging Diagnostic Imaging Impressions Head CT 06/17/22 15:28 IMPRESSION: No acute intracranial abnormality including hemorrhage, mass effect, hydrocephalus, or acute territorial edematous infarction. DS: Summary Hospital Course Hospital Course: per 05/05 admission note: pt BIB[facility] to [facility] with CC of insomnia.? pt generally disorganized, thought-blocked, unable to engage with interviewers in evaluation and assessment.? on interview with MD after admission to psych unit, same interaction and behaviors observed.? very long delays in answering questions, answering with non-sequiturs, making vague answers.? pt has no questions or requests for MD.? he had a bandaid on his forehead and MD asked what it was from.? he said he bumped his head, then a moment later said no, he was kidding, he didn';t do that.? it was from smoking weed.? reflected, you got a bruise on your forehead from smoking weed?? pt said yes, without further explanation.? pt asked MD repeatedly, even after MD introduced himself as pt's psych MD, if MD could help him get a job.? on being asked if he were having thoughts of harming himself or suicide, after a long pause he answered, yeah at first.? MD asked for further explanation and again after a long pause, pt said, nuthin', just chillin'.? feelin' good. Past Psychiatric History: IP: since 2019, at least 6 psych hosps at [facility], [facility], [facility], [facility] OP: Denies- Karl Zhao [phone] Meds: VNA reports pt elopes when they arrive, hides, cheeks meds, self-induced vomiting Trials: Abilify, Cogentin, Prazosin, Atarax Medical Evaluation Reviewed: Yes [facility] Medical History? Schizophrenia Family History: mental illness-one in lifetime psych placement (maternal relatives) Social History: Parents Two sisters Cared for by his father, lives with father and one sister in [employer] student Behaviors began June 2019-lost interest, isolative, behavioral dyscontrol Substance History: denies, none known Trauma History: none reported Precis: 05/05:? possibly manic, will invest more effort in trying to get mood stabilizer on board. continue zydis for now, start VPA sprinkles. 05/06: no change in mgmt. 05/07: no change in presentation.? change VPA from sprinkles back to pills due to large number of sprinkles pills required to generate 1500 mg of VPA.? pt not compliant with VPA, has been taking some zyprexa; change formulation to zydis to improve bioavailability.? plan to move to file for commitment next week if pt doesn't soon begin to reliably take medication. 05/08? no change 05/09 no change 05/10: no change to mgmt.? chewed meds x 1 over weekend, cheeking/furtively disposing of meds otherwise. 05/11: generally refusing meds.? informed he will be filed on tomorrow.? attempting to bargain over taking meds and discharge.? will investigate obtaining VPA soln. 05/12:? commitment paperwork filed.? pt took all meds last night and this morning, including liquid VPA.? aware of legal circumstance, unclear how well he is able to appreciate it. 05/13:? asking about discharge, states he is compliant with meds (as also say nursing staff).? states he is feeling better, but unable to say in what way.? sleeping and eating well. 05/14:? repeated checking-in with MD throughout the day.? remains disorganized and apparently RIS.? med-compliant. 05/15:? sleeping midday.? no change in presentation. 05/16: no change in presentation or plan. 05/17: no change in presentation or plan.? commitment hearing tomorrow. 05/18: no change in presentation.? committed to the hospital at hearing. 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 DC zyprexa as well as it lacks usable COUCH.? start paliperidone PO, convert to COUCH once it is established pt is tolerating the medication. 05/20: continue to establish on tegretol and invega.? introduce COUCH once pt stable on PO formulation for several days.? check tegretol levels after about a week.? no change in presentation. 05/21 continue current medication. 05/22 continue current treatment plan 05/23 continue current treatment plan 05/24 continue current medications. continues with psychosis/delusions. 05/25 continue current tx. 05/26 continue tx. 05/27 continue tx. vaughn do tegretol level Sat. 05/28 continue tx. 05/29 continue tx. 05/30 continue tx. not much improvement. continues to self dialoguing 05/31 continue tx. minimal improvement. 06/01 continue tx. may want to consider change in antipsychotic. 06/02: no change since last seen 05/20.? on paliperidone 12 mg daily.? tegretol level 5.2.? trend LFTs; slightly elevated.? willing to have lithium added today. 06/03:? reports improved concentration today with lithium addition.? continue current mgmt.? T/C different neuroleptic, T/C increase in tegretol dosing. 06/04:? continue current mgmt.? check lithium on tuesday.? stable presentation. 06/05: continue current mgmt.? stable presentation. 06/06: as for 06/05. 06/07: no change in presentation.? checking labs tonight. 06/08 continue tx. 06/09: tegretol 7.7, lithium 0.34.? increase tegretol dosing to 300 BID and lithium dosing to 600 BID.? no change in presentation. 06/10: no change in presentation. 06/11: hypertensive and borderline tachy.? follow.? stable presentation, continue current mgmt.? check labs early next week. 06/14: lithium checked today, 0.67.? increase lithium dosing from 600 BID to 600/900.? check tegretol level and rest of labs tomorrow morning.? no change in presentation. 06/15: tegretol level 6.2 currently.? pt is reported to have c/o dizziness, but denies said Sx upon MD inquiry.? increase tegretol from 300 BID to 300/400 as of tonight.? T/C change in neuroleptic.? no change in presentation. 06/16: no change in plan or presentation for today. 06/17: no change in presentation.? check head CT, U/A, ESR, TORIN, TSH/T4, B12/folate, HIV, Hep C, RPR.? lab abnormalities include chronic leukopenia, increase urine spec grav w/proteinuria and ketonuria.? DC paliperidone as it appears to have changed nothing, start trial of haldol.? thus far zyprexa and invega have not helped.? haldol, prolixin, and abilify are the medications which remain on the stevo's order. 06/18:? tolerating haldol currently.? no change in presentation.? continue current mgmt. 06/19: Continue current regimen and plans 06/20: Continue current regimen plans 06/21:? no change in presentation.? increase haldol from 5 BID to 7.5 BID.? otherwise continue current mgmt. 06/22:? continue current mgmt.? no change in presentation.? case discussed with medical coding instructor. 06/23:? continue current mgmt.? no change in presentation.? T/C petitioning court for clozaril and ECT 06/24:? continue current mgmt.? no change in presentation.? T/C petitioning court for clozaril and ECT. 06/25:? no change.? pt reported inducing vomiting after taking meds.? staff believe pt cheeked meds last night and then went immediately to the bathroom.? place patient on 1:1 for 30 minutes after meals. 06/26? keep same treatment 06/27? keep same treatment. 06/28: no whispering to self, but laughing continues.? requesting discharge.? no substantial progress.? begin taper of tegretol as not having substantially modified presentation (reduce 300/400 --> 200/300 as of ).? discuss w/med providers in med providers' mtg tomorrow. 06/29:? increase haldol to 10 BID.? discussed case at providers' mtg.? plan to pursue clozapine/ECT. 06/30:? after further discussion with medical coding instructor freida, plan devised to give COUCH antipsychotic now and see if pt can stabilize over next several months with that therapy.? if he recidivates shortly, commitment and clozapine/ECT orders will be pursued.? continue tegretol taper and DC prior to discharge. 07/01:? decrease tegretol 200 BID to 100/200 as of tomorrow.? scheduled for 200 mg haldol dec on tuesday.? otherwise continue current mgmt.? family mtg with father tomorrow at 2. 07/02:? family mtg held.? planning for DC mid-late next week.? continue tegretol taper tuesday. 07/03: Continue treatment plan. Added Haldol PO PRN agitation. 07/04: Continue current tx plan. 07/05: hypersexual, disinhibited over w/e.? increase tegretol back to 200/300 (from 100/200).? to receive another 200 mg of IM haldol today.? restart haldol 5 mg PO BID until discharge. 07/06: in light of CBC and LFT abnormalities with most likely culprit being tegretol, reinstitute tegretol taper.? decrease dosing from 200/300 back to 100/200 with commitment to complete taper.? no concerning behaviors since the w/e. ? continue current mgmt otherwise.? deferring discharge to next week in light of need for continued stabilization. 07/07: hypersexual behaviors.? continue current mgmt. 07/08: no noted problematic behaviors in the past day.? continue tegretol taper - 100/200 --> 100 BID. 07/09: inappropriate sexualized comment to female staff.? taper tegretol to 100 QHS.? continue current mgmt otherwise.? no hand tremor. 07/10:? continue 07/11:? continue tx. 07/12:? no change in presentation.? DC tegretol entirely.? otherwise continue current mgmt.? considering DC should behavior remain non-problematic. 07/13:? checks labs for cell counts and LFTs.? check lithium level and renal fxn.? lithium and tegretol levels.? no change in presentation, no change in mgmt otherwise. 07/14: no change in mgmt or presentation. discharge tomorrow. if pt is not able to be stabilized on COUCH haldol and PO lithium, will have to petition court for clozapine and ECT if he is readmitted. LFTs trending well and cell counts as well with DC of tegretol. Time Spent with Patient Time attestation: Total time managing care of this patient today ____ minutes. Time spent: Greater than 30 minutes Discharge Plan Discharge Anticipated Discharge Date/Time: 07/15/22 14:30 Patient Disposition: Home, Self-Care Discharge Diagnosis: Schizoaffective Disorder, Bipolar Type Referrals: Javier Gilliland MD [Primary Care Provider] - 1 Week Discharge Medications: New diphenhydramine HCl 12.5 mg/5 mL Liquid 25 mg PO BID 30 Days Qty: 600 0RF lithium carbonate 300 mg Tablet Extended Release 600 mg PO DAILY 30 Days Qty: 60 0RF lithium carbonate 450 mg Tablet Extended Release 900 mg PO BEDTIME 30 Days Qty: 60 0RF docusate sodium 100 mg Capsule 100 mg PO BEDTIME 30 Days Qty: 30 0RF omeprazole 20 mg Capsule,Delayed Release(Dr/Ec) 20 mg PO DAILY@0630 30 Days Qty: 30 0RF haloperidol decanoate [Haldol Decanoate] 100 mg/mL solution 300 mg IM Q4W 28 Days Qty: 3 0RF Rx Instructions: to give 08/02 and every 28 days thereafter Continued prazosin 2 mg capsule 1 cap PO BEDTIME 30 Days Qty: 30 0RF melatonin 5 mg tablet,disintegrating 5 mg PO BEDTIME 30 Days Qty: 30 0RF Discontinued lamotrigine 25 mg tablet 1 tab PO BID benztropine 1 mg tablet 1 tab PO BID lorazepam 1 mg tablet 1 tab PO Q6H PRN (Reason: Anxiety) olanzapine 20 mg tablet 2 tab PO BEDTIME Discharge Orders: Discharge Order (Routine); Ordered 07/15/22 Ordered By: Luis Dasilva Diet: Advance to usual diet Activity on Discharge: As tolerated Stand Alone Forms: Patient Portal Discharge page Care Plan Goals: remain safe and stable in the outpatient treatment setting Health Concerns: none Plan of Treatment: take medications as prescribed, attend appointments as scheduled Assessment: not at imminent risk of harm to self or others
[2022-07-14] MEDS: hydrOXYzine HCL 25 MG TABLET PO (19:30)
[2022-07-14 20:26] VITALS: BP 132/60; PULSE 82; RESP 18; TEMP 36.5; O2SAT 97
[2022-07-14] MEDS: Prazosin HCL 1 MG CAPSULE 2 MG PO (20:27)
[2022-07-14] MEDS: Melatonin 3 MG TABLET 6 MG PO (20:27)
[2022-07-14] MEDS: Docusate Sodium 100 MG CAPSULE PO (20:27)
[2022-07-14] MEDS: Lithium Carbonate ER 450 MG TABLET.ER 900 MG PO (20:27)
[2022-07-15 09:10] VITALS: BP 134/61; PULSE 80; RESP 16; TEMP 36.3; O2SAT 98
[2022-07-15] MEDS: Lithium Carbonate ER 300 MG TABLET.ER 600 MG PO (09:21)
[2022-07-15] MEDS: Omeprazole 20 MG CAPSULE.DR PO (09:21)
[2022-07-15] MEDS: diphenhydrAMINE HCl 12.5 MG/5 ML LIQUID 25 MG PO (09:21)
[2022-07-15] MEDS: Haloperidol Lactate Oral Conc 10 MG/5 ML ORAL.CONC 5 MG PO (09:21)
--- NOTE | 2022-07-15 10:05 | PC.NURSE ---
Ralf is discharged home today to the care of father and the PACT team. He is alert, pleasant and cooperative with discharge process. Ralf denies ideation, plan or intent to harm self or others. He denies physical complaint.
== END 2022-07-15 14:50 | disposition home or self-care (01) | DRG 750 ==
LOC: HO.ED 15:21 → HO.PADLT16 15:54
PROVIDERS: Psychiatry & Neurology Psychiatry; Social Worker; Admitting Provider Psychiatry & Neurology Psychiatry; Emergency Provider Internal Medicine; PCP Internal Medicine; Visit Provider Psychiatry & Neurology Psychiatry
DX: F25.0 Schizoaffective disorder, bipolar type (principal); Z20.822 Contact with and (suspected) exposure to COVID-19; Z79.899 Other long term (current) drug therapy
CPT/HCPCS: 36415; 70450; 80048; 80053; 80076; 80156; 80164; 80178; 80307; 81003; 82140; 85025; 87635; 93005; 99285; S9485